=== PATIENT | male | born 1970 | race African-American/Black ===

== ENCOUNTER → 2017-02-05 | Outpatient (CLI) | payer MEDICARE, OTHER ==
[2017-02-05 09:25] LABS: ALT 34 U/L (21-72); AST 25 U/L (17-59); Alkaline Phosphatase 49 U/L (38-126); Anion Gap 9 mmol/L; Blood Urea Nitrogen 14 mg/dL (9-20); Calcium 8.9 mg/dL (8.4-10.2); Carbon Dioxide 25 mmol/L (22-30); Chloride 105 mmol/L (98-107); Creatine Kinase 337 U/L (55-170); Glucose 74 mg/dL (74-99); Non-African American GFR(MDRD) 58 (>60 ml/min/1.73 sqM); Potassium 4.9 mmol/L (3.5-5.1); Sodium 139 mmol/L (137-145); Total Bilirubin 0.5 mg/dL (0.2-1.3); Total Protein 7.4 g/dL (6.3-8.2)
== END | disposition home or self-care (01) ==
LOC: LABWHC1 08:44
PROVIDERS: ATTEND Nurse Practitioner Family
DX: N18.9 Chronic kidney disease, unspecified (principal); E55.9 Vitamin D deficiency, unspecified; R80.9 Proteinuria, unspecified
CPT/HCPCS: 36415; 80053; 82306; 82550; 82570; 84156

== ENCOUNTER 2017-02-08 14:17 | Emergency (ER) | payer MEDICARE, OTHER ==
[2017-02-08] MEDS ORDERED: ASPIRIN 81 MG CHEW PO STA (14:40)
[2017-02-08] MEDS ORDERED: NITROGLYCERIN OINT 1 INCH/GM PACKET TOPICAL STA (14:40)
--- NOTE | 2017-02-08 14:42 | ED ---
General Adult HPI - General Chief complaint: Chest Pain Stated complaint: Chest Pain Time Seen by Provider: 02/08/17 14:33 Source: patient, RN notes reviewed Mode of arrival: wheelchair Limitations: no limitations - History of Present Illness Initial comments: Patient is a pleasant 46-year-old male presenting to the emergency department complaining of chest discomfort. Onset of symptoms was prior to arrival. Patient was in the gym around 45 minutes prior to onset of symptoms. Patient was driving during onset. Patient felt sharp electrical discomfort of his chest that did radiate downwards. Patient was sweaty and nauseated and possibly slightly short of breath. Patient is symptom-free at this time. No history of similar symptoms previously. No leg pain or swelling. - Related Data Home Medications Medication Instructions Recorded Confirmed Testosterone Cypionate 200 mg IM MO 01/21/15 02/08/17 [Depo-Testosterone] Carvedilol [Coreg] 6.25 mg PO BID 02/08/17 02/08/17 Lisinopril [Zestril] 5 mg PO DAILY 02/08/17 02/08/17 Spironolactone [Aldactone] 25 mg PO DAILY 02/08/17 02/08/17 oxyCODONE-APAP 10-325MG [Percocet 1 tab PO QID PRN 02/08/17 02/08/17 10-325 mg] Allergies Allergy/AdvReac Type Severity Reaction Status Date / Time No Known Allergies Allergy Verified 02/08/17 15:17 Review of Systems ROS Statement: Those systems with pertinent positive or pertinent negative responses have been documented in the HPI. ROS Other: All systems not noted in ROS Statement are negative. Constitutional: Denies: fever Eyes: Denies: eye pain ENT: Denies: ear pain Respiratory: Denies: cough Cardiovascular: Reports: chest pain Endocrine: Denies: fatigue Gastrointestinal: Reports: nausea. Denies: abdominal pain Genitourinary: Denies: dysuria Musculoskeletal: Denies: back pain Skin: Denies: rash Neurological: Denies: weakness Past Medical History Past Medical History: Musculoskeletal Disorder, Osteoarthritis (OA), Sleep Apnea /CPAP/BIPAP Additional Past Medical History / Comment(s): possible sleep apnea-never had sleep study done History of Any Multi-Drug Resistant Organisms: None Reported Past Surgical History: Back Surgery Past Anesthesia/Blood Transfusion Reactions: No Reported Reaction Past Psychological History: Anxiety Smoking Status: Former smoker Past Alcohol Use History: None Reported Past Drug Use History: None Reported - Past Family History Father Family Medical History: Cancer Additional Family Medical History / Comment(s): lung Mother Family Medical History: Cancer Additional Family Medical History / Comment(s): colon General Exam Limitations: no limitations General appearance: alert, in no apparent distress Head exam: Present: atraumatic Eye exam: Present: normal appearance, PERRL ENT exam: Present: normal oropharynx Neck exam: Present: normal inspection Respiratory exam: Present: normal lung sounds bilaterally. Absent: chest wall tenderness Cardiovascular Exam: Present: regular rate, normal rhythm Expanded Peripheral pulses: 2+: Radial (R), Radial (L), Posterior Tibialis (R), Posterior Tibialis (L) GI/Abdominal exam: Present: soft. Absent: tenderness Extremities exam: Present: normal inspection. Absent: pedal edema, calf tenderness Neurological exam: Present: alert Psychiatric exam: Present: normal affect, normal mood Skin exam: Present: normal color Course Vital Signs 02/08/17 02/08/17 14:18 16:00 Temperature 97.1 F L Pulse Rate 114 H 85 Respiratory 18 20 Rate Blood Pressure 160/78 O2 Sat by Pulse 99 98 Oximetry EKG Findings - EKG Comments: EKG Findings:: Sinus tachycardia 110. HI 144. QRS 78. QT 314. QTC 427. Normal axis. Normal QRS. Normal ST-T. Medical Decision Making - Medical Decision Making Patient reevaluated and resting comfortably in bed. Patient remained symptom- free. Patient updated on results. Patient was advised admission. Patient does refuse admission. Patient states he was at [facility] one month ago with similar problems and everything checked out okay. Patient is advised limitations in the emergency department. Patient is made aware that heart attack has not been ruled out. Patient has also been made aware that he could be at risk for heart attack in the near future. Patient is agreeable to follow- up with his doctor and organic chemistry professor has previously seen and agreeable to call tomorrow. Patient is advised to return if any worsening symptoms and that he will need to leave AGAINST MEDICAL ADVICE if he decides to leave. - Lab Data Result diagrams: 02/08/17 14:45 02/08/17 14:45 Lab Results 02/08/17 02/08/17 02/08/17 Range/Units 14:45 14:45 14:45 WBC 5.0 (3.8-10.6) k/uL RBC 5.09 (4.30-5.90) m/uL Hgb 16.1 (13.0-17.5) gm/dL Hct 47.7 (39.0-53.0) % MCV 93.8 (80.0-100.0) fL MCH 31.7 (25.0-35.0) pg MCHC 33.8 (31.0-37.0) g/dL RDW 14.2 (11.5-15.5) % Plt Count 193 (150-450) k/uL Neutrophils % 63 % Lymphocytes % 26 % Monocytes % 7 % Eosinophils % 1 % Basophils % 0 % Neutrophils # 3.2 (1.3-7.7) k/uL Lymphocytes # 1.3 (1.0-4.8) k/uL Monocytes # 0.3 (0-1.0) k/uL Eosinophils # 0.1 (0-0.7) k/uL Basophils # 0.0 (0-0.2) k/uL PT (9.0-12.0) sec INR (<1.2) APTT (22.0-30.0) sec D-Dimer (<0.60) mg/L FEU Sodium 136 L (137-145) mmol/L Potassium 3.8 (3.5-5.1) mmol/L Chloride 98 (98-107) mmol/L Carbon Dioxide 25 (22-30) mmol/L Anion Gap 13 mmol/L BUN 22 H (9-20) mg/dL Creatinine 1.28 H (0.66-1.25) mg/dL Est GFR (MDRD) Af Amer >60 (>60 ml/min/1.73 sqM) Est GFR (MDRD) Non-Af 60 (>60 ml/min/1.73 sqM) Glucose 173 H (74-99) mg/dL Calcium 9.2 (8.4-10.2) mg/dL Magnesium 1.5 L (1.6-2.3) mg/dL Total Bilirubin 0.3 (0.2-1.3) mg/dL AST 32 (17-59) U/L ALT 31 (21-72) U/L Alkaline Phosphatase 49 (38-126) U/L Total Creatine Kinase 564 H (55-170) U/L CK-MB (CK-2) 2.1 (0.0-2.4) ng/mL CK-MB (CK-2) Rel Index 0.4 Troponin I <0.012 (0.000-0.034) ng/mL Total Protein 7.4 (6.3-8.2) g/dL Albumin 4.4 (3.5-5.0) g/dL 02/08/17 Range/Units 14:45 WBC (3.8-10.6) k/uL RBC (4.30-5.90) m/uL Hgb (13.0-17.5) gm/dL Hct (39.0-53.0) % MCV (80.0-100.0) fL MCH (25.0-35.0) pg MCHC (31.0-37.0) g/dL RDW (11.5-15.5) % Plt Count (150-450) k/uL Neutrophils % % Lymphocytes % % Monocytes % % Eosinophils % % Basophils % % Neutrophils # (1.3-7.7) k/uL Lymphocytes # (1.0-4.8) k/uL Monocytes # (0-1.0) k/uL Eosinophils # (0-0.7) k/uL Basophils # (0-0.2) k/uL PT 10.7 (9.0-12.0) sec INR 1.1 (<1.2) APTT 22.4 (22.0-30.0) sec D-Dimer <0.17 (<0.60) mg/L FEU Sodium (137-145) mmol/L Potassium (3.5-5.1) mmol/L Chloride (98-107) mmol/L Carbon Dioxide (22-30) mmol/L Anion Gap mmol/L BUN (9-20) mg/dL Creatinine (0.66-1.25) mg/dL Est GFR (MDRD) Af Amer (>60 ml/min/1.73 sqM) Est GFR (MDRD) Non-Af (>60 ml/min/1.73 sqM) Glucose (74-99) mg/dL Calcium (8.4-10.2) mg/dL Magnesium (1.6-2.3) mg/dL Total Bilirubin (0.2-1.3) mg/dL AST (17-59) U/L ALT (21-72) U/L Alkaline Phosphatase (38-126) U/L Total Creatine Kinase (55-170) U/L CK-MB (CK-2) (0.0-2.4) ng/mL CK-MB (CK-2) Rel Index Troponin I (0.000-0.034) ng/mL Total Protein (6.3-8.2) g/dL Albumin (3.5-5.0) g/dL - Radiology Data Radiology results: image reviewed (Chest x-ray shows no acute process.) Disposition Clinical Impression: Chest pain Disposition: Left Against Medical Advice Instructions: Chest Pain (ED) Additional Instructions: Please follow-up with your primary care physician and organic chemistry professor tomorrow. Return for chest pain, difficulty breathing, weakness, worsening symptoms or other concerns. You are leaving AGAINST MEDICAL ADVICE. Aspirin daily until follow-up and advised otherwise. Please have primary care physician reevaluate kidney test and magnesium level in the future. Please decrease the amount of protein and your high-protein diet as this could be related to kidney problems. Referrals: Olga Taylor MD [Primary Care Provider] - 1-2 days Time of Disposition: 16:47
[2017-02-08 14:59] LABS: Basophils % (A) 0 %; CH 32.8; CHCM 35.1; Eosinophils # (A) 0.1 k/uL (0-0.7); Eosinophils % (A) 1 %; HCT 47.7 % (39.0-53.0); HDW 2.46; HGB 16.1 gm/dL (13.0-17.5); Luc % (Auto) 2; Lymphocytes # (A) 1.3 k/uL (1.0-4.8); Lymphocytes % (A) 26 %; MCH 31.7 pg (25.0-35.0); MCHC 33.8 g/dL (31.0-37.0); MCV 93.8 fL (80.0-100.0); Mean Platelet Volume 6.9; Monocytes # (A) 0.3 k/uL (0-1.0); Monocytes % (A) 7 %; Neutrophils # (A) 3.2 k/uL (1.3-7.7); Neutrophils % (A) 63 %; RBC 5.09 m/uL (4.30-5.90); RDW 14.2 % (11.5-15.5); WBC (Perox) 5.12
--- NOTE | 2017-02-08 15:09 | XR ---
EXAMINATION TYPE: XR chest 2V DATE OF EXAM: 02/08/2017 COMPARISON: 12/10/2014 HISTORY: Chest pain and tightness TECHNIQUE: Frontal and lateral views of the chest are obtained. FINDINGS: There is no focal air space opacity, pleural effusion, or pneumothorax seen. The cardiac silhouette size is within normal limits. The osseous structures are intact. IMPRESSION: No acute cardiopulmonary process.
[2017-02-08 15:14] LABS: ALT 31 U/L (21-72); AST 32 U/L (17-59); Alkaline Phosphatase 49 U/L (38-126); Anion Gap 13 mmol/L; Blood Urea Nitrogen 22 mg/dL (9-20); Calcium 9.2 mg/dL (8.4-10.2); Carbon Dioxide 25 mmol/L (22-30); Chloride 98 mmol/L (98-107); Glucose 173 mg/dL (74-99); Magnesium 1.5 mg/dL (1.6-2.3); Non-African American GFR(MDRD) 60 (>60 ml/min/1.73 sqM); Potassium 3.8 mmol/L (3.5-5.1); Sodium 136 mmol/L (137-145); Total Bilirubin 0.3 mg/dL (0.2-1.3); Total Protein 7.4 g/dL (6.3-8.2)
[2017-02-08 15:15] LABS: INR 1.1 (<1.2); Partial Thromboplastin Time 22.4 sec (22.0-30.0); Prothrombin Time 10.7 sec (9.0-12.0)
[2017-02-08 15:22] LABS: Creatine Kinase 564 U/L (55-170)
[2017-02-08 15:34] LABS: Creatine Kinase MB 2.1 ng/mL (0.0-2.4); Troponin I <0.012 ng/mL (0.000-0.034)
[2017-02-08 16:07] VITALS: RESP 20
[2017-02-08] MEDS ORDERED: MAGNESIUM OXIDE 400 MG TAB PO STA (16:12)
[2017-02-08 16:45] VITALS: BP 135/68; PULSE 89; TEMP 98.1
== END 2017-02-08 16:50 | disposition left against medical advice (07) ==
LOC: EC 14:17
DX: R07.89 Other chest pain (principal); R11.0 Nausea; Z87.891 Personal history of nicotine dependence; Z79.02 Long term (current) use of antithrombotics/antiplatelets; Z79.899 Other long term (current) drug therapy
CPT/HCPCS: 36415; 71020; 80053; 82550; 82553; 83735; 84484; 85025; 85379; 85610; 85730; 93005; 99285

== ENCOUNTER 2017-02-08 18:57 | Observation (INO) | payer MEDICARE, OTHER ==
[2017-02-08] MEDS ORDERED: NITROGLYCERIN OINT 1 INCH/GM PACKET TOPICAL STA (19:19)
--- NOTE | 2017-02-08 19:25 | ED ---
Chest Pain HPI - General Chief Complaint: Chest Pain Stated Complaint: chest pain Time Seen by Provider: 02/08/17 19:03 Source: patient Mode of arrival: wheelchair Limitations: no limitations - History of Present Illness Initial Comments: This is a 46-year-old male with a history of hypertension and chronic back pain who presents here department for the second time today for chest pain. He describes it as an aching sensation in his left anterior chest. It is not made worse with breathing or movement. Nothing seems to make it better area however he did get nitro earlier that seemed to improve his symptoms. He went home from the hospital earlier and had more chest pain, some shortness of breath, lightheadedness, and nausea. He was concerned so he returned. It appears that he was recommended to be admitted however left AGAINST MEDICAL ADVICE. He did have a stress test approximately one year ago and states that he was told that he had a weak heart. He was started on blood pressure and diuretics at that time. He denies any lower [place] swelling. Blood work was reviewed from earlier and he had negative troponin and a negative d-dimer. Chest x-ray was normal. - Related Data Home Medications Medication Instructions Recorded Confirmed Testosterone Cypionate 200 mg IM MO 01/21/15 02/08/17 [Depo-Testosterone] Carvedilol [Coreg] 6.25 mg PO BID 02/08/17 02/08/17 Lisinopril [Zestril] 5 mg PO DAILY 02/08/17 02/08/17 Spironolactone [Aldactone] 25 mg PO DAILY 02/08/17 02/08/17 oxyCODONE-APAP 10-325MG [Percocet 1 tab PO QID PRN 02/08/17 02/08/17 10-325 mg] Allergies Allergy/AdvReac Type Severity Reaction Status Date / Time No Known Allergies Allergy Verified 02/08/17 19:02 Review of Systems ROS Statement: Those systems with pertinent positive or pertinent negative responses have been documented in the HPI. ROS Other: All systems not noted in ROS Statement are negative. EKG Findings - EKG Comments: EKG Findings:: EKG showing normal sinus rhythm with a rate of 90. No abnormal ST segment changes. There is a T-wave inversion in lead 3. QTC is 393. Other intervals are normal. No ectopy. Past Medical History Past Medical History: Musculoskeletal Disorder, Osteoarthritis (OA), Sleep Apnea /CPAP/BIPAP Additional Past Medical History / Comment(s): possible sleep apnea-never had sleep study done History of Any Multi-Drug Resistant Organisms: None Reported Past Surgical History: Back Surgery Past Anesthesia/Blood Transfusion Reactions: No Reported Reaction Past Psychological History: Anxiety Smoking Status: Former smoker Past Alcohol Use History: None Reported Past Drug Use History: None Reported - Past Family History Father Family Medical History: Cancer Additional Family Medical History / Comment(s): lung Mother Family Medical History: Cancer Additional Family Medical History / Comment(s): colon General Exam - General Exam Comments Initial Comments: Constitutional: [Awake alert] [Appears comfortable] Head: [Normocephalic atraumatic] Eyes: [no conjunctival injection] [No scleral icterus] [EOMI] Neck: [No JVD] [Supple] Heart: [Regular rate rhythm] [normal S1-S2] [no murmurs], chest pain nonreproducible Lungs: [Clear to auscultation bilaterally] [No wheezing] [No rales] Abdomen: [Soft] [nondistended] [nontender] Extremities: [Non edematous] [DP pulses intact] [Radial pulses intact] Neuro: [A&Ox3] [No focal neurologic deficits] Psych: [Appropriate mood and affect] Limitations: no limitations Course Vital Signs 02/08/17 02/08/17 19:00 19:31 Temperature 97.5 F L Pulse Rate 87 Pulse Rate [ 80 Right Radial] Respiratory 16 Rate Blood Pressure 143/65 O2 Sat by Pulse 95 Oximetry Chest Pain MDM - MDM This is a 46-year-old male who presents emergency department for chest pain that was recurrent today. EKG was unremarkable for an acute STEMI. Repeat troponins were drawn. Patient was given Nitropaste and started on heparin. I spoke with Dr. Garcia who accepts the admission and would like cardiology to see him. Patient was updated and agrees with this plan. All questions were answered. Disposition Clinical Impression: Unstable angina Disposition: ADMITTED IP TO THIS HOSP Condition: Stable
[2017-02-08] MEDS ORDERED: NITROGLYCERIN SL TABS 0.4 MG TAB SUBLINGUAL PRN (19:32)
[2017-02-08] MEDS ORDERED: HEPARIN SODIUM,PORCINE 5,000 UNIT/ML 1 ML VIAL IV ONE (19:32)
[2017-02-08] MEDS ORDERED: HEPARIN SODIUM,PORCINE 5,000 UNIT/ML 1 ML VIAL IV PRN (19:37)
[2017-02-08] MEDS ORDERED: HEPARIN SODIUM,PORCINE/D5W PMX 25,000 UNIT in DEXTROSE/WATER 1 500ML.BAG IV SCH (19:45)
[2017-02-08 20:03] LABS: Creatine Kinase 573 U/L (55-170)
[2017-02-08 20:16] LABS: Creatine Kinase MB 1.7 ng/mL (0.0-2.4); Troponin I <0.012 ng/mL (0.000-0.034)
[2017-02-08] MEDS: oxyCODONE-APAP 10-325MG 1 EACH TAB PO PRN (21:05)
[2017-02-09 02:48] LABS: Creatine Kinase 521 U/L (55-170)
[2017-02-09 03:01] LABS: Creatine Kinase MB 1.6 ng/mL (0.0-2.4); Troponin I <0.012 ng/mL (0.000-0.034)
[2017-02-09] MEDS: oxyCODONE-APAP 10-325MG 1 EACH TAB PO PRN (07:02)
[2017-02-09] MEDS ORDERED: SPIRONOLACTONE 25 MG TAB PO SCH (09:00)
[2017-02-09] MEDS ORDERED: LISINOPRIL 5 MG TAB PO SCH (09:00)
[2017-02-09] MEDS ORDERED: ASPIRIN 325 MG TAB PO SCH (09:00)
[2017-02-09] MEDS ORDERED: CARVEDILOL 6.25 MG TAB PO SCH (09:15)
[2017-02-09 09:16] LABS: Cholesterol 190 mg/dL (<200); HDL Cholesterol 36 mg/dL (40-60)
[2017-02-09] MEDS ORDERED: ATORVASTATIN 10 MG TAB PO SCH (10:00)
--- NOTE | 2017-02-09 10:00 | P.CRDCN ---
History of Present Illness Consult date: 02/09/17 Consult reason: chest pain History of present illness: This is a 46-year-old -[place] male. He presented to the emergency department with complaints of chest pain. He states he was driving his car and he felt what he describes as a electrical jolt to the left chest wall. He states he became short of breath, nauseous, diaphoretic and dizzy. He felt as though he was going to pass out and got extremely weak throughout his entire body. He states he was right near the hospital when this occurred so he came straight to the ED. This episode persisted for approximately 10 minutes and went away on its own. He has a history of nonischemic cardiomyopathy and hypertension. He follows with Dr. Orozco as an outpatient. He recently had a stress echo and an echocardiogram in August 2015. Stress echo was normal; echocardiogram revealed an ejection fraction of 45%, mild MR and mild TR. His EKG reveals a normal sinus mechanism. Chest x-ray is negative for an acute pulmonary process. Troponins are negative 3, d-dimer is negative, BNP was less than 11, mag 1.5 and creatinine is 1.28. His medications include Zestril 5 mg, Coreg 6.25 mg, Aldactone 25 mg, testosterone 200 mg weekly. Upon examination he is seen resting comfortably in bed in no acute distress. He denies chest pain, shortness of breath, nausea, dizziness or palpitations. Cardiac tracings overnight revealed normal sinus mechanism with no arrhythmia. Review of Systems REVIEW OF SYSTEMS: Patient denies any chest discomfort. No shortness of breath. No diaphoresis. He denies headache, dizziness, blurred vision, double vision. No dyspnea on exertion. Patient denies any stomach discomfort. No nausea, vomiting. No hematochezia. No hematemesis. Denies any black stools or blood in his stools. No syncope. No palpitations. No cough. No recent fever or chills. Denies dysuria or hematuria. No muscle weakness or numbness. Past Medical History Past Medical History: Hypertension, Osteoarthritis (OA), Sleep Apnea/CPAP/BIPAP Additional Past Medical History / Comment(s): possible sleep apnea-never had sleep study done. Low testosterone. History of Any Multi-Drug Resistant Organisms: None Reported Past Surgical History: Back Surgery Additional Past Surgical History / Comment(s): back surgeries x2 Past Anesthesia/Blood Transfusion Reactions: No Reported Reaction Smoking Status: Former smoker - Past Family History Father Family Medical History: Cancer Additional Family Medical History / Comment(s): lung Mother Family Medical History: Cancer Additional Family Medical History / Comment(s): colon Medications and Allergies Home Medications Medication Instructions Recorded Confirmed Type Testosterone Cypionate 200 mg IM MO 01/21/15 02/08/17 History [Depo-Testosterone] Carvedilol [Coreg] 6.25 mg PO BID 02/08/17 02/08/17 History Lisinopril [Zestril] 5 mg PO DAILY 02/08/17 02/08/17 History Spironolactone [Aldactone] 25 mg PO DAILY 02/08/17 02/08/17 History oxyCODONE-APAP 10-325MG [Percocet 1 tab PO QID PRN 02/08/17 02/08/17 History 10-325 mg] Allergies Allergy/AdvReac Type Severity Reaction Status Date / Time No Known Allergies Allergy Verified 02/08/17 20:38 Physical Exam Vitals: Vital Signs Temp Pulse Pulse Resp BP BP Pulse Ox 02/09/17 04:00 98.3 F 80 16 107/60 97 02/09/17 03:43 16 02/08/17 23:19 16 02/08/17 23:18 98.8 F 71 16 91/44 95 02/08/17 20:50 18 02/08/17 20:23 98.5 F 86 18 132/57 93 L 02/08/17 19:55 98.0 F 90 18 135/58 95 02/08/17 19:31 80 02/08/17 19:00 97.5 F L 87 16 143/65 95 Intake and Output 02/08/17 02/09/17 02/09/17 22:59 06:59 14:59 Intake Total 705.790 Balance 705.790 Intake: IV 360 0.9@20 180 Heparin Sodium,Porcine/ 180 D5w Pmx 25,000 unit In Dextrose/Water 1 500ml. bag @ 9.7 UNITS/KG/HR 20. 06 mls/hr IV .Q24H [facility] Rx #:[id number] Intake, IV Titration 145.790 Amount Heparin Sodium,Porcine/ 145.790 D5w Pmx 25,000 unit In Dextrose/Water 1 500ml. bag @ 9.7 UNITS/KG/HR 20. 06 mls/hr IV .Q24H [facility] Rx #:[id number] Oral 200 Other: Voiding Method Toilet Toilet # Voids 2 Weight 104.2 kg GENERAL: This is a 46-year-old male in no apparent distress at the time of my examination. HEENT: Head is atraumatic, normocephalic. Pupils are equal, round. Sclerae anicteric. Conjunctivae are clear. Mucous membranes of the mouth are moist. Neck is supple. There is no jugular venous distention. No carotid bruit is heard. LUNGS: Clear to auscultation and precussion. No chest wall tenderness is noted on palpation or with deep breathing. HEART: Regular rate and rhythm without murmurs, rubs or gallops. S1 and S2 heard. ABDOMEN: Soft, nontender. Bowel sounds are heard. No organomegaly noted. EXTREMITIES: 2+ peripheral pulses with no evidence of peripheral edema and no calf tenderness noted]. NEUROLOGIC: Patient is awake, alert and oriented x3. Results Cardiac Enzymes 02/08/17 02/09/17 Range/Units 19:29 02:03 CK-MB (CK-2) 1.7 1.6 (0.0-2.4) ng/mL Troponin I <0.012 <0.012 (0.000-0.034) ng/mL Coagulation 02/09/17 Range/Units 02:03 APTT 41.1 H (22.0-30.0) sec Current Medications Generic Name Dose Route Start Last Admin Trade Name Freq PRN Reason Stop Dose Admin Aspirin 325 mg 02/09/17 09:00 Aspirin PO DAILY [facility] Heparin Sodium (Porcine) 0 unit 02/08/17 19:37 02/09/17 02:56 Heparin IV 4,000 unit PER PROTOCOL PRN Administration PER PROTOCOL Protocol Heparin Sodium/Dextrose 25,000 500 mls @ 20.06 mls/hr 02/08/17 19:45 02:57 unit/ IV Solution IV 12.7 units/kg/hr .Q24H [facility] 26.26 mls/hr Protocol Titration 9.7 UNITS/KG/HR Lisinopril 5 mg 02/09/17 09:00 Zestril PO DAILY [facility] Nitroglycerin 0.4 mg 02/08/17 19:32 Nitrostat SUBLINGUAL Q5M PRN Chest Pain Oxycodone/Acetaminophen 1 each 02/08/17 19:34 02/09/17 07:02 Percocet 10-325 PO 1 each QID PRN Administration Moderate Pain Spironolactone 25 mg 02/09/17 09:00 Aldactone PO DAILY [facility] Intake and Output 02/08/17 02/09/17 02/09/17 22:59 06:59 14:59 Intake Total 705.790 Balance 705.790 Intake: IV 360 0.9@20 180 Heparin Sodium,Porcine/ 180 D5w Pmx 25,000 unit In Dextrose/Water 1 500ml. bag @ 9.7 UNITS/KG/HR 20. 06 mls/hr IV .Q24H [facility] Rx #:[id number] Intake, IV Titration 145.790 Amount Heparin Sodium,Porcine/ 145.790 D5w Pmx 25,000 unit In Dextrose/Water 1 500ml. bag @ 9.7 UNITS/KG/HR 20. 06 mls/hr IV .Q24H [facility] Rx #:[id number] Oral 200 Other: Voiding Method Toilet Toilet # Voids 2 Weight 104.2 kg - EKG Interpretation EKG: sinus rhythm, normal QRS, normal ST/T, no acute changes Assessment and Plan Plan: ASSESSMENT 1. Atypical chest pain. 2. History of nonischemic cardiomyopathy 3. Essential hypertension 4. Hyperlipidemia PLAN 1. We will perform an echocardiogram. Patient is appropriate for discharge home with Holter monitor for 24 hours. He can follow-up in the office with Dr. JOSE A Rodriguez on Wednesday for review of Holter monitor and an outpatient stress echo. He was counseled on avoiding alcohol due to his cardiomyopathy. Patient verbalized understanding and questions were answered appropriately. He can resume all his current medications as ordered and we will add Liptor 10 mg PO daily.
[2017-02-09 12:07] VITALS: BP 141/87; PULSE 76; RESP 15; TEMP 98.2
--- NOTE | 2017-02-09 14:48 | P.HPIM ---
History of Present Illness Patient is a pleasant 46-year-old gentleman came into the hospital with complaints of chest pain while driving lasted for about 15 minutes, nonradiating on the left side of the chest associated diaphoresis, lightheadedness, nausea. Patient's chest pain is nonpleuritic in nature, not associated with food pressure-like sensation moderate in severity. Resolved with sublingual light and visiting. Patient did not have any significant EKG changes or troponin elevation. Patient had a recent stress test about a year ago. Cardiology valid the patient really recommending outpatient stress test. Patient had a nonischemic and a myopathy with recent ejection fraction being 45% . 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 Patient is chest pain-free at this time patient wanted to be discharged and patient is cleared for discharge from cardiology perspective echocardiogram is being obtained results of which are pending. Review of Systems REVIEW OF SYSTEMS: CONSTITUTIONAL: No fever, no malaise, no fatigue. HEENT: No recent visual problems or hearing problems. Denied any sore throat. CARDIOVASCULAR: No orthopnea, PND, no palpitations, no syncope. PULMONARY: No shortness of breath, no cough, no hemoptysis. GASTROINTESTINAL: No diarrhea, no nausea, no vomiting, no abdominal pain. Normoactive bowel sounds. NEUROLOGICAL: No headaches, no weakness, no numbness. HEMATOLOGICAL: Denies any bleeding or petechiae. GENITOURINARY: Denies any burning micturition, frequency, or urgency. MUSCULOSKELETAL/RHEUMATOLOGICAL: Denies any joint pain, swelling, or any muscle pain. ENDOCRINE: Denies any polyuria or polydipsia. The rest of the 14-point review of systems is negative. Past Medical History Past Medical History: Hypertension, Osteoarthritis (OA), Sleep Apnea/CPAP/BIPAP Additional Past Medical History / Comment(s): possible sleep apnea-never had sleep study done. Low testosterone. History of Any Multi-Drug Resistant Organisms: None Reported Past Surgical History: Back Surgery Additional Past Surgical History / Comment(s): back surgeries x2 Past Anesthesia/Blood Transfusion Reactions: No Reported Reaction Smoking Status: Former smoker - Past Family History Father Family Medical History: Cancer Additional Family Medical History / Comment(s): lung Mother Family Medical History: Cancer Additional Family Medical History / Comment(s): colon Medications and Allergies Home Medications Medication Instructions Recorded Confirmed Type Testosterone Cypionate 200 mg IM MO 01/21/15 02/08/17 History [Depo-Testosterone] Carvedilol [Coreg] 6.25 mg PO BID 02/08/17 02/08/17 History Lisinopril [Zestril] 5 mg PO DAILY 02/08/17 02/08/17 History Spironolactone [Aldactone] 25 mg PO DAILY 02/08/17 02/08/17 History oxyCODONE-APAP 10-325MG [Percocet 1 tab PO QID PRN 02/08/17 02/08/17 History 10-325 mg] Allergies Allergy/AdvReac Type Severity Reaction Status Date / Time No Known Allergies Allergy Verified 02/08/17 20:38 Physical Exam Vitals: Vital Signs Temp Pulse Pulse Pulse Resp BP BP 02/09/17 12:00 98.2 F 76 15 141/87 02/09/17 08:00 98.4 F 77 14 137/57 02/09/17 04:00 98.3 F 80 16 107/60 02/09/17 03:43 16 02/08/17 23:19 16 02/08/17 23:18 98.8 F 71 16 91/44 02/08/17 20:50 18 02/08/17 20:23 98.5 F 86 18 132/57 02/08/17 19:55 98.0 F 90 18 135/58 02/08/17 19:31 80 02/08/17 19:00 97.5 F L 87 16 143/65 Pulse Ox 02/09/17 12:00 96 02/09/17 08:00 97 02/09/17 04:00 97 02/09/17 03:43 02/08/17 23:19 02/08/17 23:18 95 02/08/17 20:50 02/08/17 20:23 93 L 02/08/17 19:55 95 02/08/17 19:31 02/08/17 19:00 95 Intake and Output 02/08/17 02/09/17 02/09/17 22:59 06:59 14:59 Intake Total 705.790 240 Balance 705.790 240 Intake: IV 360 0.9@20 180 Heparin Sodium,Porcine/ 180 D5w Pmx 25,000 unit In Dextrose/Water 1 500ml. bag @ 9.7 UNITS/KG/HR 20. 06 mls/hr IV .Q24H NOEMÍ Rx #:[id number] Intake, IV Titration 145.790 Amount Heparin Sodium,Porcine/ 145.790 D5w Pmx 25,000 unit In Dextrose/Water 1 500ml. bag @ 9.7 UNITS/KG/HR 20. 06 mls/hr IV .Q24H NOEMÍ Rx #:[id number] Oral 200 240 Other: Voiding Method Toilet Toilet Toilet # Voids 2 1 Weight 104.2 kg PHYSICAL EXAMINATION: GENERAL: The patient is alert and oriented x3, not in any acute distress. Well developed, well nourished. HEENT: Pupils are round and equally reacting to light. EOMI. No scleral icterus. No conjunctival pallor. Normocephalic, atraumatic. No pharyngeal erythema. No thyromegaly. CARDIOVASCULAR: S1 and S2 present. No murmurs, rubs, or gallops. PULMONARY: Chest is clear to auscultation, no wheezing or crackles. ABDOMEN: Soft, nontender, nondistended, normoactive bowel sounds. No palpable organomegaly. MUSCULOSKELETAL: No joint swelling or deformity. EXTREMITIES: No cyanosis, clubbing, or pedal edema. NEUROLOGICAL: Gross neurological examination did not reveal any focal deficits. SKIN: No rashes. Results Labs: Abnormal Lab Results - Last 24 Hours (Table) 02/08/17 02/08/17 02/09/17 Range/Units 19:18 19:29 02:03 APTT (22.0-30.0) sec Total Creatine Kinase 573 H 521 H (55-170) U/L LDL Cholesterol, Calc 129 H (0-99) mg/dL HDL Cholesterol 36 L (40-60) mg/dL 02/09/17 Range/Units 02:03 APTT 41.1 H (22.0-30.0) sec Total Creatine Kinase (55-170) U/L LDL Cholesterol, Calc (0-99) mg/dL HDL Cholesterol (40-60) mg/dL Thrombosis Risk Factor Assmnt - Choose All That Apply Any of the Below Risk Factors Present?: Yes Each Factor Represents 1 point: Age 41-60 years, Obesity (BMI >25) Other Risk Factors: No Other congenital or acquired thrombophilia - If yes, enter type in comment: No Thrombosis Risk Factor Assessment Total Risk Factor Score: 2 Thrombosis Risk Factor Assessment Level: Low Risk Assessment and Plan Plan: 1 chest pain: Rule out acute coronary syndromes and unstable angina patient was evaluated by cardiology and patient will get outpatient stress test on Wednesday. #2 nonischemic cardia myopathy: Patient is not in CHF exacerbation continue his home medications patient is being discharged on Holter monitor today. #3 hypertension #4 sleep apnea and uses CPAP machine at home. #5 osteoarthritis. For above-mentioned chronic medical problems patient will continue his home medications and patient is being discharged in stable medical condition to home.
--- NOTE | 2017-02-09 14:49 | P.DS ---
Providers Date of admission: 02/08/17 19:32 Attending physician: Tunde Garcia MD Consults: 02/08/17 19:32 Consult Physician Urgent Consulting Provider: Kiki Rodriguez Consult Reason/Comments: Chest Pain Do you want consulting provider notified?: Yes, Notify in am Primary care physician: [facility] Course: Please refer to HPI Patient Condition at Discharge: Stable Plan - Discharge Summary New Discharge Prescriptions: New Atorvastatin [Lipitor] 10 mg PO DAILY #30 tab No Action Testosterone Cypionate [Depo-Testosterone] 200 mg IM MO Spironolactone [Aldactone] 25 mg PO DAILY oxyCODONE-APAP 10-325MG [Percocet 10-325 mg] 1 tab PO QID PRN PRN Reason: Pain Carvedilol [Coreg] 6.25 mg PO BID Lisinopril [Zestril] 5 mg PO DAILY Discharge Medication List Testosterone Cypionate [Depo-Testosterone] 200 mg IM MO 01/21/15 [History] Carvedilol [Coreg] 6.25 mg PO BID 02/08/17 [History] Lisinopril [Zestril] 5 mg PO DAILY 02/08/17 [History] Spironolactone [Aldactone] 25 mg PO DAILY 02/08/17 [History] oxyCODONE-APAP 10-325MG [Percocet 10-325 mg] 1 tab PO QID PRN 02/08/17 [History] Atorvastatin [Lipitor] 10 mg PO DAILY #30 tab 02/09/17 [Rx] Follow up Appointment(s)/Referral(s): Kiki Rodriguez MD [STAFF PHYSICIAN] - 02/12/17 1:00 pm (Follow up with Dr. Rodriguez for outpatient stress test. ) Patient Instructions/Handouts: Chest Pain (GEN) Activity/Diet/Wound Care/Special Instructions: 1) Return Holter Monitor on Wednesday (February 10) to [facility]. Follow up on Wednesday with Dr. Rodriguez at [facility]. 2) Prescription for Lipitor at your pharmacy. Start dose tomorrow at bedtime. Discharge Disposition: HOME SELF-CARE
--- NOTE | 2017-02-11 11:44 | HM ---
24 HOUR DCG No diary was provided with this Holter recording. Predominant rhythm is sinus with a heart rate ranging from 52 to 118 beats per minute with an average heart rate of 81 beats per minute. Rare isolated PAC's and PVC's were noted. There was no significant tachy or bradyarrhythmias. There was some sinus arrhythmia noted. FINAL IMPRESSION: Unremarkable 24 hour DCG with predominant sinus rhythm. No diary was provided and no significant tachy or bradyarrhythmias were noted. MTDD
== END 2017-02-09 14:03 | disposition home or self-care (01) ==
LOC: EC 18:57 → 3OBS 19:32
PROVIDERS: ADMIT Internal Medicine; ATTEND Internal Medicine
DX: R07.89 Other chest pain (principal); I42.9 Cardiomyopathy, unspecified; I11.0 Hypertensive heart disease with heart failure; I50.9 Heart failure, unspecified; E78.5 Hyperlipidemia, unspecified; M54.9 Dorsalgia, unspecified; G89.29 Other chronic pain; R61 Generalized hyperhidrosis; R42 Dizziness and giddiness; R11.0 Nausea; F41.9 Anxiety disorder, unspecified; M19.90 Unspecified osteoarthritis, unspecified site; G47.30 Sleep apnea, unspecified; Z99.89 Dependence on other enabling machines and devices; Z87.891 Personal history of nicotine dependence; Z79.899 Other long term (current) drug therapy
CPT/HCPCS: 96376 ×3; 93005 ×2; 96365; 96366 ×2; 99285; 36415; 93225; 93226; 85379; 83880; 80061; 80053; 82550 ×2; 82553 ×2; 83735; 84484 ×2; 85025; 85610; 85730 ×2; 71020; G0378 ×2; J1644 ×3

== ENCOUNTER → 2017-07-09 | Outpatient (CLI) | payer MEDICARE, OTHER | END | disposition home or self-care (01) | LOC: RADMRIMAIN 17:55 | PROVIDERS: ATTEND Internal Medicine | DX: R10.9 Unspecified abdominal pain (principal) | CPT/HCPCS: 82565 ==

== ENCOUNTER 2017-11-02 16:19 | Emergency (ER) | payer MEDICARE, OTHER ==
--- NOTE | 2017-11-02 17:13 | XR ---
EXAMINATION TYPE: XR chest 2V DATE OF EXAM: 11/02/2017 CLINICAL HISTORY: Pain TECHNIQUE: Frontal and lateral views of the chest are obtained. COMPARISON: February 08, 2017 FINDINGS: There is no focal air space opacity, pleural effusion, or pneumothorax seen. The cardiac silhouette size is within normal limits. The osseous structures are intact. IMPRESSION: No acute cardiopulmonary process.
[2017-11-02] MEDS ORDERED: IBUPROFEN 600 MG TAB PO STA (17:45)
[2017-11-02] MEDS ORDERED: ACETAMINOPHEN TAB 500 MG TAB PO STA (17:45)
--- NOTE | 2017-11-02 17:45 | ED ---
General Adult HPI - General Chief complaint: Upper Respiratory Infection Stated complaint: cough/congestion in chest Time Seen by Provider: 11/02/17 17:38 Source: patient, RN notes reviewed Mode of arrival: ambulatory Limitations: no limitations - History of Present Illness Initial comments: Patient 47-year-old male presented to the emergency room today with a chief complaint of cough, congestion, body aches, and chills over the last week. Patient states is not having, Motrin/Tylenol today. Patient does admit that he was worried about a pneumonia. Patient admits to cough no sputum production. Patient denies any other complaints or symptoms. Patient denies any recent shortness of breath, chest pain, back pain, abdominal pain, nausea or vomiting, numbness or tingling, dysuria or hematuria, constipation or diarrhea, headaches or visual changes, or any other complaints. - Related Data Home Medications Medication Instructions Recorded Confirmed Testosterone Cypionate 200 mg IM MO 01/21/15 02/08/17 [Depo-Testosterone] Carvedilol [Coreg] 6.25 mg PO BID 02/08/17 02/08/17 Lisinopril [Zestril] 5 mg PO DAILY 02/08/17 02/08/17 Spironolactone [Aldactone] 25 mg PO DAILY 02/08/17 02/08/17 oxyCODONE-APAP 10-325MG [Percocet 1 tab PO QID PRN 02/08/17 02/08/17 10-325 mg] Previous Rx's Medication Instructions Recorded Atorvastatin [Lipitor] 10 mg PO DAILY #30 tab 02/09/17 Ibuprofen [Motrin] 600 mg PO Q6HR PRN #30 day 11/02/17 Allergies Allergy/AdvReac Type Severity Reaction Status Date / Time No Known Allergies Allergy Verified 02/08/17 20:38 Review of Systems ROS Statement: Those systems with pertinent positive or pertinent negative responses have been documented in the HPI. ROS Other: All systems not noted in ROS Statement are negative. Past Medical History Past Medical History: Hypertension, Osteoarthritis (OA), Sleep Apnea/CPAP/BIPAP Additional Past Medical History / Comment(s): possible sleep apnea-never had sleep study done. Low testosterone. History of Any Multi-Drug Resistant Organisms: None Reported Past Surgical History: Back Surgery Additional Past Surgical History / Comment(s): back surgeries x2 Past Anesthesia/Blood Transfusion Reactions: No Reported Reaction Past Psychological History: Anxiety Smoking Status: Former smoker Past Alcohol Use History: None Reported Past Drug Use History: None Reported - Past Family History Father Family Medical History: Cancer Additional Family Medical History / Comment(s): lung Mother Family Medical History: Cancer Additional Family Medical History / Comment(s): colon General Exam - General Exam Comments Initial Comments: General: The patient is awake and alert, in no distress, and does not appear acutely ill. Eye: Pupils are equal, round and reactive to light, extra-ocular movements are intact. No nystagmus. There is normal conjunctiva bilaterally. No signs of icterus. Ears, nose, mouth and throat: There are moist mucous membranes and no oral lesions. Neck: The neck is supple, there is no tenderness or JVD. Cardiovascular: There is a regular rate and rhythm. No murmur, rub or gallop is appreciated. Respiratory: Lungs are clear to auscultation, respirations are non-labored, breath sounds are equal. No wheezes, stridor, rales, or rhonchi. Gastrointestinal: Soft, non-distended, non-tender abdomen without masses or organomegaly noted. There is no rebound or guarding present. No CVA tenderness. Musculoskeletal: Normal ROM, no tenderness. Strength 5/5. Sensation intact. Pulses equal bilaterally 2+. Neurological: A&O x 3. CN II-XII intact, There are no obvious motor or sensory deficits. Coordination appears grossly intact. Speech is normal. Skin: Skin is warm and dry and no rashes or lesions are noted. Psychiatric: Cooperative, appropriate mood & affect, normal judgment. Limitations: no limitations Course Vital Signs 11/02/17 16:49 Temperature 99 F Pulse Rate 101 H Respiratory 18 Rate Blood Pressure 153/74 O2 Sat by Pulse 96 Oximetry Medical Decision Making - Medical Decision Making Patient is a positive for influenza B. Chest x-ray negative for any pneumonia. Patient is been sick for the past week. Outside treatment for temporal. Patient was continued Tylenol/Motrin for symptoms. Advised following up with the family doctor over the next 2-5 days if symptoms are not improving or return to emergency room for any other concerns. - Lab Data Lab Results 11/02/17 Range/Units 16:56 Influenza Type A RNA Not Detected (Not Detectd) Influenza Type B (PCR) Detected H (Not Detectd) Disposition Clinical Impression: Influenza B Disposition: HOME SELF-CARE Condition: Good Instructions: Influenza (ED) Additional Instructions: Please use medication as discussed. Please follow-up with family doctor in the next 2-5 days of symptoms have not improved. Please return to emergency room if the symptoms increase or worsen or for any other concerns. Prescriptions: Ibuprofen [Motrin] 600 mg PO Q6HR PRN #30 day PRN Reason: Pain Is patient prescribed a controlled substance at d/c from ED?: No Referrals: Olga Taylor MD [Primary Care Provider] - 1-2 days Time of Disposition: 17:45
[2017-11-02 18:48] VITALS: BP 149/64; PULSE 18; RESP 64; TEMP 99.2
== END 2017-11-02 18:46 | disposition home or self-care (01) ==
LOC: EC 16:19
DX: J10.1 Influenza due to other identified influenza virus with other respiratory manifestations (principal); I10 Essential (primary) hypertension; Z87.891 Personal history of nicotine dependence; Z79.52 Long term (current) use of systemic steroids; Z79.899 Other long term (current) drug therapy
CPT/HCPCS: 71046; 87502; 99283

== ENCOUNTER 2017-11-07 01:18 | Emergency (ER) | payer MEDICARE, OTHER ==
[2017-11-07] MEDS ORDERED: SODIUM CHLORIDE 0.9% 1,000 ML IV STA (02:05)
[2017-11-07] MEDS ORDERED: SODIUM CHLORIDE 0.9% 500 ML IV STA (02:05)
[2017-11-07 02:25] LABS: Basophils % (A) 0 %; Eosinophils # (A) 0.1 k/uL (0-0.7); Eosinophils % (A) 1 %; HGB 15.5 gm/dL (13.0-17.5); Lymphocytes # (A) 1.4 k/uL (1.0-4.8); Lymphocytes % (A) 36 %; MCH 30.9 pg (25.0-35.0); MCHC 33.6 g/dL (31.0-37.0); Mean Platelet Volume 6.6; Monocytes # (A) 0.4 k/uL (0-1.0); Monocytes % (A) 10 %; Neutrophils % (A) 50 %; Platelet Count 196 k/uL (150-450); RDW 12.8 % (11.5-15.5); WBC 3.9 k/uL (3.8-10.6)
[2017-11-07 02:35] LABS: Albumin 3.8 g/dL (3.5-5.0); Calcium 8.9 mg/dL (8.4-10.2); Potassium 4.3 mmol/L (3.5-5.1); Total Bilirubin 0.3 mg/dL (0.2-1.3); Total Protein 6.8 g/dL (6.3-8.2)
--- NOTE | 2017-11-07 02:36 | XR ---
EXAM: XR Chest, 2 Views CLINICAL HISTORY: ITS.REASON XR Reason: Dizziness; Influenza TECHNIQUE: Frontal and lateral views of the chest. COMPARISON: 11/02/17 FINDINGS: Lungs: Unremarkable. No consolidation. Pleural space: Unremarkable. No pneumothorax. Heart: Unremarkable. No cardiomegaly. Mediastinum: Unremarkable. Bones/joints: Unremarkable. IMPRESSION: Normal chest x-rays.
[2017-11-07 02:51] VITALS: RESP 16
--- NOTE | 2017-11-07 03:01 | ED ---
Dizziness HPI - General Chief Complaint: Dizziness Stated Complaint: Dizziness Time Seen by Provider: 11/07/17 01:47 Source: patient Mode of arrival: wheelchair Limitations: physical limitation - History of Present Illness Initial Comments: 47-year-old male patient recently diagnosed with influenza B presents the emergency department today for complaints of dizziness. Patient states that he laid down in bed tonight and had onset of dizziness. States it felt like the room was spinning. Patient states that symptoms have lessened somewhat since arriving here. Patient states that he has been sick with upper respiratory type symptoms including cough, nasal congestion, ear fullness, and sore throat. Patient denies any current headache, weakness, chest pain, shortness of breath , abdominal pain, nausea, or vomiting. Patient denies any recent rash, diarrhea , constipation, back pain, numbness, tingling, hematuria, dysuria, urinary urgency, urinary frequency, visual changes, or any other complaints. - Related Data Home Medications Medication Instructions Recorded Confirmed Testosterone Cypionate 200 mg IM MO 01/21/15 02/08/17 [Depo-Testosterone] Carvedilol [Coreg] 6.25 mg PO BID 02/08/17 02/08/17 Lisinopril [Zestril] 5 mg PO DAILY 02/08/17 02/08/17 Spironolactone [Aldactone] 25 mg PO DAILY 02/08/17 02/08/17 oxyCODONE-APAP 10-325MG [Percocet 1 tab PO QID PRN 02/08/17 02/08/17 10-325 mg] Previous Rx's Medication Instructions Recorded Atorvastatin [Lipitor] 10 mg PO DAILY #30 tab 02/09/17 Ibuprofen [Motrin] 600 mg PO Q6HR PRN #30 day 11/02/17 Allergies Allergy/AdvReac Type Severity Reaction Status Date / Time No Known Allergies Allergy Verified 11/07/17 01:38 Review of Systems ROS Statement: Those systems with pertinent positive or pertinent negative responses have been documented in the HPI. ROS Other: All systems not noted in ROS Statement are negative. Past Medical History Past Medical History: Hypertension, Osteoarthritis (OA), Sleep Apnea/CPAP/BIPAP Additional Past Medical History / Comment(s): possible sleep apnea-never had sleep study done. Low testosterone., History of Any Multi-Drug Resistant Organisms: None Reported Past Surgical History: Back Surgery Additional Past Surgical History / Comment(s): back surgeries x2, Past Anesthesia/Blood Transfusion Reactions: No Reported Reaction Past Psychological History: Anxiety Smoking Status: Former smoker Past Alcohol Use History: None Reported Past Drug Use History: None Reported - Past Family History Father Family Medical History: Cancer Additional Family Medical History / Comment(s): lung Mother Family Medical History: Cancer Additional Family Medical History / Comment(s): colon General Exam Limitations: physical limitation General appearance: alert, in no apparent distress, other (This is a well- developed, well-nourished adult male patient in no acute distress. Vital signs upon presentation are 98.1F, pulse 79, respirations 18, blood pressure 155/71, pulse ox 98% on room air.) Eye exam: Present: normal appearance, PERRL, EOMI. Absent: scleral icterus, conjunctival injection, periorbital swelling ENT exam: Present: normal exam, normal oropharynx, mucous membranes moist Respiratory exam: Present: normal lung sounds bilaterally. Absent: respiratory distress, wheezes, rales, rhonchi, stridor Cardiovascular Exam: Present: regular rate, normal rhythm, normal heart sounds. Absent: systolic murmur, diastolic murmur, rubs, gallop, clicks GI/Abdominal exam: Present: soft, normal bowel sounds. Absent: distended, tenderness, guarding, rebound, rigid Neurological exam: Present: alert, oriented X3, CN II-XII intact, other ( Strength in all 4 extremities 5/5.) Psychiatric exam: Present: normal affect, normal mood Skin exam: Present: warm, dry, intact, normal color. Absent: rash Course Vital Signs 11/07/17 11/07/17 11/07/17 01:36 01:44 02:50 Temperature 98.1 F 97.8 F 97.8 F Pulse Rate 79 83 75 Respiratory 18 14 16 Rate Blood Pressure 155/71 130/90 140/65 O2 Sat by Pulse 98 97 97 Oximetry 11/07/17 03:36 Temperature 97.7 F Pulse Rate 83 Respiratory 16 Rate Blood Pressure 137/77 O2 Sat by Pulse 98 Oximetry EKG Findings - EKG Comments: EKG Findings:: EKG obtained at 0152 shows normal sinus rhythm with a ventricular rate of 77, ND interval 120, QR mosque 76, QT 350, QTC 396. No evidence of ST elevation or depression. Medical Decision Making - Medical Decision Making 47-year-old male patient presented to the emergency department today for evaluation of dizziness. Patient was recently diagnosed with influenza. He has been complaining of nasal congestion and ear fullness. Physical examination is unremarkable. Patient is neurologically intact. Chest x-ray shows no acute cardiopulmonary process. Labs are unremarkable. I did discuss middle ear as a cause for his dizziness. Patient is feeling somewhat improved after receiving IV fluids here in the department. Return parameters discussed in detail. He is instructed to follow-up his primary care physician for recheck in 1-2 days. He is instructed to return here immediately for any new, worsening, or concerning symptoms. He verbalizes understanding and agrees with this plan. - Lab Data Result diagrams: 11/07/17 02:00 11/07/17 02:00 Lab Results 11/07/17 11/07/17 Range/Units 02:00 02:00 WBC 3.9 (3.8-10.6) k/uL RBC 5.00 (4.30-5.90) m/uL Hgb 15.5 (13.0-17.5) gm/dL Hct 46.0 (39.0-53.0) % MCV 92.0 (80.0-100.0) fL MCH 30.9 (25.0-35.0) pg MCHC 33.6 (31.0-37.0) g/dL RDW 12.8 (11.5-15.5) % Plt Count 196 (150-450) k/uL Neutrophils % 50 % Lymphocytes % 36 % Monocytes % 10 % Eosinophils % 1 % Basophils % 0 % Neutrophils # 2.0 (1.3-7.7) k/uL Lymphocytes # 1.4 (1.0-4.8) k/uL Monocytes # 0.4 (0-1.0) k/uL Eosinophils # 0.1 (0-0.7) k/uL Basophils # 0.0 (0-0.2) k/uL Sodium 138 (137-145) mmol/L Potassium 4.3 (3.5-5.1) mmol/L Chloride 102 (98-107) mmol/L Carbon Dioxide 24 (22-30) mmol/L Anion Gap 12 mmol/L BUN 18 (9-20) mg/dL Creatinine 1.20 (0.66-1.25) mg/dL Est GFR (CKD-EPI)AfAm 82 (>60 ml/min/1.73 sqM) Est GFR (CKD-EPI)NonAf 71 (>60 ml/min/1.73 sqM) Glucose 103 H (74-99) mg/dL Calcium 8.9 (8.4-10.2) mg/dL Total Bilirubin 0.3 (0.2-1.3) mg/dL AST 29 (17-59) U/L ALT 20 L (21-72) U/L Alkaline Phosphatase 48 (38-126) U/L Total Protein 6.8 (6.3-8.2) g/dL Albumin 3.8 (3.5-5.0) g/dL - Radiology Data Radiology results: report reviewed, image reviewed Two-view x-ray of the chest shows the lungs are unremarkable with no consolidation. Pleural spaces unremarkable. No pneumothorax. Heart is unremarkable no cardiomegaly. Mediastinum is unremarkable. Bones and joints are unremarkable. Impression by Dr. Calixto shows normal chest x-rays. Disposition Clinical Impression: Dizziness Disposition: HOME SELF-CARE Condition: Good Instructions: Dizziness (ED) Additional Instructions: Increase fluids. Take nasal decongestants such as Sudafed. Follow-up with your primary care physician for recheck in 1-2 days. Return here immediately for any new, worsening, or concerning symptoms. Is patient prescribed a controlled substance at d/c from ED?: No Referrals: Olga Taylor MD [Primary Care Provider] - 1-2 days Time of Disposition: 03:01
[2017-11-07 03:38] VITALS: BP 137/77; PULSE 83; TEMP 97.7
== END 2017-11-07 03:43 | disposition home or self-care (01) ==
LOC: EC 01:18
DX: R42 Dizziness and giddiness (principal); R05 Cough; R09.81 Nasal congestion; I10 Essential (primary) hypertension; G47.30 Sleep apnea, unspecified; Z99.89 Dependence on other enabling machines and devices; Z87.891 Personal history of nicotine dependence; Z79.899 Other long term (current) drug therapy
CPT/HCPCS: 36415; 71046; 80053; 85025; 93005; 96360; 99284

== ENCOUNTER 2017-12-04 14:36 | Emergency (ER) | payer MEDICARE, OTHER ==
--- NOTE | 2017-12-04 15:02 | ED ---
General Adult HPI - General Chief complaint: Abdominal Pain Stated complaint: abd pain Time Seen by Provider: 12/04/17 14:47 Source: patient, RN notes reviewed, old records reviewed Mode of arrival: ambulatory Limitations: no limitations - History of Present Illness Initial comments: Chief complaint and history of present illness a 47-year-old male here with a complaint of on again off again pain for 1 month mainly to the left flank going around to the left lower quadrant. Patient reports today he was hot and sweaty with it mild nausea but no vomiting. No change in appetite bowel habits or urination. Denies any blood in the urine or dark urine. He does report that in the past after having had x-rays at another hospital he was told he might have small kidney stones. - Related Data Home Medications Medication Instructions Recorded Confirmed Testosterone Cypionate 200 mg IM MO 01/21/15 02/08/17 [Depo-Testosterone] Carvedilol [Coreg] 6.25 mg PO BID 02/08/17 02/08/17 Lisinopril [Zestril] 5 mg PO DAILY 02/08/17 02/08/17 Spironolactone [Aldactone] 25 mg PO DAILY 02/08/17 02/08/17 oxyCODONE-APAP 10-325MG [Percocet 1 tab PO QID PRN 02/08/17 02/08/17 10-325 mg] Previous Rx's Medication Instructions Recorded Atorvastatin [Lipitor] 10 mg PO DAILY #30 tab 02/09/17 Ibuprofen [Motrin] 600 mg PO Q6HR PRN #30 day 11/02/17 Ondansetron Odt [Zofran Odt] 4 mg PO Q8HR PRN #10 tab 12/04/17 Allergies Allergy/AdvReac Type Severity Reaction Status Date / Time No Known Allergies Allergy Verified 12/04/17 14:41 Review of Systems ROS Statement: Those systems with pertinent positive or pertinent negative responses have been documented in the HPI. Review of systems. No headache or visual acuity changes no neck pain no chest pain or shortness of breath pain to the abdomen is noted above in the chief complaint. No back pain at this time. No neuro deficits. All systems are reviewed. Past medical problems significant for hypertension for which she takes medications. Osteoarthritis sleep apnea on CPAP. Patient's had 2 back surgeries. Family history mother had colon cancer. He reports less than a colonoscopy was 5 years ago. He was again advised to continue with his doctor to get necessary colonoscopies he agrees to do so. Patient denies ALLERGIES. Denies smoking denies drinking. The patient's retired denies injuring himself lifting. ROS Other: All systems not noted in ROS Statement are negative. Past Medical History Past Medical History: Hypertension, Osteoarthritis (OA), Sleep Apnea/CPAP/BIPAP Additional Past Medical History / Comment(s): possible sleep apnea-never had sleep study done. Low testosterone., History of Any Multi-Drug Resistant Organisms: None Reported Past Surgical History: Back Surgery Additional Past Surgical History / Comment(s): back surgeries x2, Past Anesthesia/Blood Transfusion Reactions: No Reported Reaction Past Psychological History: Anxiety Smoking Status: Former smoker Past Alcohol Use History: None Reported Past Drug Use History: None Reported - Past Family History Father Family Medical History: Cancer Additional Family Medical History / Comment(s): lung Mother Family Medical History: Cancer Additional Family Medical History / Comment(s): colon General Exam - General Exam Comments Initial Comments: General: The patient is awake and alert, in no distress, and does not appear acutely ill. Mild left lower quadrant discomfort. Earlier was more intense and he felt sweaty and mildly nauseated this time. This since passed. His vital signs this time show temperature 98.5 pulse 81 respiratory rate 16 pulse ox 97% room air blood pressure 132/79 Eye: Pupils are equal, round and reactive to light, extra-ocular movements are intact ; there is normal conjunctiva bilaterally. No signs of icterus. Ears, nose, mouth and throat: There are moist mucous membranes and no oral lesions. Neck: The neck is supple, there is no tenderness, no anterior cervical lymphadenopathy. Cardiovascular: There is a regular rate and rhythm. No murmur, rub or gallop is appreciated. Respiratory: Lungs are clear to auscultation, respirations are non-labored, breath sounds are equal. No wheezes, stridor, rales, or rhonchi. Gastrointestinal: Mild tenderness to deep palpation to the left lower quadrant. No pain with the patient doing half lisinopril. Negative coronary its sign. The patient's bowel habits been normal, normal bowel sounds. No masses palpable. Back: No CVA tenderness. Musculoskeletal: Normal ROM, no tenderness, There is no pedal edema. There is no calf tenderness or swelling. Sensation intact. Pulses equal bilaterally 2+. Neurological: No neuro deficits Skin: No rashes Psychiatric: Cooperative, has history of anxiety no complaints this time. Limitations: no limitations Course Vital Signs 12/04/17 12/04/17 12/04/17 14:39 16:30 17:44 Temperature 98.5 F Pulse Rate 81 72 84 Respiratory 16 16 16 Rate Blood Pressure 132/79 139/59 142/72 O2 Sat by Pulse 97 97 99 Oximetry Medical Decision Making - Medical Decision Making Medical decision making; this is a 47-year-old male here for complaint of left flank pain left lower quadrant discomfort. Mild sweats when he has the bad pain. X-ray of the abdomen was done reviewed radiologist his full report was reviewed as final impression is overall nonobstructive bowel gas pattern. As read by Dr. Love. The patient's labs show white count of 4.6 hemoglobin 16 hematocrit of 47 with a potassium 4.9, BUN 23 creatinine 1.3 to GFR 74. The patient does have a history of chronic renal insufficiency. Urine is clean no signs of infection or blood. The patient's pain is been on again off again for a prolonged. At times she will have a CAT scan without IV contrast this time. CT of the abdomen was done without oral contrast. Report was reviewed. Pertinent to note kidneys no evidence for renal mass, no nephrolithiasis. No hydronephrosis. Bowel the appendix has a normal appearance. No evidence of bowel obstruction. No inflammatory process. Aorta atheromatous changes seen no evidence for aneurysm. The liver and gallbladder; gallbladder is unremarkable. No space-occupying hepatic lesion. Spleen; no evidence of splenomegaly. No intrasplenic lesions seen. As read by Dr. Dr. Love. On reexamination patient continues to have left lower quadrant discomfort mild rebound or referred pain mild guarding. The patient will have a CT with IV and oral contrast. CT of the abdomen with IV and oral contrast was done and reviewed radiologist. Full report was reviewed and no significant abnormalities appreciated. Final impression acute process. As read by Dr. Master King. I discussed with the patient the findings of the labs and CAT scan. At this time the patient will be advised to follow-up with his family physician. No apparent pathology appreciated. Patient will be given Zofran to be taken for nausea. Told to increase his fluid intake for the next several days and follow- up with family physician otherwise return emergency room as needed. And was again suggested the patient follow-up with physician in order to have a colonoscopy which she states he needs and follow-up because of his mother having had colon cancer in the past. - Lab Data Result diagrams: 12/04/17 15:07 12/04/17 15:07 Lab Results 12/04/17 12/04/17 12/04/17 Range/Units 15:04 15:07 15:07 WBC 4.6 (3.8-10.6) k/uL RBC 5.10 (4.30-5.90) m/uL Hgb 16.0 (13.0-17.5) gm/dL Hct 47.6 (39.0-53.0) % MCV 93.3 (80.0-100.0) fL MCH 31.4 (25.0-35.0) pg MCHC 33.6 (31.0-37.0) g/dL RDW 13.2 (11.5-15.5) % Plt Count 181 (150-450) k/uL Neutrophils % 59 % Lymphocytes % 26 % Monocytes % 10 % Eosinophils % 2 % Basophils % 0 % Neutrophils # 2.7 (1.3-7.7) k/uL Lymphocytes # 1.2 (1.0-4.8) k/uL Monocytes # 0.5 (0-1.0) k/uL Eosinophils # 0.1 (0-0.7) k/uL Basophils # 0.0 (0-0.2) k/uL Sodium 139 (137-145) mmol/L Potassium 4.9 (3.5-5.1) mmol/L Chloride 100 (98-107) mmol/L Carbon Dioxide 24 (22-30) mmol/L Anion Gap 15 mmol/L BUN 23 H (9-20) mg/dL Creatinine 1.30 H (0.66-1.25) mg/dL Est GFR (CKD-EPI)AfAm 74 (>60 ml/min/1.73 sqM) Est GFR (CKD-EPI)NonAf 64 (>60 ml/min/1.73 sqM) Glucose 135 H (74-99) mg/dL Plasma Lactic Acid Pritesh (0.7-2.0) mmol/L Calcium 9.1 (8.4-10.2) mg/dL Total Bilirubin 0.5 (0.2-1.3) mg/dL AST 31 (17-59) U/L ALT 28 (21-72) U/L Alkaline Phosphatase 39 (38-126) U/L Total Protein 7.2 (6.3-8.2) g/dL Albumin 4.2 (3.5-5.0) g/dL Amylase 83 (30-110) U/L Lipase 197 (23-300) U/L Urine Color Yellow Urine Appearance Clear (Clear) Urine pH 5.5 (5.0-8.0) Ur Specific [place] 1.017 (1.001-1.035) Urine Protein Negative (Negative) Urine Glucose (UA) Negative (Negative) Urine Ketones Trace H (Negative) Urine Blood Negative (Negative) Urine Nitrite Negative (Negative) Urine Bilirubin Negative (Negative) Urine Urobilinogen <2.0 (<2.0) mg/dL Ur Leukocyte Esterase Negative (Negative) 12/04/17 Range/Units 15:07 WBC (3.8-10.6) k/uL RBC (4.30-5.90) m/uL Hgb (13.0-17.5) gm/dL Hct (39.0-53.0) % MCV (80.0-100.0) fL MCH (25.0-35.0) pg MCHC (31.0-37.0) g/dL RDW (11.5-15.5) % Plt Count (150-450) k/uL Neutrophils % % Lymphocytes % % Monocytes % % Eosinophils % % Basophils % % Neutrophils # (1.3-7.7) k/uL Lymphocytes # (1.0-4.8) k/uL Monocytes # (0-1.0) k/uL Eosinophils # (0-0.7) k/uL Basophils # (0-0.2) k/uL Sodium (137-145) mmol/L Potassium (3.5-5.1) mmol/L Chloride (98-107) mmol/L Carbon Dioxide (22-30) mmol/L Anion Gap mmol/L BUN (9-20) mg/dL Creatinine (0.66-1.25) mg/dL Est GFR (CKD-EPI)AfAm (>60 ml/min/1.73 sqM) Est GFR (CKD-EPI)NonAf (>60 ml/min/1.73 sqM) Glucose (74-99) mg/dL Plasma Lactic Acid Pritesh 1.2 (0.7-2.0) mmol/L Calcium (8.4-10.2) mg/dL Total Bilirubin (0.2-1.3) mg/dL AST (17-59) U/L ALT (21-72) U/L Alkaline Phosphatase (38-126) U/L Total Protein (6.3-8.2) g/dL Albumin (3.5-5.0) g/dL Amylase (30-110) U/L Lipase (23-300) U/L Urine Color Urine Appearance (Clear) Urine pH (5.0-8.0) Ur Specific [place] (1.001-1.035) Urine Protein (Negative) Urine Glucose (UA) (Negative) Urine Ketones (Negative) Urine Blood (Negative) Urine Nitrite (Negative) Urine Bilirubin (Negative) Urine Urobilinogen (<2.0) mg/dL Ur Leukocyte Esterase (Negative) Disposition Clinical Impression: Abdominal pain in male Disposition: HOME SELF-CARE Instructions: Abdominal Pain (ED) Additional Instructions: Increase fluid intake. Use Zofran for nausea. Tylenol for discomfort or ibuprofen as needed but limit both. Follow-up with family physician for further evaluation as needed including colonoscopy. Prescriptions: Ondansetron Odt [Zofran Odt] 4 mg PO Q8HR PRN #10 tab PRN Reason: Nausea vomiting Is patient prescribed a controlled substance at d/c from ED?: No Referrals: Olga Taylor MD [Primary Care Provider] - 1-2 days Time of Disposition: 19:41
[2017-12-04 15:10] LABS: Appearance,Urine Clear (Clear); Bilirubin,Urine Negative (Negative); Blood,Urine Negative (Negative); Color,Urine Yellow; Glucose,Urine (UA) Negative (Negative); Ketones,Urine Trace (Negative); Leukocyte Esterase,Urine Negative (Negative); Nitrite,Urine Negative (Negative); PH, Urine 5.5 (5.0-8.0); Protein,Urine Negative (Negative); Specific Gravity,Urine 1.017 (1.001-1.035); Urobilinogen,Urine <2.0 mg/dL (<2.0)
[2017-12-04 15:18] LABS: Basophils % (A) 0 %; Eosinophils # (A) 0.1 k/uL (0-0.7); Eosinophils % (A) 2 %; HCT 47.6 % (39.0-53.0); Lymphocytes # (A) 1.2 k/uL (1.0-4.8); Lymphocytes % (A) 26 %; MCH 31.4 pg (25.0-35.0); MCHC 33.6 g/dL (31.0-37.0); MCV 93.3 fL (80.0-100.0); Mean Platelet Volume 6.4; Monocytes # (A) 0.5 k/uL (0-1.0); Monocytes % (A) 10 %; Neutrophils # (A) 2.7 k/uL (1.3-7.7); Neutrophils % (A) 59 %; Platelet Count 181 k/uL (150-450); RDW 13.2 % (11.5-15.5); WBC 4.6 k/uL (3.8-10.6)
--- NOTE | 2017-12-04 15:27 | XR ---
EXAMINATION TYPE: XR KUB DATE OF EXAM: 12/04/2017 COMPARISON: NONE HISTORY: Pain TECHNIQUE: Single supine KUB image of the abdomen is obtained FINDINGS: Small bowel demonstrates no evidence for dilatation or air fluid levels. Gas and fecal material is seen in non-distended colon. No convincing evidence for pneumoperitoneum. No unusual calcifications. The lung bases are clear. The osseous structures are intact. IMPRESSION: 1. Overall nonobstructive bowel gas pattern.
[2017-12-04 15:28] LABS: Albumin 4.2 g/dL (3.5-5.0); Calcium 9.1 mg/dL (8.4-10.2); Potassium 4.9 mmol/L (3.5-5.1); Total Bilirubin 0.5 mg/dL (0.2-1.3); Total Protein 7.2 g/dL (6.3-8.2)
--- NOTE | 2017-12-04 16:19 | CT ---
EXAMINATION TYPE: CT abdomen pelvis wo con DATE OF EXAM: 12/04/2017 COMPARISON: NONE HISTORY: Patient complains of LLQ pain, nausea, and dizziness. CT DLP: 520.7 mGycm Examination of the solid and hollow viscera is limited given the lack of contrast. FINDINGS: LUNG BASES: No evidence for nodule. No evidence for infiltrate. LIVER/GB: The gallbladder is unremarkable. No space-occupying hepatic lesion. PANCREAS: No pancreatic mass identified. No inflammatory process seen. SPLEEN: No evidence for splenomegaly. No intrasplenic lesions seen. ADRENALS: No adrenal nodules identified. No evidence for thickening. KIDNEYS: No evidence for renal mass. No nephrolithiasis. No hydronephrosis. BOWEL: Appendix has a normal appearance. No evidence of bowel obstruction. No inflammatory process. Lymph nodes: No evidence for adenopathy greater than 1 cm. Abdominal aorta: Atheromatous changes seen. No evidence for aneurysm. Genital organs: No significant abnormality. Other: Postoperative changes lumbar spine. IMPRESSION: NO ACUTE INTRA-ABDOMINAL OR INTRAPELVIC PROCESS SEEN.
[2017-12-04] MEDS ORDERED: IOPAMIDOL-300 CONTRAST 30 ML VIAL (ORAL USE) PO PRN (16:45)
--- NOTE | 2017-12-04 19:29 | CT ---
EXAMINATION TYPE: CT abdomen pelvis w con DATE OF EXAM: 12/04/2017 COMPARISON: Same day CT, without contrast, 4:05 PM. HISTORY: LLQ abd pain, nausea and dizziness. CT DLP: 999.2 mGycm. Automated exposure control for dose reduction was used. TECHNIQUE: Helical acquisition of images was performed from the lung bases through the pelvis. CONTRAST: Performed with Oral Contrast and with IV Contrast, patient injected with 100ml mL of Isovue M300. FINDINGS: LUNG BASES: No significant abnormality is appreciated. LIVER/GB: No significant abnormality is appreciated. PANCREAS: No significant abnormality is seen. SPLEEN: No significant abnormality is seen. ADRENALS: No significant abnormality is seen. KIDNEYS: No significant abnormality is seen. PERITONEAL CAVITY: No free air is visualized. ABDOMINAL ADENOPATHY: None visualized REPRODUCTIVE ORGANS: No significant abnormality is seen URINARY BLADDER: No significant abnormality is seen. PELVIC ADENOPATHY: None visualized. OSSEOUS STRUCTURES: No significant abnormality is seen. BOWEL: No significant abnormality is seen. VASCULATURE: Unremarkable. IMPRESSION: NO ACUTE PROCESS.
[2017-12-04 19:57] VITALS: BP 135/61; PULSE 79; RESP 15; TEMP 97.9
== END 2017-12-04 19:56 | disposition home or self-care (01) ==
LOC: EC 14:36
DX: R10.32 Left lower quadrant pain (principal); R11.0 Nausea; I10 Essential (primary) hypertension; G47.30 Sleep apnea, unspecified; Z99.89 Dependence on other enabling machines and devices; Z87.891 Personal history of nicotine dependence; Z79.890 Hormone replacement therapy; Z79.02 Long term (current) use of antithrombotics/antiplatelets; Z79.899 Other long term (current) drug therapy
CPT/HCPCS: 36415; 80053; 82150; 83605; 83690; 85025; 81003; 87086; 74018; 74176; 74177; 99285; Q9967

== ENCOUNTER → 2017-12-22 | Outpatient (CLI) | payer MEDICARE ==
[2017-12-22 18:00] LABS: Albumin 4.1 g/dL (3.5-5.0); Calcium 9.1 mg/dL (8.4-10.2); Magnesium 1.6 mg/dL (1.6-2.3); Phosphorus 3.5 mg/dL (2.5-4.5); Potassium 4.3 mmol/L (3.5-5.1); Total Bilirubin 0.2 mg/dL (0.2-1.3); Total Protein 6.9 g/dL (6.3-8.2); Uric Acid 7.4 mg/dL (3.5-8.5)
[2017-12-22 18:01] LABS: Basophils % (A) 0 %; Eosinophils # (A) 0.1 k/uL (0-0.7); Eosinophils % (A) 2 %; HGB 15.9 gm/dL (13.0-17.5); Lymphocytes # (A) 1.5 k/uL (1.0-4.8); Lymphocytes % (A) 30 %; MCH 31.9 pg (25.0-35.0); MCHC 34.6 g/dL (31.0-37.0); MCV 92.3 fL (80.0-100.0); Mean Platelet Volume 6.5; Monocytes # (A) 0.4 k/uL (0-1.0); Monocytes % (A) 8 %; Neutrophils # (A) 2.9 k/uL (1.3-7.7); Neutrophils % (A) 58 %; Platelet Count 167 k/uL (150-450); RBC 4.99 m/uL (4.30-5.90); RDW 13.1 % (11.5-15.5); WBC 5.1 k/uL (3.8-10.6)
[2017-12-23 00:59] LABS: Iron Saturation 19.24 (15.00-50.00)
[2017-12-23 01:07] LABS: Vitamin D 25 Hydroxy 15.6 ng/mL (30.0-100.0)
[2017-12-23 01:12] LABS: Parathyroid Hormone Intact 28.8 pg/mL (14.0-72.0)
== END | disposition home or self-care (01) ==
LOC: LABWHC1 17:26
PROVIDERS: ATTEND Internal Medicine
DX: N18.2 Chronic kidney disease, stage 2 (mild) (principal)
CPT/HCPCS: 36415; 80053; 82306; 82728; 83540; 83550; 83735; 83970; 84100; 84550; 85025

== ENCOUNTER 2017-12-29 11:06 | Day surgery (SDC) | payer MEDICARE, OTHER ==
[2017-12-24 09:01] VITALS: BMI 33.4
[2017-12-29] MEDS ORDERED: LACTATED RINGERS 1,000 ML IV SCH (11:29)
--- NOTE | 2017-12-29 11:45 | P.GSHP ---
History of Present Illness H&P Date: 12/29/17 Chief Complaint: Screening colonoscopy 's is a 47-year-old male referred from Dr. Sanchez. Patient has had complaints of change in bowel habits GERD constipation. He presents today for screening colonoscopy. Past Medical History Past Medical History: Hypertension, Osteoarthritis (OA), Sleep Apnea/CPAP/BIPAP Additional Past Medical History / Comment(s): hx ulcer, constipation, chornic back pain History of Any Multi-Drug Resistant Organisms: None Reported Past Surgical History: Back Surgery Additional Past Surgical History / Comment(s): spinal fusion, laminectomy Past Anesthesia/Blood Transfusion Reactions: No Reported Reaction Smoking Status: Former smoker - Past Family History Father Family Medical History: Cancer Additional Family Medical History / Comment(s): lung Mother Family Medical History: Cancer Additional Family Medical History / Comment(s): colon Medications and Allergies Home Medications Medication Instructions Recorded Confirmed Type Testosterone Cypionate 200 mg IM MO 01/21/15 12/29/17 History [Depo-Testosterone] Carvedilol [Coreg] 6.25 mg PO BID 02/08/17 12/29/17 History Lisinopril [Zestril] 5 mg PO DAILY 02/08/17 12/29/17 History Spironolactone [Aldactone] 25 mg PO DAILY 02/08/17 12/29/17 History oxyCODONE-APAP 10-325MG [Percocet 1 tab PO QID PRN 02/08/17 12/29/17 History 10-325 mg] Atorvastatin [Lipitor] 10 mg PO DAILY #30 tab 02/09/17 12/29/17 Rx Allergies Allergy/AdvReac Type Severity Reaction Status Date / Time No Known Allergies Allergy Verified 12/29/17 11:30 Surgical - Exam - General well developed, no distress - Eyes PERRL - ENT normal pinna - Neck no masses - Respiratory normal expansion - Cardiovascular Rhythm: regular - Abdomen Abdomen: soft, non tender Assessment and Plan Assessment: We'll perform screening colonoscopy.
[2017-12-29] MEDS ORDERED: PROPOFOL 10 MG/ML 20 ML VIAL IV ONE (11:47)
[2017-12-29 11:49] VITALS: TEMP 97.1
--- NOTE | 2017-12-29 12:06 | P.OP ---
Date of Procedure: 12/29/17 Preoperative Diagnosis: Screening colonoscopy Family history: Cancer Postoperative Diagnosis: Normal colon Procedure(s) Performed: Colonoscopy Anesthesia: MAC Surgeon: Helio Hurst Pathology: none sent Condition: stable Disposition: PACU Description of Procedure: PROCEDURE: The patient was placed on the endoscopy table in the lateral position. Digital rectal examination was performed which revealed no abnormalities. The prostate was symmetrical without nodules. Flexible colonoscope was then placed in the patient's anus and passed throughout the entire colon. The ileocecal valve was visualized. The cecum, ascending, transverse, descending and sigmoid colon were normal. The rectum was normal as well. There were no masses, polyps or diverticula noted in the entire colon. SUMMARY OF FINDINGS: Normal colonoscopy.
[2017-12-29 12:16] VITALS: RESP 18
[2017-12-29 12:41] VITALS: BP 136/75; PULSE 85
== END 2017-12-29 13:04 | disposition home or self-care (01) ==
LOC: ORWHC2ENDO 11:06
PROVIDERS: ATTEND Surgery
DX: K59.00 Constipation, unspecified (principal); K21.9 Gastro-esophageal reflux disease without esophagitis; Z87.11 Personal history of peptic ulcer disease; Z80.0 Family history of malignant neoplasm of digestive organs; I10 Essential (primary) hypertension; M19.90 Unspecified osteoarthritis, unspecified site; G47.30 Sleep apnea, unspecified; Z99.89 Dependence on other enabling machines and devices; Z79.899 Other long term (current) drug therapy; Z87.891 Personal history of nicotine dependence
CPT/HCPCS: 45378; J2704

== ENCOUNTER → 2018-03-25 | Outpatient (CLI) | payer MEDICARE ==
[2018-03-25 10:57] LABS: T4, Free (Free Thyroxine) 0.94 ng/dL (0.78-2.19)
== END | disposition home or self-care (01) ==
LOC: LABWHC1 09:57
PROVIDERS: ATTEND Internal Medicine Interventional Cardiology
DX: E05.90 Thyrotoxicosis, unspecified without thyrotoxic crisis or storm (principal)
CPT/HCPCS: 36415; 84439; 84443

== ENCOUNTER 2018-05-18 16:24 | Inpatient (IN) | payer MEDICARE ==
[2018-05-18] MEDS ORDERED: NITROGLYCERIN SL TABS 0.4 MG TAB SUBLINGUAL STA ×3 (16:36)
[2018-05-18] MEDS ORDERED: ASPIRIN 81 MG PO STA (16:36)
--- NOTE | 2018-05-18 16:38 | ED ---
General Adult HPI - General Chief complaint: Chest Pain Stated complaint: Chest pain, SOB Time Seen by Provider: 05/18/18 16:32 Source: patient, RN notes reviewed Mode of arrival: wheelchair Limitations: no limitations - History of Present Illness Initial comments: Patient is a pleasant 47-year-old male presenting to the emergency Department with chest discomfort. Symptoms have been occurring over the past few days. Discomfort does worsen with exertion. Discomfort is left chest. There is associated dyspnea. Patient has been fatigued. Patient has been sweaty. No nausea. No history of similar symptoms previously. No leg pain or leg swelling. Discomfort is currently rated 7/10. No radiation. - Related Data Home Medications Medication Instructions Recorded Confirmed Carvedilol [Coreg] 12.5 mg PO BID 02/08/17 05/18/18 Lisinopril [Zestril] 5 mg PO DAILY@1600 02/08/17 05/18/18 Spironolactone [Aldactone] 25 mg PO DAILY 02/08/17 05/18/18 oxyCODONE-APAP 10-325MG [Percocet 1 tab PO QID PRN 02/08/17 05/18/18 10-325 mg] Amoxicillin 1,000 mg PO Q12H 05/18/18 05/18/18 Atorvastatin [Lipitor] 10 mg PO HS 05/18/18 05/18/18 Citalopram Hydrobromide [CeleXA] 20 mg PO HS 05/18/18 05/18/18 Gabapentin 300 - 600 mg PO DAILY PRN 05/18/18 05/18/18 Allergies Allergy/AdvReac Type Severity Reaction Status Date / Time No Known Allergies Allergy Verified 05/18/18 17:49 Review of Systems ROS Statement: Those systems with pertinent positive or pertinent negative responses have been documented in the HPI. ROS Other: All systems not noted in ROS Statement are negative. Constitutional: Denies: fever Eyes: Denies: eye pain ENT: Denies: ear pain Respiratory: Reports: dyspnea. Denies: cough Cardiovascular: Reports: chest pain, palpitations Endocrine: Reports: fatigue Gastrointestinal: Denies: nausea Genitourinary: Denies: dysuria Musculoskeletal: Denies: back pain Skin: Denies: rash Neurological: Denies: weakness Past Medical History Past Medical History: Hypertension Additional Past Medical History / Comment(s): possible sleep apnea-Low testosterone., History of Any Multi-Drug Resistant Organisms: None Reported Past Surgical History: Back Surgery Additional Past Surgical History / Comment(s): back surgeries x2, Past Anesthesia/Blood Transfusion Reactions: No Reported Reaction Past Psychological History: Anxiety Smoking Status: Former smoker Past Alcohol Use History: None Reported Past Drug Use History: None Reported - Past Family History Father Family Medical History: Cancer Additional Family Medical History / Comment(s): lung Mother Family Medical History: Cancer Additional Family Medical History / Comment(s): colon General Exam Limitations: no limitations General appearance: alert, in no apparent distress Head exam: Present: atraumatic Eye exam: Present: normal appearance, PERRL ENT exam: Present: normal oropharynx Neck exam: Present: normal inspection Respiratory exam: Present: normal lung sounds bilaterally. Absent: chest wall tenderness Cardiovascular Exam: Present: regular rate, normal rhythm Expanded Peripheral pulses: 2+: Radial (R), Radial (L), Posterior Tibialis (R), Posterior Tibialis (L) GI/Abdominal exam: Present: soft. Absent: tenderness Extremities exam: Present: normal inspection. Absent: pedal edema, calf tenderness Neurological exam: Present: alert Psychiatric exam: Present: normal affect, normal mood Skin exam: Present: normal color. Absent: rash Course Vital Signs 05/18/18 05/18/18 05/18/18 16:26 17:00 17:12 Temperature 98.4 F Pulse Rate 91 90 Respiratory 18 18 Rate Blood Pressure 147/87 99/66 106/54 O2 Sat by Pulse 98 95 Oximetry EKG Findings - EKG Comments: EKG Findings:: Normal sinus rhythm 94. MA 112. QRS 84. QT 3:30. QTC 412. Left axis. Normal QRS. No acute ST change. Medical Decision Making - Medical Decision Making Patient reevaluated and resting comfortably in bed. Patient does admit to taking Viagra earlier today. Patient is advised to avoid all nitroglycerin medication. Patient is made aware of morning regarding this. Patient is updated on results and plan. Case was discussed in detail practitioner Mehran, who will admit for Dr. Colon covering for Dr. Taylor. - Lab Data Result diagrams: 05/18/18 16:40 05/18/18 16:40 Lab Results 05/18/18 05/18/18 05/18/18 Range/Units 16:40 16:40 16:40 WBC 5.3 (3.8-10.6) k/uL RBC 5.61 (4.30-5.90) m/uL Hgb 18.0 H (13.0-17.5) gm/dL Hct 52.3 (39.0-53.0) % MCV 93.3 (80.0-100.0) fL MCH 32.1 (25.0-35.0) pg MCHC 34.4 (31.0-37.0) g/dL RDW 12.9 (11.5-15.5) % Plt Count 175 (150-450) k/uL Neutrophils % 56 % Lymphocytes % 29 % Monocytes % 10 % Eosinophils % 2 % Basophils % 0 % Neutrophils # 2.9 (1.3-7.7) k/uL Lymphocytes # 1.5 (1.0-4.8) k/uL Monocytes # 0.5 (0-1.0) k/uL Eosinophils # 0.1 (0-0.7) k/uL Basophils # 0.0 (0-0.2) k/uL PT (9.0-12.0) sec INR (<1.2) APTT (22.0-30.0) sec D-Dimer (<0.60) mg/L FEU Sodium 135 L (137-145) mmol/L Potassium 4.5 (3.5-5.1) mmol/L Chloride 102 (98-107) mmol/L Carbon Dioxide 24 (22-30) mmol/L Anion Gap 9 mmol/L BUN 26 H (9-20) mg/dL Creatinine 1.41 H (0.66-1.25) mg/dL Est GFR (CKD-EPI)AfAm 67 (>60 ml/min/1.73 sqM) Est GFR (CKD-EPI)NonAf 58 (>60 ml/min/1.73 sqM) Glucose 107 H (74-99) mg/dL Calcium 9.9 (8.4-10.2) mg/dL Magnesium 1.8 (1.6-2.3) mg/dL Total Bilirubin 0.6 (0.2-1.3) mg/dL AST 27 (17-59) U/L ALT 33 (21-72) U/L Alkaline Phosphatase 48 (38-126) U/L Total Creatine Kinase 229 H (55-170) U/L CK-MB (CK-2) 1.0 (0.0-2.4) ng/mL CK-MB (CK-2) Rel Index 0.4 Troponin I <0.012 (0.000-0.034) ng/mL NT-Pro-B Natriuret Pep pg/mL Total Protein 8.1 (6.3-8.2) g/dL Albumin 4.6 (3.5-5.0) g/dL 05/18/18 05/18/18 Range/Units 16:40 16:40 WBC (3.8-10.6) k/uL RBC (4.30-5.90) m/uL Hgb (13.0-17.5) gm/dL Hct (39.0-53.0) % MCV (80.0-100.0) fL MCH (25.0-35.0) pg MCHC (31.0-37.0) g/dL RDW (11.5-15.5) % Plt Count (150-450) k/uL Neutrophils % % Lymphocytes % % Monocytes % % Eosinophils % % Basophils % % Neutrophils # (1.3-7.7) k/uL Lymphocytes # (1.0-4.8) k/uL Monocytes # (0-1.0) k/uL Eosinophils # (0-0.7) k/uL Basophils # (0-0.2) k/uL PT 10.4 (9.0-12.0) sec INR 1.1 (<1.2) APTT 22.7 (22.0-30.0) sec D-Dimer 0.27 (<0.60) mg/L FEU Sodium (137-145) mmol/L Potassium (3.5-5.1) mmol/L Chloride (98-107) mmol/L Carbon Dioxide (22-30) mmol/L Anion Gap mmol/L BUN (9-20) mg/dL Creatinine (0.66-1.25) mg/dL Est GFR (CKD-EPI)AfAm (>60 ml/min/1.73 sqM) Est GFR (CKD-EPI)NonAf (>60 ml/min/1.73 sqM) Glucose (74-99) mg/dL Calcium (8.4-10.2) mg/dL Magnesium (1.6-2.3) mg/dL Total Bilirubin (0.2-1.3) mg/dL AST (17-59) U/L ALT (21-72) U/L Alkaline Phosphatase (38-126) U/L Total Creatine Kinase (55-170) U/L CK-MB (CK-2) (0.0-2.4) ng/mL CK-MB (CK-2) Rel Index Troponin I (0.000-0.034) ng/mL NT-Pro-B Natriuret Pep 18 pg/mL Total Protein (6.3-8.2) g/dL Albumin (3.5-5.0) g/dL - Radiology Data Radiology results: image reviewed (Chest x-ray shows no acute process) Disposition Clinical Impression: Chest pain Disposition: ADMITTED IP TO THIS HOSP Is patient prescribed a controlled substance at d/c from ED?: No Referrals: Olga Taylor MD [Primary Care Provider] - 1-2 days Decision Time: 18:20
[2018-05-18 17:06] LABS: Basophils % (A) 0 %; Eosinophils # (A) 0.1 k/uL (0-0.7); Eosinophils % (A) 2 %; HCT 52.3 % (39.0-53.0); Lymphocytes # (A) 1.5 k/uL (1.0-4.8); Lymphocytes % (A) 29 %; MCH 32.1 pg (25.0-35.0); MCHC 34.4 g/dL (31.0-37.0); MCV 93.3 fL (80.0-100.0); Mean Platelet Volume 6.2; Monocytes # (A) 0.5 k/uL (0-1.0); Monocytes % (A) 10 %; Neutrophils # (A) 2.9 k/uL (1.3-7.7); Neutrophils % (A) 56 %; Platelet Count 175 k/uL (150-450); RBC 5.61 m/uL (4.30-5.90); RDW 12.9 % (11.5-15.5); WBC 5.3 k/uL (3.8-10.6)
[2018-05-18] MEDS ORDERED: SODIUM CHLORIDE 0.9% 500 ML 500 ML IV ONE (17:11)
[2018-05-18 17:20] LABS: D-Dimer 0.27 mg/L FEU (<0.60); INR 1.1 (<1.2)
[2018-05-18 17:21] LABS: Partial Thromboplastin Time 22.7 sec (22.0-30.0); Prothrombin Time 10.4 sec (9.0-12.0)
[2018-05-18 17:24] LABS: Creatine Kinase 229 U/L (55-170)
[2018-05-18 17:25] LABS: Albumin 4.6 g/dL (3.5-5.0); Calcium 9.9 mg/dL (8.4-10.2); Magnesium 1.8 mg/dL (1.6-2.3); Potassium 4.5 mmol/L (3.5-5.1); Total Bilirubin 0.6 mg/dL (0.2-1.3); Total Protein 8.1 g/dL (6.3-8.2)
[2018-05-18 17:36] LABS: Troponin I <0.012 ng/mL (0.000-0.034)
--- NOTE | 2018-05-18 17:46 | XR ---
EXAMINATION TYPE: XR chest 2V DATE OF EXAM: 05/18/2018 COMPARISON: 11/07/2017 HISTORY: Chest pain TECHNIQUE: Frontal and lateral views of the chest are obtained. FINDINGS: There is no heart failure nor confluent pneumonic infiltrate. Costophrenic angles are jairo r. There are chest leads. Bony thorax is intact. IMPRESSION: No cardiopulmonary disease. No change.
[2018-05-18] MEDS ORDERED: GABAPENTIN 300 MG CAP PO PRN (21:50)
[2018-05-18] MEDS ORDERED: AMOXICILLIN 500 MG CAP PO SCH ×2 (22:00→22:03)
[2018-05-18] MEDS ORDERED: ONDANSETRON 4 MG/2 ML VIAL IVP PRN (22:00)
[2018-05-18] MEDS ORDERED: ATORVASTATIN 10 MG TAB PO SCH (22:00)
[2018-05-18] MEDS: CITALOPRAM HYDROBROMIDE 20 MG TAB PO SCH (22:07)
[2018-05-18] MEDS: CARVEDILOL 12.5 MG TAB PO SCH (22:08)
[2018-05-18] MEDS: MORPHINE SULFATE 2 MG/ML SYRINGE IVP PRN (22:08)
[2018-05-18] MEDS: AMOXICILLIN 500 MG CAP PO SCH (22:19)
[2018-05-18 23:47] LABS: Creatine Kinase 206 U/L (55-170)
[2018-05-19] LABS: Creatine Kinase MB 0.7 ng/mL (0.0-2.4); Troponin I <0.012 ng/mL (0.000-0.034)
[2018-05-19] MEDS: MORPHINE SULFATE 2 MG/ML SYRINGE IVP PRN (06:06)
[2018-05-19 06:43] LABS: Cholesterol 160 mg/dL (<200); HDL Cholesterol 35 mg/dL (40-60); LDL Cholesterol,Calculated 110 mg/dL (0-99); Triglycerides 74 mg/dL (<150)
[2018-05-19 06:46] LABS: Creatine Kinase 171 U/L (55-170)
[2018-05-19 06:59] LABS: Creatine Kinase MB 0.7 ng/mL (0.0-2.4); Troponin I <0.012 ng/mL (0.000-0.034)
[2018-05-19] MEDS ORDERED: ASPIRIN 325 MG TAB PO SCH (09:00)
[2018-05-19] MEDS ORDERED: SPIRONOLACTONE 25 MG TAB PO SCH (09:00)
[2018-05-19] MEDS ORDERED: ALPRAZolam 0.25 MG TAB PO PRN (09:56)
[2018-05-19] MEDS ORDERED: ASPIRIN 325 MG TAB PO STA (09:56)
[2018-05-19] MEDS ORDERED: SODIUM CHLORIDE 0.9% 1,000 ML in EMPTY BAG 1 BAG IV ONE (09:56)
[2018-05-19] MEDS ORDERED: ALPRAZolam 0.5 MG TAB PO PRN (09:56)
[2018-05-19] MEDS ORDERED: NITROGLYCERIN SL TABS 0.4 MG TAB SUBLINGUAL PRN ×2 (09:56→13:03)
[2018-05-19] MEDS ORDERED: ATORVASTATIN 80 MG TAB PO STA (10:00)
[2018-05-19] MEDS: CARVEDILOL 12.5 MG TAB PO SCH (10:12)
[2018-05-19] MEDS: AMOXICILLIN 500 MG CAP PO SCH ×2 (10:12→20:15)
--- NOTE | 2018-05-19 10:22 | P.CRDCN ---
History of Present Illness History of present illness: This is a pleasant 47-year-old male past medical history significant for hypertension, dyslipidemia, non-ischemic dilated cardiomyopathy , chronic kidney disease, former nicotine dependence and history of drug/ alcohol abuse. He follows in the office with Dr. Rodriguez. We have been asked to see him in consultation for chest pain. He states for the last 3 days he has been experiencing a heavy pressure sensation in the left precordial region. The heaviness happens whenever he gets up and walks around or exerts himself. Each time he gets his symptoms of heaviness it feels like his heart is racing and beating hard in his chest. He also feels short of breath, increasingly fatigued and mildly diaphoretic at times. He states he has had the symptoms while here in the hospital walking to the bathroom. Telemetry tracings have been unremarkable. EKG reveals sinus mechanism with no acute ST or T-wave abnormalities. Chest xray negative for an acute cardiopulmonary process. Laboratory data reviewed, WBC 5.3, hemoglobin 18, platelets 175, d-dimer 0.27, sodium 135, potassium 4.5, creatinine 1.41, GFR 67, magnesium 1.8, cardiac enzymes negative 3, LDL 110, HDL 35. Current cardiac medications include atorvastatin 10 mg daily, carvedilol 12.5 mg twice a day, lisinopril 5 mg daily and Aldactone 25 mg daily. Most recent echocardiogram in the office 04/2018 EF 45% with mild MR. At the time of my exam: CONSTITUTIONAL: Denies fever. Denies chills. EYES: Denies blurred vision. Denies vision changes. Denies eye pain. EARS, NOSE, MOUTH & THROAT: Denies headache. Denies sore throat. Denies ear pain. CARDIOVASCULAR: Denies chest pain. Denies shortness of breath. Denies orthopnea. Denies PND. Denies palpitations. RESPIRATORY: Denies cough. GASTROINTESTINAL: Denies abdominal pain. Denies diarrhea. Denies constipation. Denies nausea. Denies vomiting. MUSCULOSKELETAL: Denies myalgias. INTEGUMENTARY: Denies pruitis. Denies rash. NEUROLOGIC: Denies numbness. Denies tingling. Denies weakness. PSYCHIATRIC: Denies anxiety. Denies depression. ENDOCRINE: Denies fatigue. Denies weight change. Denies polydipsia. Denies polyurina. GENITOURINARY: Denies burning, hematuria or urgency with micturation. HEMATOLOGIC: Denies history of anemia. Denies bleeding. Blood pressure 126/71 heart rate 72 afebrile maintaining oxygen saturation on nasal cannula GENERAL: This is a 47-year-old male in no apparent distress at the time of my examination. HEENT: Head is atraumatic, normocephalic. Pupils are equal, round. Sclerae anicteric. Conjunctivae are clear. Mucous membranes of the mouth are moist. Neck is supple. There is no jugular venous distention. No carotid bruit is heard. LUNGS: Clear to auscultation no wheezes, rales or rhonchi. No chest wall tenderness is noted on palpation or with deep breathing. HEART: Regular rate and rhythm without murmurs, rubs or gallops. S1 and S2 heard. ABDOMEN: Soft, nontender. Bowel sounds are heard. No organomegaly noted. EXTREMITIES: No evidence of peripheral edema and no calf tenderness noted. VASCULAR: Radial and dorsalis pedis pulses palpated, no evidence of clubbing. NEUROLOGIC: Patient is awake, alert and oriented x3. ASSESSMENT Unstable angina Chronic kidney disease, GFR 67 Hypertension Dyslipidemia Dilated cardiomyopathy, non-ischemic. Last EF 45% 04/2018 in the office with calcified aortic valve and myxomatous mitral valve. Former nicotine dependence History of drug and alcohol use. PLAN We recommend proceeding with cardiac catheterization to further assess the coronary arteries for obstructive disease. I have discussed the risks, benefits and alternative therapies for the above-mentioned procedure and for both sedation/analgesia as well as necessary blood product administration, if indicated, as they pertain to this patient. The patient has indicated understanding and acceptance of the risks and procedures discussed. Questions have been answered appropriately and he is agreeable to move forward with above stated procedure. This has been discussed with his primary filtration supervisor Dr. Rodriguez and he will be studied today. Hold lisinopril and aldactone for elevated creatinine. Further recommendations to follow based on clinical course. Thank you kindly for this consultation. Nurse Practitioner note has been reviewed, I agree with a documented findings and plan of care. Patient was seen and examined. Past Medical History Past Medical History: Chest Pain / Angina, Hyperlipidemia, Hypertension, Osteoarthritis (OA) Additional Past Medical History / Comment(s): 05-18-18 pt wants flu vaccine while here. pmh:possible sleep apnea but never had study-Low testosterone., History of Any Multi-Drug Resistant Organisms: None Reported Past Surgical History: Back Surgery Additional Past Surgical History / Comment(s): back surgeries x2, Past Anesthesia/Blood Transfusion Reactions: No Reported Reaction Smoking Status: Former smoker - Past Family History Father Family Medical History: Cancer Additional Family Medical History / Comment(s): lung Mother Family Medical History: Cancer Additional Family Medical History / Comment(s): colon Medications and Allergies Home Medications Medication Instructions Recorded Confirmed Type Carvedilol [Coreg] 12.5 mg PO BID 02/08/17 05/18/18 History Lisinopril [Zestril] 5 mg PO DAILY@1600 02/08/17 05/18/18 History Spironolactone [Aldactone] 25 mg PO DAILY 02/08/17 05/18/18 History oxyCODONE-APAP 10-325MG [Percocet 1 tab PO QID PRN 02/08/17 05/18/18 History 10-325 mg] Amoxicillin 1,000 mg PO Q12H 05/18/18 05/18/18 History Atorvastatin [Lipitor] 10 mg PO HS 05/18/18 05/18/18 History Citalopram Hydrobromide [CeleXA] 20 mg PO HS 05/18/18 05/18/18 History Gabapentin 600 mg PO DAILY PRN 05/18/18 05/18/18 History Allergies Allergy/AdvReac Type Severity Reaction Status Date / Time No Known Allergies Allergy Verified 05/18/18 21:02 Physical Exam Vitals: Vital Signs Temp Pulse Pulse Resp BP BP Pulse Ox 05/19/18 04:00 98.3 F 70 18 129/61 99 05/19/18 00:00 98.5 F 88 18 149/62 96 05/18/18 20:10 98.5 F 76 18 138/80 98 05/18/18 20:00 18 05/18/18 19:00 71 16 117/74 05/18/18 18:00 71 16 125/73 98 05/18/18 17:12 90 18 106/54 95 05/18/18 17:00 105 H 13 123/76 95 05/18/18 16:43 97 05/18/18 16:26 98.4 F 91 18 147/87 98 Intake and Output 05/18/18 05/19/18 05/19/18 22:59 06:59 14:59 Other: # Voids 1 Weight 102.1 kg Results 05/18/18 16:40 05/18/18 16:40 Cardiac Enzymes 05/18/18 05/18/18 05/18/18 Range/Units 16:40 16:40 22:46 AST 27 (17-59) U/L CK-MB (CK-2) 1.0 0.7 (0.0-2.4) ng/mL Troponin I <0.012 <0.012 (0.000-0.034) ng/mL 05/19/18 Range/Units 05:18 AST (17-59) U/L CK-MB (CK-2) 0.7 (0.0-2.4) ng/mL Troponin I <0.012 (0.000-0.034) ng/mL Coagulation 05/18/18 Range/Units 16:40 PT 10.4 (9.0-12.0) sec APTT 22.7 (22.0-30.0) sec Lipids 05/19/18 Range/Units 05:18 Triglycerides 74 (<150) mg/dL Cholesterol 160 (<200) mg/dL HDL Cholesterol 35 L (40-60) mg/dL CBC 05/18/18 Range/Units 16:40 WBC 5.3 (3.8-10.6) k/uL RBC 5.61 (4.30-5.90) m/uL Hgb 18.0 H (13.0-17.5) gm/dL Hct 52.3 (39.0-53.0) % Plt Count 175 (150-450) k/uL Comprehensive Metabolic Panel 05/18/18 Range/Units 16:40 Sodium 135 L (137-145) mmol/L Potassium 4.5 (3.5-5.1) mmol/L Chloride 102 (98-107) mmol/L Carbon Dioxide 24 (22-30) mmol/L BUN 26 H (9-20) mg/dL Creatinine 1.41 H (0.66-1.25) mg/dL Glucose 107 H (74-99) mg/dL Calcium 9.9 (8.4-10.2) mg/dL AST 27 (17-59) U/L ALT 33 (21-72) U/L Alkaline Phosphatase 48 (38-126) U/L Total Protein 8.1 (6.3-8.2) g/dL Albumin 4.6 (3.5-5.0) g/dL Current Medications Generic Name Dose Route Start Last Admin Trade Name Freq PRN Reason Stop Dose Admin Amoxicillin 1,000 mg 05/18/18 22:30 05/18/18 22:19 Amoxicillin PO 05/23/18 23:59 1,000 mg Q12HR NOEMÍ Administration Aspirin 325 mg 05/19/18 09:00 Aspirin PO DAILY NOEMÍ Atorvastatin Calcium 10 mg 05/18/18 22:00 05/18/18 22:08 Lipitor PO 10 mg HS NOEMÍ Administration Carvedilol 12.5 mg 05/18/18 22:00 05/18/18 22:08 Coreg PO 12.5 mg BID-W/MEALS NOEMÍ Administration Citalopram Hydrobromide 20 mg 05/18/18 22:00 05/18/18 22:07 Celexa PO 20 mg HS NOEMÍ Administration Gabapentin 600 mg 05/18/18 21:50 Neurontin PO DAILY PRN Pain Lisinopril 5 mg 05/19/18 16:00 Zestril PO DAILY@1600 [facility] Morphine Sulfate 2 mg 05/18/18 21:59 05/19/18 06:06 Morphine Sulfate (Inj) IVP 2 mg Q4HR PRN Administration Moderate Pain Ondansetron HCl 4 mg 05/18/18 22:00 Zofran IVP Q6HR PRN Nausea And Vomiting Oxycodone/Acetaminophen 1 each 05/18/18 21:50 Percocet 10-325 PO QID PRN Moderate Pain Sodium Chloride 10 ml 05/18/18 21:00 05/18/18 22:08 Saline Flush IV 10 ml BID [facility] Administration Spironolactone 25 mg 05/19/18 09:00 Aldactone PO DAILY NOEMÍ Intake and Output 05/18/18 05/19/18 05/19/18 22:59 06:59 14:59 Other: # Voids 1 Weight 102.1 kg 05/18/18 16:40 05/18/18 16:40
[2018-05-19] MEDS ORDERED: VERAPAMIL 2.5 MG/ML 2 ML AMP ONE (10:43)
[2018-05-19] MEDS ORDERED: LIDOCAINE 1% INJ 10MG/ML (20 ML MDV) ONE (10:43)
[2018-05-19] MEDS ORDERED: MIDAZOLAM 2 MG/2 ML VIAL ONE (10:43)
[2018-05-19] MEDS ORDERED: HEPARIN SODIUM 1,000 UN/ML (10ML VL) ONE (10:45)
[2018-05-19] MEDS ORDERED: IV FLUID CONTINUATION 1,000 ML IV ONE (11:08)
[2018-05-19] MEDS ORDERED: MIDAZOLAM 2 MG/2 ML VIAL IV ONE (11:29)
[2018-05-19] MEDS ORDERED: LIDOCAINE 1% (PF) 10MG/ML VIAL SQ ONE ×2 (11:30→11:32)
[2018-05-19] MEDS ORDERED: fentaNYL (PF) 50 MCG/ML 2 ML AMP ONE (11:32)
[2018-05-19] MEDS: VERAPAMIL SYRINGE (5 MG/10 ML) INTRAARTER ONE ×2 (11:34→12:38)
[2018-05-19] MEDS ORDERED: fentaNYL (PF) 50 MCG/ML 2 ML AMP IV ONE (11:35)
[2018-05-19] MEDS ORDERED: NITROGLYCERIN 1000MCG/10ML SYRINGE INTRACORON ONE ×2 (11:45→12:18)
[2018-05-19] MEDS ORDERED: IOPAMIDOL-370 100ML BTL INJ ONE ×3 (11:55→12:56)
[2018-05-19] MEDS ORDERED: BIVALIRUDIN BOLUS 250 MG/50 ML IV ONE (11:58)
[2018-05-19] MEDS ORDERED: BIVALIRUDIN 250 MG in SODIUM CHLORIDE 0.9% 50 ML IV ONE (12:00)
[2018-05-19] MEDS: NITROGLYCERIN 1000MCG/10ML SYRINGE INTRACORON ONE ×2 (12:20→12:48)
[2018-05-19] MEDS ORDERED: CLOPIDOGREL 75 MG TAB ONE (12:47)
[2018-05-19] MEDS ORDERED: CLOPIDOGREL 75 MG TAB PO ONE (12:55)
[2018-05-19] MEDS ORDERED: MAG HYDROX/AL HYDROX/SIMETH 30 ML CUP PO PRN (13:03)
[2018-05-19] MEDS ORDERED: ZOLPIDEM 5 MG TAB PO PRN (13:03)
[2018-05-19] MEDS ORDERED: ATROPINE SULFATE 0.1 MG/ML 10ML SYRINGE IV PRN (13:03)
[2018-05-19] MEDS ORDERED: RX INFO: IV CONTRAST WAS GIVEN 1 EACH MISC MISCELLANE PRN (13:03)
[2018-05-19] MEDS ORDERED: HYDROcodone/APAP 10-325MG 1 EACH TAB ONE (13:17)
[2018-05-19] MEDS ORDERED: LISINOPRIL 5 MG TAB PO SCH ×2 (16:00→21:00)
[2018-05-19] MEDS: oxyCODONE-APAP 10-325MG 1 EACH TAB PO PRN ×2 (17:47→23:42)
[2018-05-19] MEDS: CARVEDILOL 6.25 MG TAB PO SCH (17:47)
[2018-05-19] MEDS: SODIUM CHLORIDE 0.9% 1,000 ML IV SCH (17:52)
[2018-05-19] MEDS: CITALOPRAM HYDROBROMIDE 20 MG TAB PO SCH (20:15)
[2018-05-19 20:55] LABS: Hemoglobin A1C 5.7 % (4.0-6.0)
--- NOTE | 2018-05-19 23:17 | P.HPIM ---
History of Present Illness H&P Date: 05/19/18 Chief Complaint: Chest pain Patient is a 47-year-old male with a known history of hypertension, hyperlipidemia and osteoarthritis came to ER with complaints of shortness of breath, exertional for the past 1 week. Patient also was having chest pain which is radiating to the left arm he associated with nausea and sweating. Chest pain is on and off. Patient was also having heaviness in the chest when he walks which has been present for last few months. Patient was also having shortness of breath and fatigue. Denied any cough or sputum production. No nausea vomiting or abdominal pain. No diarrhea or dysuria. No recent illnesses. Patient does have a history of nonischemic dilated cardiomyopathy. Patient follows with cardiology as an outpatient. EKG reveals sinus mechanism with no acute ST or T-wave abnormalities. Chest xray negative for an acute cardiopulmonary process. D-dimer not elevated. Troponin 3 negative. LDL 110, HDL 35. Current cardiac medications include atorvastatin 10 mg daily, carvedilol 12.5 mg twice a day, lisinopril 5 mg daily and Aldactone 25 mg daily. Most recent echocardiogram in the office 04/2018 EF 45% with mild MR. Review of Systems Constitutional: Patient denies any fever or chills . No generalized weakness or weight loss. Abdomen: Patient denied nausea vomiting and diarrhea and abdominal pain. Cardiovascular: Patient does have chest pain and exertional short of breath. No leg swelling. No palpitations.. Respiratory: patient denied any cough is from production. No shortness of breath Neurologic: Patient denied any numbness or tingling headache. Musculoskeletal: Patient denies any complaints of joint swelling or deformity. Skin: Negative Psychiatric: Negative Endocrine: No heat or cold intolerance. No recent weight gain. Genitourinary: No dysuria or hematuria. All other 14 point ROS negative except the above Past Medical History Past Medical History: Chest Pain / Angina, Hyperlipidemia, Hypertension, Osteoarthritis (OA) Additional Past Medical History / Comment(s): 05-18-18 pt wants flu vaccine while here. pmh:possible sleep apnea but never had study-Low testosterone., History of Any Multi-Drug Resistant Organisms: None Reported Past Surgical History: Back Surgery Additional Past Surgical History / Comment(s): back surgeries x2, Past Anesthesia/Blood Transfusion Reactions: No Reported Reaction Smoking Status: Former smoker - Past Family History Father Family Medical History: Cancer Additional Family Medical History / Comment(s): lung Mother Family Medical History: Cancer Additional Family Medical History / Comment(s): colon Medications and Allergies Home Medications Medication Instructions Recorded Confirmed Type Carvedilol [Coreg] 12.5 mg PO BID 02/08/17 05/18/18 History Lisinopril [Zestril] 5 mg PO DAILY@1600 02/08/17 05/18/18 History Spironolactone [Aldactone] 25 mg PO DAILY 02/08/17 05/18/18 History oxyCODONE-APAP 10-325MG [Percocet 1 tab PO QID PRN 02/08/17 05/18/18 History 10-325 mg] Amoxicillin 1,000 mg PO Q12H 05/18/18 05/18/18 History Atorvastatin [Lipitor] 10 mg PO HS 05/18/18 05/18/18 History Citalopram Hydrobromide [CeleXA] 20 mg PO HS 05/18/18 05/18/18 History Gabapentin 600 mg PO DAILY PRN 05/18/18 05/18/18 History Allergies Allergy/AdvReac Type Severity Reaction Status Date / Time No Known Allergies Allergy Verified 05/18/18 21:02 Physical Exam Vitals: Vital Signs Temp Pulse Pulse Resp BP BP Pulse Ox 05/19/18 09:58 98.2 F 72 18 126/71 05/19/18 07:45 98.2 F 72 18 126/71 98 05/19/18 04:00 98.3 F 70 18 129/61 99 05/19/18 00:00 98.5 F 88 18 149/62 96 05/18/18 20:10 98.5 F 76 18 138/80 98 05/18/18 20:00 18 05/18/18 19:00 71 16 117/74 05/18/18 18:00 71 16 125/73 98 05/18/18 17:12 90 18 106/54 95 05/18/18 17:00 105 H 13 123/76 95 05/18/18 16:43 97 05/18/18 16:26 98.4 F 91 18 147/87 98 Intake and Output 05/18/18 05/19/18 05/19/18 22:59 06:59 14:59 Intake Total 0 Balance 0 Intake: IV 0 Other: # Voids 1 Weight 102.1 kg PHYSICAL EXAMINATION: Patient is lying in the bed comfortably, no acute distress, awake alert and oriented.. HEENT: Normocephalic. Neck is supple. Pupils reactive. Nostrils clear. Oral cavity is moist. Ears reveal no drainage. Neck reveals no JVD, carotid bruits, or thyromegaly. CHEST EXAMINATION: Trachea is central. Symmetrical expansion. Lung acosta clear to auscultation and percussion. CARDIAC: Normal S1, S2 with no gallops. No murmurs ABDOMEN: Soft. Bowel sounds normal. No organomegaly. No abdominal bruits. Extremities: reveal no edema. No clubbing or cyanosis Neurologically awake, alert, oriented x3 with well-coordinated movements. No focal deficits noted Skin: No rash or skin lesions. Psychiatric: Coperative. Nonsuicidal Musculoskeletal: No joint swelling or deformity. Normal range of motion. Results CBC & Chem 7: 05/18/18 16:40 05/18/18 16:40 Labs: Abnormal Lab Results - Last 24 Hours (Table) 05/18/18 05/18/18 05/18/18 Range/Units 16:40 16:40 16:40 Hgb 18.0 H (13.0-17.5) gm/dL Sodium 135 L (137-145) mmol/L BUN 26 H (9-20) mg/dL Creatinine 1.41 H (0.66-1.25) mg/dL Glucose 107 H (74-99) mg/dL Total Creatine Kinase 229 H (55-170) U/L LDL Cholesterol, Calc (0-99) mg/dL HDL Cholesterol (40-60) mg/dL 05/18/18 05/19/18 05/19/18 Range/Units 22:46 05:18 05:18 Hgb (13.0-17.5) gm/dL Sodium (137-145) mmol/L BUN (9-20) mg/dL Creatinine (0.66-1.25) mg/dL Glucose (74-99) mg/dL Total Creatine Kinase 206 H 171 H (55-170) U/L LDL Cholesterol, Calc 110 H (0-99) mg/dL HDL Cholesterol 35 L (40-60) mg/dL Thrombosis Risk Factor Assmnt - DVT/VTE Prophylaxis DVT/VTE Prophylaxis: Pharmacologic Prophylaxis ordered - Choose All That Apply Each Factor Represents 1 point: Age 41-60 years Thrombosis Risk Factor Assessment Total Risk Factor Score: 1 Thrombosis Risk Factor Assessment Level: Low Risk Assessment and Plan Assessment: Unstable angina. Status post cardiac catheterization and stent placement. Acute on Chronic kidney disease stage II Hypertension Dyslipidemia Dilated cardiomyopathy, non-ischemic. Last EF 45% 04/2018 in the office with calcified aortic valve and myxomatous mitral valve. Former nicotine dependence History of drug and alcohol use. PLAN Patient will be continued on aspirin, statins and Coreg. Hold lisinopril and aldactone for elevated creatinine. Patient was started on Plavix. Continue with telemetry monitoring. Cardiology is on board. Continue to follow closely. Currently patient says that his chest discomfort did improve. Follow-up renal function. Time with Patient: Greater than 30
[2018-05-19] MEDS: HEPARIN SODIUM,PORCINE 5,000 UNIT/ML 1 ML VIAL SQ SCH (23:41)
[2018-05-20] MEDS: SODIUM CHLORIDE 0.9% 1,000 ML IV SCH (02:13)
[2018-05-20] MEDS: CARVEDILOL 6.25 MG TAB PO SCH (06:21)
[2018-05-20] MEDS: oxyCODONE-APAP 10-325MG 1 EACH TAB PO PRN ×2 (06:21→11:32)
[2018-05-20 07:18] LABS: Basophils % (A) 0 %; Eosinophils # (A) 0.1 k/uL (0-0.7); Eosinophils % (A) 2 %; HCT 44.5 % (39.0-53.0); HGB 15.3 gm/dL (13.0-17.5); Lymphocytes % (A) 28 %; MCH 32.7 pg (25.0-35.0); MCHC 34.3 g/dL (31.0-37.0); MCV 95.3 fL (80.0-100.0); Mean Platelet Volume 6.4; Monocytes # (A) 0.4 k/uL (0-1.0); Monocytes % (A) 11 %; Neutrophils # (A) 2.1 k/uL (1.3-7.7); Neutrophils % (A) 56 %; Platelet Count 135 k/uL (150-450); RBC 4.67 m/uL (4.30-5.90); RDW 13.1 % (11.5-15.5); WBC 3.8 k/uL (3.8-10.6)
[2018-05-20 07:35] LABS: Calcium 8.2 mg/dL (8.4-10.2); Potassium 4.8 mmol/L (3.5-5.1)
[2018-05-20] MEDS ORDERED: CLOPIDOGREL 75 MG TAB PO SCH (09:00)
[2018-05-20] MEDS ORDERED: ASPIRIN 81 MG PO SCH (09:00)
[2018-05-20] MEDS ORDERED: SPIRONOLACTONE 25 MG TAB PO SCH (09:00)
[2018-05-20] MEDS: HEPARIN SODIUM,PORCINE 5,000 UNIT/ML 1 ML VIAL SQ SCH (09:27)
[2018-05-20 09:40] VITALS: BP 110/60; PULSE 74; RESP 16; TEMP 97
--- NOTE | 2018-05-20 10:01 | CC ---
CARDIAC CATHETERIZATION REPORT DATE OF SERVICE: 05/19/2018. PROCEDURE: 1. Left heart catheterization and coronary angiography. 2. Fractional flow reserve assessment of mid LAD lesion. 3. PTCA and stenting of mid LAD with a drug-eluting stent. PERFORMED BY: Dr. Brianna Rodriguez. Moderate conscious sedation time was 90 minutes. Patient was administered Versed and fentanyl and his oxygen saturation, hemodynamics and EKG were monitored closely. CLINICAL INFORMATION: Mr. Mansoor Reynoso is a gentleman with a history of probable nonischemic cardiomyopathy and ejection fraction in the range of 45% or so. He had atypical chest pain and also hyperlipidemia. He was on lisinopril, carvedilol, Lipitor, and Aldactone. During his last office visit, I had advised elective cardiac catheterization but he came into the hospital with episode of chest pain suggestive of angina with a negative enzymes. He was advised coronary angiography after evaluation by Dr. Cassidy. Risks, benefits, options and rationale were explained to the patient and his friend. PROCEDURE NOTE: Under local anesthesia and strict aseptic precautions, a 6-Liberian introducer was placed in the right radial artery. Using a JR4 and JL 3.5 catheter, I performed coronary angiography. I used the same right Digna catheter to check LV pressures but did not perform LV gram. Subsequently, I noted that there was a significant/moderate lesion in the mid LAD at the junction of middle and distal one-third and I advised FFR/IFR. If this was significant, he was advised to have a PCI of LAD. FFR/PCI DETAILS: I tried different guide catheters, but eventually with a XB LAD 3.5, I was able to cannulate the left coronary artery. Using a [place] wire after adequate calibration, the wire was kept distal to the lesion. IFR assessment suggested that this was less than 0.76. I therefore proceeded with PCI. I took the wire out and the guide catheter came out and it was difficult to get back the guide in place. After multiple attempts, I settled for a 3.5 left Ikari catheter. With this, I cannulated a left coronary artery. A run-through wire was used to cross the lesion. Without predilatation, a 2.5 caliber 12 mm stent was initially tried but it was thought to be too long, so I took the stent out and eventually a 2.5 caliber 8 mm Xience stent was deployed at 12 atmospheres. Patient did not have any significant EKG changes or chest pain. Angiographically excellent result was achieved. Patient received Angiomax bolus and infusion and also he received 600 mg of Plavix. The sheath was taken out and TR band applied as per protocol and he was sent to the room in stable condition. The results and details were discussed with the patient and his fiance. CARDIAC CATHETERIZATION FINDINGS: The left ventricular end-diastolic pressure was about 10 mmHg without any gradient across the aortic valve. CORONARY ANGIOGRAPHY FINDINGS: RIGHT CORONARY ARTERY: Technically a very large dominant vessel, gives off a high acute marginal branch proximally. The RCA is tortuous, distally bifurcates into PDA and PLV, has minor irregularities, no significant disease and is a very dominant vessel. LEFT MAIN CORONARY ARTERY: A long patent disease-free vessel that bifurcates into LAD and circumflex. LAD is a good caliber and good distribution vessel that runs along the anterior wall, gives off several septal and diagonal branches and at the junction of the middle and distal one-third, there is eccentric 60% lesion best seen in AP and YAN cranial projection. The LAD curves over the apex to supply the inferoapical portion of left ventricle. This is a large distribution LAD with a substantial amount of myocardium beyond the lesion. LEFT POSTERIOR CIRCUMFLEX CORONARY ARTERY: Technically, a nondominant good caliber, good distribution vessel that gives off an obtuse marginal branch and then runs distally and bifurcates into two branches that supply a fair amount of myocardium. No significant disease in the good caliber and good distribution circumflex system. IMPRESSION: This patient has a right dominant system. No significant disease in the dominant RCA or circumflex. LAD had a 60% to 70% lesion in the junction of middle and distal one- third, and he was advised FFR and PCI. IFR was less than 0.76 and PCI of LAD was performed with a drug-eluting stent with excellent angiographic result. MMODL / IJN: [id number] /
[2018-05-20 11:18] VITALS: BMI 32.8
[2018-05-20] MEDS: AMOXICILLIN 500 MG CAP PO SCH (11:32)
--- NOTE | 2018-05-20 12:07 | P.PN ---
Subjective Progress Note Date: 05/20/18 This is a pleasant 47-year-old male past medical history significant for hypertension, dyslipidemia, non-ischemic dilated cardiomyopathy , chronic kidney disease, former nicotine dependence and history of drug/ alcohol abuse. He follows in the office with Dr. Rodriguez. He presented to the hospital with symptoms of chest discomfort, was taken to the cardiac catheterization lab where he underwent angioplasty and stenting of the LAD. Patient was seen and examined this morning, some mild discomfort in the chest earlier, pain-free at the time of my examination. EKG showed normal sinus rhythm with no changes from post-PCI. Laboratory data was reviewed, white blood cell count 3.8, hemoglobin 15.3, platelet count 135. Sodium 138, potassium 4.8, BUN 18, creatinine 1.2. Blood pressure 110/60 with a heart rate in the 70s, 97% on room air. Objective - Vital Signs Vital signs: Vital Signs Temp 97.0 F L 05/20/18 08:00 Pulse 74 05/20/18 08:00 Resp 16 05/20/18 08:00 BP 110/60 05/20/18 08:00 Pulse Ox 97 05/20/18 09:09 Intake & Output 05/19/18 05/20/18 05/20/18 18:59 06:59 18:59 Intake Total 440.8 222 Balance 440.8 222 Weight 100.8 kg 100.8 kg Intake: IV 240.8 Oral 200 222 Other: Voiding Method Toilet - Exam PHYSICAL EXAMINATION: GENERAL: 47-year-old -[place] gentleman in no acute distress at the time of my examination HEENT: Head is atraumatic, normocephalic. Pupils equal, round. Sclera anicteric. Conjunctiva are clear. Mucous membranes of the mouth are moist. Neck is supple. There is no elevated jugular venous pressure.No carotid bruit is heard. HEART EXAMINATION: Heart S1, S2 normal. No murmur or gallop heard. CHEST EXAMINATION: Lungs are clear to auscultation and precussion. No chest wall tenderness is noted on palpation or with deep breathing. ABDOMEN: Soft, nontender. Bowel sounds are heard. No organomegaly noted. EXTREMITIES: 2+ peripheral pulses with no evidence of peripheral edema and no calf tenderness noted. Right radial site clean and dry, good distal pulse. NEUROLOGIC patient is awake, alert and oriented X3. . - Labs CBC & Chem 7: 05/20/18 05:45 05/20/18 05:45 Labs: Abnormal Lab Results - Last 24 Hours (Table) 05/20/18 05/20/18 Range/Units 05:45 05:45 Plt Count 135 L (150-450) k/uL Creatinine 1.29 H (0.66-1.25) mg/dL Calcium 8.2 L (8.4-10.2) mg/dL Assessment and Plan Plan: Assessment and plan #1 Unstable angina status post stenting of the LAD #2 Chronic kidney disease #3 Hypertension #4 Dyslipidemia #5 Dilated cardiomyopathy, non-ischemic. Last EF 45% 04/2018 in the office with calcified aortic valve and myxomatous mitral valve. #6 Former nicotine dependence #7 History of drug and alcohol use. Plan From cardiology's perspective, patient may be able to be discharged home today. We'll make him a follow-up appointment in the office with Dr. Rodriguez post discharge. DNP note has been reviewed, I agree with a documented findings and plan of care. Patient was seen and examined.
[2018-05-20] MEDS ORDERED: ATORVASTATIN 80 MG TAB PO SCH (21:00)
--- NOTE | 2018-05-21 01:33 | P.DS ---
Providers Date of admission: 05/19/18 16:18 Expected date of discharge: 05/20/18 Attending physician: José Miguel Colon Consults: 05/18/18 18:21 Consult Physician Urgent Consulting Provider: Melida Loera Consult Reason/Comments: cp Do you want consulting provider notified?: Yes 05/19/18 13:03 Consult Physician Routine Consulting Provider: [facility] Consult Reason/Comments: Post Interventional patient Do you want consulting provider notified?: Already Contacted Primary care physician: Claudia Espinoza Hospital Course: Discharge diagnosis Unstable angina. Status post cardiac catheterization and stent placement to mid LAD. Acute on Chronic kidney disease stage II Hypertension Dyslipidemia Dilated cardiomyopathy, non-ischemic. Last EF 45% 04/2018 in the office with calcified aortic valve and myxomatous mitral valve. Former nicotine dependence History of drug and alcohol use. Hospital course Patient is a 47-year-old male with a known history of hypertension, hyperlipidemia and osteoarthritis came to ER with complaints of shortness of breath, exertional for the past 1 week. Patient also was having chest pain which is radiating to the left arm he associated with nausea and sweating. Chest pain is on and off. Patient was also having heaviness in the chest when he walks which has been present for last few months. Patient was also having shortness of breath and fatigue. Denied any cough or sputum production. No nausea vomiting or abdominal pain. No diarrhea or dysuria. No recent illnesses. Patient does have a history of nonischemic dilated cardiomyopathy. Patient follows with cardiology as an outpatient. EKG reveals sinus mechanism with no acute ST or T-wave abnormalities. Chest xray negative for an acute cardiopulmonary process. D-dimer not elevated. Troponin 3 negative. LDL 110, HDL 35. Current cardiac medications include atorvastatin 10 mg daily, carvedilol 12.5 mg twice a day, lisinopril 5 mg daily and Aldactone 25 mg daily. Most recent echocardiogram in the office 04/2018 EF 45% with mild MR. 05/20/2018 Patient is status post cardiac catheterization and stenting of LAD. Currently patient denied any complains of chest pain or shortness of breath. No nausea vomiting or abdominal pain. No other acute overnight issues. Patient is being discharged home today. PLAN Patient will be continued on aspirin, statins and Coreg. Hold lisinopril and aldactone for elevated creatinine. Started back up on discharge. Patient was started on Plavix. Continued with telemetry monitoring. Currently patient says that his chest discomfort did improve. Follow-up renal function did improve. Discharge physical examination was done and vitals reviewed. Vital Signs - 24 hr 05/20/18 05/20/18 05/20/18 03:53 06:23 08:00 Temperature 98.7 F 97.0 F L Pulse Rate [ 81 79 74 Pulse Oximetery ] Respiratory 16 18 16 Rate Blood Pressure 135/85 140/88 110/60 [Left Arm] O2 Sat by Pulse 95 96 97 Oximetry 05/20/18 09:09 Temperature Pulse Rate [ Pulse Oximetery ] Respiratory Rate Blood Pressure [Left Arm] O2 Sat by Pulse 97 Oximetry Patient Condition at Discharge: Stable Plan - Discharge Summary Discharge Rx Participant: Yes New Discharge Prescriptions: New Aspirin 81 mg PO DAILY #30 chew Atorvastatin [Lipitor] 80 mg PO HS #30 tab Clopidogrel [Plavix] 75 mg PO DAILY #30 tab Nitroglycerin Sl Tabs [Nitrostat] 0.4 mg SUBLINGUAL Q5M PRN #25 tab PRN Reason: Chest Pain Continue Spironolactone [Aldactone] 25 mg PO DAILY oxyCODONE-APAP 10-325MG [Percocet 10-325 mg] 1 tab PO QID PRN PRN Reason: Pain Carvedilol [Coreg] 12.5 mg PO BID Lisinopril [Zestril] 5 mg PO DAILY@1600 Amoxicillin 1,000 mg PO Q12H Citalopram Hydrobromide [CeleXA] 20 mg PO HS Gabapentin 600 mg PO DAILY PRN PRN Reason: Pain Discontinued Atorvastatin [Lipitor] 10 mg PO HS Discharge Medication List Carvedilol [Coreg] 12.5 mg PO BID 02/08/17 [History] Lisinopril [Zestril] 5 mg PO DAILY@1600 02/08/17 [History] Spironolactone [Aldactone] 25 mg PO DAILY 02/08/17 [History] oxyCODONE-APAP 10-325MG [Percocet 10-325 mg] 1 tab PO QID PRN 02/08/17 [History] Amoxicillin 1,000 mg PO Q12H 05/18/18 [History] Citalopram Hydrobromide [CeleXA] 20 mg PO HS 05/18/18 [History] Gabapentin 600 mg PO DAILY PRN 05/18/18 [History] Aspirin 81 mg PO DAILY #30 chew 05/20/18 [Rx] Atorvastatin [Lipitor] 80 mg PO HS #30 tab 05/20/18 [Rx] Clopidogrel [Plavix] 75 mg PO DAILY #30 tab 05/20/18 [Rx] Nitroglycerin Sl Tabs [Nitrostat] 0.4 mg SUBLINGUAL Q5M PRN #25 tab 05/20/18 [Rx ] Follow up Appointment(s)/Referral(s): Kiki Rodriguez MD [STAFF PHYSICIAN] - 05/24/18 10:45 am Olga Taylor MD [Primary Care Provider] - 05/25/18 9:40 am Patient Instructions/Handouts: Heart Healthy Diet (DC), After Radial Heart Catheterization (GEN) Discharge Disposition: HOME SELF-CARE
== END 2018-05-20 12:40 | disposition home or self-care (01) | DRG 247 ==
LOC: EC 16:24 → 1SOBS 18:22 → 3SCARD 05-19 14:11 → OBSVTOIN 05-19 16:18
PROVIDERS: ADMIT Hospitalist; ATTEND Hospitalist
PROC: 4A033BC Measurement of Arterial Pressure, Coronary, Percutaneous Approach (ICD-10-PCS; 2018-05-19)
PROC: 027034Z Dilation of Coronary Artery, One Artery with Drug-eluting Intraluminal Device, Percutaneous Approach (ICD-10-PCS; principal; 2018-05-19 10:51)
PROC: 4A023N7 Measurement of Cardiac Sampling and Pressure, Left Heart, Percutaneous Approach (ICD-10-PCS; 2018-05-19 10:51)
PROC: B2111ZZ Fluoroscopy of Multiple Coronary Arteries using Low Osmolar Contrast (ICD-10-PCS; 2018-05-19 10:51)
DX: I25.110 Atherosclerotic heart disease of native coronary artery with unstable angina pectoris (principal); N17.9 Acute kidney failure, unspecified; I42.0 Dilated cardiomyopathy; I08.0 Rheumatic disorders of both mitral and aortic valves; I12.9 Hypertensive chronic kidney disease with stage 1 through stage 4 chronic kidney disease, or unspecified chronic kidney disease; N18.2 Chronic kidney disease, stage 2 (mild); E78.5 Hyperlipidemia, unspecified; F41.9 Anxiety disorder, unspecified; M19.90 Unspecified osteoarthritis, unspecified site; F10.11 Alcohol abuse, in remission; F19.11 Other psychoactive substance abuse, in remission; Z79.899 Other long term (current) drug therapy; Z87.891 Personal history of nicotine dependence; Z80.1 Family history of malignant neoplasm of trachea, bronchus and lung; Z80.0 Family history of malignant neoplasm of digestive organs
CPT/HCPCS: 36415; 71046; 80048; 80053; 80061; 82550; 82553; 83036; 83735; 83880; 84484; 85025; 85379; 85610; 85730; 93005; 93458; 93571; 94760; 96360; 96361; 99285; C1874

== ENCOUNTER 2018-06-12 12:46 | Observation (INO) | payer MEDICARE, OTHER ==
[2018-06-12] MEDS ORDERED: ASPIRIN 81 MG PO STA (13:02)
[2018-06-12] MEDS ORDERED: NITROGLYCERIN SL TABS 0.4 MG TAB SUBLINGUAL STA ×3 (13:02)
--- NOTE | 2018-06-12 13:13 | ED ---
General Adult HPI - General Chief complaint: Chest Pain Stated complaint: Chest pain/sob Time Seen by Provider: 06/12/18 12:51 Source: patient, RN notes reviewed, old records reviewed Mode of arrival: ambulatory Limitations: no limitations - History of Present Illness Initial comments: Patient is a pleasant 48-year-old male presenting to the emergency Department with complaints of chest discomfort. Symptoms have been intermittent over the past week. Discomfort is somewhat worse and currently rated 8/10. There is some radiation towards left arm. There is some difficulty taking a deep breath. Patient has had some mild nausea. No diaphoresis. Patient did have similar symptoms and had stent placement done less than 1 month ago. Patient states his symptoms are certainly do worsen he was thinking about taking a nitroglycerin. Discomfort feels like tightness - Related Data Home Medications Medication Instructions Recorded Confirmed Carvedilol [Coreg] 12.5 mg PO BID 02/08/17 05/18/18 Lisinopril [Zestril] 5 mg PO DAILY@1600 02/08/17 05/18/18 Spironolactone [Aldactone] 25 mg PO DAILY 02/08/17 05/18/18 oxyCODONE-APAP 10-325MG [Percocet 1 tab PO QID PRN 02/08/17 05/18/18 10-325 mg] Amoxicillin 1,000 mg PO Q12H 05/18/18 05/18/18 Citalopram Hydrobromide [CeleXA] 20 mg PO HS 05/18/18 05/18/18 Gabapentin 600 mg PO DAILY PRN 05/18/18 05/18/18 Previous Rx's Medication Instructions Recorded Aspirin 81 mg PO DAILY #30 chew 05/20/18 Atorvastatin [Lipitor] 80 mg PO HS #30 tab 05/20/18 Clopidogrel [Plavix] 75 mg PO DAILY #30 tab 05/20/18 Nitroglycerin Sl Tabs [Nitrostat] 0.4 mg SUBLINGUAL Q5M PRN #25 tab 05/20/18 Allergies Allergy/AdvReac Type Severity Reaction Status Date / Time No Known Allergies Allergy Verified 06/12/18 12:50 Review of Systems ROS Statement: Those systems with pertinent positive or pertinent negative responses have been documented in the HPI. ROS Other: All systems not noted in ROS Statement are negative. Constitutional: Denies: fever Eyes: Denies: eye pain ENT: Denies: ear pain Respiratory: Reports: dyspnea. Denies: cough Cardiovascular: Reports: chest pain. Denies: palpitations Endocrine: Denies: fatigue Gastrointestinal: Denies: abdominal pain Genitourinary: Denies: dysuria Musculoskeletal: Denies: back pain Skin: Denies: rash Neurological: Denies: weakness Past Medical History Past Medical History: Chest Pain / Angina, Hyperlipidemia, Hypertension, Osteoarthritis (OA) Additional Past Medical History / Comment(s): 05-18-18 pt wants flu vaccine while here. pmh:possible sleep apnea but never had study-Low testosterone., History of Any Multi-Drug Resistant Organisms: None Reported Past Surgical History: Back Surgery Additional Past Surgical History / Comment(s): back surgeries x2, Past Anesthesia/Blood Transfusion Reactions: No Reported Reaction Past Psychological History: Anxiety Smoking Status: Former smoker Past Alcohol Use History: None Reported Past Drug Use History: None Reported - Past Family History Father Family Medical History: Cancer Additional Family Medical History / Comment(s): lung Mother Family Medical History: Cancer Additional Family Medical History / Comment(s): colon General Exam Limitations: no limitations General appearance: alert, in no apparent distress Head exam: Present: atraumatic Eye exam: Present: normal appearance, PERRL ENT exam: Present: normal oropharynx Neck exam: Present: normal inspection Respiratory exam: Present: normal lung sounds bilaterally. Absent: chest wall tenderness Cardiovascular Exam: Present: regular rate, normal rhythm Expanded Peripheral pulses: 2+: Radial (R), Radial (L), Posterior Tibialis (R), Posterior Tibialis (L) GI/Abdominal exam: Present: soft. Absent: tenderness Extremities exam: Present: normal inspection. Absent: pedal edema, calf tenderness Neurological exam: Present: alert Psychiatric exam: Present: normal affect, normal mood Skin exam: Present: normal color Course Vital Signs 06/12/18 06/12/18 06/12/18 12:48 12:59 13:00 Temperature 98.3 F Pulse Rate 79 75 Respiratory 20 21 21 Rate Blood Pressure 128/59 O2 Sat by Pulse 98 Oximetry 06/12/18 06/12/18 06/12/18 13:05 13:10 13:15 Temperature Pulse Rate 75 76 70 Respiratory 13 12 23 Rate Blood Pressure 106/64 106/64 O2 Sat by Pulse 96 94 L 97 Oximetry 06/12/18 06/12/18 06/12/18 13:20 13:25 13:28 Temperature Pulse Rate 75 75 Respiratory 17 16 19 Rate Blood Pressure 106/64 116/76 O2 Sat by Pulse 97 97 Oximetry 06/12/18 13:34 Temperature Pulse Rate 83 Respiratory 18 Rate Blood Pressure 112/60 O2 Sat by Pulse Oximetry EKG Findings - EKG Comments: EKG Findings:: Normal sinus rhythm 77. ID 116. QRS 82. QT 370. QTc 418. Normal axis. Normal QRS. No acute ST change. Medical Decision Making - Medical Decision Making Patient reevaluated and resting comfortably in bed. No improvement with nitroglycerin. Patient has had improvement with morphine. Patient updated on results and plan. Case was discussed in detail with Dr. hall, covering for Dr. paez, who will admit. - Lab Data Result diagrams: 06/12/18 13:05 06/12/18 13:05 Lab Results 06/12/18 06/12/18 06/12/18 Range/Units 13:05 13:05 13:05 WBC 3.3 L (3.8-10.6) k/uL RBC 4.87 (4.30-5.90) m/uL Hgb 15.3 (13.0-17.5) gm/dL Hct 44.9 (39.0-53.0) % MCV 92.2 (80.0-100.0) fL MCH 31.5 (25.0-35.0) pg MCHC 34.2 (31.0-37.0) g/dL RDW 12.5 (11.5-15.5) % Plt Count 124 L (150-450) k/uL Neutrophils % 59 % Lymphocytes % 26 % Monocytes % 8 % Eosinophils % 2 % Basophils % 0 % Neutrophils # 2.0 (1.3-7.7) k/uL Lymphocytes # 0.9 L (1.0-4.8) k/uL Monocytes # 0.3 (0-1.0) k/uL Eosinophils # 0.1 (0-0.7) k/uL Basophils # 0.0 (0-0.2) k/uL PT (9.0-12.0) sec INR (<1.2) APTT (22.0-30.0) sec D-Dimer (<0.60) mg/L FEU Sodium 140 (137-145) mmol/L Potassium 4.7 (3.5-5.1) mmol/L Chloride 104 (98-107) mmol/L Carbon Dioxide 25 (22-30) mmol/L Anion Gap 11 mmol/L BUN 27 H (9-20) mg/dL Creatinine 1.14 (0.66-1.25) mg/dL Est GFR (CKD-EPI)AfAm 87 (>60 ml/min/1.73 sqM) Est GFR (CKD-EPI)NonAf 75 (>60 ml/min/1.73 sqM) Glucose 154 H (74-99) mg/dL Calcium 9.2 (8.4-10.2) mg/dL Magnesium 1.7 (1.6-2.3) mg/dL Total Bilirubin 0.4 (0.2-1.3) mg/dL AST 39 (17-59) U/L ALT 48 (21-72) U/L Alkaline Phosphatase 52 (38-126) U/L Total Creatine Kinase 217 H (55-170) U/L CK-MB (CK-2) 0.5 (0.0-2.4) ng/mL CK-MB (CK-2) Rel Index 0.2 Troponin I <0.012 (0.000-0.034) ng/mL Total Protein 7.4 (6.3-8.2) g/dL Albumin 4.1 (3.5-5.0) g/dL 06/12/18 Range/Units 13:05 WBC (3.8-10.6) k/uL RBC (4.30-5.90) m/uL Hgb (13.0-17.5) gm/dL Hct (39.0-53.0) % MCV (80.0-100.0) fL MCH (25.0-35.0) pg MCHC (31.0-37.0) g/dL RDW (11.5-15.5) % Plt Count (150-450) k/uL Neutrophils % % Lymphocytes % % Monocytes % % Eosinophils % % Basophils % % Neutrophils # (1.3-7.7) k/uL Lymphocytes # (1.0-4.8) k/uL Monocytes # (0-1.0) k/uL Eosinophils # (0-0.7) k/uL Basophils # (0-0.2) k/uL PT 9.9 (9.0-12.0) sec INR 0.9 (<1.2) APTT 23.5 (22.0-30.0) sec D-Dimer 0.34 (<0.60) mg/L FEU Sodium (137-145) mmol/L Potassium (3.5-5.1) mmol/L Chloride (98-107) mmol/L Carbon Dioxide (22-30) mmol/L Anion Gap mmol/L BUN (9-20) mg/dL Creatinine (0.66-1.25) mg/dL Est GFR (CKD-EPI)AfAm (>60 ml/min/1.73 sqM) Est GFR (CKD-EPI)NonAf (>60 ml/min/1.73 sqM) Glucose (74-99) mg/dL Calcium (8.4-10.2) mg/dL Magnesium (1.6-2.3) mg/dL Total Bilirubin (0.2-1.3) mg/dL AST (17-59) U/L ALT (21-72) U/L Alkaline Phosphatase (38-126) U/L Total Creatine Kinase (55-170) U/L CK-MB (CK-2) (0.0-2.4) ng/mL CK-MB (CK-2) Rel Index Troponin I (0.000-0.034) ng/mL Total Protein (6.3-8.2) g/dL Albumin (3.5-5.0) g/dL - Radiology Data Interpreted by me: Chest x-ray shows no acute process Disposition Clinical Impression: Chest pain Disposition: ADMITTED IP TO THIS HOSP Is patient prescribed a controlled substance at d/c from ED?: No Referrals: Olga Paez MD [Primary Care Provider] - 1-2 days Decision Time: 14:27
[2018-06-12 13:20] LABS: Basophils % (A) 0 %; Eosinophils # (A) 0.1 k/uL (0-0.7); Eosinophils % (A) 2 %; HCT 44.9 % (39.0-53.0); HGB 15.3 gm/dL (13.0-17.5); Lymphocytes # (A) 0.9 k/uL (1.0-4.8); Lymphocytes % (A) 26 %; MCH 31.5 pg (25.0-35.0); MCHC 34.2 g/dL (31.0-37.0); MCV 92.2 fL (80.0-100.0); Monocytes # (A) 0.3 k/uL (0-1.0); Monocytes % (A) 8 %; Neutrophils % (A) 59 %; Platelet Count 124 k/uL (150-450); RBC 4.87 m/uL (4.30-5.90); RDW 12.5 % (11.5-15.5); WBC 3.3 k/uL (3.8-10.6)
[2018-06-12 13:31] LABS: Albumin 4.1 g/dL (3.5-5.0); Calcium 9.2 mg/dL (8.4-10.2); Potassium 4.7 mmol/L (3.5-5.1); Total Bilirubin 0.4 mg/dL (0.2-1.3); Total Protein 7.4 g/dL (6.3-8.2)
[2018-06-12 13:33] LABS: D-Dimer 0.34 mg/L FEU (<0.60); INR 0.9 (<1.2); Partial Thromboplastin Time 23.5 sec (22.0-30.0); Prothrombin Time 9.9 sec (9.0-12.0)
[2018-06-12 13:35] LABS: Creatine Kinase 217 U/L (55-170)
[2018-06-12] MEDS ORDERED: MORPHINE SULFATE 4 MG/ML SYRINGE IVP STA (13:42)
[2018-06-12 13:47] LABS: Magnesium 1.7 mg/dL (1.6-2.3)
[2018-06-12 13:48] LABS: Creatine Kinase MB 0.5 ng/mL (0.0-2.4); Troponin I <0.012 ng/mL (0.000-0.034)
--- NOTE | 2018-06-12 14:09 | XR ---
EXAMINATION TYPE: XR chest 2V DATE OF EXAM: 06/12/2018 COMPARISON: 05/18/2018 HISTORY: Short of breath and chest pain TECHNIQUE: Frontal and lateral views of the chest are obtained. FINDINGS: Heart and mediastinum are normal. Lungs are clear. Diaphragm is normal. Bony thorax appear s normal. There are chest leads. IMPRESSION: Normal chest
[2018-06-12] MEDS ORDERED: NITROGLYCERIN SL TABS 0.4 MG TAB SUBLINGUAL PRN (14:27)
[2018-06-12] MEDS ORDERED: GABAPENTIN 300 MG CAP PO PRN (17:19)
[2018-06-12] MEDS: CARVEDILOL 12.5 MG TAB PO SCH (17:45)
[2018-06-12] MEDS: oxyCODONE-APAP 10-325MG 1 EACH TAB PO PRN (17:45)
--- NOTE | 2018-06-12 17:54 | P.HPIM ---
History of Present Illness H&P Date: 06/12/18 Chief Complaint: chest pain Mr. Steele is a 48-year-old male with a past medical history of coronary artery disease status post stenting done 1 month back by JOSE A Rodriguez, hypertension , hyperlipidemia and osteoarthritis coming into the hospital with a chief complaint of left-sided chest pain. Patient states that he has heaviness in the left side of the chest with the pain radiating to the left arm associated with some difficulty in breathing. Patient states that he has been dealing with this for the past 1 week and this morning he felt dizzy and nauseous and so came into the ED for further evaluation. Patient had cardiac catheterization done and stenting of LAD on 05/20/2018. Patient denies having any cough. No fever chills or rigors. He denies having any abdominal pain nausea vomiting or diarrhea. No dysuria or hematuria. Patient does not have a history of smoking.He has a history of back surgery done in the past. In the ER - Patient had EKG showing sinus rhythm with no acute ST or T-wave abnormalities. Troponins have been negative 1. He is admitted for further evaluation. Review of Systems REVIEW OF SYSTEMS: PSYCH: No history of anxiety or depression NEURO:No c/o weakness of the extremties, No facial droop, No speech abnormalities. VASCULAR: no edema HEMATOLOGIC: No history of easy bleeding and bruising . No recent infections . RESPIRATORY: No cough, No SOB, No chest discomfort. IMMUNE: No infections INTEGUMENT: no rashes OPHTHALMOLOGIC: No blurry vision and no eye discharge : No dysuria or hematuria CARDIAC: As per HPI MUSCULOSKELETAL : No Aches or pains in the joints or muscles. GI: No abdominal pain, Nausea or vomiting. No constipation or diarrhea. All 13 review of systems are done and negative except for the ones mentioned above. Past Medical History Past Medical History: Chest Pain / Angina, Hyperlipidemia, Hypertension, Osteoarthritis (OA) Additional Past Medical History / Comment(s): 05-18-18 pt wants flu vaccine while here. pmh:possible sleep apnea but never had study-Low testosterone., History of Any Multi-Drug Resistant Organisms: None Reported Past Surgical History: Back Surgery, Heart Catheterization With Stent Additional Past Surgical History / Comment(s): back surgeries x2, Past Anesthesia/Blood Transfusion Reactions: No Reported Reaction Date of Last Stent Placement:: 05/19/18 Past Psychological History: Anxiety Additional Psychological History / Comment(s): clausterphobia. lives alone in apt,drives, no past back ground, not currently working Smoking Status: Former smoker Past Alcohol Use History: None Reported Additional Past Alcohol Use History / Comment(s): started smoking 1981,quit smoking 2015 , 1 PPD, no current alcohol use. Past Drug Use History: None Reported Additional Drug Use History / Comment(s): quit 2004 - Past Family History Father Family Medical History: Cancer Additional Family Medical History / Comment(s): lung Mother Family Medical History: Cancer Additional Family Medical History / Comment(s): colon Medications and Allergies Home Medications Medication Instructions Recorded Confirmed Type Carvedilol [Coreg] 12.5 mg PO BID 02/08/17 06/12/18 History Lisinopril [Zestril] 5 mg PO DAILY@1600 02/08/17 06/12/18 History Spironolactone [Aldactone] 25 mg PO DAILY 02/08/17 06/12/18 History oxyCODONE-APAP 10-325MG [Percocet 1 tab PO QID PRN 02/08/17 06/12/18 History 10-325 mg] Citalopram Hydrobromide [CeleXA] 20 mg PO HS 05/18/18 06/12/18 History Gabapentin 600 mg PO DAILY PRN 05/18/18 06/12/18 History Aspirin 81 mg PO DAILY #30 chew 05/20/18 06/12/18 Rx Atorvastatin [Lipitor] 80 mg PO HS #30 tab 05/20/18 06/12/18 Rx Clopidogrel [Plavix] 75 mg PO DAILY #30 tab 05/20/18 06/12/18 Rx Multivitamins, Thera [Multivitamin 1 tab PO DAILY 06/12/18 06/12/18 History (formulary)] Allergies Allergy/AdvReac Type Severity Reaction Status Date / Time No Known Allergies Allergy Verified 06/12/18 14:21 Physical Exam Vitals: Vital Signs Temp Pulse Pulse Resp BP BP Pulse Ox 06/12/18 15:23 98 06/12/18 14:52 98.3 F 61 18 116/68 97 06/12/18 14:47 98.3 F 83 18 103/59 97 06/12/18 13:34 83 18 112/60 06/12/18 13:28 19 06/12/18 13:25 75 16 116/76 97 06/12/18 13:20 75 17 106/64 97 06/12/18 13:15 70 23 106/64 97 06/12/18 13:10 76 12 106/64 94 L 06/12/18 13:05 75 13 96 06/12/18 13:00 75 21 06/12/18 12:59 21 06/12/18 12:48 98.3 F 79 20 128/59 98 Intake and Output 06/12/18 06/12/18 06/12/18 06:59 14:59 22:59 Other: Voiding Method Toilet Weight 98.1 kg GEN. APPEARANCE: alert, in no apparent distress HEAD EXAM: atraumatic, normocephalic, normal inspection EYE EXAM: No pallor. No icterus ENT EXAM: normal exam, mucous membranes moist NECK EXAM: No JVD. No thyromegaly. No lymphadenopathy. RESPIRATORY EXAM: Bilateral breath sounds are positive. No wheeze or crackles. CARDIOVASCULAR EXAM: S1 and S2 heard. Exertional sounds. GI/ABDOMINAL EXAM: Abdomen is soft nontender. Bowel sounds positive. No guarding or rigidity. EXTREMITIES EXAM: No peripheral edema NEUROLOGICAL EXAM: alert, oriented X3, no focal neurological deficits PSYCHIATRIC EXAM: normal affect, normal mood SKIN EXAM: warm, dry, intact, normal color. Absent: rash Results CBC & Chem 7: 06/12/18 13:05 06/12/18 13:05 Labs: Abnormal Lab Results - Last 24 Hours (Table) 06/12/18 06/12/18 06/12/18 Range/Units 13:05 13:05 13:05 WBC 3.3 L (3.8-10.6) k/uL Plt Count 124 L (150-450) k/uL Lymphocytes # 0.9 L (1.0-4.8) k/uL BUN 27 H (9-20) mg/dL Glucose 154 H (74-99) mg/dL Total Creatine Kinase 217 H (55-170) U/L Thrombosis Risk Factor Assmnt - Choose All That Apply Any of the Below Risk Factors Present?: No Other congenital or acquired thrombophilia - If yes, enter type in comment: No Assessment and Plan Assessment: ASSESSMENT Chest pain - unstable angina Recent history of NSTEMI with stenting of LAD Dilated cardiomyopathy, nonischemic ejection fraction of 45% with calcified aortic valve and myxomatous mitral valve Former nicotine dependence Dyslipidemia Essential hypertension CK D stage II History of alcohol dependence Plan: Patient is admitted for unstable angina. Patient's chest pain has resolved with the Nitropatch. As the patient had recent stent of LAD and continues to have the chest pain, he has been admitted for observation. We'll check serial troponins and EKG. Cardiology has been consulted. Patient will be kept nothing by mouth tonight, in case cardiology decides to take him for tomorrow morning. Resume his home medications. Further determinations to follow depending on the progress of the patient.
[2018-06-12] MEDS: NITROGLYCERIN OINT 1 INCH/GM PACKET TOPICAL SCH (19:28)
[2018-06-12 20:29] LABS: Creatine Kinase 185 U/L (55-170)
[2018-06-12 20:42] LABS: Creatine Kinase MB 0.5 ng/mL (0.0-2.4); Troponin I <0.012 ng/mL (0.000-0.034)
[2018-06-12] MEDS ORDERED: HYDROmorphone 1 MG/ML 1 ML SYRINGE IM STA (20:47)
[2018-06-12] MEDS ORDERED: HYDROmorphone 1 MG/ML 1 ML SYRINGE IVP STA (20:59)
[2018-06-12] MEDS ORDERED: CITALOPRAM HYDROBROMIDE 20 MG TAB PO SCH (21:00)
[2018-06-13] MEDS: NITROGLYCERIN OINT 1 INCH/GM PACKET TOPICAL SCH ×3 (00:07→12:01)
[2018-06-13 01:10] LABS: Creatine Kinase 175 U/L (55-170)
[2018-06-13 01:11] LABS: Cholesterol 132 mg/dL (<200); HDL Cholesterol 35 mg/dL (40-60); LDL Cholesterol,Calculated 78 mg/dL (0-99); Triglycerides 97 mg/dL (<150)
[2018-06-13 01:23] LABS: Creatine Kinase MB 0.4 ng/mL (0.0-2.4); Troponin I <0.012 ng/mL (0.000-0.034)
[2018-06-13] MEDS: oxyCODONE-APAP 10-325MG 1 EACH TAB PO PRN ×2 (05:14→11:52)
[2018-06-13 07:20] VITALS: RESP 18
[2018-06-13] MEDS ORDERED: ALPRAZolam 0.25 MG TAB PO PRN (07:47)
[2018-06-13] MEDS ORDERED: ASPIRIN 325 MG TAB PO STA (07:47)
[2018-06-13] MEDS ORDERED: ATORVASTATIN 80 MG TAB PO STA (07:47)
[2018-06-13] MEDS ORDERED: ALPRAZolam 0.5 MG TAB PO PRN (07:47)
[2018-06-13] MEDS ORDERED: NITROGLYCERIN SL TABS 0.4 MG TAB SUBLINGUAL PRN (07:47)
[2018-06-13] MEDS ORDERED: SODIUM CHLORIDE 0.9% 1,000 ML in EMPTY BAG 1 BAG IV ONE (07:47)
[2018-06-13] MEDS: CARVEDILOL 12.5 MG TAB PO SCH (08:13)
[2018-06-13] MEDS ORDERED: SPIRONOLACTONE 25 MG TAB PO SCH (09:00)
[2018-06-13] MEDS ORDERED: CLOPIDOGREL 75 MG TAB PO SCH (09:00)
[2018-06-13] MEDS ORDERED: ASPIRIN 325 MG TAB PO SCH (09:00)
[2018-06-13] MEDS ORDERED: IV FLUID CONTINUATION 1,000 ML IV ONE (09:20)
[2018-06-13] MEDS ORDERED: LIDOCAINE 1% INJ 10MG/ML (20 ML MDV) SQ ONE (09:38)
[2018-06-13] MEDS ORDERED: MIDAZOLAM 2 MG/2 ML VIAL IV ONE (09:43)
[2018-06-13] MEDS: VERAPAMIL SYRINGE (5 MG/10 ML) INTRAARTER ONE ×2 (09:51→10:12)
[2018-06-13] MEDS ORDERED: HEPARIN SODIUM 1,000 UN/ML (10ML VL) IV ONE (09:52)
[2018-06-13] MEDS ORDERED: IOPAMIDOL-370 100ML BTL INJ ONE (10:09)
[2018-06-13] MEDS ORDERED: SODIUM CHLORIDE 0.9% 1,000 ML IV SCH (10:30)
--- NOTE | 2018-06-13 10:30 | CONS ---
CONSULTATION Mr. Reynoso is a 48-year-old male who presented with symptoms of chest discomfort. He has a known history of coronary artery disease and has been followed by Dr. Brianna Rodriguez on a regular basis. He presented with symptoms of progressive dyspnea and chest discomfort when he was on the treadmill. He has underwent cardiac catheterization by Dr. Brianna Rodriguez on May 20 that revealed a borderline significant lesion in the LAD and subsequently underwent a FFR of that vessel that revealed a hemodynamically significant disease and underwent stenting of that vessel. According to him, he has been having discomfort on and off, at times exertional in pattern associated with dyspnea on exertion. Yesterday, he had nausea and vomiting with it. He denies any peripheral edema. No palpitation or syncope. He denies any PND orthopnea nor peripheral edema. His coronary risk factors are remarkable for prior history of smoking which he stopped 2 years ago. He has a prior history of cardiomyopathy. He has history of hypertension and hyperlipidemia. MEDICATION: Include aspirin 81 mg daily, Plavix 75 mg daily, Lipitor 80 mg daily Coreg 12-1/2 mg twice a day, Celexa 20 mg daily, gabapentin, lisinopril 5 mg daily, spironolactone 25 mg daily. REVIEW OF SYSTEMS: RESPIRATORY SYSTEM: He had dyspnea on exertion. No recent wheezing or cough. GI system no recent GI bleed. No peptic ulcer disease. system: No dysuria or hematuria. Nervous system: No stroke or seizure. PHYSICAL EXAMINATION: A 48-year-old male, alert, oriented, in no apparent distress. Blood pressure 116/70 with a heart rate in the 60s. HEAD: Normocephalic. Eyes sclerae anicteric. Neck good carotid upstroke. No bruit. No jugular venous distention. LUNGS: Clear to auscultation. Heart: Regular rate and rhythm, S1, S2. No S3. No S4. No rub or gallop. ABDOMEN: Soft, nontender. Positive bowel sounds. No megaly. EXTREMITIES: No edema. Intact distal pulses. LAB DATA: Lab data revealed a BUN and creatinine of 27, 1.14. Troponin less than 0.012, cholesterol 132, LDL of 78. Hemoglobin of 15.3. EKG revealed a sinus mechanism, early transition, otherwise no acute changes. Chest x-ray shows no acute infiltrate. IMPRESSION: 1. Symptoms of chest discomfort in a patient with known history of coronary artery disease. Doubt a stent thrombosis, etiology unclear. 2. History of cardiomyopathy. 3. History of hypertension. 4. Hyperlipidemia. 5. Remote history of smoking. Stopped two years ago. RECOMMENDATION: At this time, I will continue present therapy. I will discuss with case with Dr. Brianna Rodriguez and probably the patient may benefit from repeat cardiac catheterization to assess his status and guide his treatment. The rationale behind that were discussed with the patient who is in full understanding and agreement. Thank you for this consult. We will follow with you. [email or web address] / IJN: [id number] /
--- NOTE | 2018-06-13 11:21 | CC ---
CARDIAC CATHETERIZATION REPORT DATE OF SERVICE: 06/13/2018 PROCEDURE: Left heart catheterization and coronary angiography. PERFORMED BY: Dr. Tanna Rodriguez. Moderate conscious sedation time was 27 minutes. Patient was administered Versed and oxygen saturation. His monitor and EKG were monitored closely. CLINICAL INFORMATION: Mr. Mansoor Reynoso is a 48-year-old gentleman who underwent stenting of a mid/distal LAD performed by me on May 19, 2018. Since then, he has done well, but presented to the hospital with symptoms suggestive of angina with a negative troponin and negative EKG. Given the fact he had recent intervention of the LAD, he was advised coronary angiography after evaluation by Dr. Lagunas. He had a moderate lesion at the junction of the mid and distal LAD and it was positive by FFR and therefore he went on to have the stenting. The risks, benefits, options and rationale were explained to the patient. He understood all details and wished to proceed. PROCEDURE NOTE: Under local anesthesia and strict aseptic precautions, a 6-[place]izen [place] introducer was placed in the right radial artery. Initially, I tried a JL3.5, but I had difficulty cannulating the left coronary artery, which was somewhat of a superior location. With the Ultimate 1 catheter, I performed selective coronary angiography of the left coronary and a JR4 catheter for the right coronary artery. The same right catheter was used to check LV pressure but LV gram was not performed. The sheath was taken out and TR band applied as per protocol with saturation in the fingers of the right hand being more than 90%. He was sent to the room in stable condition and results were discussed with the patient. He was reassured that he does not have any significant disease at the previous stented LAD was widely patent. There was no family members available. CARDIAC CATHETERIZATION FINDINGS: The left end-diastolic pressure was 8 mmHg. There was no gradient across the aortic valve. CORONARY ANGIOGRAPHY FINDINGS: The right coronary artery, technically a dominant vessel without significant disease. It gives off a very high conus branch that runs in the LAD distribution actually and the RCA is free of significant disease. Distally bifurcates into PDA and PLV. There is no significant disease in the right coronary artery. LEFT MAIN CORONARY ARTERY: Short patent disease-free vessel that bifurcates into LAD and circumflex. LEFT ANTERIOR DESCENDING CORONARY ARTERY: Good caliber vessel extends along the anterior wall. There is no significant disease involving the LAD. The site of previous stenting, the vessel is widely patent with remarkably good flow. The entire LAD has minor irregularities no significant disease in the stent and the stented segment is patent. LEFT POSTERIOR CIRCUMFLEX CORONARY ARTERY: Technically a nondominant vessel gives off a high first obtuse marginal and then gives off a second obtuse marginal that is large and distally runs in the AV groove after post lateral branch. All the branches of circumflex are free of significant disease. LEFT VENTRICULOGRAM: This was not performed. FINAL IMPRESSION: This patient has normal filling pressures. His LAD that was stented on May 19 is widely patent. He has a dominant RCA and circumflex are free of significant disease. LV gram was not performed. RECOMMENDATION: Findings were discussed with the patient. We will continue medical therapy including dual antiplatelet therapy. There was no other family members available. Patient will be discharged later on today and I will see him in the office on June 17, 2018. MMODL / IJN: [id number] /
[2018-06-13] MEDS ORDERED: MULTIVITAMINS, THERA 1 EACH TAB PO SCH (12:00)
--- NOTE | 2018-06-13 12:43 | P.DS ---
Providers Date of admission: 06/12/18 14:27 Expected date of discharge: 06/13/18 Attending physician: Maria Del Carmen Womack Consults: 06/12/18 14:27 Consult Physician Urgent Consulting Provider: Sylvain Laugnas Consult Reason/Comments: cp Do you want consulting provider notified?: Yes Primary care physician: Claudia Cisse [facility] Course: Mr. Steele is a 48-year-old male with a past medical history of coronary artery disease status post stenting done 1 month back by JOSE A Rodriguez, hypertension , hyperlipidemia and osteoarthritis coming into the hospital with a chief complaint of left-sided chest pain. Patient states that he has heaviness in the left side of the chest with the pain radiating to the left arm associated with some difficulty in breathing. Patient states that he has been dealing with this for the past 1 week and this morning he felt dizzy and nauseous and so came into the ED for further evaluation. Patient had cardiac catheterization done and stenting of LAD on 05/20/2018. Patient denies having any cough. No fever chills or rigors. He denies having any abdominal pain nausea vomiting or diarrhea. No dysuria or hematuria. Patient does not have a history of smoking.He has a history of back surgery done in the past. In the ER - Patient had EKG showing sinus rhythm with no acute ST or T-wave abnormalities. Troponins have been negative 1. He was admitted for further evaluation. Cardiology has been consulted and the patient had a cath done on 06/13/[address] JOSE A Rodriguez - the report which says normal filling pressures. LAD that was stented on May 19 is widely patent. He has prominent RCA and circumflex which are free of significant disease. So eventually he was cleared by cardiology to be discharged home. Patient is seen this morning post In his room. Patient denies having any chest pain. The site of cath - his right upper extremity-showing no evidence of any active bleeding. Patient still complains of mild shortness of breath and is concerned about it. Patient is a former smoker and quit couple of years back. He is advised to follow-up with his PCP to get outpatient pulmonary function tests done. DISCHARGE DIAGNOSIS Chest pain - noncardiac in origin Recent history of NSTEMI with stenting of LAD Dilated cardiomyopathy, nonischemic ejection fraction of 45% with calcified aortic valve and myxomatous mitral valve Former nicotine dependence Dyslipidemia Essential hypertension CK D stage II History of alcohol dependence Plan: Patient is advised to follow-up with PCP to get PFTs done as outpatient. Also advised weight loss. Educated him about the compliance with his medications. Patient is being discharged home in a stable condition. Patient Condition at Discharge: Fair Plan - Discharge Summary Discharge Rx Participant: No New Discharge Prescriptions: No Action Spironolactone [Aldactone] 25 mg PO DAILY oxyCODONE-APAP 10-325MG [Percocet 10-325 mg] 1 tab PO QID PRN PRN Reason: Pain Carvedilol [Coreg] 12.5 mg PO BID Lisinopril [Zestril] 5 mg PO DAILY@1600 Citalopram Hydrobromide [CeleXA] 20 mg PO HS Gabapentin 600 mg PO DAILY PRN PRN Reason: Pain Aspirin 81 mg PO DAILY #30 chew Atorvastatin [Lipitor] 80 mg PO HS #30 tab Clopidogrel [Plavix] 75 mg PO DAILY #30 tab Multivitamins, Thera [Multivitamin (formulary)] 1 tab PO DAILY Discharge Medication List Carvedilol [Coreg] 12.5 mg PO BID 02/08/17 [History] Lisinopril [Zestril] 5 mg PO DAILY@1600 02/08/17 [History] Spironolactone [Aldactone] 25 mg PO DAILY 02/08/17 [History] oxyCODONE-APAP 10-325MG [Percocet 10-325 mg] 1 tab PO QID PRN 02/08/17 [History] Citalopram Hydrobromide [CeleXA] 20 mg PO HS 05/18/18 [History] Gabapentin 600 mg PO DAILY PRN 05/18/18 [History] Aspirin 81 mg PO DAILY #30 chew 05/20/18 [Rx] Atorvastatin [Lipitor] 80 mg PO HS #30 tab 05/20/18 [Rx] Clopidogrel [Plavix] 75 mg PO DAILY #30 tab 05/20/18 [Rx] Multivitamins, Thera [Multivitamin (formulary)] 1 tab PO DAILY 06/12/18 [History ] Follow up Appointment(s)/Referral(s): Kiki Rodriguez MD [STAFF PHYSICIAN] - 06/17/18 4:45 pm () Olga Taylor MD [Primary Care Provider] - 1-2 days
[2018-06-13 15:26] VITALS: BP 124/64; PULSE 73; TEMP 98
[2018-06-13] MEDS ORDERED: LISINOPRIL 5 MG TAB PO SCH (16:00)
[2018-06-14] MEDS ORDERED: ASPIRIN 325 MG TAB PO SCH (09:00)
== END 2018-06-13 16:10 | disposition home or self-care (01) ==
LOC: EC 12:46 → 1SOBS 14:27
PROVIDERS: ADMIT Internal Medicine; ATTEND Internal Medicine
DX: R07.89 Other chest pain (principal); I13.10 Hypertensive heart and chronic kidney disease without heart failure, with stage 1 through stage 4 chronic kidney disease, or unspecified chronic kidney disease; I43 Cardiomyopathy in diseases classified elsewhere; N18.2 Chronic kidney disease, stage 2 (mild); I25.10 Atherosclerotic heart disease of native coronary artery without angina pectoris; I35.8 Other nonrheumatic aortic valve disorders; I34.8 Other nonrheumatic mitral valve disorders; E78.5 Hyperlipidemia, unspecified; M19.90 Unspecified osteoarthritis, unspecified site; R11.2 Nausea with vomiting, unspecified; F41.9 Anxiety disorder, unspecified; F40.240 Claustrophobia; F10.21 Alcohol dependence, in remission; Z79.82 Long term (current) use of aspirin; Z79.02 Long term (current) use of antithrombotics/antiplatelets; Z79.899 Other long term (current) drug therapy; Z87.891 Personal history of nicotine dependence; Z95.5 Presence of coronary angioplasty implant and graft; Z80.1 Family history of malignant neoplasm of trachea, bronchus and lung; Z80.0 Family history of malignant neoplasm of digestive organs
CPT/HCPCS: 99152; 99153; 96375; 96374; 99285; 36415; 93005; 93458; 85379; 80061; 80053; 82550 ×2; 82553 ×2; 83735; 84484 ×2; 85025; 85610; 85730; 71046; G0378 ×2; C1769 ×2; C1894 ×2; J2250; J2270; J2001; J1644; J1170; Q9967

== ENCOUNTER 2018-06-22 17:33 | Emergency (ER) | payer MEDICARE, OTHER ==
[2018-06-22 17:38] VITALS: RESP 16; TEMP 98.3
[2018-06-22] MEDS ORDERED: ASPIRIN 81 MG PO STA (18:18)
[2018-06-22] MEDS ORDERED: NITROGLYCERIN OINT 1 INCH/GM PACKET TOPICAL STA (18:18)
--- NOTE | 2018-06-22 18:23 | ED ---
General Adult HPI - General Chief complaint: Chest Pain Stated complaint: palpitations Time Seen by Provider: 06/22/18 17:35 Source: patient, RN notes reviewed Mode of arrival: wheelchair Limitations: no limitations - History of Present Illness Initial comments: This is a 48-year-old male who presents emergency department with past medical history significant for cardiac stent about a month and a half ago. Patient states he also has high blood pressure high cholesterol. Patient states today he was at home and he had sudden onset of chest pain on the left side of his chest it lasted for about 15 seconds in happened to other medications. Patient states he denies any radiation of the pain. Patient states he was very short of breath but it was occurring. Patient states currently chest pain-free. Patient denies any nausea vomiting. Patient denies any abdominal pain. Patient denies headache patient denies numbness weakness. Patient denies lightheadedness dizziness or near syncopal episode. Patient denies any recent fever chills or cough. Patient states this pain does feel different than the pain he had when he had his cardiac stent placed. - Related Data Home Medications Medication Instructions Recorded Confirmed Multivitamins, Thera [Multivitamin 1 tab PO DAILY 06/12/18 06/22/18 (formulary)] Carvedilol [Coreg] 12.5 mg PO BID 06/22/18 06/22/18 Nitroglycerin Sl Tabs [Nitrostat] 0.4 mg SUBLINGUAL Q5M PRN 06/22/18 06/22/18 Testosterone Cypionate 200 mg IM Q14D 06/22/18 06/22/18 [Depo-Testosterone] Previous Rx's Medication Instructions Recorded Aspirin 81 mg PO DAILY #30 chew 05/20/18 Atorvastatin [Lipitor] 80 mg PO HS #30 tab 05/20/18 Clopidogrel [Plavix] 75 mg PO DAILY #30 tab 05/20/18 Allergies Allergy/AdvReac Type Severity Reaction Status Date / Time No Known Allergies Allergy Verified 06/22/18 18:27 Review of Systems ROS Statement: Those systems with pertinent positive or pertinent negative responses have been documented in the HPI. ROS Other: All systems not noted in ROS Statement are negative. Past Medical History Past Medical History: Chest Pain / Angina, Hyperlipidemia, Hypertension, Osteoarthritis (OA) Additional Past Medical History / Comment(s): 05-18-18 pt wants flu vaccine while here. pmh:possible sleep apnea but never had study-Low testosterone., History of Any Multi-Drug Resistant Organisms: None Reported Past Surgical History: Back Surgery, Heart Catheterization With Stent Additional Past Surgical History / Comment(s): back surgeries x2, Past Anesthesia/Blood Transfusion Reactions: No Reported Reaction Date of Last Stent Placement:: 05/19/18 Past Psychological History: Anxiety Smoking Status: Former smoker Past Alcohol Use History: None Reported Past Drug Use History: None Reported - Past Family History Father Family Medical History: Cancer Additional Family Medical History / Comment(s): lung Mother Family Medical History: Cancer Additional Family Medical History / Comment(s): colon General Exam - General Exam Comments Initial Comments: GENERAL: Patient is well-developed and well-nourished. Patient is nontoxic and well- hydrated and is in no acute distress. ENT: Neck is soft and supple. No significant lymphadenopathy is noted. Oropharynx is clear. Moist mucous membranes. Neck has full range of motion without eliciting any pain. EYES: The sclera were anicteric and conjunctiva were pink and moist. Extraocular movements were intact and pupils were equal round and reactive to light. Eyelids were unremarkable. PULMONARY: Unlabored respirations. Good breath sounds bilaterally. No audible rales rhonchi or wheezing was noted. CARDIOVASCULAR: There is a regular rate and rhythm without any murmurs gallops or rubs. ABDOMEN: Soft and nontender with normal bowel sounds. No palpable organomegaly was noted. There is no palpable pulsatile mass. SKIN: Skin is clear with no lesions or rashes and otherwise unremarkable. NEUROLOGIC: Patient is alert and oriented x3. Cranial nerves II through XII are grossly intact. Motor and sensory are also intact. Normal speech, volume and content. Symmetrical smile. MUSCULOSKELETAL: Normal extremities with adequate strength and full range of motion. No lower extremity swelling or edema. No calf tenderness. LYMPHATICS: No significant lymphadenopathy is noted PSYCHIATRIC: Normal psychiatric evaluation. Limitations: no limitations Course Vital Signs 06/22/18 06/22/18 17:35 18:36 Temperature 98.3 F Pulse Rate 75 86 Respiratory 16 16 Rate Blood Pressure 134/80 119/77 O2 Sat by Pulse 98 99 Oximetry Medical Decision Making - Medical Decision Making EKG shows normal sinus rhythm at 74 bpm OK interval 118 QRS is 90 QT interval 380 QTC is 421. Patient's EKG shows no ST segment elevation or depression or T wave abnormalities are noted. Patient's chest x-ray shows no acute abnormality. I will begin to reevaluate the patient she was feeling better and had no symptoms while he was in the emergency department. I recommended that he stay because of his recent past history of a stent the fact that he was having chest pain shortness of breath and he had risk factors of hypertension high cholesterol. I told him the danger going home was possible heart attack and were significant morbidity he decided he wanted to go home and follow-up with his own doctor. - Lab Data Result diagrams: 06/22/18 18:27 06/22/18 18:27 Lab Results 06/22/18 06/22/18 06/22/18 Range/Units 18: 18: 18:27 WBC 3.8 (3.8-10.6) k/uL RBC 4.66 (4.30-5.90) m/uL Hgb 14.7 (13.0-17.5) gm/dL Hct 42.8 (39.0-53.0) % MCV 91.8 (80.0-100.0) fL MCH 31.4 (25.0-35.0) pg MCHC 34.3 (31.0-37.0) g/dL RDW 12.5 (11.5-15.5) % Plt Count 141 L (150-450) k/uL Neutrophils % 43 % Lymphocytes % 43 % Monocytes % 9 % Eosinophils % 2 % Basophils % 0 % Neutrophils # 1.6 (1.3-7.7) k/uL Lymphocytes # 1.6 (1.0-4.8) k/uL Monocytes # 0.3 (0-1.0) k/uL Eosinophils # 0.1 (0-0.7) k/uL Basophils # 0.0 (0-0.2) k/uL PT (9.0-12.0) sec INR (<1.2) APTT (22.0-30.0) sec Sodium 139 (137-145) mmol/L Potassium 4.3 (3.5-5.1) mmol/L Chloride 105 (98-107) mmol/L Carbon Dioxide 23 (22-30) mmol/L Anion Gap 11 mmol/L BUN 29 H (9-20) mg/dL Creatinine 1.18 (0.66-1.25) mg/dL Est GFR (CKD-EPI)AfAm 83 (>60 ml/min/1.73 sqM) Est GFR (CKD-EPI)NonAf 72 (>60 ml/min/1.73 sqM) Glucose 111 H (74-99) mg/dL Calcium 9.2 (8.4-10.2) mg/dL Magnesium 1.8 (1.6-2.3) mg/dL Total Bilirubin 0.5 (0.2-1.3) mg/dL AST 31 (17-59) U/L ALT 44 (21-72) U/L Alkaline Phosphatase 56 (38-126) U/L Total Creatine Kinase 195 H (55-170) U/L CK-MB (CK-2) 0.6 (0.0-2.4) ng/mL CK-MB (CK-2) Rel Index 0.3 Troponin I <0.012 (0.000-0.034) ng/mL Total Protein 7.6 (6.3-8.2) g/dL Albumin 4.2 (3.5-5.0) g/dL 06/22/18 Range/Units 18:27 WBC (3.8-10.6) k/uL RBC (4.30-5.90) m/uL Hgb (13.0-17.5) gm/dL Hct (39.0-53.0) % MCV (80.0-100.0) fL MCH (25.0-35.0) pg MCHC (31.0-37.0) g/dL RDW (11.5-15.5) % Plt Count (150-450) k/uL Neutrophils % % Lymphocytes % % Monocytes % % Eosinophils % % Basophils % % Neutrophils # (1.3-7.7) k/uL Lymphocytes # (1.0-4.8) k/uL Monocytes # (0-1.0) k/uL Eosinophils # (0-0.7) k/uL Basophils # (0-0.2) k/uL PT 9.8 (9.0-12.0) sec INR 0.9 (<1.2) APTT 24.3 (22.0-30.0) sec Sodium (137-145) mmol/L Potassium (3.5-5.1) mmol/L Chloride (98-107) mmol/L Carbon Dioxide (22-30) mmol/L Anion Gap mmol/L BUN (9-20) mg/dL Creatinine (0.66-1.25) mg/dL Est GFR (CKD-EPI)AfAm (>60 ml/min/1.73 sqM) Est GFR (CKD-EPI)NonAf (>60 ml/min/1.73 sqM) Glucose (74-99) mg/dL Calcium (8.4-10.2) mg/dL Magnesium (1.6-2.3) mg/dL Total Bilirubin (0.2-1.3) mg/dL AST (17-59) U/L ALT (21-72) U/L Alkaline Phosphatase (38-126) U/L Total Creatine Kinase (55-170) U/L CK-MB (CK-2) (0.0-2.4) ng/mL CK-MB (CK-2) Rel Index Troponin I (0.000-0.034) ng/mL Total Protein (6.3-8.2) g/dL Albumin (3.5-5.0) g/dL Disposition Clinical Impression: Unstable angina Disposition: Left Against Medical Advice Referrals: Olga Taylor MD [Primary Care Provider] - 1-2 days Time of Disposition: 20:15
[2018-06-22 18:36] VITALS: BP 119/77; PULSE 86
[2018-06-22 18:39] LABS: Basophils % (A) 0 %; Eosinophils # (A) 0.1 k/uL (0-0.7); Eosinophils % (A) 2 %; HCT 42.8 % (39.0-53.0); HGB 14.7 gm/dL (13.0-17.5); Lymphocytes # (A) 1.6 k/uL (1.0-4.8); Lymphocytes % (A) 43 %; MCH 31.4 pg (25.0-35.0); MCHC 34.3 g/dL (31.0-37.0); MCV 91.8 fL (80.0-100.0); Mean Platelet Volume 6.3; Monocytes # (A) 0.3 k/uL (0-1.0); Monocytes % (A) 9 %; Neutrophils # (A) 1.6 k/uL (1.3-7.7); Neutrophils % (A) 43 %; Platelet Count 141 k/uL (150-450); RBC 4.66 m/uL (4.30-5.90); RDW 12.5 % (11.5-15.5); WBC 3.8 k/uL (3.8-10.6)
--- NOTE | 2018-06-22 18:46 | XR ---
EXAMINATION TYPE: XR chest 2V DATE OF EXAM: 06/22/2018 COMPARISON: 06/12/2018 HISTORY: Chest pain TECHNIQUE: Frontal and lateral views of the chest are obtained. FINDINGS: Heart and mediastinum are normal. Lungs are clear. Diaphragm is normal. There are chest le ads. Bony thorax is intact. IMPRESSION: Normal chest. No change.
[2018-06-22 18:48] LABS: INR 0.9 (<1.2); Partial Thromboplastin Time 24.3 sec (22.0-30.0); Prothrombin Time 9.8 sec (9.0-12.0)
[2018-06-22 18:51] LABS: Albumin 4.2 g/dL (3.5-5.0); Calcium 9.2 mg/dL (8.4-10.2); Magnesium 1.8 mg/dL (1.6-2.3); Potassium 4.3 mmol/L (3.5-5.1); Total Bilirubin 0.5 mg/dL (0.2-1.3); Total Protein 7.6 g/dL (6.3-8.2)
[2018-06-22 18:52] LABS: Creatine Kinase 195 U/L (55-170)
[2018-06-22 19:04] LABS: Creatine Kinase MB 0.6 ng/mL (0.0-2.4); Troponin I <0.012 ng/mL (0.000-0.034)
== END 2018-06-22 20:18 | disposition left against medical advice (07) ==
LOC: EC 17:33
DX: I20.0 Unstable angina (principal); I10 Essential (primary) hypertension; Z87.891 Personal history of nicotine dependence; Z79.899 Other long term (current) drug therapy; Z95.5 Presence of coronary angioplasty implant and graft
CPT/HCPCS: 36415; 71046; 80053; 82550; 82553; 83735; 84484; 85025; 85610; 85730; 93005; 99285

== ENCOUNTER 2018-06-23 04:10 | Emergency (ER) | payer MEDICARE, OTHER ==
[2018-06-23] MEDS ORDERED: NITROGLYCERIN OINT 1 INCH/GM PACKET TOPICAL STA (04:26)
[2018-06-23] MEDS ORDERED: SODIUM CHLORIDE 0.9% 1,000 ML IV STA (04:26)
--- NOTE | 2018-06-23 04:31 | ED ---
Chest Pain HPI - General Chief Complaint: Chest Pain Stated Complaint: chest pain Time Seen by Provider: 06/23/18 04:26 Source: patient Mode of arrival: ambulatory Limitations: no limitations - History of Present Illness Initial Comments: Mansoor is a 48-year-old -[place] male with a past medical history of coronary artery disease status post stenting left month. Patient was seen and evaluated in our emergency department yesterday evening for chest pain however chose to leave AGAINST MEDICAL ADVICE rather than being admitted to the hospital. Patient reports that when he arrived in the emergency department earlier he was having left-sided chest pain, his chest pain resolved with Nitropaste was placed on his chest. When he was chest pain-free he chose to leave the ER. Patient reports he remained comfortable for some time went home and fell asleep however he woke from sleep with aching chest pain which prompted him to come back to the ER for reevaluation. Pain is not associated with any palpitations, shortness of breath or lightheadedness. 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 - Related Data Home Medications Medication Instructions Recorded Confirmed Multivitamins, Thera [Multivitamin 1 tab PO DAILY 06/12/18 06/23/18 (formulary)] Carvedilol [Coreg] 12.5 mg PO BID 06/22/18 06/23/18 Nitroglycerin Sl Tabs [Nitrostat] 0.4 mg SUBLINGUAL Q5M PRN 06/22/18 06/23/18 Testosterone Cypionate 200 mg IM Q14D 06/22/18 06/23/18 [Depo-Testosterone] Previous Rx's Medication Instructions Recorded Aspirin 81 mg PO DAILY #30 chew 05/20/18 Atorvastatin [Lipitor] 80 mg PO HS #30 tab 05/20/18 Clopidogrel [Plavix] 75 mg PO DAILY #30 tab 05/20/18 Allergies Allergy/AdvReac Type Severity Reaction Status Date / Time No Known Allergies Allergy Verified 06/22/18 18:27 Review of Systems ROS Statement: Those systems with pertinent positive or pertinent negative responses have been documented in the HPI. ROS Other: All systems not noted in ROS Statement are negative. EKG Findings - EKG Comments: EKG Findings:: EKG obtained at 4:22 AM, rate 74, rhythm is sinus, there is normal axis, normal intervals, IA 118, QRS 82, QTc is 423, there is no acute ST elevations or depressions there is no evidence of acute ischemia or infarction. Past Medical History Past Medical History: Chest Pain / Angina, Hyperlipidemia, Hypertension, Osteoarthritis (OA) Additional Past Medical History / Comment(s): 05-18-18 pt wants flu vaccine while here. pmh:possible sleep apnea but never had study-Low testosterone., History of Any Multi-Drug Resistant Organisms: None Reported Past Surgical History: Back Surgery, Heart Catheterization With Stent Additional Past Surgical History / Comment(s): back surgeries x2, Past Anesthesia/Blood Transfusion Reactions: No Reported Reaction Date of Last Stent Placement:: 05/19/18 Past Psychological History: Anxiety Smoking Status: Former smoker Past Alcohol Use History: None Reported Past Drug Use History: None Reported - Past Family History Father Family Medical History: Cancer Additional Family Medical History / Comment(s): lung Mother Family Medical History: Cancer Additional Family Medical History / Comment(s): colon General Exam - General Exam Comments Initial Comments: Physical Exam GENERAL: Patient is well-developed and well-nourished. Patient is nontoxic and well- hydrated and is in no distress. HENT: Normocephalic, Atraumatic. EYES: PERRL, EOMI PULMONARY: Unlabored respirations. No audible rales rhonchi or wheezing was noted. CARDIOVASCULAR: There is a regular rate and rhythm without any murmurs gallops or rubs. ABDOMEN: Soft and nontender with normal bowel sounds. SKIN: Skin is clear with no lesions or rashes and otherwise unremarkable. : Deferred NEUROLOGIC: Patient is alert and oriented x3. Moving all extremities spontaneously MUSCULOSKELETAL: Normal extremities with adequate strength and full range of motion. No lower extremity swelling or edema. No calf tenderness. PSYCHIATRIC: Normal psychiatric evaluation. Limitations: no limitations Limitations: no limitations Course Vital Signs 06/23/18 04:11 Temperature 98.1 F Pulse Rate 72 Respiratory 18 Rate Blood Pressure 121/77 O2 Sat by Pulse 99 Oximetry Chest Pain MDM - MDM Is a high risk cardiac patient given his recent stenting presenting to the ER with recurrent chest pain, chest pain began yesterday, resolved with nitro however the patient left AMA at that time. Patient returns again with recurrent chest pain. Repeat cardiac workup was ordered including chest x-ray and EKG EKG is nonischemic Initial troponin negative At this time I will plan to admit the patient for further cardiology evaluation Disposition Clinical Impression: Chest pain Disposition: ADMITTED IP TO THIS HOSP Referrals: Olga Taylor MD [Primary Care Provider] - 1-2 days
[2018-06-23 05:07] LABS: Basophils % (A) 0 %; Eosinophils # (A) 0.1 k/uL (0-0.7); Eosinophils % (A) 2 %; HCT 42.1 % (39.0-53.0); HGB 14.4 gm/dL (13.0-17.5); Lymphocytes # (A) 1.4 k/uL (1.0-4.8); Lymphocytes % (A) 39 %; MCH 31.2 pg (25.0-35.0); MCHC 34.1 g/dL (31.0-37.0); MCV 91.6 fL (80.0-100.0); Mean Platelet Volume 6.5; Monocytes # (A) 0.3 k/uL (0-1.0); Monocytes % (A) 10 %; Neutrophils # (A) 1.6 k/uL (1.3-7.7); Neutrophils % (A) 46 %; Platelet Count 126 k/uL (150-450); RDW 12.4 % (11.5-15.5); WBC 3.5 k/uL (3.8-10.6)
[2018-06-23 05:20] LABS: Prothrombin Time 10.7 sec (9.0-12.0)
[2018-06-23 05:21] LABS: Calcium 9.1 mg/dL (8.4-10.2); Magnesium 1.8 mg/dL (1.6-2.3); Potassium 4.2 mmol/L (3.5-5.1); Total Bilirubin 0.6 mg/dL (0.2-1.3); Total Protein 7.3 g/dL (6.3-8.2)
--- NOTE | 2018-06-23 05:25 | XR ---
EXAM: XR Chest, 2 Views CLINICAL HISTORY: ITS.REASON XR Reason: Chest Pain TECHNIQUE: Frontal and lateral views of the chest. COMPARISON: Chest radiograph on 06/22/2018 FINDINGS: Hardware: None. Lungs/pleura: Normal. No focal consolidation. No pleural effusion or pneumothorax. Heart/mediastinum: Normal. No cardiomegaly. Soft tissues: Unremarkable. Bones: No acute fracture. Upper abdomen: Normal. IMPRESSION: No acute disease identified.
[2018-06-23 05:32] LABS: Creatine Kinase 169 U/L (55-170)
[2018-06-23 05:45] LABS: Creatine Kinase MB 0.6 ng/mL (0.0-2.4); Troponin I <0.012 ng/mL (0.000-0.034)
[2018-06-23] MEDS ORDERED: MORPHINE SULFATE 4 MG/ML SYRINGE IV PRN (06:06)
[2018-06-23] MEDS ORDERED: CLOPIDOGREL 75 MG TAB PO SCH (09:00)
[2018-06-23 10:03] VITALS: BP 134/68; PULSE 97; RESP 16; TEMP 97.8
[2018-06-23] MEDS ORDERED: NITROGLYCERIN OINT 1 INCH/GM PACKET TOPICAL SCH (12:00)
[2018-06-24] MEDS ORDERED: ASPIRIN 325 MG TAB PO SCH (09:00)
== END 2018-06-23 10:01 | disposition other institution (70) ==
LOC: EC 04:10 → UNDOADMOB 06:06 → 1SOBS 06:06 → EC 10:01
DX: I25.119 Atherosclerotic heart disease of native coronary artery with unspecified angina pectoris (principal); I10 Essential (primary) hypertension; Z87.891 Personal history of nicotine dependence; Z79.899 Other long term (current) drug therapy; Z95.5 Presence of coronary angioplasty implant and graft
CPT/HCPCS: 36415; 93005; 83880; 80053; 82550; 82553; 83735; 84484; 85025; 85610; 85730; 71046; 99285; 96374; 96361 ×5; J2270

== ENCOUNTER → 2018-12-27 | Outpatient (CLI) | payer MEDICARE ==
[2018-12-27 16:51] LABS: LDL Cholesterol,Calculated 74.6 mg/dL (0.0-131.0); VLDL Calculation 13.4 mg/dL (5.00-40.00)
[2018-12-27 16:59] LABS: T4, Free (Free Thyroxine) 1.1 ng/dL (0.80-1.80)
[2018-12-27 17:51] LABS: Hemoglobin A1C 5.5 % (4.0-6.0)
== END | disposition home or self-care (01) ==
LOC: LABWHC1 08:36
PROVIDERS: ATTEND Psychiatry & Neurology Psychiatry
DX: Z51.81 Encounter for therapeutic drug level monitoring (principal); Z79.899 Other long term (current) drug therapy
CPT/HCPCS: 36415; 80061; 82947; 83036; 84439; 84443

== ENCOUNTER 2019-02-23 16:48 | Observation (INO) | payer MEDICARE, OTHER ==
--- NOTE | 2019-02-23 17:10 | ED ---
Chest Pain HPI - General Chief Complaint: Chest Pain Stated Complaint: Chest Pain Time Seen by Provider: 02/23/19 16:56 Source: patient Mode of arrival: ambulatory Limitations: no limitations - History of Present Illness Initial Comments: The patient is a 48-year-old male with past medical history of coronary artery disease with stent placement in May who presents emergency department with complaint of chest pain over the past week. He describes it as a left substernal chest pain with radiation into his left arm. States it is present when exertion and he also reports associated shortness of breath and diaphoresis. Denies any weakness, numbness or tingling in his upper extremity. No ripping or tearing sensation to his back. He has not taken any medications for his symptoms. Pain is not reproducible. Denies a history of DVTs or PEs. No lower extremity swelling. Denies any unilateral calf pain or swelling. No recent travel or prolonged immobility. Does admit that the symptoms feel similar when he had his last stent placed. Reports that he does follow with Dr. Loera in office. He denies any abdominal pain, nausea or vomiting. No changes or bladder habits. Denies cough, fevers or chills. There are no alleviating, precipitating or modifying factors - Related Data Home Medications Medication Instructions Recorded Confirmed Carvedilol [Coreg] 12.5 mg PO BID 06/22/18 02/23/19 Testosterone Cypionate 200 mg IM Q14D 06/22/18 02/23/19 [Depo-Testosterone] ARIPiprazole IM SYRINGE [Abilify 400 mg IM Q28D 02/23/19 02/23/19 Maintena Syringe] Citalopram Hydrobromide [CeleXA] 20 mg PO DAILY 02/23/19 02/23/19 Lisinopril [Zestril] 10 mg PO DAILY 02/23/19 02/23/19 Rosuvastatin [Crestor] 20 mg PO DAILY 02/23/19 02/23/19 Spironolactone 25 mg PO DAILY 02/23/19 02/23/19 oxyCODONE HCL/ACETAMINOPHEN 1 tab PO QID PRN 02/23/19 02/23/19 [Percocet 10-325 mg] Previous Rx's Medication Instructions Recorded Aspirin 81 mg PO DAILY #30 chew 05/20/18 Clopidogrel [Plavix] 75 mg PO DAILY #30 tab 05/20/18 Allergies Allergy/AdvReac Type Severity Reaction Status Date / Time No Known Allergies Allergy Verified 02/23/19 17:37 Review of Systems ROS Statement: Those systems with pertinent positive or pertinent negative responses have been documented in the HPI. ROS Other: All systems not noted in ROS Statement are negative. EKG Findings - EKG Comments: EKG Findings:: EKG demonstrates a sinus rhythm with premature supraventricular complexes. Rate of 92. MN interval 114. QRS 80. QTC 425. There are no acute ST segment elevations or depressions concerning for ischemic changes Past Medical History Past Medical History: Chest Pain / Angina, Hyperlipidemia, Hypertension, Osteoarthritis (OA) Additional Past Medical History / Comment(s): 05-18-18 pt wants flu vaccine while here. pmh:possible sleep apnea but never had study-Low testosterone., History of Any Multi-Drug Resistant Organisms: None Reported Past Surgical History: Back Surgery, Heart Catheterization With Stent Additional Past Surgical History / Comment(s): back surgeries x2, Past Anesthesia/Blood Transfusion Reactions: No Reported Reaction Date of Last Stent Placement:: 05/19/18 Past Psychological History: Anxiety Smoking Status: Former smoker Past Alcohol Use History: None Reported Past Drug Use History: None Reported - Past Family History Father Family Medical History: Cancer Additional Family Medical History / Comment(s): lung Mother Family Medical History: Cancer Additional Family Medical History / Comment(s): colon General Exam Limitations: no limitations General appearance: alert, in no apparent distress Head exam: Present: atraumatic, normocephalic, normal inspection Eye exam: Present: normal appearance, PERRL, EOMI. Absent: scleral icterus, conjunctival injection, periorbital swelling ENT exam: Present: normal exam, mucous membranes moist Neck exam: Present: normal inspection. Absent: tenderness, meningismus, lymphadenopathy Respiratory exam: Present: normal lung sounds bilaterally. Absent: respiratory distress, wheezes, rales, rhonchi, stridor Cardiovascular Exam: Present: regular rate, normal rhythm, normal heart sounds, other (symmetric upper and extremity pulses). Absent: systolic murmur, diastolic murmur, rubs, gallop, clicks GI/Abdominal exam: Present: soft, normal bowel sounds. Absent: distended, tenderness, guarding, rebound, rigid Extremities exam: Present: normal inspection, full ROM, normal capillary refill. Absent: tenderness, pedal edema, joint swelling, calf tenderness Back exam: Present: normal inspection Neurological exam: Present: alert, oriented X3, CN II-XII intact Psychiatric exam: Present: normal affect, normal mood Skin exam: Present: warm, dry, intact, normal color. Absent: rash Course Vital Signs 02/23/19 02/23/19 02/23/19 16:50 18:38 19:29 Temperature 98.3 F 98.5 F Pulse Rate 79 77 76 Respiratory 18 18 18 Rate Blood Pressure 126/71 116/63 73/57 O2 Sat by Pulse 99 98 98 Oximetry 02/23/19 02/23/19 19:39 20:00 Temperature Pulse Rate 70 Respiratory 18 Rate Blood Pressure 114/53 104/61 O2 Sat by Pulse Oximetry Chest Pain MDM - Core Measures AMI Core Measures Followed: Yes - Differential Diagnosis AMI, ACS, Pneumonia, Pleurisy-Other - MDM Upon arrival the patient is placed into room 6. He is hooked up to continuous pulse ox and cardiac monitoring. A 12-lead EKG is performed which demonstrates normal sinus rhythm with sinus arrhythmia. No acute ST segment elevations or depressions concerning for ischemic changes. Peripheral IV was established. The patient was given 324 mg of chewable aspirin and Nitropaste was applied to the chest. Laboratory studies were conducted as well as a chest x-ray. Upon return the results are discussed with the patient. I did recommend hospitalization and continue to trend the patient's troponins. He will remain on telemetry monitoring. The patient did agree to this. I called and discussed the case with Dr. brown who did accept admission of the patient. Bridging orders were placed. Upon reevaluation the patient has had improvement in his chest pain with the nitro administration. He is transported to the floor in stable condition Disposition Clinical Impression: Chest pain Disposition: ADMITTED IP TO THIS [facility] Condition: Stable Is patient prescribed a controlled substance at d/c from ED?: No Decision to Admit Reason: Admit from [facility] Decision Date: 02/23/19 Decision Time: 19:12
[2019-02-23] MEDS ORDERED: NITROGLYCERIN OINT 1 INCH/GM PACKET TOPICAL STA (17:23)
[2019-02-23] MEDS ORDERED: ASPIRIN 81 MG PO STA (17:23)
[2019-02-23 17:34] LABS: Basophils % (A) 0 %; Eosinophils # (A) 0.1 k/uL (0-0.7); Eosinophils % (A) 2 %; HCT 44.8 % (39.0-53.0); HGB 14.8 gm/dL (13.0-17.5); Lymphocytes # (A) 1.7 k/uL (1.0-4.8); Lymphocytes % (A) 38 %; MCH 31.2 pg (25.0-35.0); MCV 94.7 fL (80.0-100.0); Mean Platelet Volume 6.4; Monocytes # (A) 0.4 k/uL (0-1.0); Monocytes % (A) 10 %; Neutrophils # (A) 2.1 k/uL (1.3-7.7); Neutrophils % (A) 47 %; Platelet Count 116 k/uL (150-450); RBC 4.73 m/uL (4.30-5.90); RDW 12.4 % (11.5-15.5); WBC 4.5 k/uL (3.8-10.6)
[2019-02-23 17:42] LABS: Albumin 4.4 g/dL (3.5-5.0); Calcium 9.2 mg/dL (8.4-10.2); Magnesium 1.8 mg/dL (1.6-2.3); Total Bilirubin 0.3 mg/dL (0.2-1.3); Total Protein 7.6 g/dL (6.3-8.2)
[2019-02-23 17:43] LABS: INR 0.9 (<1.2); Partial Thromboplastin Time 23.2 sec (22.0-30.0)
--- NOTE | 2019-02-23 18:18 | XR ---
EXAMINATION TYPE: XR chest 2V DATE OF EXAM: 02/23/2019 COMPARISON: 06/23/2018 HISTORY: 2 views TECHNIQUE: Frontal and lateral views of the chest are obtained. FINDINGS: Heart and mediastinum are normal. Lungs are clear. Diaphragm is normal. Bony thorax is nor mal. There are chest leads. IMPRESSION: Normal chest. No change.
[2019-02-23] MEDS ORDERED: MAGNESIUM SULFATE-D5W PMX 1 GM in DEXTROSE/WATER 1 100ML.BAG IVPB ONE (18:44)
[2019-02-23] MEDS ORDERED: NALOXONE 0.4 MG/ML 1 ML VIAL IV PRN (19:12)
[2019-02-23 21:27] VITALS: BMI 33.4
[2019-02-23] MEDS: CARVEDILOL 12.5 MG TAB PO SCH (21:27)
[2019-02-23] MEDS: oxyCODONE-APAP 10-325MG 1 EACH TAB PO PRN (21:33)
[2019-02-23] MEDS ORDERED: SODIUM CHLORIDE 0.9% 1,000 ML IV SCH (23:45)
[2019-02-23] MEDS ORDERED: ALPRAZolam 0.25 MG TAB PO PRN (23:53)
[2019-02-23] MEDS ORDERED: HYDROmorphone 0.5 MG/0.5 ML SYRINGE IVP PRN (23:53)
[2019-02-23] MEDS ORDERED: TEMAZEPAM 15 MG CAP PO PRN (23:53)
[2019-02-24 03:59] LABS: Appearance,Urine Clear (Clear); Bilirubin,Urine Negative (Negative); Blood,Urine Negative (Negative); Color,Urine Yellow; Glucose,Urine (UA) Negative (Negative); Ketones,Urine Trace (Negative); Leukocyte Esterase,Urine Negative (Negative); Nitrite,Urine Negative (Negative); PH, Urine 5.5 (5.0-8.0); Protein,Urine Negative (Negative); Specific Gravity,Urine 1.022 (1.001-1.035); Urobilinogen,Urine <2.0 mg/dL (<2.0)
[2019-02-24 04:10] LABS: Amphetamine Screen,Urine Not Detected (NotDetected); Barbiturate Screen,Urine Not Detected (NotDetected); Benzodiazepines Screen,Urine Not Detected (NotDetected); Cocaine Screen,Urine Not Detected (NotDetected); Methadone Screen, Urine Not Detected (NotDetected); Opiate Screen,Urine Not Detected (NotDetected); Oxycodone Screen, Urine Detected (NotDetected); Phencyclidine Screen,Urine Not Detected (NotDetected); Tricyclic Antidepressant,Urine Not Detected (NotDetected); Urn Cannabinoid Scrn Not Detected (NotDetected)
[2019-02-24 06:04] LABS: Basophils % (A) 1 %; Calcium 8.7 mg/dL (8.4-10.2); Eosinophils # (A) 0.1 k/uL (0-0.7); Eosinophils % (A) 2 %; HCT 42.4 % (39.0-53.0); HGB 14.3 gm/dL (13.0-17.5); Lymphocytes # (A) 1.2 k/uL (1.0-4.8); Lymphocytes % (A) 34 %; MCH 31.8 pg (25.0-35.0); MCHC 33.7 g/dL (31.0-37.0); MCV 94.6 fL (80.0-100.0); Mean Platelet Volume 6.7; Monocytes # (A) 0.5 k/uL (0-1.0); Monocytes % (A) 13 %; Neutrophils # (A) 1.7 k/uL (1.3-7.7); Neutrophils % (A) 46 %; Platelet Count 123 k/uL (150-450); Potassium 4.6 mmol/L (3.5-5.1); RBC 4.49 m/uL (4.30-5.90); RDW 13.6 % (11.5-15.5); WBC 3.7 k/uL (3.8-10.6)
[2019-02-24] MEDS: oxyCODONE-APAP 10-325MG 1 EACH TAB PO PRN (06:46)
[2019-02-24] MEDS ORDERED: PANTOPRAZOLE 40 MG TABLET PO SCH (07:30)
--- NOTE | 2019-02-24 07:36 | HP ---
HISTORY AND PHYSICAL DATE OF SERVICE: 02/23/2019 CHIEF COMPLAINT: Chest pain. HISTORY OF PRESENT ILLNESS: This 48-year-old gentleman with a past medical history of multiple medical problems including hypertension, hyperlipidemia, history of myocardial infarction, history of CAD stent being followed by Dr. Taylor in the outpatient setting, was complaining of severe chest pain which is felt in the anterior part of the chest radiating to the left arm and left shoulder. The patient apparently had some PVCs in the ER and the patient was given magnesium and the patient is admitted for further evaluation and treatment. There is no history of any fever, rigors. There is no history of headache, loss of consciousness, or seizures. No history of shortness of breath, nausea, vomiting, palpitation at this time. There is no history of fever, rigors or chills. PAST MEDICAL HISTORY: History of CAD, stent, history of hypertension, hyperlipidemia, myocardial infarction, history of DJD, history of anxiety, depression. MEDICATIONS: Medications are home medications are: 1. Testosterone 200 mg IM q.14 days. 2. Crestor 20 mg p.o. daily. 3. Percocet 10 mg q.i.d. p.r.n. 4. Aldactone 25 mg p.o. daily. 5. Plavix 75 mg p.o. daily. 6. Celexa 20 mg p.o. daily. 7. Zestril 10 mg p.o. daily. 8. Coreg 12.5 mg p.o. b.i.d. 9. Aspirin 81 mg p.o. daily. 10.Abilify 400 mg q.28 days. ALLERGIES: Allergies are none. FAMILY HISTORY: History of lung cancer in the family. SOCIAL HISTORY: Previous history of smoking. No history of current smoking or alcohol intake. REVIEW OF SYSTEMS: ENT: No diminished hearing or diminished vision. CARDIOVASCULAR SYSTEM: As mentioned earlier. RESPIRATORY SYSTEM: No cough or hemoptysis. GI: No nausea. : No dysuria. NERVOUS SYSTEM: No numbness or weakness. ALLERGY/IMMUNOLOGY: No asthma or hayfever. MUSCULOSKELETAL: As mentioned earlier. HEMATOLOGY/ONCOLOGY: No history of anemia. ENDOCRINE: No history of diabetes or hypothyroidism. CONSTITUTIONAL: As mentioned earlier. DERMATOLOGY: Negative. RHEUMATOLOGY: Negative. PSYCHIATRY: As mentioned earlier. PHYSICAL EXAMINATION: The patient is alert and oriented x3. Pulse is 63, blood pressure 95/47, respiration 18, temperature 97.4, pulse ox 95% on room air. HEENT: Conjunctivae normal. Oral mucosa moist. NECK is no jugular venous distention. No carotid bruit. No lymph node enlargement. CARDIOVASCULAR: S1, S2 muffled. RESPIRATORY: Breath sounds diminished at the bases. No rhonchi, no crackles. ABDOMEN: Soft, nontender. No mass palpable. LEGS: No edema, no swelling. NERVOUS SYSTEM: Higher function as mentioned earlier. Moves all 4 limbs. No focal motor or sensory deficits. LYMPHATICS: No lymphadenopathy of the neck, axillae or groin. SKIN: No ulcer, rash or bleeding. JOINTS: No active deforming arthropathy. LABS: WBC 4.5, hemoglobin 14.8, platelets are 116. Creatinine is 1.33. ASSESSMENT: 1. Chest pain, possible unstable angina. 2. Increased creatinine with possibly chronic kidney disease stage 3. 3. Thrombocytopenia of undetermined etiology. 4. Hypertension. 5. Hyperlipidemia. 6. Myocardial infarction. 7. History of degenerative joint disease. 8. History of coronary artery disease, stent. 9. History of sleep apnea. 10.History of back surgery. 11.History of anxiety, depression, and claustrophobia. 12.Remote history of nicotine dependence. 13.Obesity with body mass of 33.5. RECOMMENDATIONS AND DISCUSSION: This 48-year-old gentleman who presented with multiple medical issues, at this time I recommend to continue current medications, continue symptomatic treatment. Otherwise, at this time I recommend continue with unstable angina protocol, IV fluids and repeat labs in the morning. Cardiology consultation. Possible stress test. Symptomatic treatment. Prognosis guarded because of multiple complex medical issues. Further recommendations to follow. A copy of dictation forwarded to Dr. Taylor who is the primary physician. MMODL / IJN: [id number] /
[2019-02-24 08:11] VITALS: PULSE 62; RESP 16; TEMP 98.2
[2019-02-24] MEDS: CARVEDILOL 12.5 MG TAB PO SCH (08:47)
[2019-02-24] MEDS ORDERED: LISINOPRIL 10 MG TAB PO SCH (09:00)
[2019-02-24] MEDS ORDERED: ATORVASTATIN 40 MG TAB PO SCH (09:00)
[2019-02-24] MEDS ORDERED: CLOPIDOGREL 75 MG TAB PO SCH (09:00)
[2019-02-24] MEDS ORDERED: ASPIRIN 81 MG PO SCH (09:00)
[2019-02-24] MEDS ORDERED: CITALOPRAM HYDROBROMIDE 20 MG TAB PO SCH (09:00)
[2019-02-24] MEDS ORDERED: SPIRONOLACTONE 25 MG TAB PO SCH (09:00)
--- NOTE | 2019-02-24 11:02 | P.CRDCN ---
History of Present Illness History of present illness: This is a pleasant 48-year-old male past medical history significant for coronary artery disease s/p stent placement to the LAD, hypertension, dyslipidemia, chronic systolic heart failure, history of alcohol and tobacco use. He follows in the office with Dr. Loera. We have asked him in consultation secondary to chest discomfort. He complains of intermittent chest pain for 2 days with radiation down the left arm. This occurred mostly at rest with no specific aggravating or alleviating factors and was associated with feeling light headed with positions changes, mild shortness of breath and palpitations. He is seen and examined sitting up in bed in no acute distress. He has had no chest pain, dizziness or palpitations since admission. EKG reveals sinus mechanism with PVC's noted. No acute ST or T-wave abnormalities. Chest xray is negative for an acute cardiopulmonary process. Laboratory data reviewed, WBC 3.7, hgb 14.3, plt 123, sodium 136, potassium 4.6, creatinine 1.32 with a GFR 73, magnesium 1.8, cardiac enzymes negative 3. Current cardiac medications include aspirin 81 mg daily, carvedilol 12.5 mg twice a day, lisinopril 10 mg daily, Plavix 75 mg daily, Aldactone 25 mg daily and rosuvastatin 20 mg daily. Most recent echocardiogram reveals impaired LV systolic function with ejection fraction 45%. Most recent stresses performed in the office October 2018 reveals a primarily fixed defect with no evidence of reversibility. At the time of my exam: CONSTITUTIONAL: Denies fever. Denies chills. EYES: Denies blurred vision. Denies vision changes. Denies eye pain. EARS, NOSE, MOUTH & THROAT: Denies headache. Denies sore throat. Denies ear pain. CARDIOVASCULAR: Denies chest pain. Denies shortness of breath. Denies orthopnea. Denies PND. Denies palpitations. RESPIRATORY: Denies cough. GASTROINTESTINAL: Denies abdominal pain. Denies diarrhea. Denies constipation. Denies nausea. Denies vomiting. MUSCULOSKELETAL: Denies myalgias. INTEGUMENTARY: Denies pruitis. Denies rash. NEUROLOGIC: Denies numbness. Denies tingling. Denies weakness. PSYCHIATRIC: Denies anxiety. Denies depression. ENDOCRINE: Denies fatigue. Denies weight change. Denies polydipsia. Denies polyurina. GENITOURINARY: Denies burning, hematuria or urgency with micturation. HEMATOLOGIC: Denies history of anemia. Denies bleeding. Blood pressure 99/62 heart rate 62 afebrile maintaining oxygen saturation on room air GENERAL: This is a 48-year-old male in no apparent distress at the time of my examination. HEENT: Head is atraumatic, normocephalic. Pupils are equal, round. Sclerae anicteric. Conjunctivae are clear. Mucous membranes of the mouth are moist. Neck is supple. There is no jugular venous distention. No carotid bruit is heard. LUNGS: Clear to auscultation no wheezes, rales or rhonchi. No chest wall tenderness is noted on palpation or with deep breathing. HEART: Regular rate and rhythm without murmurs, rubs or gallops. S1 and S2 heard. ABDOMEN: Soft, nontender. Bowel sounds are heard. No organomegaly noted. EXTREMITIES: No evidence of peripheral edema and no calf tenderness noted. VASCULAR: Radial and dorsalis pedis pulses palpated, no evidence of clubbing. NEUROLOGIC: Patient is awake, alert and oriented x3. ASSESSMENT Chest pain, atypical. An acute coronary event has been ruled out. Recent stress Dizziness, episode of hypotension noted last evening. Thrombocytopenia Hypertension Dyslipidemia Chronic systolic heart failure, EF Chronic kidney disease PLAN An acute coronary event has been ruled out. Recent stress test in the office is normal. Decrease lisinopril to 5 mg daily and aldactone to 12.5 mg daily. Check for orthostatic changes. Repeat echocardiogram to assess cardiac structure and function. Follow up in the office with Dr. Loera, if he continues to have chest discomfort he make require repeat cardiac catheterization. Thank you kindly for this consultation. Nurse Practitioner note has been reviewed, I agree with a documented findings and plan of care. Patient was seen and examined. Past Medical History Past Medical History: Chest Pain / Angina, Hyperlipidemia, Hypertension, Osteoarthritis (OA) Additional Past Medical History / Comment(s): 05-18- pt wants flu vaccine while here. pmh:possible sleep apnea but never had study-Low testosterone., Last Myocardial Infarction Date:: 2017 History of Any Multi-Drug Resistant Organisms: None Reported Past Surgical History: Back Surgery, Heart Catheterization With Stent Additional Past Surgical History / Comment(s): back surgeries x2, Past Anesthesia/Blood Transfusion Reactions: No Reported Reaction Date of Last Stent Placement:: 05/19/18 Past Psychological History: Anxiety Smoking Status: Former smoker Past Alcohol Use History: None Reported Past Drug Use History: None Reported - Past Family History Father Family Medical History: Cancer Additional Family Medical History / Comment(s): lung Mother Family Medical History: Cancer Additional Family Medical History / Comment(s): colon Medications and Allergies Home Medications Medication Instructions Recorded Confirmed Type Aspirin 81 mg PO DAILY #30 chew 05/20/18 02/23/19 Rx Clopidogrel [Plavix] 75 mg PO DAILY #30 tab 05/20/18 02/23/19 Rx Carvedilol [Coreg] 12.5 mg PO BID 06/22/18 02/23/19 History Testosterone Cypionate 200 mg IM Q14D 06/22/18 02/23/19 History [Depo-Testosterone] ARIPiprazole IM SYRINGE [Abilify 400 mg IM Q28D 02/23/19 02/23/19 History Maintena Syringe] Citalopram Hydrobromide [CeleXA] 20 mg PO DAILY 02/23/19 02/23/19 History Lisinopril [Zestril] 10 mg PO DAILY 02/23/19 02/23/19 History Rosuvastatin [Crestor] 20 mg PO DAILY 02/23/19 02/23/19 History Spironolactone 25 mg PO DAILY 02/23/19 02/23/19 History oxyCODONE HCL/ACETAMINOPHEN 1 tab PO QID PRN 02/23/19 02/23/19 History [Percocet 10-325 mg] Allergies Allergy/AdvReac Type Severity Reaction Status Date / Time No Known Allergies Allergy Verified 02/23/19 17:37 Physical Exam Vitals: Vital Signs Temp Pulse Pulse Resp BP BP BP 02/24/19 04:00 98.1 F 60 18 110/66 02/24/19 00:00 98.2 F 55 L 18 86/47 02/23/19 21:26 97.4 F L 63 18 95/47 02/23/19 20:00 70 18 104/61 02/23/19 19:39 114/53 02/23/19 19:29 98.5 F 76 18 73/57 02/23/19 18:38 77 18 116/63 02/23/19 16:50 98.3 F 79 18 126/71 Pulse Ox 02/24/19 04:00 96 02/24/19 00:00 96 02/23/19 21:26 95 02/23/19 20:00 02/23/19 19:39 02/23/19 19:29 98 02/23/19 18:38 98 02/23/19 16:50 99 Intake and Output 02/23/19 02/24/19 02/24/19 22:59 06:59 14:59 Output Total 300 Balance -300 Output: Urine 300 Other: Voiding Method Toilet Weight 99.79 kg Results 02/24/19 05:40 02/24/19 05:40 Cardiac Enzymes 02/23/19 02/23/19 02/23/19 Range/Units 17:10 17:10 22:45 AST 28 (17-59) U/L Troponin I <0.012 <0.012 (0.000-0.034) ng/mL 02/24/19 Range/Units 05:40 AST (17-59) U/L Troponin I <0.012 (0.000-0.034) ng/mL Coagulation 02/23/19 Range/Units 17:10 PT 10.0 (9.0-12.0) sec APTT 23.2 (22.0-30.0) sec CBC 02/23/19 02/24/19 Range/Units 17:10 05:40 WBC 4.5 3.7 L (3.8-10.6) k/uL RBC 4.73 4.49 (4.30-5.90) m/uL Hgb 14.8 14.3 (13.0-17.5) gm/dL Hct 44.8 42.4 (39.0-53.0) % Plt Count 116 L 123 L (150-450) k/uL Comprehensive Metabolic Panel 02/23/19 02/24/19 Range/Units 17:10 05:40 Sodium 137 136 L (137-145) mmol/L Potassium 4.0 4.6 (3.5-5.1) mmol/L Chloride 100 102 (98-107) mmol/L Carbon Dioxide 26 28 (22-30) mmol/L BUN 23 H 25 H (9-20) mg/dL Creatinine 1.33 H 1.32 H (0.66-1.25) mg/dL Glucose 120 H 92 (74-99) mg/dL Calcium 9.2 8.7 (8.4-10.2) mg/dL AST 28 (17-59) U/L ALT 26 (21-72) U/L Alkaline Phosphatase 66 (38-126) U/L Total Protein 7.6 (6.3-8.2) g/dL Albumin 4.4 (3.5-5.0) g/dL Current Medications Generic Name Dose Route Start Last Admin Trade Name Freq PRN Reason Stop Dose Admin Alprazolam 0.25 mg 02/23/19 23:53 Xanax PO TID PRN Anxiety Aspirin 81 mg 02/24/19 09:00 Aspirin PO DAILY [facility] Atorvastatin Calcium 40 mg 02/24/19 09:00 Lipitor PO DAILY [facility] Carvedilol 12.5 mg 02/23/19 21:00 02/23/19 21:27 Coreg PO Not Given AC-BID [facility] Citalopram Hydrobromide 20 mg 02/24/19 09:00 Celexa PO DAILY [facility] Clopidogrel Bisulfate 75 mg 02/24/19 09:00 Plavix PO DAILY [facility] Hydromorphone HCl 0.5 mg 02/23/19 23:53 Dilaudid IVP Q6HR PRN Severe Pain Sodium Chloride 1,000 mls @ 75 mls/hr 02/23/19 23:45 02/24/19 06:47 Saline 0.9% IV 75 mls/hr .[id number] NOEMÍ Administration Lisinopril 10 mg 02/24/19 09:00 Zestril PO DAILY [facility] Naloxone HCl 0.2 mg 02/23/19 19:12 Narcan IV Q2M PRN Opioid Reversal Oxycodone/Acetaminophen 1 each 02/23/19 19:19 02/24/19 06:46 Percocet 10-325 PO 1 each QID PRN Administration Pain Pantoprazole Sodium 40 mg 02/24/19 07:30 Protonix PO AC-BRKFST [facility] Spironolactone 25 mg 02/24/19 09:00 Aldactone PO DAILY [facility] Temazepam 15 mg 02/23/19 23:53 Restoril PO HS PRN Insomnia Intake and Output 02/23/19 02/24/19 02/24/19 22:59 06:59 14:59 Output Total 300 Balance -300 Output: Urine 300 Other: Voiding Method Toilet Weight 99.79 kg 02/24/19 05:40 02/24/19 05:40
--- NOTE | 2019-02-24 12:00 | ECHOF ---
Referral Reason: MEASUREMENTS -------- HEIGHT: 172.7 cm WEIGHT: 99.8 kg BP: 110/66 RVIDd: 2.4 cm (< 3.3) IVSd: 1.0 cm (0.6 - 1.1) LVIDd: 4.8 cm (3.9 - 5.3) LVPWd: 1.2 cm (0.6 - 1.1) IVSs: 1.2 cm LVIDs: 3.5 cm LVPWs: 1.3 cm LA Diam: 3.4 cm (2.7 - 3.8) LAESV Index (A-L): 18.27 ml/m Ao Diam: 3.1 cm (2.0 - 3.7) AV Cusp: 2.0 cm (1.5 - 2.6) LA Diam: 3.7 cm (2.7 - 3.8) MV EXCURSION: 19.783 mm (> 18.000) MV EF SLOPE: 99 mm/s (70 - 150) EPSS: 1.0 cm MV E Donis: 0.81 m/s MV DecT: 191 ms MV A Donis: 0.78 m/s MV E/A Ratio: 1.04 RAP: 5.00 mmHg RVSP: 26.31 mmHg FINDINGS -------- Sinus rhythm. This was a technically good study. LV size, wall thickness and systolic function are normal, with an EF greater than 55%. The left ivet tricular size is normal. The right ventricle is normal in size. The left atrial size is normal. Normal LA size by volume 22+/-6 ml/m2. The right atrial size is normal. The aortic valve is trileaflet, and appears structurally normal. No aortic stenosis or regurgitation. Mild mitral regurgitation is present. Mild tricuspid regurgitation present. There is no evidence of pulmonary hypertension. The right v entricular systolic pressure, as measured by Doppler, is 26.31mmHg. There is no pulmonic regurgitation present. The aortic root size is normal. There is no pericardial effusion. CONCLUSIONS -------- 1. Sinus rhythm. 2. This was a technically good study. 3. LV size, wall thickness and systolic function are normal, with an EF greater than 55%. 4. The left ventricular size is normal. 5. The right ventricle is normal in size. 6. The left atrial size is normal. 7. Normal LA size by volume 22+/-6 ml/m2. 8. The right atrial size is normal. 9. The aortic valve is trileaflet, and appears structurally normal. No aortic stenosis or regurgitati on. 10. Mild mitral regurgitation is present. 11. Mild tricuspid regurgitation present. 12. There is no evidence of pulmonary hypertension. 13. The right ventricular systolic pressure, as measured by Doppler, is 26.31mmHg. 14. There is no pulmonic regurgitation present. 15. The aortic root size is normal. 16. There is no pericardial effusion. DIRECTOR OF PEDIATRIC REHABILITATION: Mirella Haney RDCS
[2019-02-24 12:17] VITALS: BP 119/75
--- NOTE | 2019-02-24 22:06 | DS ---
DISCHARGE SUMMARY DATE OF SERVICE: 02/24/2019. FINAL DIAGNOSES: 1. Chest pain, possibly unstable angina. Myocardial infarction ruled out. 2. Increased creatinine with possible chronic kidney disease, stage III. 3. Thrombocytopenia of undetermined etiology. 4. Hypertension. 5. Hyperlipidemia. 6. History of myocardial infarction. 7. History of degenerative joint disease. 8. History of coronary artery disease and stent. 9. Obstructive sleep apnea. 10.History of back surgery. 11.History of anxiety, depression, claustrophobia. 12.Remote history of nicotine dependence. 13.Obesity with body mass index of 33.5. DISCHARGE DISPOSITION: The patient will be discharged in stable condition with guarded prognosis. Cardiology cleared the patient for discharge. HISTORY OF PRESENT ILLNESS: This 48-year-old gentleman with a past medical history of multiple medical problems was admitted with chest pain. Myocardial infarction was ruled out. Cardiology saw the patient. A 2D echo was done by Cardiology. Two-D echo showed ejection fraction about 55% and Cardiology recommended outpatient followup. On exam, vitals are stable. CARDIOVASCULAR SYSTEM: S1, S2 muffled. ABDOMEN: Soft. NERVOUS SYSTEM: No focal deficit. DISCHARGE ADVICE AND MEDICATIONS: 1. Diet is cardiac. 2. Activity limited until followup. 3. Follow up with Dr. Taylor in 2-3 days. 4. Follow up with Dr. Fany Loera as recommended. 5. Abilify 400 mg IM q.28 days. 6. Celexa 20 mg p.o. daily. 7. Coreg 12.5 mg p.o. b.i.d. 8. Crestor 20 mg p.o. daily. 9. Depo-Testosterone 200 mg IM q.14 days. 10.Percocet 10 mg q.i.d. p.r.n. 11.Aldactone 25 mg p.o. daily. 12.Zestril 10 mg p.o. daily. 13.Aspirin 81 mg p.o. daily. 14.Plavix 75 mg p.o. daily. Once again, the patient will be discharged in a stable condition with a guarded prognosis. MMODL / IJN: [id number] /
[2019-02-25] MEDS ORDERED: SPIRONOLACTONE 25 MG TAB PO SCH (09:00)
[2019-02-25] MEDS ORDERED: LISINOPRIL 5 MG TAB PO SCH (09:00)
== END 2019-02-24 12:20 | disposition home or self-care (01) ==
LOC: EC 16:48 → 1SOBS 19:20
PROVIDERS: ADMIT Internal Medicine; ATTEND Internal Medicine
DX: R07.89 Other chest pain (principal); E66.9 Obesity, unspecified; Z68.33 Body mass index [BMI] 33.0-33.9, adult; N18.9 Chronic kidney disease, unspecified; I49.3 Ventricular premature depolarization; E78.5 Hyperlipidemia, unspecified; I50.22 Chronic systolic (congestive) heart failure; I13.0 Hypertensive heart and chronic kidney disease with heart failure and stage 1 through stage 4 chronic kidney disease, or unspecified chronic kidney disease; F32.9 Major depressive disorder, single episode, unspecified; F41.9 Anxiety disorder, unspecified; G47.33 Obstructive sleep apnea (adult) (pediatric); I25.10 Atherosclerotic heart disease of native coronary artery without angina pectoris; I25.2 Old myocardial infarction; Z95.5 Presence of coronary angioplasty implant and graft; D69.6 Thrombocytopenia, unspecified; F40.240 Claustrophobia; Z98.890 Other specified postprocedural states; Z79.02 Long term (current) use of antithrombotics/antiplatelets; Z79.82 Long term (current) use of aspirin; Z79.899 Other long term (current) drug therapy; Z87.891 Personal history of nicotine dependence
CPT/HCPCS: 96365; 99285; 36415; 93005; 93306; 85379; 80053; 80048; 83735; 84484 ×2; 85025 ×2; 85610; 85730; 81003; 80306; 71046; G0378 ×2; J3475

== ENCOUNTER 2019-08-14 17:05 | Inpatient (IN) | payer MEDICARE, MEDICAID ==
[2019-08-14 17:13] VITALS: RESP 18
--- NOTE | 2019-08-14 18:27 | ED ---
Psych HPI - General Chief Complaint: Psychiatric Symptoms Stated Complaint: patient feels suicidal Time Seen by Provider: 08/14/19 17:31 Source: patient, RN notes reviewed, old records reviewed Mode of arrival: ambulatory - History of Present Illness MD Complaint: suicidal ideation, feels depressed -: days(s) Associated Psychiatric Symptoms: depression, suicidal ideation Quality: constant Improves With: none Worsens With: none Context: not taking psychiatric medications Associated Symptoms: denies other symptoms Treatments Prior to Arrival: placed on mental health hold If Self Harm: admits thoughts of self harm - Related Data Home Medications Medication Instructions Recorded Confirmed Carvedilol [Coreg] 12.5 mg PO BID 06/22/18 08/14/19 Testosterone Cypionate 200 mg IM Q14D 06/22/18 08/14/19 [Depo-Testosterone] Lisinopril [Zestril] 10 mg PO DAILY 02/23/19 08/14/19 Rosuvastatin [Crestor] 20 mg PO DAILY@1200 02/23/19 08/14/19 Spironolactone 25 mg PO DAILY 02/23/19 08/14/19 oxyCODONE HCL/ACETAMINOPHEN 1 tab PO QID PRN 02/23/19 08/14/19 [Percocet 10-325 mg] Previous Rx's Medication Instructions Recorded Aspirin 81 mg PO DAILY #30 chew 05/20/18 Clopidogrel [Plavix] 75 mg PO DAILY #30 tab 05/20/18 Allergies Allergy/AdvReac Type Severity Reaction Status Date / Time No Known Allergies Allergy Verified 08/14/19 23:10 Review of Systems ROS Statement: Those systems with pertinent positive or pertinent negative responses have been documented in the HPI. ROS Other: All systems not noted in ROS Statement are negative. Past Medical History Past Medical History: Chest Pain / Angina, Hyperlipidemia, Hypertension, Osteoarthritis (OA) Additional Past Medical History / Comment(s): 05-18-18 pt wants flu vaccine while here. pmh:possible sleep apnea but never had study-Low testosterone., Last Myocardial Infarction Date:: 2017 History of Any Multi-Drug Resistant Organisms: None Reported Past Surgical History: Back Surgery, Heart Catheterization With Stent Additional Past Surgical History / Comment(s): back surgeries x2, Past Anesthesia/Blood Transfusion Reactions: No Reported Reaction Date of Last Stent Placement:: 05/19/18 Past Psychological History: Anxiety, Bipolar Smoking Status: Former smoker Past Alcohol Use History: Occasional Past Drug Use History: Methamphetamine - Past Family History Father Family Medical History: Cancer Additional Family Medical History / Comment(s): lung Mother Family Medical History: Cancer Additional Family Medical History / Comment(s): colon General Exam Limitations: no limitations General appearance: alert, in no apparent distress Head exam: Present: atraumatic, normocephalic, normal inspection Eye exam: Present: normal appearance, PERRL, EOMI. Absent: scleral icterus, conjunctival injection, periorbital swelling ENT exam: Present: normal exam, mucous membranes moist Neck exam: Present: normal inspection. Absent: tenderness, meningismus, lymphadenopathy Respiratory exam: Present: normal lung sounds bilaterally. Absent: respiratory distress, wheezes, rales, rhonchi, stridor Cardiovascular Exam: Present: regular rate, normal rhythm, normal heart sounds. Absent: systolic murmur, diastolic murmur, rubs, gallop, clicks GI/Abdominal exam: Present: soft, normal bowel sounds. Absent: distended, tend erness, guarding, rebound, rigid Extremities exam: Present: normal inspection, full ROM, normal capillary refill. Absent: tenderness, pedal edema, joint swelling, calf tenderness Back exam: Present: normal inspection Neurological exam: Present: alert, oriented X3, CN II-XII intact Psychiatric exam: Present: normal affect, normal mood Skin exam: Present: warm, dry, intact, normal color. Absent: rash Course Vital Signs 08/14/19 17:10 Temperature 98.5 F Pulse Rate 109 H Respiratory 18 Rate Blood Pressure 136/79 O2 Sat by Pulse 98 Oximetry Medical Decision Making - Medical Decision Making 49 male to be admitted for psychiatric evaluation and treatment - Lab Data Lab Results 08/14/19 Range/Units 19:10 Urine Opiates Screen Not Detected (NotDetected) Ur Oxycodone Screen Detected H (NotDetected) Urine Methadone Screen Not Detected (NotDetected) Ur Propoxyphene Screen Not Detected (NotDetected) Ur Barbiturates Screen Not Detected (NotDetected) U Tricyclic Antidepress Not Detected (NotDetected) Ur Phencyclidine Scrn Not Detected (NotDetected) Ur Amphetamines Screen Detected H (NotDetected) U Methamphetamines Scrn Detected H (NotDetected) U Benzodiazepines Scrn Not Detected (NotDetected) Urine Cocaine Screen Detected H (NotDetected) U Marijuana (THC) Screen Not Detected (NotDetected) Disposition Clinical Impression: Acute anxiety, Depression, Suicidal ideation Disposition: TRANSFER TO PSYCH HOSP/UNIT Condition: Fair Is patient prescribed a controlled substance at d/c from ED?: No
[2019-08-14 19:31] LABS: Amphetamine Screen,Urine Detected (NotDetected); Barbiturate Screen,Urine Not Detected (NotDetected); Benzodiazepines Screen,Urine Not Detected (NotDetected); Cocaine Screen,Urine Detected (NotDetected); Methadone Screen, Urine Not Detected (NotDetected); Opiate Screen,Urine Not Detected (NotDetected); Oxycodone Screen, Urine Detected (NotDetected); Phencyclidine Screen,Urine Not Detected (NotDetected); Tricyclic Antidepressant,Urine Not Detected (NotDetected); Urn Cannabinoid Scrn Not Detected (NotDetected)
[2019-08-14 21:13] VITALS: PULSE 84; TEMP 98
[2019-08-14] MEDS ORDERED: MAGNESIUM HYDROXIDE 2,400 MG/10 ML CUP PO PRN (21:49)
[2019-08-14] MEDS ORDERED: ZIPRASIDONE 20 MG VIAL IM PRN (21:49)
[2019-08-14] MEDS ORDERED: MAG HYDROX/AL HYDROX/SIMETH 30 ML CUP PO PRN (21:49)
[2019-08-14] MEDS ORDERED: LORazepam 1 MG TAB PO PRN (21:49)
[2019-08-14] MEDS ORDERED: ACETAMINOPHEN TAB 325 MG TAB PO PRN (21:49)
[2019-08-14] MEDS ORDERED: HYDROcodone/APAP 5-325MG 1 EACH TAB PO PRN (21:50)
[2019-08-14] MEDS ORDERED: LORazepam 2 MG/ML INJ IM PRN (21:51)
[2019-08-14] MEDS ORDERED: CARVEDILOL 12.5 MG TAB PO SCH (22:00)
[2019-08-14] MEDS: NITROGLYCERIN SL TABS 0.4 MG TAB SUBLINGUAL PRN ×2 (22:09→22:16)
[2019-08-14 22:41] VITALS: BP 131/61
[2019-08-15] MEDS ORDERED: LISINOPRIL 10 MG TAB PO SCH (09:00)
[2019-08-15] MEDS ORDERED: CLOPIDOGREL 75 MG TAB PO SCH (09:00)
[2019-08-15] MEDS ORDERED: SPIRONOLACTONE 25 MG TAB PO SCH (09:00)
[2019-08-15] MEDS ORDERED: ASPIRIN 81 MG PO SCH (09:00)
[2019-08-15] MEDS ORDERED: ATORVASTATIN 40 MG TAB PO SCH (12:00)
== END 2019-08-14 22:24 | disposition short-term general hospital (02) | DRG 885 ==
LOC: EC 17:05 → 3MHU 20:52
PROVIDERS: ADMIT Psychiatry & Neurology Psychiatry; ATTEND Psychiatry & Neurology Psychiatry
DX: F31.9 Bipolar disorder, unspecified (principal); R45.851 Suicidal ideations; F41.9 Anxiety disorder, unspecified; E78.5 Hyperlipidemia, unspecified; I10 Essential (primary) hypertension; M19.90 Unspecified osteoarthritis, unspecified site; I25.2 Old myocardial infarction; Z79.02 Long term (current) use of antithrombotics/antiplatelets; Z79.82 Long term (current) use of aspirin; Z79.890 Hormone replacement therapy; Z79.899 Other long term (current) drug therapy; Z87.891 Personal history of nicotine dependence; Z95.5 Presence of coronary angioplasty implant and graft; Z98.890 Other specified postprocedural states; Z80.1 Family history of malignant neoplasm of trachea, bronchus and lung; Z80.0 Family history of malignant neoplasm of digestive organs
CPT/HCPCS: 80306; 82075; 84484; 93005; 99285

== ENCOUNTER 2019-08-14 22:20 | Observation (INO) | payer MEDICARE, OTHER ==
[2019-08-15] MEDS ORDERED: TESTOSTERONE CYPIONATE 200 MG/ML 1ML VIAL IM SCH ×2 (00:45→00:48)
[2019-08-15 01:06] LABS: Basophils # (A) 0.1 k/uL (0-0.2); Basophils % (A) 2 %; Eosinophils # (A) 0.1 k/uL (0-0.7); Eosinophils % (A) 1 %; HCT 43.9 % (39.0-53.0); HGB 14.1 gm/dL (13.0-17.5); Lymphocytes # (A) 1.1 k/uL (1.0-4.8); Lymphocytes % (A) 20 %; MCH 30.9 pg (25.0-35.0); MCHC 32.1 g/dL (31.0-37.0); MCV 96.3 fL (80.0-100.0); Mean Platelet Volume 6.7; Monocytes # (A) 0.6 k/uL (0-1.0); Monocytes % (A) 12 %; Neutrophils # (A) 3.1 k/uL (1.3-7.7); Neutrophils % (A) 60 %; Platelet Count 167 k/uL (150-450); RBC 4.56 m/uL (4.30-5.90); RDW 13.5 % (11.5-15.5); WBC 5.1 k/uL (3.8-10.6)
[2019-08-15 01:15] LABS: Calcium 8.9 mg/dL (8.4-10.2); Potassium 4.3 mmol/L (3.5-5.1)
[2019-08-15] MEDS: oxyCODONE-APAP 10-325MG 1 EACH TAB PO PRN ×3 (04:06→16:16)
[2019-08-15 04:39] LABS: Basophils # (A) 0.1 k/uL (0-0.2); Basophils % (A) 2 %; Eosinophils % (A) 1 %; HCT 43.4 % (39.0-53.0); HGB 14.1 gm/dL (13.0-17.5); Lymphocytes # (A) 1.2 k/uL (1.0-4.8); Lymphocytes % (A) 24 %; MCH 31.2 pg (25.0-35.0); MCHC 32.5 g/dL (31.0-37.0); Mean Platelet Volume 6.9; Monocytes # (A) 0.7 k/uL (0-1.0); Monocytes % (A) 14 %; Neutrophils # (A) 2.7 k/uL (1.3-7.7); Neutrophils % (A) 55 %; Platelet Count 161 k/uL (150-450); RBC 4.52 m/uL (4.30-5.90); RDW 13.4 % (11.5-15.5); WBC 4.9 k/uL (3.8-10.6)
[2019-08-15 04:47] LABS: Calcium 8.9 mg/dL (8.4-10.2); Potassium 4.5 mmol/L (3.5-5.1)
[2019-08-15] MEDS: CARVEDILOL 12.5 MG TAB PO SCH ×2 (05:43→17:27)
[2019-08-15] MEDS: HYDROmorphone 0.5 MG/0.5 ML SYRINGE IVP PRN ×3 (05:47→17:36)
[2019-08-15] MEDS: ATORVASTATIN 40 MG TAB PO SCH (07:59)
[2019-08-15] MEDS: CLOPIDOGREL 75 MG TAB PO SCH (07:59)
[2019-08-15] MEDS: LISINOPRIL 10 MG TAB PO SCH (07:59)
[2019-08-15] MEDS: SPIRONOLACTONE 25 MG TAB PO SCH (07:59)
[2019-08-15] MEDS: ASPIRIN 81 MG PO SCH (07:59)
--- NOTE | 2019-08-15 08:26 | P.CRDCN ---
History of Present Illness Consult date: 08/15/19 Requesting physician: José Miguel Colon Consult reason: chest pain Chief complaint: Chest pain History of present illness: This is a 49-year-old -[place] gentleman with past medical history sign ificant for coronary artery disease and prior LAD stenting, hypertension, hyperlipidemia, chronic systolic congestive heart failure, history of alcohol and tobacco use. He follows with Dr. cesilia poon in the office. Patient was initially admitted to the hospital with depression, he was going to be admitted to the mental health unit, developed midsternal chest pressure and heaviness which radiated across his chest and into both of his arms, then was transferred to the cardiac unit for further evaluation and treatment. Patient's most recent cardiac catheterization was performed in June 2018, his LAD which was stented on May 19 of that same month was widely patent, his dominant RCA and circumflex were free of any significant disease. He had an echocardiogram with Doppler study performed in February 2019 which revealed a normal left ventricular systolic function. Blood pressure 128/58 with a heart rate in the 80s, temperature 97.5. White blood cell count 4.9, hemoglobin 14.1, platelet count 161. Sodium 134, potassium 4.5, BUN 28, creatinine 1.3. Troponin 0.014, 0.012. Drug screen positive for oxycodone amphetamines methamphetamines and cocaine. At the time of my examination this morning, patient is currently chest pain-free. His EKG shows a normal sinus rhythm with no acute changes. Past Medical History Past Medical History: Chest Pain / Angina, Hyperlipidemia, Hypertension, Osteoarthritis (OA) Additional Past Medical History / Comment(s): 05-18-18 pt wants flu vaccine while here. pmh:possible sleep apnea but never had study-Low testosterone., Last Myocardial Infarction Date:: 2017 History of Any Multi-Drug Resistant Organisms: None Reported Past Surgical History: Back Surgery, Heart Catheterization With Stent Additional Past Surgical History / Comment(s): back surgeries x2, Past Anesthesia/Blood Transfusion Reactions: No Reported Reaction Date of Last Stent Placement:: 05/19/18 Past Psychological History: Anxiety, Bipolar Additional Psychological History / Comment(s): clausterphobia. lives alone in apt,drives, no past back ground, not currently working Smoking Status: Former smoker Past Alcohol Use History: Occasional Additional Past Alcohol Use History / Comment(s): started smoking 1981,quit sm oking 2016 , 1 PPD, no current alcohol use. Past Drug Use History: Methamphetamine Additional Drug Use History / Comment(s): quit 2004 - Past Family History Father Family Medical History: Cancer Additional Family Medical History / Comment(s): lung Mother Family Medical History: Cancer Additional Family Medical History / Comment(s): colon Medications and Allergies Home Medications Medication Instructions Recorded Confirmed Type Aspirin 81 mg PO DAILY #30 chew 05/20/18 08/14/19 Rx Clopidogrel [Plavix] 75 mg PO DAILY #30 tab 05/20/18 08/14/19 Rx Carvedilol [Coreg] 12.5 mg PO BID 06/22/18 08/14/19 History Testosterone Cypionate 200 mg IM Q14D 06/22/18 08/14/19 History [Depo-Testosterone] Lisinopril [Zestril] 10 mg PO DAILY 02/23/19 08/14/19 History Rosuvastatin [Crestor] 20 mg PO DAILY@1200 02/23/19 08/14/19 History Spironolactone 25 mg PO DAILY 02/23/19 08/14/19 History oxyCODONE HCL/ACETAMINOPHEN 1 tab PO QID PRN 02/23/19 08/14/19 History [Percocet 10-325 mg] Allergies Allergy/AdvReac Type Severity Reaction Status Date / Time No Known Allergies Allergy Verified 08/14/19 23:10 Physical Exam Vitals: Vital Signs Temp Pulse Resp BP Pulse Ox 08/15/19 07:53 97.5 F L 87 18 128/58 96 08/15/19 04:00 84 18 126/75 98 08/14/19 22:31 98.6 F 72 18 130/62 98 Intake and Output 08/14/19 08/15/19 08/15/19 22:59 06:59 14:59 Intake Total 0 Balance 0 Intake: Oral 0 Other: # Voids 1 Weight 100 kg 108 kg PHYSICAL EXAMINATION: GENERAL: 49-year-old -[place] gentleman in no acute distress at the time of my examination HEENT: Head is atraumatic, normocephalic. Pupils equal, round. Sclera anicteric. Conjunctiva are clear. Mucous membranes of the mouth are moist. Neck is supple. There is no elevated jugular venous pressure. No carotid brui t is heard. HEART EXAMINATION: Heart S1, S2 normal. No murmur or gallop heard. CHEST EXAMINATION: Lungs are clear to auscultation and precussion. No chest wall tenderness is noted on palpation or with deep breathing. ABDOMEN: Soft, nontender. Bowel sounds are heard. No organomegaly noted. EXTREMITIES: 2+ peripheral pulses with no evidence of peripheral edema and no calf tenderness noted. NEUROLOGIC patient is awake, alert and oriented X3. . Results 08/15/19 04:15 08/15/19 04:15 Cardiac Enzymes 08/15/19 Range/Units 04:15 Troponin I <0.012 (0.000-0.034) ng/mL CBC 08/15/19 08/15/19 Range/Units 00:56 04:15 WBC 5.1 4.9 (3.8-10.6) k/uL RBC 4.56 4.52 (4.30-5.90) m/uL Hgb 14.1 14.1 (13.0-17.5) gm/dL Hct 43.9 43.4 (39.0-53.0) % Plt Count 167 161 (150-450) k/uL Comprehensive Metabolic Panel 08/15/19 08/15/19 Range/Units 00:56 04:15 Sodium 133 L 134 L (137-145) mmol/L Potassium 4.3 4.5 (3.5-5.1) mmol/L Chloride 99 97 L (98-107) mmol/L Carbon Dioxide 25 27 (22-30) mmol/L BUN 31 H 28 H (9-20) mg/dL Creatinine 1.37 H 1.37 H (0.66-1.25) mg/dL Glucose 99 85 (74-99) mg/dL Calcium 8.9 8.9 (8.4-10.2) mg/dL Current Medications Generic Name Dose Route Start Last Admin Trade Name Freq PRN Reason Stop Dose Admin Aspirin 81 mg 08/15/19 09:00 08/15/19 07:59 Aspirin PO 81 mg DAILY NOEMÍ Administration Atorvastatin Calcium 40 mg 08/15/19 12:00 08/15/19 07:59 Lipitor PO 40 mg DAILY@1200 NOEMÍ Administration Carvedilol 12.5 mg 08/15/19 07:30 08/15/19 05:43 Coreg PO 12.5 mg AC-BID NOEMÍ Administration Clopidogrel Bisulfate 75 mg 08/15/19 09:00 08/15/19 07:59 Plavix PO 75 mg DAILY NOEMÍ Administration Hydromorphone HCl 0.5 mg 08/15/19 00:45 08/15/19 05:47 Dilaudid IVP 0.5 mg Q4HR PRN Administration Pain Lisinopril 10 mg 08/15/19 09:00 08/15/19 07:59 Zestril PO 10 mg DAILY NOEMÍ Administration Testosterone 200 each 08/15/19 00:48 08/15/19 01:21 Cypionate 200 Mg/Ml IM Not Given 1ml Vial Q14D NOEMÍ Oxycodone/Acetaminophen 1 each 08/15/19 00:44 08/15/19 04:06 Percocet 10-325 PO 1 each QID PRN Administration Pain Spironolactone 25 mg 08/15/19 09:00 08/15/19 07:59 Aldactone PO 25 mg DAILY NOEMÍ Administration Intake and Output 08/14/19 08/15/19 08/15/19 22:59 06:59 14:59 Intake Total 0 Balance 0 Intake: Oral 0 Other: # Voids 1 Weight 100 kg 108 kg 08/15/19 04:15 08/15/19 04:15 EKG Interpretations (text) EKG shows a normal sinus rhythm with no acute changes. Assessment and Plan Plan: Assessment and plan #1 chest discomfort, troponins 0.014, 0.012. EKG shows normal sinus rhythm with no acute changes. #2 known history of coronary artery disease with prior LAD stenting in May 2018 #3 hypertension #4 hyperlipidemia #5 chronic kidney disease #6 depression #7 positive drug screen for oxycodone, amphetamines, methamphetamines, and cocaine #8 history of EtOH abuse #9 history of nicotine dependence Plan We will obtain an echocardiogram with Doppler study. Continue aspirin, Lipitor, Coreg, Plavix, lisinopril, and Aldactone. Patient will be scheduled to undergo stress testing today. Further recommendations to follow DNP note has been reviewed, I agree with a documented findings and plan of care. Patient was seen and examined.
[2019-08-15] MEDS ORDERED: DOBUTamine DRIP for NUC MED 500 MG in DEXTROSE/WATER 1 250ML.BAG IV ONE (11:00)
--- NOTE | 2019-08-15 12:05 | CONS ---
CONSULTATION PURPOSE OF CONSULTATION: Evaluate for psychiatric status. HISTORY OF PRESENTING ILLNESS: The patient is a 49-year-old male. He has a history of significant cardiac issues. He presented to the emergency room on the . The only documentation that was noted is as follows: CHIEF COMPLAINT: Psychiatric symptoms. STATED COMPLAINT: The patient feels suicidal some I: Contact not taking psychiatric medications; past drug use history meth amphetamine. The patient was initially admitted to the psychiatric unit. He was seen in consultation due to chest pain complaints. He was transferred to the medical floor and has been seen by Cardiology. When I saw the patient, he was lying in bed with covers pulled up to his shoulders. He did not give much eye contact. He answered only a few questions. He indicated that he had trouble with depression. He acknowledged that he has had ongoing use of cocaine. He says that he lives alone. He does not have any family in the area and stated that he has minimal supports of friends or others. 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 He says that he has been having long-term problems with depression. He was followed by [facility]. He has seen Stephen. He said he has not seen Dr. Mitchell in a couple months." He says he has had issues with auditory hallucinations. He did not provide details. He notes that he had been prescribed Abilify which he felt helped though he has been off the medication for a couple months. He acknowledged that he thinks he needs to be readmitted to the psychiatric unit. He was vague about whether or not he had any thoughts of self-harm at the time that I evaluated his mental state. He did not provide any other information. MENTAL STATUS: Patient sat the patient was lying in bed. He had slowed psychomotor activity. His responses were minimal for a number of questions. He sat without making any effort to answer his affect was flat. Mood depressed. He appeared significantly distressed. He indicated having auditory hallucinations. He did make an effort to answer formal cognitive questions. He seemed to be aware of his circumstances and surroundings. ASSESSMENT: This is a 49-year-old male. He is diagnosed with mood disorder and thought disorder, we do not have specific information. The will need input from [facility] to better characterize his situation. He does have apparent ongoing cocaine use disorder as well. The patient was in agreement with being readmitted to the psychiatric unit once he is stable stabilize medically. My understanding is he will be doing a stress test this afternoon and if that comes out negative, then he will be readmitted to Psychiatry. ETHAN / HAIDER: [id number] /
[2019-08-15] MEDS ORDERED: METOPROLOL TARTRATE 5 MG/5 ML VIAL IVP ONE (12:29)
[2019-08-15] MEDS ORDERED: ATROPINE SULFATE 0.1 MG/ML 10ML SYRINGE ONE (12:29)
[2019-08-15] MEDS ORDERED: LORazepam 0.5 MG TAB PO PRN (14:30)
--- NOTE | 2019-08-15 15:16 | ECHOS ---
STRESS ECHOCARDIOGRAM INDICATIONS: Chest pain. BASELINE HEART RATE: 82 BASELINE BLOOD PRESSURE: 104/39 MAXIMUM HEART RATE: 131 MAXIMUM BLOOD PRESSURE: 152/52 85% MPHR: 144 100% MPHR: 169 MAXIMUM STAGE REACHED: 4 TOTAL EXERCISE TIME: 12:55 CLINICAL INFORMATION: Baseline EKG revealed a sinus mechanism without significant ST-T changes. With dobutamine administration as per protocol and additional atropine of a total of 1 mg, the heart rate went up to 131 beats per minute. The patient is 85% is actually 144. This is therefore an inconclusive dobutamine stress test because of inadequate chronotropic response. However, no EKG changes were noted to indicate ischemia at this level and patient did not have any angina or arrhythmia. Baseline echo images revealed normal wall motion and wall thickening of all segments. At a peak heart rate of 131 beats per minute after 40 mcg/kg per minute of dobutamine and 1 mg of atropine, his maximal heart rate of 131 beats per minute. This is therefore technically inconclusive dobutamine echo but at this heart rate level. Patient had excellent contractility with good augmentation suggesting no ischemia at a heart rate of 131 beats per minute. No arrhythmia was noted. FINAL IMPRESSION: 1. by EKG criteria, this is an inconclusive dobutamine stress test because of inadequate chronotropic response. 2. Inconclusive dobutamine echo because of inadequate chronotropic response but at a heart rate of 131 beats per minute with dobutamine administration, there was no evidence to suggest any myocardial ischemia. There was excellent contractility noted. MMODL / IJN: [id number] /
[2019-08-15] MEDS: PANTOPRAZOLE 40 MG/10 ML VIAL IVP SCH (16:14)
[2019-08-15] MEDS ORDERED: PANTOPRAZOLE 40 MG/10 ML VIAL ONE (16:16)
--- NOTE | 2019-08-15 17:11 | HP ---
HISTORY AND PHYSICAL DATE OF SERVICE: 08/15/2019 CHIEF COMPLAINT: Chest pain. HISTORY OF PRESENT ILLNESS: This 49-year-old gentleman with a past medical history of multiple medical problems, including history of chest pain, CAD, stent, hypertension, hyperlipidemia, history of DJD, history of back surgery, history of anxiety, bipolar, history of claustrophobia, being followed by Dr. Taylor in the outpatient setting, presented to [facility] and subsequently was was sent to the psych floor for suicidal ideation and thought disorder. While on the psych floor the patient was complaining of chest pain which was felt in the anterior and left side of the chest which was a rather pressure type and also radiating to the medial part of the left arm. The patient was subsequently transferred to the medical floor and is being monitored closely. The patient was seen by Cardiology, who recommended a 2D echo with Doppler and to continue the rest of the medications, and a stress test tomorrow is being planned at this time. There is no history of any fever, rigor or chills. No history of headache, loss of consciousness, seizures at this time. PAST MEDICAL HISTORY: CAD, stent, hypertension, hyperlipidemia, history of DJD, anxiety, bipolar. HOME MEDICATIONS: 1. Percocet 10 mg q.i.d. p.r.n. 2. Testosterone 200 mg IM q.14 days. 3. Aldactone 25 mg p.o. daily. 4. Crestor 20 mg p.o. daily. 5. Zestril 10 mg p.o. daily. 6. Plavix 75 mg p.o. daily. 7. Coreg 12.5 mg p.o. b.i.d. 8. Aspirin 81 mg p.o. daily. ALLERGIES: NONE. FAMILY HISTORY: History of lung cancer in the family. SOCIAL HISTORY: History of alcohol, cocaine, THC, smoking. REVIEW OF SYSTEMS: ENT: No diminished hearing. No diminished vision. CARDIOVASCULAR SYSTEM: As mentioned earlier. RESPIRATORY SYSTEM: As mentioned earlier. GI: No nausea, vomiting. : No dysuria or retention. NERVOUS SYSTEM: No numbness, weakness. ALLERGY/IMMUNOLOGY: No asthma, hayfever. MUSCULOSKELETAL: As mentioned earlier. HEMATOLOGY/ONCOLOGY: No history of anemia. ENDOCRINE: No history of diabetes, hypothyroidism. CONSTITUTIONAL: As mentioned earlier. DERMATOLOGY: Negative. RHEUMATOLOGY: Negative. PSYCHIATRY: As mentioned earlier. PHYSICAL EXAMINATION: Patient alert and oriented x3. Pulse 91, blood pressure 110/52, respiration 18, temperature 98.4, pulse ox 91% on room air. HEENT: Conjunctivae normal. NECK: No jugular venous distention. CARDIOVASCULAR SYSTEM: S1, S2 muffled. RESPIRATORY SYSTEM: Breath sounds diminished at the bases. No rhonchi. No crackles. ABDOMEN: Soft, non-tender. No mass palpable. LEGS: No edema. No swelling. NERVOUS SYSTEM: Higher functions as mentioned earlier. Moves all 4 limbs. No focal motor or sensory deficit. LYMPHATICS: No lymph node palpable in neck, axillae or groin. SKIN: No ulcer, rash, bleeding. JOINTS: No active deforming arthropathy. LABS: Labs at this time show WBC 4.9, hemoglobin 14.1, sodium 134, creatinine 1.37. ASSESSMENT: 1. Chest pain, possible unstable angina. 2. History of coronary artery disease, stent. 3. Chronic kidney disease, stage III. 4. Mild hyponatremia. 5. Suicidal ideation with thought disorder. 6. History of hypertension. 7. Hyperlipidemia. 8. History of degenerative joint disease. 9. History of sleep apnea. 10.History of anxiety, bipolar, claustrophobia. 11.Remote history of nicotine dependence. 12.History of polysubstance abuse, including methamphetamine as well as cocaine. 13.Obesity with body mass index of 36.2. RECOMMENDATIONS AND DISCUSSION: In this 49-year-old gentleman who presented with multiple complex medical issues, we will monitor the patient closely, continue the current medications, continue symptomatic treatment. The patient has been transferred to a medical floor. Cardiology consultation. Otherwise, possible stress test. Repeat labs. Resume the home medications. Psychiatric evaluation. Guarded prognosis because of multiple complex medical issues. Further recommendations to follow. A copy of this dictation is being forwarded to Dr. Taylor, who is the primary physician. MMODL / IJN: [id number] /
[2019-08-16] MEDS: HYDROmorphone 0.5 MG/0.5 ML SYRINGE IVP PRN ×2 (02:20→09:52)
[2019-08-16] MEDS: oxyCODONE-APAP 10-325MG 1 EACH TAB PO PRN ×3 (03:51→15:02)
[2019-08-16 06:56] LABS: Calcium 8.5 mg/dL (8.4-10.2); Potassium 4.4 mmol/L (3.5-5.1)
[2019-08-16 07:38] LABS: HGB 14.1 gm/dL (13.0-17.5); MCH 31.6 pg (25.0-35.0); MCHC 32.7 g/dL (31.0-37.0); MCV 96.7 fL (80.0-100.0); Platelet Count 185 k/uL (150-450); RBC 4.45 m/uL (4.30-5.90); RDW 13.3 % (11.5-15.5); WBC 3.9 k/uL (3.8-10.6)
--- NOTE | 2019-08-16 07:48 | ECHOF ---
Referral Reason:chest pain MEASUREMENTS -------- HEIGHT: 172.7 cm WEIGHT: 108.0 kg BP: 128/58 RVIDd: 2.9 cm (< 3.3) IVSd: 1.3 cm (0.6 - 1.1) LVIDd: 4.4 cm (3.9 - 5.3) LVPWd: 1.3 cm (0.6 - 1.1) IVSs: 1.6 cm LVIDs: 3.0 cm LVPWs: 1.8 cm LA Diam: 3.5 cm (2.7 - 3.8) LAESV Index (A-L): 16.90 ml/m Ao Diam: 3.5 cm (2.0 - 3.7) AV Cusp: 1.8 cm (1.5 - 2.6) MV EXCURSION: 17.245 mm (> 18.000) MV EF SLOPE: 57 mm/s (70 - 150) EPSS: 1.1 cm MV E Donis: 0.74 m/s MV DecT: 241 ms MV A Donis: 0.92 m/s MV E/A Ratio: 0.81 TAPSE: 18.81 mm FINDINGS -------- Sinus rhythm. This was a technically adequate study. The left ventricular size is normal. There is mild concentric left ventricular hypertrophy. Overa ll left ventricular systolic function is normal with, an EF between 55 - 60 %. The right ventricle is normal in size. Normal LA size by volume 22+/-6 ml/m2. The right atrium is normal in size. Interatrial and interventricular septum intact. The aortic valve is trileaflet and appears structurally normal. The mitral valve leaflets are mildly thickened. Mild mitral annular calcification present. Trace tricuspid regurgitation present. There is no pulmonic regurgitation present. The aortic root size is normal. Normal inferior vena cava with normal inspiratory collapse consistent with estimated right atrial pre ssure of 5 mmHg. There is no pericardial effusion. CONCLUSIONS -------- 1. Sinus rhythm. 2. This was a technically adequate study. 3. The left ventricular size is normal. 4. There is mild concentric left ventricular hypertrophy. 5. The right ventricle is normal in size. 6. Normal LA size by volume 22+/-6 ml/m2. 7. The right atrium is normal in size. 8. Interatrial and interventricular septum intact. 9. The aortic valve is trileaflet and appears structurally normal. 10. The mitral valve leaflets are mildly thickened. 11. Mild mitral annular calcification present. 12. Trace tricuspid regurgitation present. 13. There is no pulmonic regurgitation present. 14. The aortic root size is normal. 15. Normal inferior vena cava with normal inspiratory collapse consistent with estimated right atrial pressure of 5 mmHg. 16. There is no pericardial effusion. BOX ICER: Cara Price RDCS
[2019-08-16] MEDS: PANTOPRAZOLE 40 MG/10 ML VIAL IVP SCH (08:33)
[2019-08-16] MEDS: SPIRONOLACTONE 25 MG TAB PO SCH (08:34)
[2019-08-16] MEDS: CLOPIDOGREL 75 MG TAB PO SCH (08:34)
[2019-08-16] MEDS: ASPIRIN 81 MG PO SCH (08:34)
[2019-08-16] MEDS: LISINOPRIL 10 MG TAB PO SCH (08:34)
[2019-08-16] MEDS: CARVEDILOL 12.5 MG TAB PO SCH ×2 (08:34→15:02)
[2019-08-16 09:59] VITALS: RESP 12
[2019-08-16 10:04] LABS: Lymphocytes # (M) 1.87 k/uL (1.0-4.8); Monocytes # (M) 0.59 k/uL (0-1.0); Neutrophils # (M) 1.25 k/uL (1.3-7.7); Neutrophils % (M) 32 %; Nucleated Red Blood Cells 0 /100 WBC (0-0); Total Cells Counted 100
--- NOTE | 2019-08-16 11:53 | P.PN ---
Subjective Progress Note Date: 08/16/19 This is a 49-year-old -[place] gentleman with past medical history significant for coronary artery disease and prior LAD stenting, hypertension, hyperlipidemia, chronic systolic congestive heart failure, history of alcohol and tobacco use. He follows with Dr. cesilia poon in the office. Patient was initially admitted to the hospital with depression, he was going to be admitted to the mental health unit, developed midsternal chest pressure and heaviness which radiated across his chest and into both of his arms, then was transferred to the cardiac unit for further evaluation and treatment. Patient's most recent cardiac catheterization was performed in June 2018, his LAD which was stented on May 19 of that same month was widely patent, his dominant RCA and circumflex were free of any significant disease. He had an echocardiogram with Doppler study performed in February 2019 which revealed a normal left ventricular systolic function. Blood pressure 128/58 with a heart rate in the 80s, temperature 97.5. White blood cell count 4.9, hemoglobin 14.1, platelet count 161. Sodium 134, potassium 4.5, BUN 28, creatinine 1.3. Troponin 0.014, 0.012. Drug screen positive for oxycodone amphetamines methamphetamines and cocaine. At the time of my examination this morning, patient is currently chest pain-free. His EKG shows a normal sinus rhythm with no acute changes. 08/16/2019 Patient was seen and examined this morning, underwent a cardiac echocardiogram with Doppler study yesterday which revealed normal left ventricular systolic function. A dobutamine echocardiographic study was also performed, patient reached 131 bpm, his 85% of predicted was 144, at the heart rate of 131, there is no evidence to suggest any myocardial ischemia. Objective - Vital Signs Vital signs: Vital Signs Temp 97.8 F 08/16/19 03:35 Pulse 72 08/16/19 08:00 Resp 12 08/16/19 08:00 BP 106/50 08/16/19 03:35 Pulse Ox 94 L 08/16/19 03:35 Intake & Output 08/15/19 08/16/19 08/16/19 18:59 06:59 18:59 Intake Total 610 240 720 Output Total 125 Balance 610 115 720 Weight 108 kg 101.3 kg Intake: IV 10 0.9 10 Oral 600 240 720 Output: Urine 125 - Exam PHYSICAL EXAMINATION: GENERAL: 49-year-old -[place] gentleman in no acute distress at the time of my examination HEENT: Head is atraumatic, normocephalic. Pupils equal, round. Sclera anicteric. Conjunctiva are clear. Mucous membranes of the mouth are moist. Neck is supple. There is no elevated jugular venous pressure. No carotid bruit is heard. HEART EXAMINATION: Heart S1, S2 normal. No murmur or gallop heard. CHEST EXAMINATION: Lungs are clear to auscultation and precussion. No chest wall tenderness is noted on palpation or with deep breathing. ABDOMEN: Soft, nontender. Bowel sounds are heard. No organomegaly noted. EXTREMITIES: 2+ peripheral pulses with no evidence of peripheral edema and no calf tenderness noted. NEUROLOGIC patient is awake, alert and oriented X3. - Labs CBC & Chem 7: 08/16/19 05:49 08/16/19 05:49 Labs: Abnormal Lab Results - Last 24 Hours (Table) 08/16/19 08/16/19 Range/Units 05:49 05:49 Neutrophils # (Manual) 1.25 L (1.3-7.7) k/uL Sodium 135 L (137-145) mmol/L BUN 32 H (9-20) mg/dL Creatinine 1.60 H (0.66-1.25) mg/dL Assessment and Plan Plan: Assessment and plan #1 chest discomfort, troponins 0.014, 0.012. EKG shows normal sinus rhythm with no acute changes. #2 known history of coronary artery disease with prior LAD stenting in May 2018 #3 hypertension #4 hyperlipidemia #5 chronic kidney disease #6 depression #7 positive drug screen for oxycodone, amphetamines, methamphetamines, and cocaine #8 history of EtOH abuse #9 history of nicotine dependence Plan Dobutamine echocardiographic study was negative for any reversible ischemia. From cardiology's perspective, patient may be able to be discharged home today. Follow-up appointment in the office post discharge. DNP note has been reviewed, I agree with a documented findings and plan of care. Patient was seen and examined.
[2019-08-16 13:49] VITALS: BP 114/53; PULSE 80; TEMP 98.8
[2019-08-16] MEDS: ATORVASTATIN 40 MG TAB PO SCH (15:02)
--- NOTE | 2019-08-16 23:13 | DS ---
DISCHARGE SUMMARY DATE OF SERVICE: 08/16/2019 FINAL DIAGNOSES: 1. Chest pain possibly musculoskeletal, negative stress test. 2. History of coronary artery disease/stent. 3. History of chronic kidney stage III. 4. Mild hyponatremia. 5. Suicidal ideation with thought disorder. 6. History of hypertension. 7. Hyperlipidemia. 8. History of degenerative joint disease. 9. History of sleep apnea. 10.History of anxiety, bipolar, claustrophobia. 11.Remote history of nicotine dependence. 12.History of polysubstance abuse including methamphetamine as well as cocaine. 13.Obesity with body mass index of 36.2. DISCHARGE DISPOSITION: The patient being transferred to inpatient psych floor after clearance by Cardiology. HISTORY OF PRESENT ILLNESS: This 49-year-old gentleman with a past medical history of multiple medical problems was admitted to the hospital with chest pain. Myocardial infarction ruled out. Cardiology saw the patient. His cardiac stress was negative. Patient being discharged in stable with guarded prognosis. On exam, vitals are stable. Cardiovascular system: S1, S2. Abdomen soft. Nervous system: No focal deficits. DISCHARGE ADVICE AND MEDICATIONS: 1. Diet is cardiac. 2. Activity limited until follow up. 3. Follow up with a primary physician after discharge from psych floor. DISCHARGE MEDICATIONS: 1. Coreg 12.5 mg p.o. b.i.d. 2. Crestor 20 mg p.o. daily. 3. Testosterone as before. 4. Oxycodone t.i.d. p.r.n. 5. Aldactone 25 mg p.o. daily. 6. Zestril 10 mg p.o. daily. 7. Ecotrin 81 mg p.o. daily. 8. Plavix 75 mg p.o. daily. MMBRITTANYL / IJN: [id number] /
[2019-08-17] MEDS ORDERED: PANTOPRAZOLE 40 MG TABLET PO SCH (07:30)
== END 2019-08-16 15:27 ==
LOC: INTOOBSV 22:29 → 3SCARD 22:29 → UNDODISIN 08-16 15:27
PROVIDERS: ADMIT Hospitalist; ATTEND Hospitalist
DX: R07.89 Other chest pain (principal); I25.10 Atherosclerotic heart disease of native coronary artery without angina pectoris; I13.0 Hypertensive heart and chronic kidney disease with heart failure and stage 1 through stage 4 chronic kidney disease, or unspecified chronic kidney disease; N18.3 Chronic kidney disease, stage 3 (moderate); I50.22 Chronic systolic (congestive) heart failure; Z95.5 Presence of coronary angioplasty implant and graft; Z87.891 Personal history of nicotine dependence; E78.5 Hyperlipidemia, unspecified; E87.1 Hypo-osmolality and hyponatremia; F41.9 Anxiety disorder, unspecified; F40.240 Claustrophobia; F19.10 Other psychoactive substance abuse, uncomplicated; F10.10 Alcohol abuse, uncomplicated; F31.9 Bipolar disorder, unspecified; R45.851 Suicidal ideations; E66.9 Obesity, unspecified; Z68.36 Body mass index [BMI] 36.0-36.9, adult; M19.90 Unspecified osteoarthritis, unspecified site; I25.2 Old myocardial infarction; R86.1 Abnormal level of hormones in specimens from male genital organs; Z98.1 Arthrodesis status; Z80.1 Family history of malignant neoplasm of trachea, bronchus and lung; Z80.0 Family history of malignant neoplasm of digestive organs; Z79.02 Long term (current) use of antithrombotics/antiplatelets; Z79.82 Long term (current) use of aspirin; Z79.890 Hormone replacement therapy; Z79.891 Long term (current) use of opiate analgesic; Z79.899 Other long term (current) drug therapy
CPT/HCPCS: 96376 ×2; 96374; 96375; 93005; 93306; 93351; 80048 ×2; 84484; 85025 ×2; G0378 ×2; G0379; J1250; J0461; C9113 ×2; J1170 ×2

== ENCOUNTER 2019-08-16 14:59 | Inpatient (IN) | payer MEDICARE, MEDICAID ==
[2019-08-16] MEDS ORDERED: MAGNESIUM HYDROXIDE 2,400 MG/10 ML CUP PO PRN (15:32)
[2019-08-16] MEDS ORDERED: ZIPRASIDONE 20 MG VIAL IM PRN (15:32)
[2019-08-16] MEDS ORDERED: LORazepam 1 MG TAB PO PRN (15:32)
[2019-08-16] MEDS ORDERED: ACETAMINOPHEN TAB 325 MG TAB PO PRN (15:32)
[2019-08-16] MEDS ORDERED: MAG HYDROX/AL HYDROX/SIMETH 30 ML CUP PO PRN (15:32)
[2019-08-16] MEDS: HYDROcodone/APAP 5-325MG 1 EACH TAB PO PRN (16:51)
[2019-08-16] MEDS: CARVEDILOL 12.5 MG TAB PO SCH (22:19)
[2019-08-16] MEDS: ATORVASTATIN 40 MG TAB PO SCH (22:19)
[2019-08-17] MEDS: HYDROcodone/APAP 5-325MG 1 EACH TAB PO PRN ×3 (03:26→21:10)
[2019-08-17] MEDS ORDERED: NICOTINE 14MG/24HR PATCH TRANSDERM SCH (09:00)
[2019-08-17] MEDS: ASPIRIN 81 MG PO SCH (09:51)
[2019-08-17] MEDS: SPIRONOLACTONE 25 MG TAB PO SCH (09:51)
[2019-08-17] MEDS: LISINOPRIL 10 MG TAB PO SCH (09:51)
[2019-08-17] MEDS: CLOPIDOGREL 75 MG TAB PO SCH (09:51)
[2019-08-17] MEDS: ATORVASTATIN 40 MG TAB PO SCH (09:51)
[2019-08-17] MEDS: CARVEDILOL 12.5 MG TAB PO SCH ×2 (09:51→18:13)
--- NOTE | 2019-08-17 12:40 | P.HP ---
Psychiatric H&P - . H&P Date: 08/17/19 History & Physical: Allergies Allergy/AdvReac Type Severity Reaction Status Date / Time No Known Allergies Allergy Verified 08/16/19 16:17 Vital Signs Temp 99.1 F 08/17/19 03:33 Pulse 84 08/17/19 09:50 Resp 16 08/17/19 03:33 BP 114/67 08/17/19 09:50 Pulse Ox 94 L 08/16/19 15:25 Intake & Output 08/16/19 08/17/19 08/17/19 18:59 06:59 18:59 Weight 101.3 kg 08/17/19 12:15 IDENTIFYING DATA: Patient is a 49-year-old -Citizen Of [place] male who is currently and has 4 kids and lives alone in apartment. HPI: Patient presented to the hospital on 08/14/2019 with complaints of chest pain and was admitted to the medical floors for rule out a myocardial infarction. Patient had a negative cardiac stress test and was seen by psychiatry who stated the patient was depressed and suicidal and having auditory hallucinations and needed admission to mental health unit. Patient was seen lying down on his bed today and was agreeable to speak to chief underwriter in the office. Patient states that he feels depressed and has poor energy claims that he "sleeps all day". He states that he is also been feeling suicidal and relapsed back on drugs using cocaine around $100 worth and also "tried methamphetamine the first time". He claims that his depression has been getting worse and states that he is "spiraled out of control" since being off of his Abilify maintaina which was last given to approximately 2 months ago. He states that he was feeling better and did not need to take it anymore which is why he stopped going for his appointments at [facility]. Patient claims that he has some suicidal thoughts now however no plan or intent. He states that the voices are "telling me to do dirty stuff and hurt myself". Patient denies any homicidal ideations intent or plan. At this time patient denies any visual hallucinations. Patient denies any flight of ideas racing thoughts and increased in goal directed behavior. Patient admits to using cocaine approximately $100 worth in the past few days denies any alcohol or cigarette use. Patient admits to trying methamphetamine for the first time prior to coming in the hospital. PAST PSYCHIATRIC HISTORY: Patient states that he has been diagnosed with "bipolar and schizophrenia" and has previously been on Abilify Maintenna monthly dose however has not taken in the past 2 months. Patient claims that he was following up with [facility] with Dr. Mitchell, patient claims that he is had 1 suicide attempt in the past several years ago. Patient also claims that he has been admitted to a mental health unit several years ago does not know when or where. PMH: ADD with stents, CKD III, hypertension, hyperlipidemia, degenerative joint disease, obstructive sleep apnea ALLERGIES: as per EMR CHEMICAL DEPENDENCY HISTORY: as per HPI FAMILY PSYCHIATRIC/SUBSTANCE USE HISTORY: He states that his dad suffered from some sort of mental illness. SOCIAL HISTORY: Patient was born and raised in [place] [facility] and claims that now he lives in [place]. Patient states that he finished high school and did 2 years of college and did not graduate. He states that he has 4 kids is and lives alone in apartment. He collects disability.. MENTAL STATUS EXAM: General Appearance: Patient appears to be stated age is alert, directable, and appears to be tired. Patient appears to have poor hygiene and grooming. Patient has several tattoos and is well built stature. Behavior: Patient is seated without any agitated behavior. Speech: Patient's speech is fluent and nonpressured. Soft tone. Mood/Affect: Patient reports their mood is depressed, affect is congruent and constricted. Suicidality/Homicidality: Patient denies having any homicidal ideation intent or plan. He admits to some suicidal ideations, no intent or plan. Perceptions: Patient denies any visual hallucinations he admits to auditory hallucinations. Though content/process: There is no evidence of any delusional thought content and thought process is linear and goal-directed. Memory and concentration: AOX3, grossly intact for the purposes of this session. Can spell "WORLD" backwards Judgment and insight: poor STRENGTHS/WEAKNESSES: strength is that patient is resilient. Weakness is that p atient has poor judgment and is impulsive INTELLECT: average IMPRESSIONS: Schizoaffective disorder Cocaine abuse Methamphetamine/stimulant abuse PLAN: -Patient is admitted under voluntary status to MHU for stabilization of psychiatric symptoms and safety. Patient signed adult voluntary form and medication consent and is placed in patient's chart. -Medications : Will start patient on Abilify 5 mg daily for mood stabilization/psychosis. We'll attempt to give patient Abilify Maintenna prior to discharge. Melatonin daily at bedtime for sleep. -Ativan PRN for agitation/aggression -Patient was counselled on substance abuse and desired to cut back on use. We'll speak with patient about possible rehab or other substance abuse treatment options. -Patient was informed of the risks, benefits and side effects of the medication and patient verbally consented to taking the medications. Patient signed med consent form and was placed in chart. -Internal Medicine consult to perform medical evaluation and physical. -NRT -not need this patient does not smoke. -SW on board for discharge planning. Encourage patient to participate in groups to work on coping skills. 08/17/19 12:31
[2019-08-17] MEDS: ARIPiprazole 5 MG TAB PO SCH (12:43)
--- NOTE | 2019-08-17 21:00 | CONS ---
CONSULTATION REASON FOR CONSULTATION: Advice regarding recent chest pain as well as bilateral leg pain. HISTORY OF PRESENT ILLNESS: This 49-year-old gentleman with a past medical history of multiple medical problems, including history of hypertension, hyperlipidemia, history of DJD, back surgery, CAD, stent, anxiety, bipolar, being followed by Dr. Taylor in the outpatient setting, was recently admitted to the psych floor. Because of chest pain the patient was transferred to the medical floor and a stress test was done which did not show any acute abnormality. Patient was transferred back. Currently the patient is free of chest pain, but the patient complains of bilateral leg pain. There is no history of any fever, rigor or chills. No history of headache, loss of consciousness, seizures, hematochezia, melena at this time. PAST MEDICAL HISTORY: History of hypertension, hyperlipidemia, history of DJD, history of anxiety, bipolar, claustrophobia, back surgery. HOME MEDICATIONS: 1. Tylenol 650 q.4 p.r.n. 2. [place] 5 mg t.i.d. p.r.n. 3. Maalox 30 mL q.4 p.r.n. 4. Abilify 5 mg p.o. daily. 5. Aspirin 81 mg p.o. daily. 6. Lipitor 40 mg p.o. daily. 7. Coreg 12.5 mg b.i.d. 8. Plavix. 9. Zestril. 10.Ativan. 11.Melatonin. 12.Aldactone. 13.Geodon. Doses are reviewed. PHYSICAL EXAMINATION: Patient is alert, oriented x3. The pulse is 84, blood pressure 143/62, respirations 16, temperature 99.1, pulse ox 94% on room air. HEENT: Conjunctivae normal. NECK: No jugular venous distention. CARDIOVASCULAR SYSTEM: S1, S2 muffled. RESPIRATORY SYSTEM: Breath sounds diminished at the bases. No rhonchi. No crackles. ABDOMEN: Soft, non-tender. LEGS: No edema. No swelling. NERVOUS SYSTEM: No focal deficit. LABS: Not available. ASSESSMENT: 1. Recent chest pain, possibly musculoskeletal; negative stress test. 2. Possible bilateral leg pain, possibly musculoskeletal. 3. Chronic kidney disease, stage III. 4. History of coronary artery disease, stent. 5. History of chronic kidney disease, stage III. 6. Mild hyponatremia. 7. Suicidal ideation with thought disorder. 8. History of hypertension. 9. Hyperlipidemia. 10.Degenerative joint disease. 11.History of sleep apnea. 12.History of anxiety, bipolar depression, claustrophobia. 13.Remote history of nicotine dependence. 14.History of polysubstance abuse, including methamphetamine as well as cocaine. 15.History of obesity with body mass index of 36.2. RECOMMENDATIONS AND DISCUSSION: I recommend to continue current medications, continue symptomatic treatment. Otherwise at this time I recommend continuing with the medical treatment. I would also recommend repeating the BMP. We will follow the patient. I will be happy to review any abnormality. Avoid nephrotoxic medications. Further recommendations to follow. Patient may be asked to follow with Dr. Taylor closely after discharge. ETHAN / JAYSONN: [id number] /
[2019-08-17] MEDS: MELATONIN 5 MG TABLET PO SCH (21:11)
[2019-08-18] MEDS: HYDROcodone/APAP 5-325MG 1 EACH TAB PO PRN ×2 (05:10→12:54)
--- NOTE | 2019-08-18 10:03 | P.PN ---
Progress Note - Text Progress Note Date: 08/18/19 Interval History: Patient was seen lying down in his bed this morning it was directable and agre eable to speak to public relations writer in the office this morning. Patient was more directable and agreeable today to be interviewed however appear to have less interest and a depressed affect. He states that his energy is still poor and claims that he has been taking his medications. He denies any side effects at this time from the medications and states that he is agreeable to have it increased. Patient states that he has not been going to groups however plans to go to groups today. He states that he talked to his girlfriend over the phone yesterday. Patient claims that the voices and suicidal ideations have been decreasing/improving. He states that he slept to the night with no problems and has been eating well. At this time patient denies any suicidal or homical ideations, intent or plan. Patient denies any auditory, visual hallucinations and denies any paranoia or delusions. Patient denies any side effects from the medications and has been compliant with meds. Mental Status Exam: General Appearance: Patient appears to be stated age is alert, directable, and appears to be tired. Patient appears to have mildly improving hygiene and grooming. Patient has several tattoos and is well built stature. Behavior: Patient is seated without any agitated behavior. Poor eye contact. Speech: Patient's speech is fluent and nonpressured. Mood/Affect: Patient reports their mood is depressed, mildly improving, affect is congruent and constricted. Suicidality/Homicidality: Patient denies having any homicidal ideation intent or plan. He admits to some suicidal ideations which have been improving, no intent or plan. Perceptions: Patient denies any visual hallucinations he admits to improving auditory hallucinations. Though content/process: There is no evidence of any delusional thought content and thought process is linear and goal-directed. [place]. Memory and concentration: AOX3, grossly intact for the purposes of this session. Judgment and insight: poor, improving mildly Assessment Schizoaffective disorder Cocaine abuse Methamphetamine/stimulant abuse Plan: -Patient continues to meet criteria for inpatient psychiatric admission for symptom stabilization and safety. Patient has signed adult voluntary form and medication consent and was placed in patient's chart. -Medications: Will increase Abilify to 7.5 mg daily for mood stabilization/psychosis. Patient is agreeable to take Abilify Maintenna prior to discharge. Melatonin nightly for sleep. -When necessary Ativan for agitation/aggression. -NRT -not need this patient does not smoke. -SW on board for discharge planning. Will be encouraging patient to go to rehab upon discharge. Encourage patient to participate in groups to work on coping skills.
[2019-08-18 10:08] LABS: Potassium 4.8 mmol/L (3.5-5.1)
[2019-08-18] MEDS: ASPIRIN 81 MG PO SCH (10:12)
[2019-08-18] MEDS: CARVEDILOL 12.5 MG TAB PO SCH ×2 (10:12→17:45)
[2019-08-18] MEDS: ATORVASTATIN 40 MG TAB PO SCH (10:13)
[2019-08-18] MEDS: SPIRONOLACTONE 25 MG TAB PO SCH (10:13)
[2019-08-18] MEDS: CLOPIDOGREL 75 MG TAB PO SCH (10:13)
[2019-08-18] MEDS: LISINOPRIL 10 MG TAB PO SCH (10:13)
[2019-08-18] MEDS: ARIPiprazole 5 MG TAB PO SCH (10:17)
[2019-08-18] MEDS: ARIPiprazole 5 MG TAB PO STA ×2 (10:20→10:26)
[2019-08-18] MEDS ORDERED: ARIPiprazole 5 MG TAB PO STA (10:22)
[2019-08-18] MEDS: MELATONIN 5 MG TABLET PO SCH (17:46)
[2019-08-19] MEDS: HYDROcodone/APAP 5-325MG 1 EACH TAB PO PRN ×3 (02:56→20:07)
[2019-08-19] MEDS: ASPIRIN 81 MG PO SCH (08:31)
[2019-08-19] MEDS: CARVEDILOL 12.5 MG TAB PO SCH ×2 (08:31→18:00)
[2019-08-19] MEDS: ATORVASTATIN 40 MG TAB PO SCH (08:31)
[2019-08-19] MEDS: CLOPIDOGREL 75 MG TAB PO SCH (08:32)
[2019-08-19] MEDS: LISINOPRIL 10 MG TAB PO SCH (08:32)
[2019-08-19] MEDS: SPIRONOLACTONE 25 MG TAB PO SCH (08:32)
[2019-08-19] MEDS ORDERED: ARIPiprazole 5 MG TAB PO SCH (09:00)
--- NOTE | 2019-08-19 11:07 | P.PN ---
Progress Note - Text Progress Note Date: 08/19/19 Interval History: Patient was seen wandering the hallways this morning it was directable and agr eeable to speak to rfp writer Patient was more directable and an appear to have an improving affect today. He states that his energy is improving and he claims that he is been taking his medications and finding them "helpful". He denies any side effects at this time from the medications and states that he is agreeable to have it increased and is continuing to agree to have the long- acting injection prior to discharge. Patient states that he has been going to groups. He states that he slept to the night with no problems and has been eating well. At this time patient denies any suicidal or homical ideations, intent or plan. Patient denies any auditory, visual hallucinations and denies any paranoia or delusions. Patient denies any side effects from the medications and has been compliant with meds. Mental Status Exam: General Appearance: Patient appears to be stated age is alert, directable, and appears to be more cooperative. Patient appears to have mildly improving hygiene and grooming. Patient has several tattoos and is well built stature. Behavior: Patient is seated without any agitated behavior. Improving eye contact. Speech: Patient's speech is fluent and nonpressured. Mood/Affect: Patient reports their mood is mildly improving, affect is congruent and constricted. Suicidality/Homicidality: Patient denies having any homicidal ideation intent or plan. He denies any suicidal ideations intent or plan. Perceptions: Patient denies any visual hallucinations he admits to improving auditory hallucinations. Though content/process: There is no evidence of any delusional thought content and thought process is linear and goal-directed. [place]. Memory and concentration: AOX3, grossly intact for the purposes of this session. Judgment and insight: poor, improving mildly Assessment Schizoaffective disorder Cocaine abuse Methamphetamine/stimulant abuse Plan: -Patient continues to meet criteria for inpatient psychiatric admission for symptom stabilization and safety. Patient has signed adult voluntary form and medication consent and was placed in patient's chart. -Medications: Will increase Abilify to 10 mg daily for mood stabilization/psychosis. Patient is agreeable to take Abilify Maintenna prior to discharge. Melatonin nightly for sleep. -When necessary Ativan for agitation/aggression. -NRT -not need this patient does not smoke. -SW on board for discharge planning. Will be encouraging patient to go to rehab upon discharge. Encourage patient to participate in groups to work on coping skills.
[2019-08-19] MEDS: MELATONIN 5 MG TABLET PO SCH (20:08)
[2019-08-20] MEDS: HYDROcodone/APAP 5-325MG 1 EACH TAB PO PRN ×3 (03:44→20:02)
[2019-08-20] MEDS: CARVEDILOL 12.5 MG TAB PO SCH ×2 (08:17→17:35)
[2019-08-20] MEDS: ARIPiprazole 10 MG TAB PO SCH (08:17)
[2019-08-20] MEDS: SPIRONOLACTONE 25 MG TAB PO SCH (08:17)
[2019-08-20] MEDS: CLOPIDOGREL 75 MG TAB PO SCH (08:18)
[2019-08-20] MEDS: ATORVASTATIN 40 MG TAB PO SCH (08:18)
[2019-08-20] MEDS: LISINOPRIL 10 MG TAB PO SCH (08:18)
[2019-08-20] MEDS: ASPIRIN 81 MG PO SCH (08:18)
--- NOTE | 2019-08-20 10:43 | P.PN ---
Progress Note - Text Progress Note Date: 08/20/19 Interval History: Patient was seen wandering the hallways this morning and was directable and ag reeable to speak to chief writer. Patient was more directable today. He states that his energy is improving and he claims that he is been taking his medications. He states that the medications are helping with his voices and he "almost don't hear them anymore". He denies any side effects at this time from the medications and states that he is agreeable to have the long-acting injection given tomorrow. Patient states that he has been going to groups. He states that he slept to the night with no problems and has been eating well. At this time patient denies any suicidal or homical ideations, intent or plan. Patient denies any auditory, visual hallucinations and denies any paranoia or delusions. Patient denies any side effects from the medications and has been compliant with meds. Mental Status Exam: General Appearance: Patient appears to be stated age is alert, directable, and appears to be more cooperative. Patient appears to have mildly improving hygiene and grooming. Patient has several tattoos and is well built stature. Behavior: Patient is seated without any agitated behavior. Improving eye contact. Speech: Patient's speech is fluent and nonpressured. Mood/Affect: Patient reports their mood is mildly improving, affect is congruent Suicidality/Homicidality: Patient denies having any homicidal ideation intent or plan. He denies any suicidal ideations intent or plan. Perceptions: Patient denies any visual hallucinations he admits to improving auditory hallucinations. Though content/process: There is no evidence of any delusional thought content and thought process is linear and goal-directed. [place]. Memory and concentration: AOX3, grossly intact for the purposes of this session. Judgment and insight: poor, improving mildly Assessment Schizoaffective disorder Cocaine abuse Methamphetamine/stimulant abuse Plan: -Patient continues to meet criteria for inpatient psychiatric admission for symptom stabilization and safety. Patient has signed adult voluntary form and medication consent and was placed in patient's chart. -Medications: Will continue with Abilify to 10 mg daily for mood stabilization/psychosis. Patient is agreeable to take Abilify Maintenna prior to discharge, will be given 400 mg dose tomorrow IM. -When necessary Ativan for agitation/aggression. -NRT -not need this patient does not smoke. -SW on board for discharge planning. Encourage patient to participate in groups to work on coping skills. Likely discharge Wednesday.
[2019-08-21] MEDS: HYDROcodone/APAP 5-325MG 1 EACH TAB PO PRN ×3 (04:24→20:24)
[2019-08-21] MEDS: ATORVASTATIN 40 MG TAB PO SCH (09:00)
[2019-08-21] MEDS: ASPIRIN 81 MG PO SCH (09:00)
[2019-08-21] MEDS: CARVEDILOL 12.5 MG TAB PO SCH ×2 (09:01→16:40)
[2019-08-21] MEDS: SPIRONOLACTONE 25 MG TAB PO SCH (09:01)
[2019-08-21] MEDS: LISINOPRIL 10 MG TAB PO SCH (09:01)
[2019-08-21] MEDS: CLOPIDOGREL 75 MG TAB PO SCH (09:02)
[2019-08-21] MEDS: ARIPiprazole 10 MG TAB PO SCH (09:02)
--- NOTE | 2019-08-21 12:04 | P.PN ---
Progress Note - Text Progress Note Date: 08/21/19 Interval History: Patient was seen wandering the hallways this morning and was directable and ag reeable to speak to video games storywriter in the office. Patient was more directable today and more talkative and also was appropriate during the interview. He states that his energy is improving and he claims that he is feeling calmer on the medications. He states that the medications are helping with his voices and he claims that they are not bothering him any longer and he feels less depressed. He denies any side effects at this time from the medications and states that he is agreeable to have the long-acting injection today. Patient states that he has been going to groups. He states that he slept to the night with no problems and has been eating well. Sheeter Helper spoke with patient about options for rehab or other substance abuse treatment options however patient declined at this time and states that "it was just a slip up a mock and do it again". At this time patient denies any suicidal or homical ideations, intent or plan. Patient denies any auditory, visual hallucinations and denies any paranoia or delusions. Patient denies any side effects from the medications and has been compliant with meds. Mental Status Exam: General Appearance: Patient appears to be stated age is alert, directable, and appears to be more cooperative. Patient appears to have mildly improving hygiene and grooming. Patient has several tattoos and is well built stature. Behavior: Patient is seated without any agitated behavior. Could eye contact. Speech: Patient's speech is fluent and nonpressured. Mood/Affect: Patient reports their mood is improving, affect is congruent Suicidality/Homicidality: Patient denies having any homicidal ideation intent or plan. He denies any suicidal ideations intent or plan. Perceptions: Patient denies any visual hallucinations he admits to improving auditory hallucinations. Though content/process: There is no evidence of any delusional thought content and thought process is linear and goal-directed. Memory and concentration: AOX3, grossly intact for the purposes of this session. Judgment and insight: improving mildly Assessment Schizoaffective disorder Cocaine abuse Methamphetamine/stimulant abuse Plan: -Patient continues to meet criteria for inpatient psychiatric admission for symptom stabilization and safety. Patient has signed adult voluntary form and medication consent and was placed in patient's chart. -Medications: Will continue with Abilify to 10 mg daily for mood stabilization/psychosis. Patient is agreeable to take Abilify Maintenna 400 mg dose IM today. -When necessary Ativan for agitation/aggression. -NRT -not need this patient does not smoke. -SW on board for discharge planning. Encourage patient to participate in groups to work on coping skills. Likely discharge tomorrow back home.
[2019-08-21] MEDS ORDERED: ARIPiprazole IM SYRINGE 400 MG (NO CHARGE) IM ONE (13:00)
[2019-08-21 14:11] VITALS: BMI 34.7
[2019-08-22] MEDS: HYDROcodone/APAP 5-325MG 1 EACH TAB PO PRN (04:07)
[2019-08-22 04:21] VITALS: BP 122/66; PULSE 80; RESP 14; TEMP 98.9
[2019-08-22] MEDS: ATORVASTATIN 40 MG TAB PO SCH (08:22)
[2019-08-22] MEDS: SPIRONOLACTONE 25 MG TAB PO SCH (08:22)
[2019-08-22] MEDS: ARIPiprazole 10 MG TAB PO SCH (08:22)
[2019-08-22] MEDS: LISINOPRIL 10 MG TAB PO SCH (08:22)
[2019-08-22] MEDS: CLOPIDOGREL 75 MG TAB PO SCH (08:22)
[2019-08-22] MEDS: ASPIRIN 81 MG PO SCH (08:22)
[2019-08-22] MEDS: CARVEDILOL 12.5 MG TAB PO SCH (08:23)
--- NOTE | 2019-08-22 09:39 | P.DS ---
Providers Date of admission: 08/16/19 15:22 Expected date of discharge: 08/22/19 Attending physician: Juan Pablo Redmond MD Consults: 08/16/19 15:32 Consult Physician Routine Consulting Provider: José Miguel Colon Consult Reason/Comments: H & P and medical care Do you want consulting provider notified?: Yes Primary care physician: Claudia Espinoza - Discharge Diagnosis(es) (1) Schizoaffective disorder Current Visit: Yes Status: Acute Priority: High (2) Cocaine abuse Current Visit: Yes Status: Acute Priority: Medium (3) Methamphetamine abuse Current Visit: Yes Status: Acute Priority: Medium Hospital Course: Admission HPI: Patient is a 49-year-old -[place] male who is currently and has 4 kids and lives alone in apartment. Patient presented to the hospital on 08/14/2019 with complaints of chest pain and was admitted to the medical floors for rule out a myocardial infarction. Patient had a negative cardiac stress test and was seen by psychiatry who stated the patient was depressed and suicidal and having auditory hallucinations and needed admission to mental health unit. Patient was seen lying down on his bed today and was agreeable to speak to public relations writer in the office. Patient states that he feels depressed and has poor energy claims that he "sleeps all day". He states that he is also been feeling suicidal and relapsed back on drugs using cocaine around $100 worth and also "tried methamphetamine the first time". He claims that his depression has been getting worse and states that he is "spiraled out of control" since being off of his Abilify maintaina which was last given to approximately 2 months ago. He states that he was feeling better and did not need to take it anymore which is why he stopped going for his appointments at [facility]. Patient claims that he has some suicidal thoughts now however no plan or intent. He states that the voices are "telling me to do dirty stuff and hurt myself". Patient denies any homicidal ideations intent or plan. At this time patient denies any visual hallucinations. Patient denies any flight of ideas racing thoughts and increased in goal directed behavior. Patient admits to using cocaine approximately $100 worth in the past few days denies any alcohol or cigarette use. Patient admits to trying methamphetamine for the first time prior to coming in the hospital. Hospital course: Upon admission to the unit patient was initially depressed and isolative. Patient was however directable and agreeable to commence treatment. Patient got along well with other patients on the unit and followed unit protocol. Patient was compliant with the medications and denied any side effects throughout hospital course. Patient was started on Abilify and titrated up to dose of 10 mg daily for mood stabilization/psychosis. Patient spoke of his stressors and engaged in therapy both group and individual. Patient was also seen by medical team for history and physical exam. Throughout the course of the hospitalization patient gradually improved with regards to mood, psychosis, sleep, energy and became future oriented with improved insight and judgment. On the day of discharge patient denied any suicidal or homicidal ideations intent or plan denied any auditory or visual hallucinations. Patient endorsed wanting to live for his health and his children. The patient denied any access to guns or weapons. Patient denied any paranoia and did not endorse any delusions. Patient does have a significant history of substance abuse and was counseled on abstaining from all substances including alcohol and marijuana.] Patient was offered substance abuse rehab however patient declined at this time and states that he'll wanted to cut back on his own regarding his substance use. Patient was also counseled on the medications and need for regular compliance and was encouraged to follow-up with their outpatient appointment for mental health and also for primary care. Prior to discharge a family meeting will be arranged by pediatric social worker to answer any questions and ensure safety upon discharge. Mental status exam: General Appearance: Patient appears to be stated age is well-built, alert, pleasant, and cooperative. Patient is in no acute distress and has fair hygiene and grooming Behavior: Patient is calmly seated without any agitated behavior. Speech: Patient's speech is fluent and nonpressured. Mood/Affect: Patient reports their mood is "much better", affect is congruent and euthymic. Suicidality/Homicidality: Patient denies having any suicidal or homicidal ideation intent or plan. Perceptions: Patient denies any auditory or visual hallucinations. Though content/process: There is no evidence of any delusional thought content and thought process is linear and goal-directed. Memory and concentration: AOX3, grossly intact for the purposes of this session. Can spell "WORLD" backwards correctly. Judgment and insight: fair, improved Impression: Schizoaffective disorder Cocaine abuse Methamphetamine/stimulant abuse Plan: -Continue with discharge today as patient has improved and stabilized psychiatrically and is not currently an imminent threat to himself and/or others. -Continue medications: Abilify 10 mg by mouth daily for mood stabilization/psychosis for 13 more days. Patient received Abilify Maintenna 400 mg injection on 08/21/2019 and will be due for his next dose of 400 mg on 09/18/2019 and monthly thereafter. -Patient was counseled on the need for medication compliance and appropriate follow-up at mental health and also primary care for medical issues. Patient verbalized understanding and agreed. -Social work to arrange for and conduct family meeting to ensure safety upon discharge and answer any questions/concerns. Social work also to arrange for patients follow up appointments with [facility] for psychiatric care along with follow up with primary care provider. -Patient counseled on abstaining from recreational drugs and marijuana and alcohol. Was informed/educated on the adverse effects on their physical and mental health. Patient verbally agreed and understood. Patient was offered substance abuse treatment however declined at this time. -Patient was instructed to return to the hospital or seek immediate medical care if their psychiatric or medical symptoms do worsen or reoccur. Allergies Allergy/AdvReac Type Severity Reaction Status Date / Time No Known Allergies Allergy Verified 08/16/19 16:17 Laboratory Results Sodium 136 mmol/L (137-145) L 08/18/19 09:21 Potassium 4.8 mmol/L (3.5-5.1) 08/18/19 09:21 Chloride 101 mmol/L (98-107) 08/18/19 09:21 Carbon Dioxide 26 mmol/L (22-30) 08/18/19 09:21 Anion Gap 9 mmol/L 08/18/19 09:21 BUN 17 mg/dL (9-20) 08/18/19 09:21 Creatinine 1.28 mg/dL (0.66-1.25) H 08/18/19 09:21 Est GFR (CKD-EPI)AfAm 75 (>60 ml/min/1.73 sqM) 08/18/19 09:21 Est GFR (CKD-EPI)NonAf 64 (>60 ml/min/1.73 sqM) 08/18/19 09:21 Glucose 119 mg/dL (74-99) H 08/18/19 09:21 Calcium 9.0 mg/dL (8.4-10.2) 08/18/19 09:21 Vital Signs Temp 98.9 F 08/22/19 04:20 Pulse 80 08/22/19 04:20 Resp 14 08/22/19 04:20 BP 122/66 08/22/19 04:20 Pulse Ox 98 08/22/19 04:20 Intake & Output 08/21/19 08/22/19 08/22/19 18:59 06:59 18:59 Weight 103.8 kg Patient Condition at Discharge: Stable Plan - Discharge Summary Discharge Rx Participant: No New Discharge Prescriptions: New ARIPiprazole [Abilify] 10 mg PO DAILY 13 Days tab Atorvastatin [Lipitor] 40 mg PO DAILY tab ARIPiprazole IM [Abilify Maintena] 400 mg IM ONCE #1 each Continue Aspirin 81 mg PO DAILY #30 chew Clopidogrel [Plavix] 75 mg PO DAILY #30 tab Carvedilol [Coreg] 12.5 mg PO BID oxyCODONE HCL/ACETAMINOPHEN [Percocet 10-325 mg] 1 tab PO QID PRN PRN Reason: Pain Spironolactone 25 mg PO DAILY Lisinopril [Zestril] 10 mg PO DAILY Discontinued Testosterone Cypionate [Depo-Testosterone] 200 mg IM Q14D Rosuvastatin [Crestor] 20 mg PO DAILY@1200 Discharge Medication List Aspirin 81 mg PO DAILY #30 chew 05/20/18 [Rx] Clopidogrel [Plavix] 75 mg PO DAILY #30 tab 05/20/18 [Rx] Carvedilol [Coreg] 12.5 mg PO BID 06/22/18 [History] Lisinopril [Zestril] 10 mg PO DAILY 02/23/19 [History] Spironolactone 25 mg PO DAILY 02/23/19 [History] oxyCODONE HCL/ACETAMINOPHEN [Percocet 10-325 mg] 1 tab PO QID PRN 02/23/19 [History] ARIPiprazole IM [Abilify Maintena] 400 mg IM ONCE #1 each 08/22/19 [Rx] ARIPiprazole [Abilify] 10 mg PO DAILY 13 Days tab 08/22/19 [Rx] Atorvastatin [Lipitor] 40 mg PO DAILY tab 08/22/19 [Rx] Follow up Appointment(s)/Referral(s): [facility] [Outside] - 08/28/19 9:30 am (Appointment w/ Irene) [facility] [NON-STAFF] - 1 Week Patient Instructions/Handouts: Depression (DC), Anxiety (ED) Activity/Diet/Wound Care/Special Instructions: Activity and diet as tolerated. Avoid the use of street drugs and alcohol. Take all medications as prescribed. When you are in need of refills on your medications please contact your medical provider and/or outpatient psychiatrist to have this done. Please go to scheduled outpatient appointment for aftercare treatment. If symptoms return or become worse, call the crisis line at and/or go to the nearest emergency room for evaluation. Discharge Disposition: HOME SELF-CARE
== END 2019-08-22 10:07 | disposition home or self-care (01) | DRG 885 ==
LOC: 3MHU 15:22
PROVIDERS: ADMIT Psychiatry & Neurology Psychiatry; ATTEND Psychiatry & Neurology Psychiatry
DX: F25.9 Schizoaffective disorder, unspecified (principal); E87.1 Hypo-osmolality and hyponatremia; R45.851 Suicidal ideations; N18.3 Chronic kidney disease, stage 3 (moderate); E78.5 Hyperlipidemia, unspecified; F14.10 Cocaine abuse, uncomplicated; F15.10 Other stimulant abuse, uncomplicated; F40.240 Claustrophobia; I12.9 Hypertensive chronic kidney disease with stage 1 through stage 4 chronic kidney disease, or unspecified chronic kidney disease; I25.10 Atherosclerotic heart disease of native coronary artery without angina pectoris; M19.90 Unspecified osteoarthritis, unspecified site; E66.9 Obesity, unspecified; G47.33 Obstructive sleep apnea (adult) (pediatric); M79.604 Pain in right leg; M79.605 Pain in left leg; F41.9 Anxiety disorder, unspecified; Z68.36 Body mass index [BMI] 36.0-36.9, adult; Z79.82 Long term (current) use of aspirin; Z79.899 Other long term (current) drug therapy; Z79.02 Long term (current) use of antithrombotics/antiplatelets; Z87.891 Personal history of nicotine dependence; Z95.5 Presence of coronary angioplasty implant and graft
CPT/HCPCS: 80048

== ENCOUNTER 2019-10-14 08:59 | Emergency (ER) | payer MEDICARE, OTHER ==
[2019-10-14 09:05] VITALS: RESP 18
[2019-10-14 09:36] LABS: Basophils % (A) 0 %; Eosinophils % (A) 0 %; HCT 43.1 % (39.0-53.0); HGB 14.8 gm/dL (13.0-17.5); Lymphocytes # (A) 1.3 k/uL (1.0-4.8); Lymphocytes % (A) 18 %; MCH 30.8 pg (25.0-35.0); MCHC 34.3 g/dL (31.0-37.0); Mean Platelet Volume 6.6; Monocytes # (A) 0.7 k/uL (0-1.0); Monocytes % (A) 9 %; Neutrophils % (A) 69 %; Platelet Count 142 k/uL (150-450); RBC 4.79 m/uL (4.30-5.90); RDW 12.9 % (11.5-15.5); WBC 7.2 k/uL (3.8-10.6)
--- NOTE | 2019-10-14 09:42 | XR ---
EXAMINATION TYPE: XR chest 1V portable DATE OF EXAM: 10/14/2019 HISTORY: Suspected COVID-19 pneumonia. REFERENCE: Previous study dated 02/23/2019. FINDINGS: The lungs appear clear. Pleural spaces are clear. The heart is not enlarged. IMPRESSION: NO DEFINITE ACUTE INTRATHORACIC ABNORMALITY.
[2019-10-14 09:50] LABS: ALT 48 U/L (4-49); AST 39 U/L (17-59); African American GFR (CKD) 77 (>60 ml/min/1.73 sqM); Albumin 4.9 g/dL (3.5-5.0); Alkaline Phosphatase 67 U/L (38-126); Anion Gap 11 mmol/L; Blood Urea Nitrogen 20 mg/dL (9-20); C Reactive Protein <5.0 mg/L (<10.0); Calcium 9.7 mg/dL (8.4-10.2); Carbon Dioxide 24 mmol/L (22-30); Chloride 100 mmol/L (98-107); Glucose 111 mg/dL (74-99); Magnesium 1.7 mg/dL (1.6-2.3); Non-African American GFR(CKD) 67 (>60 ml/min/1.73 sqM); Potassium 4.3 mmol/L (3.5-5.1); Sodium 135 mmol/L (137-145); Total Bilirubin 0.6 mg/dL (0.2-1.3); Total Protein 8.5 g/dL (6.3-8.2)
--- NOTE | 2019-10-14 09:50 | ED ---
General Adult HPI - General Chief complaint: Shortness of Breath Stated complaint: CHEST PAIN, SOB Time Seen by Provider: 10/14/19 09:05 Source: patient Mode of arrival: wheelchair Limitations: no limitations - History of Present Illness Initial comments: Dictation was produced using [employer] dictation software. please excuse any grammatical, word or spelling errors. This patient was cared for during a federal and state declared state of emergenc y secondary to Covid 19 Chief Complaint: 49-year-old male with past medical history of coronary artery disease presents with shortness breath and chest pain. History of Present Illness: A 49-year-old male presents with chest pain shortness of breath. Patient states that yesterday he used methamphetamine and cocaine. Since then he's been feeling short of breath. He states the shortness of breath is worse with exertion. He does have some chest pain. He states the pain as sharp and substernal worse with deep inspiration. Patient denies any history of blood clots. Denies any fever, chills or night sweats. Patient has has a history of coronary artery stent. The ROS documented in this emergency department record has been reviewed and confirmed by me. Those systems with pertinent positive or negative responses have been documented in the HPI. All other systems are other negative and/or noncontributory. PHYSICAL EXAM: General Impression: Alert and oriented x3, not in acute distress HEENT: Normocephalic atraumatic, extra-ocular movements intact, pupils equal and reactive to light bilaterally, mucous membranes moist. Cardiovascular: Heart regular rate and rhythm Chest: Able to complete full sentences, no retractions, no tachypnea Abdomen: Bowel sounds present, abdomen soft, non-tender, non-distended, no organomegaly Musculoskeletal: Pulses present and equal in all extremities, no peripheral edema Motor: no focal deficits noted Neurological: CN II-XII grossly intact, no focal motor or sensory deficits noted Skin: Intact with no visualized rashes Psych: Normal affect and mood ED course: 49-year-old male presents with chest pain shortness of breath. All signs upon arrival shows heart rate of 114, temperature 99.3 cumbersome vital signs within acceptable limits. EKG does not show any findings of STEMI or infarction Laboratory evaluation obtained. CBC, coag panel, d-dimer negative. Metabolic panel is unremarkable. Cardiac enzymes negative. Chest x-ray is nonacute. Patient clinically presentation likely secondary to recent illicit drug use. She is told to refrain from illicit drug use. This point no identification of any life-threatening illness at this time. Patient be discharged per his advice pelvis primary care physician. Return parameters discussed. EKG interpretation: Ventricular rate 115, sinus tachycardia,. Interval 122, QRS 80, QTC 41. No RI prolongation, no QTC prolongation, no ST or T-wave changes noted. EKG compared to 08/15/2019 showing no changes. Overall, this EKG is unremarkable - Related Data Home Medications Medication Instructions Recorded Confirmed Carvedilol [Coreg] 12.5 mg PO BID 06/22/18 08/16/19 Lisinopril [Zestril] 10 mg PO DAILY 02/23/19 08/16/19 Spironolactone 25 mg PO DAILY 02/23/19 08/16/19 oxyCODONE HCL/ACETAMINOPHEN 1 tab PO QID PRN 02/23/19 08/16/19 [Percocet 10-325 mg] Previous Rx's Medication Instructions Recorded Aspirin 81 mg PO DAILY #30 chew 05/20/18 Clopidogrel [Plavix] 75 mg PO DAILY #30 tab 05/20/18 ARIPiprazole IM [Abilify Maintena] 400 mg IM ONCE #1 each 08/22/19 ARIPiprazole [Abilify] 10 mg PO DAILY 13 Days tab 08/22/19 Atorvastatin [Lipitor] 40 mg PO DAILY tab 08/22/19 Allergies Allergy/AdvReac Type Severity Reaction Status Date / Time No Known Allergies Allergy Verified 10/14/19 09:04 Review of Systems ROS Statement: Those systems with pertinent positive or pertinent negative responses have been documented in the HPI. ROS Other: All systems not noted in ROS Statement are negative. Past Medical History Past Medical History: Chest Pain / Angina, Hyperlipidemia, Hypertension, Osteoarthritis (OA) Additional Past Medical History / Comment(s): 05-18-18 pt wants flu vaccine while here. pmh:possible sleep apnea but never had study-Low testosterone., Last Myocardial Infarction Date:: 2017 History of Any Multi-Drug Resistant Organisms: None Reported Past Surgical History: Back Surgery, Heart Catheterization With Stent Additional Past Surgical History / Comment(s): back surgeries x2, Past Anesthesia/Blood Transfusion Reactions: No Reported Reaction Date of Last Stent Placement:: 05/19/18 Past Psychological History: Anxiety, Bipolar Smoking Status: Former smoker Past Alcohol Use History: Occasional Past Drug Use History: Methamphetamine - Past Family History Father Family Medical History: Cancer Additional Family Medical History / Comment(s): lung Mother Family Medical History: Cancer Additional Family Medical History / Comment(s): colon General Exam Limitations: no limitations Course Vital Signs 10/14/19 10/14/19 09:01 09:22 Temperature 99.3 F Pulse Rate 113 H 114 H Respiratory 18 18 Rate Blood Pressure 136/91 O2 Sat by Pulse 98 98 Oximetry Medical Decision Making - Lab Data Result diagrams: 10/14/19 09:14 10/14/19 09:14 Lab Results 10/14/19 10/14/19 10/14/19 Range/Units 09:14 09:14 09:14 WBC 7.2 (3.8-10.6) k/uL RBC 4.79 (4.30-5.90) m/uL Hgb 14.8 (13.0-17.5) gm/dL Hct 43.1 (39.0-53.0) % MCV 90.0 D (80.0-100.0) fL MCH 30.8 (25.0-35.0) pg MCHC 34.3 (31.0-37.0) g/dL RDW 12.9 (11.5-15.5) % Plt Count 142 L (150-450) k/uL Neutrophils % 69 % Lymphocytes % 18 % Monocytes % 9 % Eosinophils % 0 % Basophils % 0 % Neutrophils # 5.0 (1.3-7.7) k/uL Lymphocytes # 1.3 (1.0-4.8) k/uL Monocytes # 0.7 (0-1.0) k/uL Eosinophils # 0.0 (0-0.7) k/uL Basophils # 0.0 (0-0.2) k/uL PT 10.3 (9.0-12.0) sec INR 1.0 (<1.2) APTT 21.8 L (22.0-30.0) sec D-Dimer 0.30 (<0.60) mg/L FEU Sodium 135 L (137-145) mmol/L Potassium 4.3 (3.5-5.1) mmol/L Chloride 100 (98-107) mmol/L Carbon Dioxide 24 (22-30) mmol/L Anion Gap 11 mmol/L BUN 20 (9-20) mg/dL Creatinine 1.25 (0.66-1.25) mg/dL Est GFR (CKD-EPI)AfAm 77 (>60 ml/min/1.73 sqM) Est GFR (CKD-EPI)NonAf 67 (>60 ml/min/1.73 sqM) Glucose 111 H (74-99) mg/dL Calcium 9.7 (8.4-10.2) mg/dL Magnesium 1.7 (1.6-2.3) mg/dL Total Bilirubin 0.6 (0.2-1.3) mg/dL AST 39 (17-59) U/L ALT 48 (4-49) U/L Alkaline Phosphatase 67 (38-126) U/L Troponin I (0.000-0.034) ng/mL C-Reactive Protein <5.0 (<10.0) mg/L NT-Pro-B Natriuret Pep pg/mL Total Protein 8.5 H (6.3-8.2) g/dL Albumin 4.9 (3.5-5.0) g/dL 10/14/19 10/14/19 Range/Units 09:14 09:14 WBC (3.8-10.6) k/uL RBC (4.30-5.90) m/uL Hgb (13.0-17.5) gm/dL Hct (39.0-53.0) % MCV (80.0-100.0) fL MCH (25.0-35.0) pg MCHC (31.0-37.0) g/dL RDW (11.5-15.5) % Plt Count (150-450) k/uL Neutrophils % % Lymphocytes % % Monocytes % % Eosinophils % % Basophils % % Neutrophils # (1.3-7.7) k/uL Lymphocytes # (1.0-4.8) k/uL Monocytes # (0-1.0) k/uL Eosinophils # (0-0.7) k/uL Basophils # (0-0.2) k/uL PT (9.0-12.0) sec INR (<1.2) APTT (22.0-30.0) sec D-Dimer (<0.60) mg/L FEU Sodium (137-145) mmol/L Potassium (3.5-5.1) mmol/L Chloride (98-107) mmol/L Carbon Dioxide (22-30) mmol/L Anion Gap mmol/L BUN (9-20) mg/dL Creatinine (0.66-1.25) mg/dL Est GFR (CKD-EPI)AfAm (>60 ml/min/1.73 sqM) Est GFR (CKD-EPI)NonAf (>60 ml/min/1.73 sqM) Glucose (74-99) mg/dL Calcium (8.4-10.2) mg/dL Magnesium (1.6-2.3) mg/dL Total Bilirubin (0.2-1.3) mg/dL AST (17-59) U/L ALT (4-49) U/L Alkaline Phosphatase (38-126) U/L Troponin I <0.012 (0.000-0.034) ng/mL C-Reactive Protein (<10.0) mg/L NT-Pro-B Natriuret Pep 101 pg/mL Total Protein (6.3-8.2) g/dL Albumin (3.5-5.0) g/dL Disposition Clinical Impression: Dyspnea Disposition: HOME SELF-CARE Condition: Good Instructions (If sedation given, give patient instructions): Dyspnea (ED) Is patient prescribed a controlled substance at d/c from ED?: No Referrals: Olga Taylor MD [Primary Care Provider] - 1-2 days Time of Disposition: 10:19
[2019-10-14 09:58] LABS: D-Dimer 0.3 mg/L FEU (<0.60); Prothrombin Time 10.3 sec (9.0-12.0)
[2019-10-14 10:14] LABS: Partial Thromboplastin Time 21.8 sec (22.0-30.0)
[2019-10-14 10:28] VITALS: BP 153/89; PULSE 109; TEMP 99.1
== END 2019-10-14 10:27 | disposition home or self-care (01) ==
LOC: EC 08:59
DX: R06.00 Dyspnea, unspecified (principal); R06.02 Shortness of breath; R07.9 Chest pain, unspecified; I10 Essential (primary) hypertension; I25.2 Old myocardial infarction; Z79.02 Long term (current) use of antithrombotics/antiplatelets; Z79.899 Other long term (current) drug therapy; Z87.891 Personal history of nicotine dependence; Z95.5 Presence of coronary angioplasty implant and graft
CPT/HCPCS: 36415; 71045; 80053; 83735; 83880; 84484; 85025; 85379; 85610; 85730; 86140; 93005; 99285

== ENCOUNTER 2019-11-13 11:43 | Emergency (ER) | payer MEDICARE ==
[2019-11-13 11:47] VITALS: TEMP 98.1
[2019-11-13] MEDS ORDERED: SODIUM CHLORIDE 0.9% 1,000 ML IV STA ×2 (11:59)
[2019-11-13] MEDS ORDERED: LORazepam 2 MG/ML INJ IV STA (12:00)
[2019-11-13 12:07] LABS: Basophils % (A) 0 %; Eosinophils # (A) 0.1 k/uL (0-0.7); Eosinophils % (A) 2 %; HCT 40.2 % (39.0-53.0); HGB 13.8 gm/dL (13.0-17.5); Lymphocytes # (A) 1.3 k/uL (1.0-4.8); Lymphocytes % (A) 33 %; MCHC 34.2 g/dL (31.0-37.0); MCV 90.6 fL (80.0-100.0); Mean Platelet Volume 7.2; Monocytes # (A) 0.4 k/uL (0-1.0); Monocytes % (A) 10 %; Neutrophils # (A) 1.9 k/uL (1.3-7.7); Neutrophils % (A) 51 %; Platelet Count 162 k/uL (150-450); RBC 4.43 m/uL (4.30-5.90); RDW 13.7 % (11.5-15.5); WBC 3.8 k/uL (3.8-10.6)
[2019-11-13 12:15] LABS: Albumin 4.5 g/dL (3.5-5.0); Calcium 9.4 mg/dL (8.4-10.2); Magnesium 1.8 mg/dL (1.6-2.3); Potassium 4.4 mmol/L (3.5-5.1); Total Bilirubin 0.7 mg/dL (0.2-1.3)
--- NOTE | 2019-11-13 12:16 | ED ---
General Adult HPI - General Chief complaint: Shortness of Breath Stated complaint: SOB Time Seen by Provider: 11/13/19 11:49 Source: patient, RN notes reviewed, old records reviewed Mode of arrival: ambulatory Limitations: no limitations - History of Present Illness Initial comments: 49-year-old male presents for his room today with shortness of breath 20 minutes prior to arrival. Patient reports that he had this occur after he did meth. Patient states that he has no acute chest pain, and denies any cough. Denies any nausea or vomiting. Patient reports that this is his second time of doing methamphetamine. - Related Data Home Medications Medication Instructions Recorded Confirmed Carvedilol [Coreg] 12.5 mg PO BID 06/22/18 11/13/19 Lisinopril [Zestril] 10 mg PO DAILY 02/23/19 11/13/19 Spironolactone 25 mg PO DAILY 02/23/19 11/13/19 oxyCODONE HCL/ACETAMINOPHEN 1 tab PO QID PRN 02/23/19 11/13/19 [Percocet 10-325 mg] Rosuvastatin Calcium 20 mg PO DAILY 11/13/19 11/13/19 Testosterone Cypionate 200 mg IM Q14D 11/13/19 11/13/19 [Depo-Testosterone] Previous Rx's Medication Instructions Recorded Aspirin 81 mg PO DAILY #30 chew 05/20/18 Clopidogrel [Plavix] 75 mg PO DAILY #30 tab 05/20/18 Allergies Allergy/AdvReac Type Severity Reaction Status Date / Time No Known Allergies Allergy Verified 11/13/19 11:47 Review of Systems ROS Statement: Those systems with pertinent positive or pertinent negative responses have been documented in the HPI. ROS Other: All systems not noted in ROS Statement are negative. Past Medical History Past Medical History: Chest Pain / Angina, Hyperlipidemia, Hypertension, Os teoarthritis (OA) Additional Past Medical History / Comment(s): 05-18-18 pt wants flu vaccine while here. pmh:possible sleep apnea but never had study-Low testosterone., Last Myocardial Infarction Date:: 2017 History of Any Multi-Drug Resistant Organisms: None Reported Past Surgical History: Back Surgery, Heart Catheterization With Stent Additional Past Surgical History / Comment(s): back surgeries x2, Past Anesthesia/Blood Transfusion Reactions: No Reported Reaction Date of Last Stent Placement:: 05/19/18 Past Psychological History: Anxiety, Bipolar Smoking Status: Current some day smoker Past Alcohol Use History: Occasional Past Drug Use History: Methamphetamine - Past Family History Father Family Medical History: Cancer Additional Family Medical History / Comment(s): lung Mother Family Medical History: Cancer Additional Family Medical History / Comment(s): colon General Exam - General Exam Comments Initial Comments: 49 year old male, no distress. Limitations: no limitations General appearance: alert, in no apparent distress Head exam: Present: atraumatic, normocephalic, normal inspection Eye exam: Present: normal appearance, PERRL, EOMI. Absent: scleral icterus, conjunctival injection, periorbital swelling ENT exam: Present: normal exam, mucous membranes moist Neck exam: Present: normal inspection. Absent: tenderness, meningismus, lymphad enopathy Respiratory exam: Present: normal lung sounds bilaterally. Absent: respiratory distress, wheezes, rales, rhonchi, stridor Cardiovascular Exam: Present: regular rate, normal rhythm, normal heart sounds. Absent: systolic murmur, diastolic murmur, rubs, gallop, clicks GI/Abdominal exam: Present: soft, normal bowel sounds. Absent: distended, tenderness, guarding, rebound, rigid Extremities exam: Present: normal inspection, full ROM, normal capillary refill. Absent: tenderness, pedal edema, joint swelling, calf tenderness Back exam: Present: normal inspection Neurological exam: Present: alert, oriented X3, CN II-XII intact Psychiatric exam: Present: normal affect, normal mood Skin exam: Present: warm, dry, intact, normal color. Absent: rash Course Vital Signs 11/13/19 11/13/19 11/13/19 11:44 12:00 12:49 Temperature 98.1 F Pulse Rate 104 H 101 H Respiratory 18 20 18 Rate Blood Pressure 125/84 110/75 O2 Sat by Pulse 100 98 Oximetry Medical Decision Making - Medical Decision Making This is a 49-year-old male presents emergency department today for evaluation with chief complaint OF shortness of breath prior to arrival. Patient did admit to using meth. The same patient's labwork was reviewed and unremarkable. Patient does feel better after receiving 1 mg of Ativan IV. He does relate that his symptoms seemed related to anxiety and induced WITH amphetamine use. Patient will be discharged with follow-up with PCP. - Lab Data Result diagrams: 11/13/19 11:50 05/11/20 11:50 Lab Results 11/13/19 11/13/19 11/13/19 Range/Units 11:50 11:50 11:50 WBC 3.8 (3.8-10.6) k/uL RBC 4.43 (4.30-5.90) m/uL Hgb 13.8 (13.0-17.5) gm/dL Hct 40.2 (39.0-53.0) % MCV 90.6 (80.0-100.0) fL MCH 31.0 (25.0-35.0) pg MCHC 34.2 (31.0-37.0) g/dL RDW 13.7 (11.5-15.5) % Plt Count 162 (150-450) k/uL Neutrophils % 51 % Lymphocytes % 33 % Monocytes % 10 % Eosinophils % 2 % Basophils % 0 % Neutrophils # 1.9 (1.3-7.7) k/uL Lymphocytes # 1.3 (1.0-4.8) k/uL Monocytes # 0.4 (0-1.0) k/uL Eosinophils # 0.1 (0-0.7) k/uL Basophils # 0.0 (0-0.2) k/uL PT 10.1 (9.0-12.0) sec INR 1.0 (<1.2) APTT 22.1 (22.0-30.0) sec Sodium 134 L (137-145) mmol/L Potassium 4.4 (3.5-5.1) mmol/L Chloride 102 (98-107) mmol/L Carbon Dioxide 21 L (22-30) mmol/L Anion Gap 11 mmol/L BUN 19 (9-20) mg/dL Creatinine 1.20 (0.66-1.25) mg/dL Est GFR (CKD-EPI)AfAm 81 (>60 ml/min/1.73 sqM) Est GFR (CKD-EPI)NonAf 70 (>60 ml/min/1.73 sqM) Glucose 122 H (74-99) mg/dL Calcium 9.4 (8.4-10.2) mg/dL Magnesium 1.8 (1.6-2.3) mg/dL Total Bilirubin 0.7 (0.2-1.3) mg/dL AST 38 (17-59) U/L ALT 35 (4-49) U/L Alkaline Phosphatase 72 (38-126) U/L Troponin I (0.000-0.034) ng/mL NT-Pro-B Natriuret Pep pg/mL Total Protein 8.0 (6.3-8.2) g/dL Albumin 4.5 (3.5-5.0) g/dL Amylase 85 (30-110) U/L Lipase 269 (23-300) U/L 11/13/19 11/13/19 Range/Units 11:50 11:50 WBC (3.8-10.6) k/uL RBC (4.30-5.90) m/uL Hgb (13.0-17.5) gm/dL Hct (39.0-53.0) % MCV (80.0-100.0) fL MCH (25.0-35.0) pg MCHC (31.0-37.0) g/dL RDW (11.5-15.5) % Plt Count (150-450) k/uL Neutrophils % % Lymphocytes % % Monocytes % % Eosinophils % % Basophils % % Neutrophils # (1.3-7.7) k/uL Lymphocytes # (1.0-4.8) k/uL Monocytes # (0-1.0) k/uL Eosinophils # (0-0.7) k/uL Basophils # (0-0.2) k/uL PT (9.0-12.0) sec INR (<1.2) APTT (22.0-30.0) sec Sodium (137-145) mmol/L Potassium (3.5-5.1) mmol/L Chloride (98-107) mmol/L Carbon Dioxide (22-30) mmol/L Anion Gap mmol/L BUN (9-20) mg/dL Creatinine (0.66-1.25) mg/dL Est GFR (CKD-EPI)AfAm (>60 ml/min/1.73 sqM) Est GFR (CKD-EPI)NonAf (>60 ml/min/1.73 sqM) Glucose (74-99) mg/dL Calcium (8.4-10.2) mg/dL Magnesium (1.6-2.3) mg/dL Total Bilirubin (0.2-1.3) mg/dL AST (17-59) U/L ALT (4-49) U/L Alkaline Phosphatase (38-126) U/L Troponin I <0.012 (0.000-0.034) ng/mL NT-Pro-B Natriuret Pep 40 pg/mL Total Protein (6.3-8.2) g/dL Albumin (3.5-5.0) g/dL Amylase (30-110) U/L Lipase (23-300) U/L 11/13/19 12:19 Sinus tachycardia otherwise normal EKG. Ventricular rate of 111 bpm. Intervals 122 ms. QRS duration is 80 ms. QT QTc is 332/451 ms. - Radiology Data Radiology results: report reviewed Normal chest x-ray. Negative for any acute process. Disposition Clinical Impression: Amphetamine abuse, Anxiety Disposition: ADMITTED IP TO THIS HOSP Condition: Stable Instructions (If sedation given, give patient instructions): Methamphetamine Abuse (ED) Additional Instructions: Stop using methamphetamine. Follow-up with primary care doctor. Is patient prescribed a controlled substance at d/c from ED?: No Referrals: Olga Taylor MD [Primary Care Provider] - 1-2 days Time of Disposition: 13:21
[2019-11-13 12:17] LABS: Partial Thromboplastin Time 22.1 sec (22.0-30.0); Prothrombin Time 10.1 sec (9.0-12.0)
--- NOTE | 2019-11-13 12:38 | XR ---
EXAMINATION TYPE: XR chest 2V DATE OF EXAM: 11/13/2019 COMPARISON: Prior chest x-ray dated 10/14/2019 HISTORY: Chest pain TECHNIQUE: Frontal and lateral views of the chest are obtained. FINDINGS: There is no focal air space opacity, pleural effusion, or pneumothorax seen. The cardiac silhouette size is within normal limits. The osseous structures are intact. There are overlying car diac leads. Lung volumes are low. IMPRESSION: No acute cardiopulmonary process.
[2019-11-13 12:50] VITALS: BP 110/75; PULSE 101; RESP 18
[2019-11-13 13:26] LABS: Cocaine Screen,Urine Detected (NotDetected); Phencyclidine Screen,Urine Not Detected (NotDetected); Urn Cannabinoid Scrn Not Detected (NotDetected)
[2019-11-13 13:27] LABS: Amphetamine Screen,Urine Detected (NotDetected); Barbiturate Screen,Urine Not Detected (NotDetected); Benzodiazepines Screen,Urine Detected (NotDetected); Methadone Screen, Urine Not Detected (NotDetected); Opiate Screen,Urine Not Detected (NotDetected); Oxycodone Screen, Urine Detected (NotDetected); Tricyclic Antidepressant,Urine Not Detected (NotDetected)
== END 2019-11-13 13:27 | disposition other institution (70) ==
LOC: EC 11:43
DX: F41.9 Anxiety disorder, unspecified (principal); F15.10 Other stimulant abuse, uncomplicated; I25.2 Old myocardial infarction; E78.5 Hyperlipidemia, unspecified; I10 Essential (primary) hypertension; F17.200 Nicotine dependence, unspecified, uncomplicated; Z79.899 Other long term (current) drug therapy; Z95.5 Presence of coronary angioplasty implant and graft
CPT/HCPCS: 36415; 93005; 83880; 80053; 82150; 83690; 83735; 84484; 85025; 85610; 85730; 80306; 71046; 96374; 96361; 99285; J2060

== ENCOUNTER 2019-11-15 14:35 | Emergency (ER) | payer MEDICARE ==
[2019-11-15] MEDS ORDERED: SODIUM CHLORIDE 0.9% 1,000 ML IV STA (15:14)
[2019-11-15] MEDS ORDERED: LORazepam 2 MG/ML INJ IM STA (15:20)
--- NOTE | 2019-11-15 15:23 | ED ---
General Adult HPI - General Chief complaint: Shortness of Breath Stated complaint: SOB Time Seen by Provider: 11/15/19 15:01 Source: patient Mode of arrival: ambulatory Limitations: no limitations - History of Present Illness Initial comments: Dictation was produced using [employer] dictation software. please excuse any grammatical, word or spelling errors. This patient was cared for during a federal and state declared state of emergency secondary to Covid 19 Chief Complaint: 49-year-old male with past medical history of illicit drug a buse and coronary artery disease presents with shortness of breath. History of Present Illness: 49-year-old male. He states that over the last 3-4 hours she has been experiencing dyspnea. Patient is known to emergency department. He is here 3 days ago. Patient states he's a regular methamphetam ine user. Patient states that he used meth recently. States that a lot of times it causes him to be short of breath. Patient states that he feels short of breath currently. This complain of some upper back pain gets worse with deep inspiration. Denies any history of blood clots. Patient does not report worsening of his dyspnea with exertion. Denies a cough. No fever, chills or night sweats. The ROS documented in this emergency department record has been reviewed and confirmed by me. Those systems with pertinent positive or negative responses have been documented in the HPI. All other systems are other negative and/or noncontributory. PHYSICAL EXAM: General Impression: Alert and oriented x3, not in acute distress HEENT: Normocephalic atraumatic, extra-ocular movements intact, pupils equal and reactive to light bilaterally, mucous membranes moist. Cardiovascular: Heart regular rate and rhythm Chest: Able to complete full sentences, no retractions, no tachypnea, lungs are clear to auscultation bilaterally, no wheezes rhonchi or rales Abdomen: abdomen soft, non-tender, non-distended, no organomegaly Musculoskeletal: Pulses present and equal in all extremities, no peripheral edema Motor: no focal deficits noted Neurological: CN II-XII grossly intact, no focal motor or sensory deficits noted Skin: Intact with no visualized rashes Psych: Normal affect and mood ED course: 49-year-old male past nuchal history of coronary artery disease presents with dyspnea. All signs upon arrival shows heart rate of 106, rest of vital signs within acceptable limits. Chart review shows that patient had cardiac catheterization 06/13/2018. At that time there was a patent stent with out any significant disease. Patient also had a stress test every 05/24/2020 showing inadequate study. Laboratory evaluation obtained. Leukopenia with level III.0. Hemoglobin 12.9. Lymphocyte of pain he of 0.9. Coag panel unremarkable. D-dimer 0.2. Metabolic panel is unremarkable. Cardiac enzymes negative. Chest x-ray shows no acute processes. Patient reevaluated at bedside after administration of anxiolytic. He states he feels well. Patient does not appear to be dyspneic at this time. Patient is agreeable for discharge. 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 Return parameters discussed. Patient discharged.patient is counseled on abstinence from methamphetamine use. EKG interpretation: Ventricular rate 98, normal sinus rhythm,. Interval 124, QRS 80, QTC 426. No MN prolongation, no QTC prolongation, no ST or T-wave changes noted. EKG compared to 11/13/2019 showing no changes. Overall, this EKG is unremarkable - Related Data Home Medications Medication Instructions Recorded Confirmed Carvedilol [Coreg] 12.5 mg PO BID 06/22/18 11/15/19 Lisinopril [Zestril] 10 mg PO DAILY@1500 02/23/19 11/15/19 Spironolactone 25 mg PO DAILY 02/23/19 11/15/19 oxyCODONE HCL/ACETAMINOPHEN 1 tab PO QID PRN 02/23/19 11/15/19 [Percocet 10-325 mg] Rosuvastatin Calcium 20 mg PO HS 11/13/19 11/15/19 Testosterone Cypionate 200 mg IM Q14D 11/13/19 11/15/19 [Depo-Testosterone] Previous Rx's Medication Instructions Recorded Aspirin 81 mg PO DAILY #30 chew 05/20/18 Clopidogrel [Plavix] 75 mg PO DAILY #30 tab 05/20/18 Allergies Allergy/AdvReac Type Severity Reaction Status Date / Time No Known Allergies Allergy Verified 11/15/19 16:19 Review of Systems ROS Statement: Those systems with pertinent positive or pertinent negative responses have been documented in the HPI. ROS Other: All systems not noted in ROS Statement are negative. Past Medical History Past Medical History: Chest Pain / Angina, Hyperlipidemia, Hypertension, Osteoarthritis (OA) Additional Past Medical History / Comment(s): Low testosterone., Last Myocardial Infarction Date:: 2017 History of Any Multi-Drug Resistant Organisms: None Reported Past Surgical History: Back Surgery, Heart Catheterization With Stent Additional Past Surgical History / Comment(s): back surgeries x2, Past Anesthesia/Blood Transfusion Reactions: No Reported Reaction Date of Last Stent Placement:: 05/19/18 Past Psychological History: Anxiety, Bipolar Smoking Status: Current every day smoker Past Alcohol Use History: Daily Past Drug Use History: Methamphetamine - Past Family History Father Family Medical History: Cancer Additional Family Medical History / Comment(s): lung Mother Family Medical History: Cancer Additional Family Medical History / Comment(s): colon General Exam Limitations: no limitations Course Vital Signs 11/15/19 11/15/19 14:41 15:45 Temperature 98.4 F Pulse Rate 106 H 92 Respiratory 18 20 Rate Blood Pressure 133/87 108/66 O2 Sat by Pulse 97 98 Oximetry Medical Decision Making - Lab Data Result diagrams: 11/15/19 15:34 11/15/19 15:34 Lab Results 11/15/19 11/15/19 11/15/19 Range/Units 15:34 15:34 15:34 WBC 3.0 L (3.8-10.6) k/uL RBC 4.18 L (4.30-5.90) m/uL Hgb 12.9 L (13.0-17.5) gm/dL Hct 38.6 L (39.0-53.0) % MCV 92.3 (80.0-100.0) fL MCH 30.8 (25.0-35.0) pg MCHC 33.3 (31.0-37.0) g/dL RDW 13.5 (11.5-15.5) % Plt Count 156 (150-450) k/uL Neutrophils % 53 % Lymphocytes % 31 % Monocytes % 9 % Eosinophils % 2 % Basophils % 0 % Neutrophils # 1.6 (1.3-7.7) k/uL Lymphocytes # 0.9 L (1.0-4.8) k/uL Monocytes # 0.3 (0-1.0) k/uL Eosinophils # 0.1 (0-0.7) k/uL Basophils # 0.0 (0-0.2) k/uL PT 10.0 (9.0-12.0) sec INR 1.0 (<1.2) APTT 22.2 (22.0-30.0) sec D-Dimer (<0.60) mg/L FEU Sodium 136 L (137-145) mmol/L Potassium 4.2 (3.5-5.1) mmol/L Chloride 101 (98-107) mmol/L Carbon Dioxide 22 (22-30) mmol/L Anion Gap 13 mmol/L BUN 15 (9-20) mg/dL Creatinine 1.12 (0.66-1.25) mg/dL Est GFR (CKD-EPI)AfAm 88 (>60 ml/min/1.73 sqM) Est GFR (CKD-EPI)NonAf 76 (>60 ml/min/1.73 sqM) Glucose 104 H (74-99) mg/dL Plasma Lactic Acid Pritesh (0.7-2.0) mmol/L Calcium 9.0 (8.4-10.2) mg/dL Total Bilirubin 0.3 (0.2-1.3) mg/dL AST 28 (17-59) U/L ALT 28 (4-49) U/L Alkaline Phosphatase 68 (38-126) U/L Troponin I (0.000-0.034) ng/mL Total Protein 7.5 (6.3-8.2) g/dL Albumin 4.4 (3.5-5.0) g/dL 11/15/19 11/15/19 11/15/19 Range/Units 15:34 15:34 15:34 WBC (3.8-10.6) k/uL RBC (4.30-5.90) m/uL Hgb (13.0-17.5) gm/dL Hct (39.0-53.0) % MCV (80.0-100.0) fL MCH (25.0-35.0) pg MCHC (31.0-37.0) g/dL RDW (11.5-15.5) % Plt Count (150-450) k/uL Neutrophils % % Lymphocytes % % Monocytes % % Eosinophils % % Basophils % % Neutrophils # (1.3-7.7) k/uL Lymphocytes # (1.0-4.8) k/uL Monocytes # (0-1.0) k/uL Eosinophils # (0-0.7) k/uL Basophils # (0-0.2) k/uL PT (9.0-12.0) sec INR (<1.2) APTT (22.0-30.0) sec D-Dimer 0.20 (<0.60) mg/L FEU Sodium (137-145) mmol/L Potassium (3.5-5.1) mmol/L Chloride (98-107) mmol/L Carbon Dioxide (22-30) mmol/L Anion Gap mmol/L BUN (9-20) mg/dL Creatinine (0.66-1.25) mg/dL Est GFR (CKD-EPI)AfAm (>60 ml/min/1.73 sqM) Est GFR (CKD-EPI)NonAf (>60 ml/min/1.73 sqM) Glucose (74-99) mg/dL Plasma Lactic Acid Pritesh 1.7 (0.7-2.0) mmol/L Calcium (8.4-10.2) mg/dL Total Bilirubin (0.2-1.3) mg/dL AST (17-59) U/L ALT (4-49) U/L Alkaline Phosphatase (38-126) U/L Troponin I <0.012 (0.000-0.034) ng/mL Total Protein (6.3-8.2) g/dL Albumin (3.5-5.0) g/dL Disposition Clinical Impression: Dyspnea, Pleurisy Disposition: HOME SELF-CARE Condition: Good Instructions (If sedation given, give patient instructions): Dyspnea (ED), Methamphetamine Abuse (ED) Is patient prescribed a controlled substance at d/c from ED?: No Referrals: Olga Taylor MD [Primary Care Provider] - 1-2 days Time of Disposition: 16:30
[2019-11-15 15:50] VITALS: RESP 20
[2019-11-15 15:50] LABS: Basophils % (A) 0 %; Eosinophils # (A) 0.1 k/uL (0-0.7); Eosinophils % (A) 2 %; HCT 38.6 % (39.0-53.0); HGB 12.9 gm/dL (13.0-17.5); Lymphocytes # (A) 0.9 k/uL (1.0-4.8); Lymphocytes % (A) 31 %; MCH 30.8 pg (25.0-35.0); MCHC 33.3 g/dL (31.0-37.0); MCV 92.3 fL (80.0-100.0); Mean Platelet Volume 6.9; Monocytes # (A) 0.3 k/uL (0-1.0); Monocytes % (A) 9 %; Neutrophils # (A) 1.6 k/uL (1.3-7.7); Neutrophils % (A) 53 %; Platelet Count 156 k/uL (150-450); RBC 4.18 m/uL (4.30-5.90); RDW 13.5 % (11.5-15.5)
[2019-11-15 16:05] LABS: Albumin 4.4 g/dL (3.5-5.0); Potassium 4.2 mmol/L (3.5-5.1); Total Bilirubin 0.3 mg/dL (0.2-1.3); Total Protein 7.5 g/dL (6.3-8.2)
[2019-11-15 16:10] LABS: Partial Thromboplastin Time 22.2 sec (22.0-30.0)
--- NOTE | 2019-11-15 16:13 | XR ---
EXAMINATION TYPE: XR chest 1V portable DATE OF EXAM: 11/15/2019 COMPARISON: Chest x-ray 2 days earlier. HISTORY: Dyspnea. TECHNIQUE: Single AP portable frontal upright view of the chest is obtained. FINDINGS: Overlying EKG leads are redemonstrated. There is no focal air space opacity, pleural effusi on, or pneumothorax seen. The cardiac silhouette size is stable and upper limits of limits. The os seous structures are intact. IMPRESSION: No acute process. No significant change from prior.
--- NOTE | 2019-11-15 16:32 | ED ---
Medical Decision Making - Lab Data Result diagrams: 11/15/19 15:34 11/15/19 15:34 Lab Results 11/15/19 11/15/19 11/15/19 Range/Units 15:34 15:34 15:34 WBC 3.0 L (3.8-10.6) k/uL RBC 4.18 L (4.30-5.90) m/uL Hgb 12.9 L (13.0-17.5) gm/dL Hct 38.6 L (39.0-53.0) % MCV 92.3 (80.0-100.0) fL MCH 30.8 (25.0-35.0) pg MCHC 33.3 (31.0-37.0) g/dL RDW 13.5 (11.5-15.5) % Plt Count 156 (150-450) k/uL Neutrophils % 53 % Lymphocytes % 31 % Monocytes % 9 % Eosinophils % 2 % Basophils % 0 % Neutrophils # 1.6 (1.3-7.7) k/uL Lymphocytes # 0.9 L (1.0-4.8) k/uL Monocytes # 0.3 (0-1.0) k/uL Eosinophils # 0.1 (0-0.7) k/uL Basophils # 0.0 (0-0.2) k/uL PT 10.0 (9.0-12.0) sec INR 1.0 (<1.2) APTT 22.2 (22.0-30.0) sec D-Dimer (<0.60) mg/L FEU Sodium 136 L (137-145) mmol/L Potassium 4.2 (3.5-5.1) mmol/L Chloride 101 (98-107) mmol/L Carbon Dioxide 22 (22-30) mmol/L Anion Gap 13 mmol/L BUN 15 (9-20) mg/dL Creatinine 1.12 (0.66-1.25) mg/dL Est GFR (CKD-EPI)AfAm 88 (>60 ml/min/1.73 sqM) Est GFR (CKD-EPI)NonAf 76 (>60 ml/min/1.73 sqM) Glucose 104 H (74-99) mg/dL Plasma Lactic Acid Pritesh (0.7-2.0) mmol/L Calcium 9.0 (8.4-10.2) mg/dL Total Bilirubin 0.3 (0.2-1.3) mg/dL AST 28 (17-59) U/L ALT 28 (4-49) U/L Alkaline Phosphatase 68 (38-126) U/L Troponin I (0.000-0.034) ng/mL Total Protein 7.5 (6.3-8.2) g/dL Albumin 4.4 (3.5-5.0) g/dL 11/15/19 11/15/19 11/15/19 Range/Units 15:34 15:34 15:34 WBC (3.8-10.6) k/uL RBC (4.30-5.90) m/uL Hgb (13.0-17.5) gm/dL Hct (39.0-53.0) % MCV (80.0-100.0) fL MCH (25.0-35.0) pg MCHC (31.0-37.0) g/dL RDW (11.5-15.5) % Plt Count (150-450) k/uL Neutrophils % % Lymphocytes % % Monocytes % % Eosinophils % % Basophils % % Neutrophils # (1.3-7.7) k/uL Lymphocytes # (1.0-4.8) k/uL Monocytes # (0-1.0) k/uL Eosinophils # (0-0.7) k/uL Basophils # (0-0.2) k/uL PT (9.0-12.0) sec INR (<1.2) APTT (22.0-30.0) sec D-Dimer 0.20 (<0.60) mg/L FEU Sodium (137-145) mmol/L Potassium (3.5-5.1) mmol/L Chloride (98-107) mmol/L Carbon Dioxide (22-30) mmol/L Anion Gap mmol/L BUN (9-20) mg/dL Creatinine (0.66-1.25) mg/dL Est GFR (CKD-EPI)AfAm (>60 ml/min/1.73 sqM) Est GFR (CKD-EPI)NonAf (>60 ml/min/1.73 sqM) Glucose (74-99) mg/dL Plasma Lactic Acid Pritesh 1.7 (0.7-2.0) mmol/L Calcium (8.4-10.2) mg/dL Total Bilirubin (0.2-1.3) mg/dL AST (17-59) U/L ALT (4-49) U/L Alkaline Phosphatase (38-126) U/L Troponin I <0.012 (0.000-0.034) ng/mL Total Protein (6.3-8.2) g/dL Albumin (3.5-5.0) g/dL Disposition Clinical Impression: Dyspnea, Pleurisy Disposition: HOME SELF-CARE Condition: Good Instructions (If sedation given, give patient instructions): Methamphetamine Abuse (ED), Dyspnea (ED) Additional Instructions: Today you are evaluated for dyspnea. There were some incidental findings that should be reviewed with her primary care physician. He had a white blood cell count that was lower than normal. He also had decrease leukocyte count. At this point is unclear what is causing these abnormalities however he should be evaluated with her primary care physician. Is patient prescribed a controlled substance at d/c from ED?: No Referrals: Olga Taylor MD [Primary Care Provider] - 1-2 days Time of Disposition: 16:32
[2019-11-15 16:57] VITALS: BP 146/72; PULSE 71; TEMP 98.3
== END 2019-11-15 16:49 | disposition home or self-care (01) ==
LOC: EC 14:35
DX: R09.1 Pleurisy (principal); I25.119 Atherosclerotic heart disease of native coronary artery with unspecified angina pectoris; D72.819 Decreased white blood cell count, unspecified; F15.90 Other stimulant use, unspecified, uncomplicated; E78.5 Hyperlipidemia, unspecified; I10 Essential (primary) hypertension; I25.2 Old myocardial infarction; M54.6 Pain in thoracic spine; F17.200 Nicotine dependence, unspecified, uncomplicated; Z79.899 Other long term (current) drug therapy; Z95.5 Presence of coronary angioplasty implant and graft
CPT/HCPCS: 99285; 96372; 96360; 36415; 93005; 85379; 80053; 83605; 84484; 85025; 85610; 85730; 71045; J2060

== ENCOUNTER → 2020-02-14 | Outpatient (CLI) | payer MEDICARE ==
--- NOTE | 2020-02-14 16:00 | US ---
EXAMINATION TYPE: US gallbladder DATE OF EXAM: 02/14/2020 COMPARISON: None CLINICAL HISTORY: 49-year-old male R10.9 Abdominal pain; Z87.19 Personal hx of ulcers. Abdominal pain . TECHNIQUE: Multiple sonographic images of the right upper quadrant are obtained. FINDINGS: STRATEGIC ACCOUNT MANAGER NOTES: Difficult and limited exam due to overlying bowel gas EXAM MEASUREMENTS: Liver Length: 14.0 cm Gallbladder Wall: 0.2 cm CBD : 5.0.6m Right Kidney: 1010.6 x 6.5 x 5.6m Pancreas: Obscured by bowel gas and could not be assessed Liver: wnwnls visualized Gallbladder: No abnormal distention, wall thickening, pericholecystic fluid, or shadowing calculi.E vidence for sonographic Rosa's sign: NoNoBD: Measures at the upper limits of normal in caliber. Ri ght Kidney: No hydronephrosis. IMPRESSION: Bile duct measures at the upper limits of normal in caliber at 5.9 mm. Correlate with alkaline phosph atase and bilirubin levels to exclude early biliary obstruction.
== END | disposition home or self-care (01) ==
LOC: RADUSWWP 14:52
PROVIDERS: ATTEND Family Medicine
DX: R10.9 Unspecified abdominal pain (principal); Z87.19 Personal history of other diseases of the digestive system
CPT/HCPCS: 76705

== ENCOUNTER → 2020-02-15 | Outpatient (CLI) | payer MEDICARE ==
--- NOTE | 2020-02-15 10:06 | FL ---
EXAMINATION TYPE: FL UGI air DATE OF EXAM: 02/15/2020 COMPARISON: NONE HISTORY: Epigastric pain TECHNIQUE: A double contrast UGI study is performed. 21images and 2.4 minutes of fluoroscopy FINDINGS: Abrasive Mixer image of the abdomen shows no gross abnormality. There are tertiary contractions of esophagus. There is a small hiatal hernia with mild gastroesophage al reflux. Mild thickening of the wall the distal esophagus be associated with esophagitis correlate clinically. Stomach is normal in size shape and position. No definite ulcer crater or filling defect. Single cont rast duodenal bulb has a normal appearance. Sweep has a normal appearance. IMPRESSION: 1. Small hiatal hernia with mild gastroesophageal reflux consider direct visualization to assess for esophagitis.
== END | disposition home or self-care (01) ==
LOC: RADUSWWP 08:50
PROVIDERS: ATTEND Family Medicine
DX: K21.9 Gastro-esophageal reflux disease without esophagitis (principal); K44.9 Diaphragmatic hernia without obstruction or gangrene; Z87.19 Personal history of other diseases of the digestive system
CPT/HCPCS: 74246

== ENCOUNTER 2020-04-03 08:40 | Day surgery (SDC) | payer MEDICARE, OTHER ==
[2020-03-29 13:50] VITALS: BMI 34.7
[~2020-04-03 08:40] MED LIST: LACTATED RINGERS 1,000 ML IV SCH; LIDOCAINE 1% (10MG/ML) FOR IV START INTRADERMA PRN
[2020-04-03 09:51] VITALS: RESP 16; TEMP 99.5
[2020-04-03] MEDS ORDERED: LIDOCAINE 1% INJ 10MG/ML (20 ML MDV) ONE (10:32)
[2020-04-03] MEDS ORDERED: GLYCOPYRROLATE 0.2 MG/ML 2 ML VIAL ONE (10:32)
[2020-04-03] MEDS ORDERED: PROPOFOL 10 MG/ML 20 ML VIAL IV ONE (10:32)
--- NOTE | 2020-04-03 10:42 | P.PCN ---
Date of Procedure: 04/03/20 Procedure(s) Performed: BRIEF HISTORY: Patient is a 49 year-old, pleasant, -[place] male scheduled for an upper endoscopy for evaluation of chronic epigastric pain of one month duration PROCEDURE PERFORMED: Esophagogastroduodenoscopy with biopsy . PREOPERATIVE DIAGNOSIS: Epigastric pain of 1 month duration IV sedation per anesthesia. PROCEDURE: After informed consent was obtained, the patient was brought into the endoscopy unit. IV sedation was administered by Anesthesia under continuous monitoring. Initially the Olympus GIF-140 video endoscope was inserted into the mouth. Esophagus intubated without any difficulty. It was gradually advanced into the stomach and duodenum and carefully examined. The bulb and the second part of the duodenum appeared normal. different done from the duodenum to rule out celiac disease. The scope at this time was withdrawn to the stomach, adequately insufflated with air, and upon careful examination, mucosa of the antrum had mild gastritis and biopsies were done from this area. The , body, cardia and the fundus appeared normal. The scope was then withdrawn into the esophagus. The GE junction was located at 39 cm from the incisors. The esophagus appeared normal. There were no erosions or ulcerations seen, biopsies were done from the esophagus and the patient tolerated the procedure well. IMPRESSION: 1. Mild antral gastritis but no evidence of peptic ulcer . 2. Normal-appearing esophagus with no evidence of esophagitis RECOMMENDATIONS: The findings of this examination were discussed with the patient as well as his family. He was advised to follow with the biopsy. He will continue with omeprazole 20 mg daily and continue to follow antireflux measures.
[2020-04-03 11:12] VITALS: BP 128/74; PULSE 74
== END 2020-04-03 11:22 | disposition home or self-care (01) ==
LOC: ORWHC2ENDO 08:40
PROVIDERS: ATTEND Internal Medicine Gastroenterology
DX: K29.50 Unspecified chronic gastritis without bleeding (principal); K20.9 Esophagitis, unspecified; I10 Essential (primary) hypertension; E78.5 Hyperlipidemia, unspecified; E66.9 Obesity, unspecified; Z79.02 Long term (current) use of antithrombotics/antiplatelets; Z79.3 Long term (current) use of hormonal contraceptives; Z79.899 Other long term (current) drug therapy; Z68.35 Body mass index [BMI] 35.0-35.9, adult
CPT/HCPCS: 88305; 43239; J2001; J2704

== ENCOUNTER 2020-05-16 07:11 | Observation (INO) | payer MEDICARE, OTHER ==
[2020-05-16] MEDS ORDERED: NITROGLYCERIN SL TABS 0.4 MG TAB SUBLINGUAL STA (07:28)
[2020-05-16] MEDS ORDERED: ASPIRIN 81 MG PO STA (07:28)
[2020-05-16] MEDS ORDERED: NITROGLYCERIN OINT 1 INCH/GM PACKET TOPICAL STA (07:29)
--- NOTE | 2020-05-16 07:36 | ED ---
SOB HPI - General Chief Complaint: Shortness of Breath Stated Complaint: DANE Time Seen by Provider: 05/16/20 07:20 Source: patient Mode of arrival: wheelchair Limitations: no limitations - History of Present Illness Initial Comments: This patient is a 49-year-old man with history of previous coronary artery disease and stent placement 2 years ago. Patient states that over the past week to perhaps 2 weeks he has been having increasing episodes of shortness of breath. He states that he has also had a little bit of substernal chest pressure. The patientstates that the shortness of breath was worse this morning when he woke up. He does note he was seen by his parts representative yesterday and they were going to arrange a stress test. He did have a stress test in August that was limited but normal. No other anginal symptoms, no diaphoresis, palpitat ions, nausea or vomiting. MD Complaint: shortness of breath, chest pain -: week(s) Severity: moderate Quality: dull Consistency: intermittent Improves With: nothing Worsens With: exertion Associated Symptoms: denies other symptoms Treatments Prior to Arrival: none - Related Data Home Oxygen Therapy: No Home Medications Medication Instructions Recorded Confirmed Carvedilol [Coreg] 12.5 mg PO BID 06/22/18 05/16/20 Lisinopril [Zestril] 10 mg PO HS 02/23/19 05/16/20 Spironolactone 25 mg PO DAILY 02/23/19 05/16/20 oxyCODONE HCL/ACETAMINOPHEN 1 tab PO QID PRN 02/23/19 05/16/20 [Percocet 10-325 mg] Rosuvastatin Calcium 20 mg PO HS 11/13/19 05/16/20 Testosterone Cypionate 300 mg IM Q28D 11/13/19 05/16/20 [Depo-Testosterone] methylPREDNISolone Dose Pack See Taper PO DAILY 05/16/20 05/16/20 [Medrol Dose Pack] Previous Rx's Medication Instructions Recorded Aspirin 81 mg PO DAILY #30 chew 05/20/18 Allergies Allergy/AdvReac Type Severity Reaction Status Date / Time No Known Allergies Allergy Verified 05/16/20 08:23 Review of Systems ROS Statement: Those systems with pertinent positive or pertinent negative responses have been documented in the HPI. ROS Other: All systems not noted in ROS Statement are negative. Constitutional: Denies: fever, chills Respiratory: Reports: as per HPI, dyspnea. Denies: cough Cardiovascular: Reports: chest pain, dyspnea on exertion. Denies: palpitations, orthopnea, edema, syncope Gastrointestinal: Denies: abdominal pain, nausea, vomiting Genitourinary: Denies: dysuria, hematuria Musculoskeletal: Denies: back pain Skin: Denies: rash Neurological: Denies: headache, weakness, numbness Past Medical History Past Medical History: Chest Pain / Angina, Hyperlipidemia, Hypertension, Osteoarthritis (OA) Additional Past Medical History / Comment(s): Low testosterone., Last Myocardial Infarction Date:: 2017 History of Any Multi-Drug Resistant Organisms: None Reported Past Surgical History: Back Surgery, Heart Catheterization With Stent Additional Past Surgical History / Comment(s): back surgeries x2, Past Anesthesia/Blood Transfusion Reactions: No Reported Reaction Date of Last Stent Placement:: 05/19/18 Past Psychological History: Anxiety, Bipolar Smoking Status: Former smoker Past Alcohol Use History: Daily Past Drug Use History: Methamphetamine - Past Family History Father Family Medical History: Cancer Additional Family Medical History / Comment(s): lung Mother Family Medical History: Cancer Additional Family Medical History / Comment(s): colon General Exam Limitations: no limitations General appearance: alert, in no apparent distress Head exam: Present: atraumatic, normocephalic Eye exam: Present: normal appearance. Absent: scleral icterus, conjunctival injection ENT exam: Present: normal oropharynx Respiratory exam: Present: normal lung sounds bilaterally. Absent: respiratory distress, wheezes, rales, rhonchi, stridor Cardiovascular Exam: Present: regular rate, normal rhythm, normal heart sounds. Absent: systolic murmur, diastolic murmur, rubs, gallop GI/Abdominal exam: Present: soft. Absent: distended, tenderness, guarding, rebound, rigid, mass Extremities exam: Present: normal inspection, normal capillary refill. Absent: pedal edema, calf tenderness Back exam: Present: normal inspection. Absent: CVA tenderness (R), CVA tenderness (L) Neurological exam: Present: alert Skin exam: Present: warm, dry, intact, normal color. Absent: rash Course Vital Signs 05/16/20 05/16/20 05/16/20 07:15 07:44 07:53 Temperature 99.0 F Pulse Rate 101 H 84 78 Respiratory 18 18 18 Rate Blood Pressure 131/79 130/78 O2 Sat by Pulse 99 96 Oximetry 05/16/20 05/16/20 05/16/20 08:00 08:01 08:30 Temperature Pulse Rate 76 78 81 Respiratory 17 18 Rate Blood Pressure 130/78 125/74 125/74 O2 Sat by Pulse 96 93 L Oximetry 05/16/20 05/16/20 05/16/20 09:00 09:30 10:00 Temperature Pulse Rate 74 78 75 Respiratory 18 16 Rate Blood Pressure 114/72 107/47 97/79 O2 Sat by Pulse 93 L 93 L 95 Oximetry 05/16/20 05/16/20 10:30 11:05 Temperature 98.4 F Pulse Rate 69 Respiratory Rate Blood Pressure 106/61 O2 Sat by Pulse 94 L Oximetry Medical Decision Making - Lab Data Result diagrams: 05/16/20 07:48 05/16/20 07:48 Lab Results 05/16/20 05/16/20 05/16/20 Range/Units 07:48 07:48 07:48 WBC 4.3 (3.8-10.6) k/uL RBC 4.97 (4.30-5.90) m/uL Hgb 15.4 (13.0-17.5) gm/dL Hct 45.4 (39.0-53.0) % MCV 91.4 (80.0-100.0) fL MCH 31.0 (25.0-35.0) pg MCHC 33.9 (31.0-37.0) g/dL RDW 13.2 (11.5-15.5) % Plt Count 142 L (150-450) k/uL MPV 6.6 Neutrophils % 76 % Lymphocytes % 17 % Monocytes % 6 % Eosinophils % 1 % Basophils % 0 % Neutrophils # 3.3 (1.3-7.7) k/uL Lymphocytes # 0.7 L (1.0-4.8) k/uL Monocytes # 0.2 (0-1.0) k/uL Eosinophils # 0.0 (0-0.7) k/uL Basophils # 0.0 (0-0.2) k/uL PT 10.6 (9.0-12.0) sec INR 1.0 (<1.2) APTT 23.0 (22.0-30.0) sec Sodium 135 L (137-145) mmol/L Potassium 4.2 (3.5-5.1) mmol/L Chloride 103 (98-107) mmol/L Carbon Dioxide 23 (22-30) mmol/L Anion Gap 9 mmol/L BUN 25 H (9-20) mg/dL Creatinine 1.26 H (0.66-1.25) mg/dL Est GFR (CKD-EPI)AfAm 76 (>60 ml/min/1.73 sqM) Est GFR (CKD-EPI)NonAf 66 (>60 ml/min/1.73 sqM) Glucose 168 H (74-99) mg/dL Plasma Lactic Acid Pritesh (0.7-2.0) mmol/L Calcium 8.9 (8.4-10.2) mg/dL Total Bilirubin 0.6 (0.2-1.3) mg/dL AST 23 (17-59) U/L ALT 19 (4-49) U/L Alkaline Phosphatase 61 (38-126) U/L Troponin I (0.000-0.034) ng/mL NT-Pro-B Natriuret Pep pg/mL Total Protein 7.6 (6.3-8.2) g/dL Albumin 4.3 (3.5-5.0) g/dL 05/16/20 05/16/20 05/16/20 Range/Units 07:48 07:48 07:48 WBC (3.8-10.6) k/uL RBC (4.30-5.90) m/uL Hgb (13.0-17.5) gm/dL Hct (39.0-53.0) % MCV (80.0-100.0) fL MCH (25.0-35.0) pg MCHC (31.0-37.0) g/dL RDW (11.5-15.5) % Plt Count (150-450) k/uL MPV Neutrophils % % Lymphocytes % % Monocytes % % Eosinophils % % Basophils % % Neutrophils # (1.3-7.7) k/uL Lymphocytes # (1.0-4.8) k/uL Monocytes # (0-1.0) k/uL Eosinophils # (0-0.7) k/uL Basophils # (0-0.2) k/uL PT (9.0-12.0) sec INR (<1.2) APTT (22.0-30.0) sec Sodium (137-145) mmol/L Potassium (3.5-5.1) mmol/L Chloride (98-107) mmol/L Carbon Dioxide (22-30) mmol/L Anion Gap mmol/L BUN (9-20) mg/dL Creatinine (0.66-1.25) mg/dL Est GFR (CKD-EPI)AfAm (>60 ml/min/1.73 sqM) Est GFR (CKD-EPI)NonAf (>60 ml/min/1.73 sqM) Glucose (74-99) mg/dL Plasma Lactic Acid Pritesh 1.7 (0.7-2.0) mmol/L Calcium (8.4-10.2) mg/dL Total Bilirubin (0.2-1.3) mg/dL AST (17-59) U/L ALT (4-49) U/L Alkaline Phosphatase (38-126) U/L Troponin I <0.012 (0.000-0.034) ng/mL NT-Pro-B Natriuret Pep 31 pg/mL Total Protein (6.3-8.2) g/dL Albumin (3.5-5.0) g/dL - EKG Data -: EKG Interpreted by Me EKG shows normal: sinus rhythm, axis (normal), intervals (normal), QRS complexes (normal) Rate: normal (ate 85 bpm) Interpretation: nonspecific ST-T wave changes Disposition Clinical Impression: Chest pain Disposition: ADMITTED IP TO THIS HOSP Condition: Fair Is patient prescribed a controlled substance at d/c from ED?: No
[2020-05-16 08:06] LABS: Basophils % (A) 0 %; Eosinophils % (A) 1 %; HCT 45.4 % (39.0-53.0); HGB 15.4 gm/dL (13.0-17.5); Lymphocytes # (A) 0.7 k/uL (1.0-4.8); Lymphocytes % (A) 17 %; MCHC 33.9 g/dL (31.0-37.0); MCV 91.4 fL (80.0-100.0); Mean Platelet Volume 6.6; Monocytes # (A) 0.2 k/uL (0-1.0); Monocytes % (A) 6 %; Neutrophils # (A) 3.3 k/uL (1.3-7.7); Neutrophils % (A) 76 %; Platelet Count 142 k/uL (150-450); RBC 4.97 m/uL (4.30-5.90); RDW 13.2 % (11.5-15.5); WBC 4.3 k/uL (3.8-10.6)
[2020-05-16] MEDS ORDERED: NITROGLYCERIN SL TABS 0.4 MG TAB SUBLINGUAL PRN (08:13)
[2020-05-16 08:14] LABS: Albumin 4.3 g/dL (3.5-5.0); Calcium 8.9 mg/dL (8.4-10.2); Potassium 4.2 mmol/L (3.5-5.1); Total Bilirubin 0.6 mg/dL (0.2-1.3); Total Protein 7.6 g/dL (6.3-8.2)
[2020-05-16 08:30] LABS: Prothrombin Time 10.6 sec (9.0-12.0)
--- NOTE | 2020-05-16 08:33 | XR ---
EXAMINATION TYPE: XR chest 2V DATE OF EXAM: 05/16/2020 COMPARISON: Chest x-ray November 15, 2019 HISTORY: Shortness of breath. TECHNIQUE: Frontal and lateral views of the chest are obtained. FINDINGS: The cardiac silhouette size is upper limits of normal. There appears to be new mild centra l vascular congestion. No pleural effusion or pneumothorax seen bilaterally. EKG leads. The osseous structures are intact. IMPRESSION New mild central vascular congestion raising concern for fluid overload state.
--- NOTE | 2020-05-16 10:02 | P.CRDCN ---
History of Present Illness History of present illness: HISTORY OF PRESENTING ILLNESS This is a pleasant 49-year-old -[place] male past medical history significant for coronary artery disease status post PCI to the LAD, hypertension, dyslipidemia, dilated cardiomyopathy, thrombocytopenia, former nicotine dependence and history of illicit drug use in the past. He follows in the office with Dr. Gr. We have been asked to see in consultation for shortness of breath. He states for the previous couple weeks he has been experiencing increasing shortness of breath. He saw Dr. Gr in the office yesterday who performed an echocardiogram and recommended an outpatient stress test. He had a dobutamine stress echocardiogram back in August of this year that was inconclusive secondary to inability to achieve target heart rate however negative at 131 beats that were achieved. The patient was seen and examined sitting up in the emergency department on the stretcher in no acute distress. He states his breathing is currently stable. His shortness of breath has been mostly with exertion, this is similar to how he felt back in 2018 when he needed his stents. He denies any associated symptoms of chest discomfort, dizziness, palpitations, nausea, vomiting or diaphoresis. He works out regularly at the gym and his shortness of breath occurs sometimes 15 minutes into his exercise and sometimes 45 minutes into his exercise. Most recent echocardiogram done 08/2019 revealed preserved LV systolic function with EF 55- 60%, mild LVH. Previous echos in the office reveal mostly impaired LV function with EF 45%. Echo was repeated yesterday in the office. DIAGNOSTICS EKG reveals sinus mechanism with nonspecific T-wave flattening in the inferior leads. Chest xray new mild central vascular congestion. Laboratory reviewed, WBC 4.3, hemoglobin 15.4, platelets 142, sodium 135, potassium 4.2, creatinine 1.26, cardiac enzymes negative 1. Current cardiac medications include aspirin 81 mg daily, lisinopril 10 mg at bedtime, carvedilol 12.5 mg twice a day, rosuvastatin 20 mg at bedtime and Aldactone 25 mg daily. Most recent cardiac catheterization performed June 2018 revealed a widely patent stent in the LAD, RCA and circumflex free of significant disease. REVIEW OF SYSTEMS At the time of my exam: CONSTITUTIONAL: Denies fever or chills. CARDIOVASCULAR: Denies chest pain, shortness of breath, orthopnea, PND or palp itations. RESPIRATORY: Denies cough. GASTROINTESTINAL: Denies abdominal pain, diarrhea, constipation, nausea or vomiting. MUSCULOSKELETAL: Denies myalgias. NEUROLOGIC: Denies numbness, tingling or weakness. ENDOCRINE: Denies fatigue, weight change, polydipsia or polyurina. GENITOURINARY: Denies burning, hematuria or urgency with micturation. HEMATOLOGIC: Denies history of anemia or bleeding. PHYSICAL EXAMINATION Blood pressure 107/47 heart rate 78 afebrile and maintaining oxygen saturation o n nasal cannula. CONSTITUTIONAL: No apparent distress. HEENT: Head is normocephalic. Pupils are equal, round. Sclerae anicteric. Mucous membranes of the mouth are moist. No JVD. No carotid bruit. CHEST EXAMINATION: Lungs are clear to auscultation. No chest wall tenderness is noted on palpation or with deep breathing. HEART EXAMINATION: Regular rate and rhythm. S1, S2 heard. No murmurs, gallops or rub. ABDOMEN: Soft, nontender. Positive bowel sounds. EXTREMITIES: 2+ peripheral pulses, no lower extremity edema and no calf tenderness. NEUROLOGIC EXAMINATION: Patient is awake, alert and oriented x3. ASSESSMENT Exertional shortness of breath Coronary artery disease s/p PCI LAD 2018 Dilated cardiomyopathy, improved Chronic systolic heart failure Hypertension Dyslipidemia Thrombocytopenia Chronic kidney disease PLAN Continue to obtain serial cardiac enzymes to rule out an acute event. Check NTproBNP Echo images from the office will be reviewed. Resume lisinopril, coreg, aldactone and aspirin as previously ordered. Further recommendations to follow. Thank you kindly for this consultation. Nurse Practitioner note has been reviewed, I agree with a documented findings and plan of care. Patient was seen and examined. Past Medical History Past Medical History: Chest Pain / Angina, Hyperlipidemia, Hypertension, Osteoarthritis (OA) Additional Past Medical History / Comment(s): Low testosterone., Last Myocardial Infarction Date:: 2017 History of Any Multi-Drug Resistant Organisms: None Reported Past Surgical History: Back Surgery, Heart Catheterization With Stent Additional Past Surgical History / Comment(s): back surgeries x2, Past Anesthesia/Blood Transfusion Reactions: No Reported Reaction Date of Last Stent Placement:: 05/19/18 Past Psychological History: Anxiety, Bipolar Smoking Status: Former smoker Past Alcohol Use History: Daily Past Drug Use History: Methamphetamine - Past Family History Father Family Medical History: Cancer Additional Family Medical History / Comment(s): lung Mother Family Medical History: Cancer Additional Family Medical History / Comment(s): colon Medications and Allergies Home Medications Medication Instructions Recorded Confirmed Type Aspirin 81 mg PO DAILY #30 chew 05/20/18 05/16/20 Rx Carvedilol [Coreg] 12.5 mg PO BID 06/22/18 05/16/20 History Lisinopril [Zestril] 10 mg PO HS 02/23/19 05/16/20 History Spironolactone 25 mg PO DAILY 02/23/19 05/16/20 History oxyCODONE HCL/ACETAMINOPHEN 1 tab PO QID PRN 02/23/19 05/16/20 History [Percocet 10-325 mg] Rosuvastatin Calcium 20 mg PO HS 11/13/19 05/16/20 History Testosterone Cypionate 300 mg IM Q28D 11/13/19 05/16/20 History [Depo-Testosterone] methylPREDNISolone Dose Pack See Taper PO DAILY 05/16/20 05/16/20 History [Medrol Dose Pack] Allergies Allergy/AdvReac Type Severity Reaction Status Date / Time No Known Allergies Allergy Verified 05/16/20 08:23 Physical Exam Vitals: Vital Signs Temp Pulse Resp BP Pulse Ox 05/16/20 09:30 78 16 107/47 93 L 05/16/20 09:00 74 18 114/72 93 L 05/16/20 08:30 81 18 125/74 93 L 05/16/20 08:01 78 125/74 05/16/20 08:00 76 17 130/78 96 05/16/20 07:53 78 18 130/78 05/16/20 07:44 84 18 96 05/16/20 07:15 99.0 F 101 H 18 131/79 99 Intake and Output 05/15/20 05/16/20 05/16/20 22:59 06:59 14:59 Other: Weight 104.326 kg Results 05/16/20 07:48 05/16/20 07:48 Cardiac Enzymes 05/16/20 05/16/20 Range/Units 07:48 07:48 AST 23 (17-59) U/L Troponin I <0.012 (0.000-0.034) ng/mL Coagulation 05/16/20 Range/Units 07:48 PT 10.6 (9.0-12.0) sec APTT 23.0 (22.0-30.0) sec CBC 05/16/20 Range/Units 07:48 WBC 4.3 (3.8-10.6) k/uL RBC 4.97 (4.30-5.90) m/uL Hgb 15.4 (13.0-17.5) gm/dL Hct 45.4 (39.0-53.0) % Plt Count 142 L (150-450) k/uL Comprehensive Metabolic Panel 05/16/20 Range/Units 07:48 Sodium 135 L (137-145) mmol/L Potassium 4.2 (3.5-5.1) mmol/L Chloride 103 (98-107) mmol/L Carbon Dioxide 23 (22-30) mmol/L BUN 25 H (9-20) mg/dL Creatinine 1.26 H (0.66-1.25) mg/dL Glucose 168 H (74-99) mg/dL Calcium 8.9 (8.4-10.2) mg/dL AST 23 (17-59) U/L ALT 19 (4-49) U/L Alkaline Phosphatase 61 (38-126) U/L Total Protein 7.6 (6.3-8.2) g/dL Albumin 4.3 (3.5-5.0) g/dL Current Medications Generic Name Dose Route Start Last Admin Trade Name Freq PRN Reason Stop Dose Admin Aspirin 325 mg 05/17/20 09:00 Aspirin 325 Mg Tab PO DAILY NOEMÍ Nitroglycerin 0.4 mg 05/16/20 08:13 Nitroglycerin Sl Tabs 0.4 Mg Tab SUBLINGUAL Q5M PRN Chest Pain Intake and Output 05/15/20 05/16/20 05/16/20 22:59 06:59 14:59 Other: Weight 104.326 kg Patient Weight 05/17/20 06:59 Weight 104.326 kg 05/16/20 07:48 05/16/20 07:48
[2020-05-16 11:42] LABS: Cholesterol 118 mg/dL (<200); HDL Cholesterol 34 mg/dL (40-60); LDL Cholesterol,Calculated 74 mg/dL (0-99); Triglycerides 52 mg/dL (<150)
[2020-05-16] MEDS: SPIRONOLACTONE 25 MG TAB PO SCH (11:47)
[2020-05-16] MEDS: ASPIRIN 81 MG PO SCH (11:47)
[2020-05-16] MEDS ORDERED: ALBUTEROL NEBULIZED 2.5 MG/3 ML INHALATION PRN (15:28)
[2020-05-16] MEDS: ALBUTEROL NEBULIZED 2.5 MG/3 ML INHALATION SCH ×2 (15:40→19:14)
[2020-05-16 15:42] LABS: Amphetamine Screen,Urine Not Detected (NotDetected); Barbiturate Screen,Urine Not Detected (NotDetected); Benzodiazepines Screen,Urine Not Detected (NotDetected); Cocaine Screen,Urine Not Detected (NotDetected); Methadone Screen, Urine Not Detected (NotDetected); Opiate Screen,Urine Not Detected (NotDetected); Oxycodone Screen, Urine Detected (NotDetected); Phencyclidine Screen,Urine Not Detected (NotDetected); Tricyclic Antidepressant,Urine Not Detected (NotDetected); Urn Cannabinoid Scrn Not Detected (NotDetected)
[2020-05-16] MEDS ORDERED: ALPRAZolam 0.5 MG TAB PO PRN (15:56)
[2020-05-16] MEDS: carvediloL 12.5 MG TAB PO SCH (15:56)
[2020-05-16] MEDS ORDERED: SODIUM CHLORIDE 0.9% 1,000 ML in EMPTY BAG 1 BAG IV ONE (15:56)
[2020-05-16] MEDS ORDERED: ALPRAZolam 0.25 MG TAB PO PRN (15:56)
--- NOTE | 2020-05-16 18:19 | HP ---
HISTORY AND PHYSICAL CHIEF COMPLAINT: Shortness of breath and chest discomfort. HISTORY OF PRESENT ILLNESS: This is another admission for this 49-year-old -[place] male who has had a prior history of coronary artery disease. He came into the emergency room with a history of shortness of breath and some mild chest discomfort. He had no fever, no chills, headache, cough, hemoptysis, orthopnea, PND, palpitations, loss of taste or smell, etc. Cardiac enzymes are normal. He was admitted for evaluation and workup. REVIEW OF SYSTEMS: He has had no neurologic problems, difficulty with vision or hearing, abdominal pain, nausea, vomiting, melena, hematochezia, jaundice, hepatitis, renal failure, hematuria frequency, urgency, incontinence, diabetes, etc. He does have borderline renal function. Past medical history, family history, and personal and social history found: ALLERGIC: Not allergic to any medication. MEDICATIONS: He is on Carafate 1 g 4 times a day, carvedilol 12.5 twice a day, testosterone injection every 3 weeks, 81 mg of aspirin, Crestor 40 once a day, spironolactone 25 mg once a day, Percocet 10/3.25 q.i.d. p.r.n. for back pain, and lisinopril 40 mg once a day. The remainder of his history is unremarkable. He used to smoke but does not any longer. He does not drink and denies use of drugs. PHYSICAL EXAMINATION: Blood pressure 137/86 with a pulse of 84, respirations of 20 and he is afebrile. In general, he appeared to be well developed, well nourished, in no acute distress. He had multiple tattoos. Head, ears, eyes, nose, mouth, and throat were normal and neck veins not distended. Thyroid not enlarged. Chest is clear. Cardiac exam is normal. Abdomen is soft, nontender. Extremities are normal. Neurologically he is intact. IMPRESSION: He is admitted to the hospital with diagnoses: 1. Shortness of breath. 2. History of coronary artery disease. 3. History of hypertension. PLAN: 1. Bed rest. 2. IV fluids. 3. Serial EKGs and enzymes. 4. D-dimer. 5. BNP. 6. Cardiology consult. MMODL / IJN: [id number] /
[2020-05-16] MEDS ORDERED: lisinopriL 10 MG TAB PO SCH (21:00)
[2020-05-16] MEDS ORDERED: ATORVASTATIN 40 MG TAB PO SCH (21:00)
[2020-05-17] MEDS: ALBUTEROL NEBULIZED 2.5 MG/3 ML INHALATION SCH ×3 (07:56→15:13)
[2020-05-17] MEDS: SPIRONOLACTONE 25 MG TAB PO SCH (08:34)
[2020-05-17] MEDS: carvediloL 12.5 MG TAB PO SCH (08:34)
[2020-05-17] MEDS: ASPIRIN 81 MG PO SCH (08:34)
--- NOTE | 2020-05-17 08:45 | P.CNPUL ---
History of Present Illness Consult date: 05/17/20 Requesting physician: Bossman Kent Reason for consult: dyspnea Chief complaint: Shortness of breath History of present illness: This is a very pleasant 49-year-old gentleman who follows with Dr. Kent as his primary care provider. He has a history of hypertension, coronary artery disease with previous stent placement to the LAD, hyperlipidemia, low testosterone, bipolar disorder. Previous smoker. Daily alcohol use. Previous history of methamphetamines. He presented here to the emergency room yesterday with complaints of 2 week history of increasing shortness of breath. He stated he had a little bit of substernal chest discomfort. He had been seen by his chief design branch and they were planning a stress test however he ended up here in the hospital. The plan is for cardiac catheterization this morning. He is seen in consultation in the observation unit. He is awake and alert in no acute distress. Currently no chest pain. His shortness breath was mainly with activity. This x-ray reveals some new mild central vascular congestion possible fluid volume overload. White count 4.3. Hemoglobin 15.4. D-dimer 0.29. Sodium 135. Potassium 4.2. Creatinine 1.6. Troponins negative 3. Drug screen positive for oxycodone. Collins virus not detected. Echocardiogram from August 2019 revealed preserved left ventricular systolic function with ejection fraction 55-60%. Review of Systems REVIEW OF SYSTEMS: CONSTITUTIONAL: Denies any recent significant weight loss or weight gain. EYES: Denies change in vision. EARS, NOSE, MOUTH, THROAT: Denies headaches, denies sore throat. CARDIOVASCULAR: Positive for mild substernal chest pain, no palpitations or syncopal episodes. RESPIRATORY: Positive for shortness of breath, no cough, congestion or hemoptysis. GASTROINTESTINAL: Denies change in appetite, denies abdominal pain GENITOURINARY: Denies hematuria, denies infections. MUSKULOSKELETAL: Denies pain, denies swelling. INTEGUMENTARY: Denies rash, denies eczema. NEUROLOGICAL: Denies recent memory loss, no recent seizure activity. PSYCHIATRIC: Denies anxiety, denies depression. HEMATOLOGIC/LYMPHATIC: Denies anemia, denies enlarged lymph nodes. Past Medical History Past Medical History: Chest Pain / Angina, Hyperlipidemia, Hypertension, Osteoarthritis (OA) Additional Past Medical History / Comment(s): Low testosterone., Last Myocardial Infarction Date:: 2017 History of Any Multi-Drug Resistant Organisms: None Reported Past Surgical History: Back Surgery, Heart Catheterization With Stent Additional Past Surgical History / Comment(s): back surgeries x2, Past Anesthesia/Blood Transfusion Reactions: No Reported Reaction Date of Last Stent Placement:: 05/19/18 Past Psychological History: Anxiety, Bipolar Smoking Status: Former smoker Past Alcohol Use History: Daily Past Drug Use History: Methamphetamine - Past Family History Father Family Medical History: Cancer Additional Family Medical History / Comment(s): lung Mother Family Medical History: Cancer Additional Family Medical History / Comment(s): colon Medications and Allergies Home Medications Medication Instructions Recorded Confirmed Type Aspirin 81 mg PO DAILY #30 chew 05/20/18 05/16/20 Rx Carvedilol [Coreg] 12.5 mg PO BID 06/22/18 05/16/20 History Lisinopril [Zestril] 10 mg PO HS 02/23/19 05/16/20 History Spironolactone 25 mg PO DAILY 02/23/19 05/16/20 History oxyCODONE HCL/ACETAMINOPHEN 1 tab PO QID PRN 02/23/19 05/16/20 History [Percocet 10-325 mg] Rosuvastatin Calcium 20 mg PO HS 11/13/19 05/16/20 History Testosterone Cypionate 300 mg IM Q28D 11/13/19 05/16/20 History [Depo-Testosterone] methylPREDNISolone Dose Pack See Taper PO DAILY 05/16/20 05/16/20 History [Medrol Dose Pack] Allergies Allergy/AdvReac Type Severity Reaction Status Date / Time No Known Allergies Allergy Verified 05/16/20 08:23 Physical Exam Vitals: Vital Signs Temp Pulse Pulse Resp BP BP BP 05/17/20 08:26 98.1 F 81 18 122/61 05/17/20 02:14 15 05/17/20 02:11 98.3 F 73 15 94/59 05/16/20 19:45 98.4 F 71 18 126/62 05/16/20 19:43 16 05/16/20 19:26 76 05/16/20 19:15 70 05/16/20 15:54 90 05/16/20 15:41 88 05/16/20 15:03 98.3 F 71 16 113/64 05/16/20 11:43 98.4 F 69 16 95/57 05/16/20 11:05 98.4 F 05/16/20 10:30 69 106/61 05/16/20 10:00 75 97/79 05/16/20 09:30 78 16 107/47 05/16/20 09:00 74 18 114/72 Pulse Ox 05/17/20 08:26 97 05/17/20 02:14 05/17/20 02:11 100 05/16/20 19:45 96 05/16/20 19:43 05/16/20 19:26 05/16/20 19:15 05/16/20 15:54 05/16/20 15:41 05/16/20 15:03 96 05/16/20 11:43 97 05/16/20 11:05 05/16/20 10:30 94 L 05/16/20 10:00 95 05/16/20 09:30 93 L 05/16/20 09:00 93 L Intake and Output 05/16/20 05/17/20 05/17/20 22:59 06:59 14:59 Other: Voiding Method Toilet Toilet # Voids 1 GENERAL EXAM: Alert, pleasant 49-year-old -[place] gentleman, on room air, comfortable in no apparent distress. HEAD: Normocephalic. EYES: Normal reaction of pupils, equal size. NOSE: Clear with pink turbinates. THROAT: No erythema or exudates. NECK: No masses, no JVD. CHEST: No chest wall deformity. LUNGS: Equal air entry with no crackles, wheeze, rhonchi or dullness. CVS: S1 and S2 normal with no audible murmur, regular rhythm. ABDOMEN: No hepatosplenomegaly, normal bowel sounds, no guarding or rigidity. SPINE: No scoliosis or deformity SKIN: No rashes CENTRAL NERVOUS SYSTEM: No focal deficits, tone is normal in all 4 extremities. EXTREMITIES: There is no peripheral edema. No clubbing, no cyanosis. Peripheral pulses are intact. Results - Laboratory Findings CBC and BMP: 05/16/20 07:48 05/16/20 07:48 PT/INR, D-dimer PT 10.6 sec (9.0-12.0) 05/16/20 07:48 INR 1.0 (<1.2) 05/16/20 07:48 D-Dimer 0.29 mg/L FEU (<0.60) 05/16/20 10:50 Abnormal lab findings: Abnormal Labs 05/16/20 05/16/20 05/16/20 07:48 07:48 10:50 Plt Count 142 L Lymphocytes # 0.7 L Sodium 135 L BUN 25 H Creatinine 1.26 H Glucose 168 H HDL Cholesterol 34 L Ur Oxycodone Screen 05/16/20 Unknown Plt Count Lymphocytes # Sodium BUN Creatinine Glucose HDL Cholesterol Ur Oxycodone Screen Detected H - Diagnostic Findings Chest x-ray: image reviewed Assessment and Plan Assessment: 1 Dyspnea secondary to mild fluid volume overload and possible diastolic congestive heart failure in a patient with a known history of preserved left ventricular systolic function 2 Coronary artery disease with previous stent placement to the LAD 3 Obesity 4 Hypertension 5 Hyperlipidemia 6 Acute on chronic renal failure, creatinine 1.26. 7 Low testosterone 8 History of bipolar disorder 9 History of methamphetamine use 10 History of chronic tobacco dependence 11 History of anxiety. Plan: The patient was seen and evaluated by Dr. Clarke Chest x-ray and labs reviewed Currently stable from the pulmonary standpoint Awaiting cardiac catheterization We will continue to follow I, the cosigning physician, performed a history & physical examination of the patient. Lungs sounds are clear. Maintaining good O2 saturations in the 90s on room air. I discussed the assessment and plan of care with my nurse practitioner, Carla Serra. I attest to the above consultation as dictated by her. Time with Patient: Greater than 30
[2020-05-17] MEDS ORDERED: ASPIRIN 325 MG TAB PO SCH (09:00)
[2020-05-17] MEDS ORDERED: ASPIRIN 81 MG PO SCH (09:00)
[2020-05-17] MEDS ORDERED: IV FLUID CONTINUATION 1,000 ML IV ONE (11:06)
[2020-05-17] MEDS ORDERED: fentaNYL (PF) 50 MCG/ML 2 ML AMP IVP ONE (11:37)
[2020-05-17] MEDS ORDERED: MIDAZOLAM 2 MG/2 ML VIAL IVP ONE (11:37)
[2020-05-17] MEDS ORDERED: LIDOCAINE 1% INJ 10MG/ML (20 ML MDV) SQ ONE (11:39)
[2020-05-17] MEDS ORDERED: VERAPAMIL SYRINGE (5 MG/10 ML) INTRAARTER ONE (11:42)
[2020-05-17] MEDS ORDERED: HEPARIN SODIUM 1,000 UN/ML (10ML VL) IVPB ONE (11:44)
[2020-05-17] MEDS ORDERED: IOPAMIDOL-370 125ML BTL INJ ONE (11:56)
--- NOTE | 2020-05-17 12:14 | P.CARDCATH ---
Date of Procedure: 05/17/20 Description of Procedure: PROCEDURES PERFORMED: Left heart catheterization, left ventriculogram, bilateral coronary angiography INDICATION: Unstable angina with dyspnea as his anginal equivalent, cardiomyopathy HISTORY: Patient is a pleasant 49-year-old male with history of coronary artery disease status post PCI to his mid LAD, hypertension, hyperlipidemia who has been having increased dyspnea on exertion over the last few weeks. He was seen in the office and had an outpatient 2-D echo performed which showed new drop in his ejection fraction to 35-40%. Unfortunately he was having continued symptoms and therefore presented to the emergency department. He denies any specific chest pain or pressure. CONSENT:I have discussed the risks, benefits and alternative therapies for the above-mentioned procedure and for both sedation/analgesia as well as necessary blood product administration, if indicated, as they pertain to this patient. The patient has indicated understanding and acceptance of the risks and procedures discussed. PROCEDURE: After the risks, benefits and alternatives of the above mentioned procedure explained in detail with the patient, informed consent was obtained. Patient was taken to the catheterization lab and prepped and draped in usual fashion. 1% lidocaine was used to anesthetize the right radial artery. A 6- Ukrainian sheath was placed in the right radial artery using modified Seldinger technique. Left coronary angiography was performed with a 5-Ukrainian JL 3.5 c atheter and right coronary angiography was performed with a 5-Ukrainian JR5 catheter in various views. A 5-Ukrainian pigtail catheter was inserted into the left ventricle and pressure measurements were obtained. Left ventriculography was performed in the YAN projection with a power injection. The right radial sheath was removed and a TR band was placed with hemostasis achieved. The patient tolerated the procedure well. Patient was transported back to the post catheterization holding area in stable condition. Conscious Sedation: Patient was monitored under the direct supervision of vision of myself for conscious sedation using 2 mg Versed and 50 mcg fentanyl for a total duration of 23 minutes HEMODYNAMICS: Ao: 115/72 LV: 110/2, LVEDP 17 SELECTIVE CORONARY ARTERIOGRAPHY: LEFT MAIN: The left main is a large caliber vessel which bifurcates into the LAD and circumflex. There is no significant stenosis. LEFT ANTERIOR DESCENDING CORONARY ARTERY: LAD is a large caliber vessel which wraps around to the apex. There are mild luminal irregularities of the mid LAD. There is a patent mid LAD stent without significant stenosis. There is mid to distal LAD bridging noted. LEFT CIRCUMFLEX CORONARY ARTERY: Left circumflex is a moderate caliber vessel without significant stenosis. RIGHT CORONARY ARTERY: The right coronary artery is a large caliber vessel which gives off a PDA and PLV branch and is the dominant vessel. There is no significant stenosis. LEFT VENTRICULOGRAPHY: Left ventricular ejection fraction is 45-50% without wall motion abnormalities. There is no significant mitral regurgitation and no significant gradient with pullback across the aortic valve. FINAL IMPRESSION: 1. Very mild luminal irregularities of the LAD and patent stent in the LAD. Otherwise normal coronary arteries as described above. 2. Mildly decreased ejection fraction 45-50% without wall motion abnormalities. 3. Mildly elevated left-sided filling pressures. PLAN: 1. Aggressive risk factor modification per most recent ACC/AHA guidelines. 2. Follow-up in the office in 1-2 weeks. 3. We will attempt a diuretic and monitor his response.
[2020-05-17] MEDS ORDERED: RX INFO: IV CONTRAST WAS GIVEN 1 EACH MISC MISCELLANE PRN (12:16)
[2020-05-17] MEDS ORDERED: SODIUM CHLORIDE 0.9% 1,000 ML IV SCH (12:30)
[2020-05-17 12:49] VITALS: RESP 16
[2020-05-17 13:15] VITALS: TEMP 98.4
[2020-05-17 14:57] VITALS: BP 127/57
[2020-05-17 15:22] VITALS: PULSE 76
--- NOTE | 2020-05-17 20:07 | DS ---
DISCHARGE SUMMARY DATE OF DISCHARGE: 05/17/2020 CHIEF COMPLAINT: Shortness of breath. HISTORY OF PRESENT ILLNESS AND PHYSICAL EXAMINATION: Details of this man's history and physical can be found in the initial workup. LABORATORY STUDIES: While he was in the hospital, he had laboratory studies, details of which can be found in the laboratory section of his chart. COURSE IN THE HOSPITAL: After admission, he was placed on bedrest, on intravenous fluids and had serial EKGs and enzymes which were normal. His BNP and D-dimer were also normal. He was seen by Cardiology and he was taken for a cardiac cath which was unremarkable. He was stable and doing well. It was felt that he could be discharged. He will go home on his usual activity and diet and regular medications along with Lasix 20 mg once a day and to be followed up in the office in several days. FINAL DIAGNOSES: 1. Shortness of breath. 2. History of coronary artery disease. 3. Low back pain. 4. Hypertension. OPERATIONS: Cardiac cath. CONSULTATION: Cardiology. He is improved. MMODL / IJN: [id number] /
[2020-05-18] MEDS ORDERED: FUROSEMIDE 20 MG TAB PO SCH (09:00)
== END 2020-05-17 16:15 | disposition home or self-care (01) ==
LOC: EC 07:11 → 1SOBS 08:14
PROVIDERS: ADMIT Family Medicine; ATTEND Family Medicine
DX: R06.02 Shortness of breath (principal); R07.89 Other chest pain; N17.9 Acute kidney failure, unspecified; I25.10 Atherosclerotic heart disease of native coronary artery without angina pectoris; E78.5 Hyperlipidemia, unspecified; M19.90 Unspecified osteoarthritis, unspecified site; I42.0 Dilated cardiomyopathy; D69.6 Thrombocytopenia, unspecified; I13.0 Hypertensive heart and chronic kidney disease with heart failure and stage 1 through stage 4 chronic kidney disease, or unspecified chronic kidney disease; N18.9 Chronic kidney disease, unspecified; I50.22 Chronic systolic (congestive) heart failure; R86.1 Abnormal level of hormones in specimens from male genital organs; F31.9 Bipolar disorder, unspecified; F41.9 Anxiety disorder, unspecified; M54.5 Low back pain; Z72.89 Other problems related to lifestyle; E66.9 Obesity, unspecified; Z68.34 Body mass index [BMI] 34.0-34.9, adult; Z79.82 Long term (current) use of aspirin; Z20.828 Contact with and (suspected) exposure to other viral communicable diseases; Z79.891 Long term (current) use of opiate analgesic; Z79.52 Long term (current) use of systemic steroids; Z79.899 Other long term (current) drug therapy; Z95.5 Presence of coronary angioplasty implant and graft; Z86.59 Personal history of other mental and behavioral disorders; I25.2 Old myocardial infarction; Z87.891 Personal history of nicotine dependence; Z87.898 Personal history of other specified conditions; Z98.890 Other specified postprocedural states; Z80.1 Family history of malignant neoplasm of trachea, bronchus and lung; Z80.0 Family history of malignant neoplasm of digestive organs
CPT/HCPCS: 99285; 36415; 94640 ×3; 93005 ×2; 93458; 85379; 83880; 80061; 80053; 83605; 84484; 85025; 85610; 85730; 80306; 87635; 71046; 99152; 99153; G0378 ×2; C1769; C1894; J2250; J2001; J3010; J1644; Q9967

== ENCOUNTER 2020-05-20 11:00 | Emergency (ER) | payer MEDICARE, OTHER ==
[2020-05-20 11:06] VITALS: TEMP 98
--- NOTE | 2020-05-20 11:33 | ED ---
General Adult HPI - General Chief complaint: Shortness of Breath Stated complaint: DANE Time Seen by Provider: 05/20/20 11:19 Source: patient, RN notes reviewed Mode of arrival: wheelchair Limitations: no limitations - History of Present Illness Initial comments: 49-year-old male with a past medical history of CAD presents to the emergency room for shortness of breath. Patient was recently admitted a few days ago for similar complaints. At that time his BNP and d-dimer were normal. He was seen by cardiology and was taken for cardiac cath which was unremarkable. His Collins virus was negative. He was discharged home with Lasix and was to follow-up in the office. Patient reports that since he was discharged these episodes have continued. States that he has been having some mild shortness of breath that comes and goes. States that "flares up" and then goes away after lasting for several minutes. Patient states it happened last night and he went to [facility] and was discharged home. It happened again today. He went and saw his doctor who r ecommended possible pulmonology follow-up. He has an appointment with his tai chi instructor in 4 days.Patient has no other complaints at this time including chest pain, abdominal pain, nausea or vomiting, headache, or visual changes. - Related Data Home Medications Medication Instructions Recorded Confirmed Carvedilol [Coreg] 12.5 mg PO BID 06/22/18 05/20/20 Lisinopril [Zestril] 10 mg PO HS 02/23/19 05/20/20 Spironolactone 25 mg PO DAILY 02/23/19 05/20/20 oxyCODONE HCL/ACETAMINOPHEN 1 tab PO QID PRN 02/23/19 05/20/20 [Percocet 10-325 mg] Rosuvastatin Calcium 20 mg PO HS 11/13/19 05/20/20 Testosterone Cypionate 300 mg IM Q28D 11/13/19 05/20/20 [Depo-Testosterone] methylPREDNISolone Dose Pack See Taper PO DAILY 05/16/20 05/20/20 [Medrol Dose Pack] Previous Rx's Medication Instructions Recorded Aspirin 81 mg PO DAILY #30 chew 05/20/18 Albuterol Nebulized [Ventolin 2.5 mg INHALATION RT-QID 30 Days 05/17/20 Nebulized] #1 inhaler Furosemide [Lasix] 20 mg PO DAILY #30 tab 05/17/20 Allergies Allergy/AdvReac Type Severity Reaction Status Date / Time No Known Allergies Allergy Verified 05/20/20 12:37 Review of Systems ROS Statement: Those systems with pertinent positive or pertinent negative responses have been documented in the HPI. ROS Other: All systems not noted in ROS Statement are negative. Past Medical History Past Medical History: Chest Pain / Angina, Hyperlipidemia, Hypertension, Osteoarthritis (OA) Additional Past Medical History / Comment(s): Low testosterone., Last Myocardial Infarction Date:: 2017 History of Any Multi-Drug Resistant Organisms: None Reported Past Surgical History: Back Surgery, Heart Catheterization With Stent Additional Past Surgical History / Comment(s): back surgeries x2, Past Anesthesia/Blood Transfusion Reactions: No Reported Reaction Date of Last Stent Placement:: 05/19/18 Past Psychological History: Anxiety, Bipolar Smoking Status: Former smoker Past Alcohol Use History: Daily Past Drug Use History: Methamphetamine - Past Family History Father Family Medical History: Cancer Additional Family Medical History / Comment(s): lung Mother Family Medical History: Cancer Additional Family Medical History / Comment(s): colon General Exam Limitations: no limitations General appearance: alert Head exam: Present: atraumatic, normocephalic, normal inspection Eye exam: Present: normal appearance, PERRL, EOMI. Absent: scleral icterus, conjunctival injection, periorbital swelling ENT exam: Present: normal exam, mucous membranes moist Neck exam: Present: normal inspection, full ROM. Absent: tenderness, meningismus, lymphadenopathy Respiratory exam: Present: normal lung sounds bilaterally. Absent: respiratory distress, wheezes, rales, rhonchi, stridor Cardiovascular Exam: Present: regular rate, normal rhythm, normal heart sounds. Absent: systolic murmur, diastolic murmur, rubs, gallop, clicks GI/Abdominal exam: Present: soft, normal bowel sounds. Absent: distended, tenderness, guarding, rebound, rigid Course Vital Signs 05/20/20 11:04 Temperature 98 F Pulse Rate 80 Respiratory 18 Rate Blood Pressure 125/83 O2 Sat by Pulse 99 Oximetry Medical Decision Making - Medical Decision Making Vitals are stable here in the emergency room. Patient does not have any respiratory distress. States his symptoms have completely resolved. CBC CMP unremarkable. Some slight dehydration, patient is orally rehydrating. Troponin is negative. D-dimer is 0.38. BNP 22. EKG shows a normal sinus rhythm, also reviewed by Dr. Bowie. Chest x-ray shows no evidence for acute pulmonary disease. At this time patient has been evaluated for this problem this week by both cardiology and pulmonology in-hospital. He is symptomatic this time. His vitals are stable. He can be discharged home to see his tai chi instructor in 4 days and follow up with pulmonology as directed by his primary care physician. He has worsening symptoms he will return to the emergency room. - Lab Data Result diagrams: 05/20/20 12:00 05/20/20 12:00 Lab Results 05/20/20 05/20/20 05/20/20 Range/Units 12:00 12:00 12:00 WBC 5.5 (3.8-10.6) k/uL RBC 5.50 (4.30-5.90) m/uL Hgb 17.0 (13.0-17.5) gm/dL Hct 50.1 (39.0-53.0) % MCV 91.2 (80.0-100.0) fL MCH 30.9 (25.0-35.0) pg MCHC 33.9 (31.0-37.0) g/dL RDW 13.4 (11.5-15.5) % Plt Count 156 (150-450) k/uL MPV 6.6 Neutrophils % 79 % Lymphocytes % 13 % Monocytes % 6 % Eosinophils % 2 % Basophils % 0 % Neutrophils # 4.3 (1.3-7.7) k/uL Lymphocytes # 0.7 L (1.0-4.8) k/uL Monocytes # 0.3 (0-1.0) k/uL Eosinophils # 0.1 (0-0.7) k/uL Basophils # 0.0 (0-0.2) k/uL PT 10.5 (9.0-12.0) sec INR 1.0 (<1.2) APTT 21.7 L (22.0-30.0) sec D-Dimer 0.38 (<0.60) mg/L FEU Sodium 135 L (137-145) mmol/L Potassium 5.0 (3.5-5.1) mmol/L Chloride 104 (98-107) mmol/L Carbon Dioxide 24 (22-30) mmol/L Anion Gap 7 mmol/L BUN 25 H (9-20) mg/dL Creatinine 1.23 (0.66-1.25) mg/dL Est GFR (CKD-EPI)AfAm 79 (>60 ml/min/1.73 sqM) Est GFR (CKD-EPI)NonAf 68 (>60 ml/min/1.73 sqM) Glucose 119 H (74-99) mg/dL Calcium 9.7 (8.4-10.2) mg/dL Total Bilirubin 0.7 (0.2-1.3) mg/dL AST 27 (17-59) U/L ALT 19 (4-49) U/L Alkaline Phosphatase 63 (38-126) U/L Troponin I (0.000-0.034) ng/mL NT-Pro-B Natriuret Pep pg/mL Total Protein 8.7 H (6.3-8.2) g/dL Albumin 4.8 (3.5-5.0) g/dL 05/20/20 05/20/20 Range/Units 12:00 12:00 WBC (3.8-10.6) k/uL RBC (4.30-5.90) m/uL Hgb (13.0-17.5) gm/dL Hct (39.0-53.0) % MCV (80.0-100.0) fL MCH (25.0-35.0) pg MCHC (31.0-37.0) g/dL RDW (11.5-15.5) % Plt Count (150-450) k/uL MPV Neutrophils % % Lymphocytes % % Monocytes % % Eosinophils % % Basophils % % Neutrophils # (1.3-7.7) k/uL Lymphocytes # (1.0-4.8) k/uL Monocytes # (0-1.0) k/uL Eosinophils # (0-0.7) k/uL Basophils # (0-0.2) k/uL PT (9.0-12.0) sec INR (<1.2) APTT (22.0-30.0) sec D-Dimer (<0.60) mg/L FEU Sodium (137-145) mmol/L Potassium (3.5-5.1) mmol/L Chloride (98-107) mmol/L Carbon Dioxide (22-30) mmol/L Anion Gap mmol/L BUN (9-20) mg/dL Creatinine (0.66-1.25) mg/dL Est GFR (CKD-EPI)AfAm (>60 ml/min/1.73 sqM) Est GFR (CKD-EPI)NonAf (>60 ml/min/1.73 sqM) Glucose (74-99) mg/dL Calcium (8.4-10.2) mg/dL Total Bilirubin (0.2-1.3) mg/dL AST (17-59) U/L ALT (4-49) U/L Alkaline Phosphatase (38-126) U/L Troponin I <0.012 (0.000-0.034) ng/mL NT-Pro-B Natriuret Pep 22 pg/mL Total Protein (6.3-8.2) g/dL Albumin (3.5-5.0) g/dL Disposition Clinical Impression: Shortness of breath Disposition: HOME SELF-CARE Condition: Good Instructions (If sedation given, give patient instructions): Angelica arvizu (ED) Additional Instructions: Please follow-up with your doctor in one to 2 days. If you're having worsening symptoms return to the emergency room. Is patient prescribed a controlled substance at d/c from ED?: No Referrals: Bossman Kent MD [Primary Care Provider] - 1-2 days Time of Disposition: 13:22
[2020-05-20 12:22] LABS: Basophils % (A) 0 %; Eosinophils # (A) 0.1 k/uL (0-0.7); Eosinophils % (A) 2 %; HCT 50.1 % (39.0-53.0); Lymphocytes # (A) 0.7 k/uL (1.0-4.8); Lymphocytes % (A) 13 %; MCH 30.9 pg (25.0-35.0); MCHC 33.9 g/dL (31.0-37.0); MCV 91.2 fL (80.0-100.0); Mean Platelet Volume 6.6; Monocytes # (A) 0.3 k/uL (0-1.0); Monocytes % (A) 6 %; Neutrophils # (A) 4.3 k/uL (1.3-7.7); Neutrophils % (A) 79 %; Platelet Count 156 k/uL (150-450); RDW 13.4 % (11.5-15.5); WBC 5.5 k/uL (3.8-10.6)
[2020-05-20 12:34] LABS: Albumin 4.8 g/dL (3.5-5.0); Calcium 9.7 mg/dL (8.4-10.2); Total Bilirubin 0.7 mg/dL (0.2-1.3); Total Protein 8.7 g/dL (6.3-8.2)
--- NOTE | 2020-05-20 12:51 | XR ---
EXAMINATION TYPE: XR chest 2V DATE OF EXAM: 05/20/2020 COMPARISON: 05/16/2020 HISTORY: Shortness of breath TECHNIQUE: Frontal and lateral views of the chest are obtained. FINDINGS: Scattered senescent parenchymal changes noted. Hyperinflation compatible with COPD. No evidence for infiltrate. No evidence for atelectasis. Heart size is stable. Mediastinal structures are stable and grossly unremarkable. No evidence for hilar prominence. Degenerative changes dorsal spine. IMPRESSION: 1. No evidence for acute pulmonary disease.
[2020-05-20 12:54] LABS: D-Dimer 0.38 mg/L FEU (<0.60); Prothrombin Time 10.5 sec (9.0-12.0)
[2020-05-20 12:56] LABS: Partial Thromboplastin Time 21.7 sec (22.0-30.0)
[2020-05-20 13:52] VITALS: BP 133/87; PULSE 71; RESP 20
== END 2020-05-20 13:52 | disposition home or self-care (01) ==
LOC: EC 11:00
DX: R06.02 Shortness of breath (principal); E86.0 Dehydration; I10 Essential (primary) hypertension; I25.10 Atherosclerotic heart disease of native coronary artery without angina pectoris; E78.5 Hyperlipidemia, unspecified; M19.90 Unspecified osteoarthritis, unspecified site; I25.2 Old myocardial infarction; Z79.52 Long term (current) use of systemic steroids; Z79.51 Long term (current) use of inhaled steroids; Z79.899 Other long term (current) drug therapy; Z87.891 Personal history of nicotine dependence
CPT/HCPCS: 36415; 71046; 80053; 83880; 84484; 85025; 85379; 85610; 85730; 93005; 99285

== ENCOUNTER 2020-06-05 10:16 | Day surgery (SDC) | payer MEDICARE, OTHER ==
[2020-05-31 11:48] VITALS: BMI 34.0
[~2020-06-05 10:16] MED LIST changes: -LIDOCAINE 1% (10MG/ML) FOR IV START INTRADERMA PRN
[2020-06-05] MEDS ORDERED: LACTATED RINGERS 1,000 ML IV ONE (10:56)
[2020-06-05] MEDS ORDERED: LIDOCAINE 1% (10MG/ML) FOR IV START INTRADERMA ONE (10:56)
[2020-06-05 11:07] VITALS: RESP 18; TEMP 98.1
[2020-06-05] MEDS ORDERED: PROPOFOL 10 MG/ML 20 ML VIAL IV ONE (11:54)
--- NOTE | 2020-06-05 12:09 | P.PCN ---
Date of Procedure: 06/05/20 Procedure(s) Performed: BRIEF HISTORY: Patient is a 51 year-old pleasant -[place] male evaluation of abnormal CAT scan showing thickening colon. He is also complaining of diffuse lower abdominal pain and PROCEDURE PERFORMED: Colonoscopy with biopsy. PREOPERATIVE DIAGNOSIS: Abnormal CAT scan of abdomen. IV sedation per Anesthesia. PROCEDURE: After informed consent was obtained, the patient, was brought into the endoscopy unit. IV sedation was administered by Anesthesia under continuous monitoring. Digital rectal examination was normal. Initially the Olympus CF-160 flexible video colonoscope was then inserted in the rectum, gradually advanced into the cecum without any difficulty. Careful examination was performed as the scope was gradually being withdrawn. Ileocecal valve and the appendiceal orifice were visualized and appeared normal. Prep was excellent. In the base of the cecum there was a 2-3 mm polyp that was removed by cold biopsy. Mucosa of the cecum, ascending colon, transverse colon, descending colon, sigmoid colon, and rectum appeared normal. Retroflexion was performed in the rectum and grade 2 internal hemorrhoids were seen. The patient tolerated the procedure well. IMPRESSION: 3 mm cecal polyp status post removal by cold biopsy small internal hemorrhoids RECOMMENDATIONS: Findings of this examination were discussed with the patientas well as his family. He was advised to follow with the biopsy results. If the biopsy shows an adenoma he can have a repeat colonoscopy in 5 years
[2020-06-05 12:30] VITALS: BP 118/73; PULSE 69
== END 2020-06-05 12:47 | disposition home or self-care (01) ==
LOC: ORWHC2ENDO 10:16
PROVIDERS: ATTEND Internal Medicine Gastroenterology
DX: D12.0 Benign neoplasm of cecum (principal); K64.1 Second degree hemorrhoids; I25.10 Atherosclerotic heart disease of native coronary artery without angina pectoris; J45.909 Unspecified asthma, uncomplicated; M19.90 Unspecified osteoarthritis, unspecified site; Z79.51 Long term (current) use of inhaled steroids; Z79.82 Long term (current) use of aspirin; Z79.891 Long term (current) use of opiate analgesic; Z79.899 Other long term (current) drug therapy
CPT/HCPCS: 88305; 45380; J2704

== ENCOUNTER 2020-08-06 23:01 | Emergency (ER) | payer MEDICARE, OTHER ==
[2020-08-06 23:09] VITALS: PULSE 79
--- NOTE | 2020-08-07 00:01 | ED ---
General Adult HPI - General Chief complaint: Upper Respiratory Infection Stated complaint: DANE Time Seen by Provider: 08/06/20 23:15 Source: patient Mode of arrival: wheelchair Limitations: no limitations - History of Present Illness Initial comments: 50-year-old male with a past medical history of CAD, hyperlipidemia, hypertension, methamphetamine and alcohol abuse presents to the emergency room for a chief shortness of breath. Patient states that he was admitted to the hospital about 3 months ago and was found to have fluid on his lungs. Patient states ever since that time he has continued to have shortness of breath on and off. Thoracic comes and goes every for 5 days. Patient states it started again tonight. Patient reports that since she has been in the emergency room it is completely resolved. He denies chest pain. Denies diaphoresis. Denies nausea vomiting. Patient states his throat felt swollen but now feels better as well. He denies fevers or cough. Patient has no other complaints at this time including chest pain, abdominal pain, nausea or vomiting, headache, or visual changes. - Related Data Home Medications Medication Instructions Recorded Confirmed Carvedilol [Coreg] 12.5 mg PO BID 06/22/18 05/31/20 Lisinopril [Zestril] 10 mg PO HS 02/23/19 05/31/20 Spironolactone 25 mg PO DAILY 02/23/19 05/31/20 oxyCODONE HCL/ACETAMINOPHEN 1 tab PO QID PRN 02/23/19 05/31/20 [Percocet 10-325 mg] Rosuvastatin Calcium 20 mg PO HS 11/13/19 05/31/20 Testosterone Cypionate 300 mg IM Q28D 11/13/19 05/31/20 [Depo-Testosterone] methylPREDNISolone Dose Pack See Taper PO DAILY 05/16/20 05/31/20 [Medrol Dose Pack] Budesonide-Formot 160-4.5 Mcg 2 puff INHALATION BID 05/31/20 05/31/20 [Symbicort 160-4.5 Mcg Inhaler] Previous Rx's Medication Instructions Recorded Aspirin 81 mg PO DAILY #30 chew 05/20/18 Albuterol Nebulized [Ventolin 2.5 mg INHALATION RT-QID 30 Days 05/17/20 Nebulized] #1 inhaler Furosemide [Lasix] 20 mg PO DAILY #30 tab 05/17/20 Allergies Allergy/AdvReac Type Severity Reaction Status Date / Time No Known Allergies Allergy Verified 08/06/20 23:09 Review of Systems ROS Statement: Those systems with pertinent positive or pertinent negative responses have been documented in the HPI. ROS Other: All systems not noted in ROS Statement are negative. Past Medical History Past Medical History: Coronary Artery Disease (CAD), Chest Pain / Angina, Hyperlipidemia, Hypertension, Osteoarthritis (OA) Additional Past Medical History / Comment(s): Low testosterone. c/o shortness of breath, improving. Last Myocardial Infarction Date:: 2017 History of Any Multi-Drug Resistant Organisms: None Reported Past Surgical History: Back Surgery, Heart Catheterization, Heart Catheterization With Stent Additional Past Surgical History / Comment(s): back surgeries x2, Colonoscopy. EGD 03/2020. Heart cath 05/17/20 Past Anesthesia/Blood Transfusion Reactions: No Reported Reaction Date of Last Stent Placement:: 05/19/18 Past Psychological History: Anxiety, Bipolar Smoking Status: Former smoker Past Alcohol Use History: None Reported Past Drug Use History: None Reported - Past Family History Father Family Medical History: Cancer Additional Family Medical History / Comment(s): lung Mother Family Medical History: Cancer Additional Family Medical History / Comment(s): colon General Exam Limitations: no limitations General appearance: alert, in no apparent distress Head exam: Present: atraumatic Eye exam: Present: normal appearance, PERRL, EOMI. Absent: scleral icterus, conjunctival injection ENT exam: Present: normal exam, normal oropharynx (Uvula midline, nonerythematous, no edema of the lips tongue or throat), mucous membranes moist Neck exam: Present: normal inspection, full ROM. Absent: tenderness Respiratory exam: Present: normal lung sounds bilaterally. Absent: respiratory distress, wheezes, rales, rhonchi, stridor Cardiovascular Exam: Present: regular rate, normal rhythm, normal heart sounds GI/Abdominal exam: Present: soft, normal bowel sounds. Absent: distended, tenderness, guarding, rebound, rigid Extremities exam: Absent: pedal edema Neurological exam: Present: alert Course Vital Signs 08/06/20 08/06/20 23:07 23:54 Temperature 99 F Pulse Rate 79 Respiratory 18 16 Rate Blood Pressure 131/82 O2 Sat by Pulse 98 Oximetry EKG Findings - EKG Comments: EKG Findings:: Sinus rhythm with short MI, ventricular rate 71, MI interval 110, QTc 356 Medical Decision Making - Medical Decision Making Vitals are stable. Patient is 98% on room air. Patient symptoms have resolved upon arrival to the emergency room. Physical exam is unremarkable. No res piratory distress. EKG was obtained, nonischemic. CBC CMP unremarkable. Coronary is not detected. Chest x-ray shows no acute cardiopulmonary process. BNP is 42. Cardiac catheterization was reviewed from 3 months ago that showed very mild luminal irregularities of LAD otherwise normal. Patient reevaluated continues to be asymptomatic. At this time patient be discharged home to follow up with primary care. Will return for any worsening symptoms. I discussed this case with attending Dr. Vences who agrees with this assessment and treatment plan. - Lab Data Result diagrams: 08/06/20 23:52 08/06/20 23:52 Lab Results 08/06/20 08/06/20 08/06/20 Range/Units 23:52 23:52 23:52 WBC 3.9 (3.8-10.6) k/uL RBC 4.60 (4.30-5.90) m/uL Hgb 15.0 (13.0-17.5) gm/dL Hct 43.6 (39.0-53.0) % MCV 94.8 (80.0-100.0) fL MCH 32.5 (25.0-35.0) pg MCHC 34.3 (31.0-37.0) g/dL RDW 15.3 (11.5-15.5) % Plt Count 133 L (150-450) k/uL MPV 6.7 Neutrophils % 50 % Lymphocytes % 31 % Monocytes % 14 % Eosinophils % 2 % Basophils % 1 % Neutrophils # 1.9 (1.3-7.7) k/uL Lymphocytes # 1.2 (1.0-4.8) k/uL Monocytes # 0.5 (0-1.0) k/uL Eosinophils # 0.1 (0-0.7) k/uL Basophils # 0.0 (0-0.2) k/uL Hypochromasia Slight Poikilocytosis Slight PT 10.2 (9.0-12.0) sec INR 0.9 (<1.2) APTT 22.9 (22.0-30.0) sec Sodium 136 L (137-145) mmol/L Potassium 4.2 (3.5-5.1) mmol/L Chloride 102 (98-107) mmol/L Carbon Dioxide 27 (22-30) mmol/L Anion Gap 7 mmol/L BUN 19 (9-20) mg/dL Creatinine 1.22 (0.66-1.25) mg/dL Est GFR (CKD-EPI)AfAm 79 (>60 ml/min/1.73 sqM) Est GFR (CKD-EPI)NonAf 68 (>60 ml/min/1.73 sqM) Glucose 109 H (74-99) mg/dL Calcium 8.8 (8.4-10.2) mg/dL Total Bilirubin 0.6 (0.2-1.3) mg/dL AST 48 (17-59) U/L ALT 45 (4-49) U/L Alkaline Phosphatase 53 (38-126) U/L Troponin I (0.000-0.034) ng/mL NT-Pro-B Natriuret Pep pg/mL Total Protein 7.2 (6.3-8.2) g/dL Albumin 4.0 (3.5-5.0) g/dL Coronavirus (PCR) (Not Detectd) 08/06/20 08/06/20 08/06/20 Range/Units 23:52 23:52 23:52 WBC (3.8-10.6) k/uL RBC (4.30-5.90) m/uL Hgb (13.0-17.5) gm/dL Hct (39.0-53.0) % MCV (80.0-100.0) fL MCH (25.0-35.0) pg MCHC (31.0-37.0) g/dL RDW (11.5-15.5) % Plt Count (150-450) k/uL MPV Neutrophils % % Lymphocytes % % Monocytes % % Eosinophils % % Basophils % % Neutrophils # (1.3-7.7) k/uL Lymphocytes # (1.0-4.8) k/uL Monocytes # (0-1.0) k/uL Eosinophils # (0-0.7) k/uL Basophils # (0-0.2) k/uL Hypochromasia Poikilocytosis PT (9.0-12.0) sec INR (<1.2) APTT (22.0-30.0) sec Sodium (137-145) mmol/L Potassium (3.5-5.1) mmol/L Chloride (98-107) mmol/L Carbon Dioxide (22-30) mmol/L Anion Gap mmol/L BUN (9-20) mg/dL Creatinine (0.66-1.25) mg/dL Est GFR (CKD-EPI)AfAm (>60 ml/min/1.73 sqM) Est GFR (CKD-EPI)NonAf (>60 ml/min/1.73 sqM) Glucose (74-99) mg/dL Calcium (8.4-10.2) mg/dL Total Bilirubin (0.2-1.3) mg/dL AST (17-59) U/L ALT (4-49) U/L Alkaline Phosphatase (38-126) U/L Troponin I <0.012 (0.000-0.034) ng/mL NT-Pro-B Natriuret Pep 42 pg/mL Total Protein (6.3-8.2) g/dL Albumin (3.5-5.0) g/dL Coronavirus (PCR) Not Detected (Not Detectd) Disposition Clinical Impression: H/O shortness of breath Disposition: HOME SELF-CARE Condition: Good Instructions (If sedation given, give patient instructions): Mica rosa (ED) Additional Instructions: Please follow-up with your doctor in one to 2 days. Return to the emergency room for any worsening symptoms. Is patient prescribed a controlled substance at d/c from ED?: No Referrals: Bossman Kent MD [Primary Care Provider] - 1-2 days Time of Disposition: 01:13
[2020-08-07 00:12] LABS: Calcium 8.8 mg/dL (8.4-10.2); Potassium 4.2 mmol/L (3.5-5.1); Total Bilirubin 0.6 mg/dL (0.2-1.3); Total Protein 7.2 g/dL (6.3-8.2)
[2020-08-07 00:21] LABS: INR 0.9 (<1.2); Prothrombin Time 10.2 sec (9.0-12.0)
[2020-08-07 00:22] LABS: Partial Thromboplastin Time 22.9 sec (22.0-30.0)
--- NOTE | 2020-08-07 00:23 | XR ---
EXAM: XR Chest, 2 Views CLINICAL HISTORY: ITS.REASON XR Reason: difficulty breathing TECHNIQUE: Frontal and lateral views of the chest. COMPARISON: May 20, 2020 FINDINGS: Lungs: Unremarkable. No consolidation. Pleural space: Unremarkable. No pneumothorax. Heart: Unremarkable. No cardiomegaly. Mediastinum: Unremarkable. Bones/joints: Unremarkable. IMPRESSION: No acute cardiopulmonary process is identified.
[2020-08-07 00:27] LABS: Basophils % (A) 1 %; Eosinophils # (A) 0.1 k/uL (0-0.7); Eosinophils % (A) 2 %; HCT 43.6 % (39.0-53.0); Hypochromasia Slight; Lymphocytes # (A) 1.2 k/uL (1.0-4.8); Lymphocytes % (A) 31 %; MCH 32.5 pg (25.0-35.0); MCHC 34.3 g/dL (31.0-37.0); MCV 94.8 fL (80.0-100.0); Mean Platelet Volume 6.7; Monocytes # (A) 0.5 k/uL (0-1.0); Monocytes % (A) 14 %; Neutrophils # (A) 1.9 k/uL (1.3-7.7); Neutrophils % (A) 50 %; Platelet Count 133 k/uL (150-450); Poikilocytosis Slight; RDW 15.3 % (11.5-15.5); WBC 3.9 k/uL (3.8-10.6)
[2020-08-07 01:46] VITALS: BP 139/96; RESP 18; TEMP 98
== END 2020-08-07 01:55 | disposition home or self-care (01) ==
LOC: EC 23:01
DX: R06.02 Shortness of breath (principal); I25.119 Atherosclerotic heart disease of native coronary artery with unspecified angina pectoris; I10 Essential (primary) hypertension; E78.5 Hyperlipidemia, unspecified; I25.2 Old myocardial infarction; Z79.51 Long term (current) use of inhaled steroids; Z79.899 Other long term (current) drug therapy; Z87.891 Personal history of nicotine dependence; Z95.5 Presence of coronary angioplasty implant and graft
CPT/HCPCS: 36415; 71046; 80053; 83880; 84484; 85025; 85610; 85730; 87635; 93005; 99285

== ENCOUNTER 2020-10-25 14:19 | Observation (INO) | payer MEDICARE, OTHER ==
[2020-10-25] MEDS ORDERED: ASPIRIN 81 MG PO STA (14:32)
[2020-10-25] MEDS ORDERED: MORPHINE SULFATE 4 MG/ML SYRINGE IV STA (14:32)
[2020-10-25] MEDS ORDERED: ONDANSETRON 4 MG/2 ML VIAL IVP STA (14:32)
--- NOTE | 2020-10-25 14:42 | ED ---
General Adult HPI - General Chief complaint: Chest Pain Stated complaint: CHEST PAIN Time Seen by Provider: 10/25/20 14:26 Source: patient Mode of arrival: ambulatory Limitations: no limitations - History of Present Illness Initial comments: 50 year-old male patient presents to the emergency department for evaluation of left sided chest pain. States he was walking to his car when he felt a hard thump over his heart. States it happened a few times then he developed pain in the chest and some "numbness" down the left arm. States he does feel slightly s hort of breath. Denies any dizziness or weakness. Denies any nausea or vomiting. He does have history of CAD, had a stent placed three years ago. Patient denies any recent rash, fever, chills, cough, abdominal pain, diarrhea, constipation, back pain, hematuria, dysuria, urinary urgency, urinary frequency, headache, visual changes, or any other complaints. - Related Data Home Medications Medication Instructions Recorded Confirmed Carvedilol [Coreg] 12.5 mg PO BID 06/22/18 10/25/20 Spironolactone 25 mg PO DAILY 02/23/19 10/25/20 oxyCODONE HCL/ACETAMINOPHEN 1 tab PO QID 02/23/19 10/25/20 [Percocet 10-325 mg] Rosuvastatin Calcium 20 mg PO HS 11/13/19 10/25/20 Testosterone Cypionate 300 mg IM Q21D 11/13/19 10/25/20 [Depo-Testosterone] Budesonide-Formot 160-4.5 Mcg 2 puff INHALATION RT-BID 05/31/20 10/25/20 [Symbicort 160-4.5 Mcg Inhaler] ARIPiprazole [Abilify] 15 mg PO DAILY 10/25/20 10/25/20 Albuterol Inhaler [Ventolin Hfa 1 - 2 puff INHALATION RT-QID PRN 10/25/20 10/25/20 Inhaler] Losartan [Cozaar] 25 mg PO DAILY 10/25/20 10/25/20 Previous Rx's Medication Instructions Recorded Furosemide [Lasix] 20 mg PO DAILY #30 tab 05/17/20 Allergies Allergy/AdvReac Type Severity Reaction Status Date / Time No Known Allergies Allergy Verified 10/25/20 15:12 Review of Systems ROS Statement: Those systems with pertinent positive or pertinent negative responses have been documented in the HPI. ROS Other: All systems not noted in ROS Statement are negative. Past Medical History Past Medical History: Coronary Artery Disease (CAD), Chest Pain / Angina, Hyperlipidemia, Hypertension, Osteoarthritis (OA) Additional Past Medical History / Comment(s): Low testosterone. c/o shortness of breath, improving. Last Myocardial Infarction Date:: 2017 History of Any Multi-Drug Resistant Organisms: None Reported Past Surgical History: Back Surgery, Heart Catheterization, Heart Catheterization With Stent Additional Past Surgical History / Comment(s): back surgeries x2, Colonoscopy. EGD 03/2020. Heart cath 05/17/20 Past Anesthesia/Blood Transfusion Reactions: No Reported Reaction Date of Last Stent Placement:: 05/19/18 Past Psychological History: Anxiety, Bipolar, Depression Smoking Status: Former smoker Past Alcohol Use History: None Reported Past Drug Use History: None Reported - Past Family History Father Family Medical History: Cancer Additional Family Medical History / Comment(s): lung Mother Family Medical History: Cancer Additional Family Medical History / Comment(s): colon General Exam Limitations: no limitations General appearance: alert, in no apparent distress, other (This is a well developed, well nourished adult male patient in no acute distress. V/S obtained upon arrival showed temperature 98.3F, pulse 81, respirations 22, blood pressure 160/81, pulse ox 99% on room air.) Eye exam: Present: normal appearance, PERRL, EOMI. Absent: scleral icterus, conjunctival injection, periorbital swelling ENT exam: Present: normal exam, normal oropharynx, mucous membranes moist Respiratory exam: Present: normal lung sounds bilaterally. Absent: respiratory distress, wheezes, rales, rhonchi, stridor Cardiovascular Exam: Present: regular rate, normal rhythm, normal heart sounds. Absent: systolic murmur, diastolic murmur, rubs, gallop, clicks GI/Abdominal exam: Present: soft, normal bowel sounds. Absent: distended, tenderness, guarding, rebound, rigid Neurological exam: Present: alert, oriented X3, CN II-XII intact Psychiatric exam: Present: normal affect, normal mood Skin exam: Present: warm, dry, intact, normal color. Absent: rash Course Vital Signs 10/25/20 10/25/20 10/25/20 14:20 15:51 16:00 Temperature 98.3 F Pulse Rate 81 71 70 Respiratory 22 17 17 Rate Blood Pressure 160/81 130/88 101/60 O2 Sat by Pulse 99 99 100 Oximetry EKG Findings - EKG Comments: EKG Findings:: EKG obtained at 1430 shows normal sinus rhythm with a ventricular rate of 78, TN interval 118, QRS duration 80, QT 340, QTC 387. No evidence of ST elevation or depression. Medical Decision Making - Medical Decision Making 50-year-old male patient presents to the emergency department today for evaluation of left-sided chest pain with some mild shortness of breath. Physic al examination is unremarkable. Labs reviewed and did reveal elevated BUN and creatinine which is chronic for patient. Glucose 146, troponin is negative. EKG showed sinus rhythm with no ischemic changes. Patient did have persistent pain with improvement after nitroglycerin administration. Does have a history of CAD with stent. Patient will be admitted to the hospital for serial troponins and further evaluation by cardiology. He is agreeable this plan. My attending is Dr. Bowie. - Lab Data Result diagrams: 10/25/20 14:45 10/25/20 14:45 Lab Results 10/25/20 10/25/20 10/25/20 Range/Units 14:45 14:45 14:45 WBC 4.4 (3.8-10.6) k/uL RBC 5.26 (4.30-5.90) m/uL Hgb 16.1 (13.0-17.5) gm/dL Hct 49.4 (39.0-53.0) % MCV 93.9 (80.0-100.0) fL MCH 30.6 (25.0-35.0) pg MCHC 32.6 (31.0-37.0) g/dL RDW 13.9 (11.5-15.5) % Plt Count 138 L (150-450) k/uL MPV 7.0 Neutrophils % 41 % Lymphocytes % 36 % Monocytes % 16 % Eosinophils % 2 % Basophils % 0 % Neutrophils # 1.8 (1.3-7.7) k/uL Lymphocytes # 1.6 (1.0-4.8) k/uL Monocytes # 0.7 (0-1.0) k/uL Eosinophils # 0.1 (0-0.7) k/uL Basophils # 0.0 (0-0.2) k/uL PT 10.4 (9.0-12.0) sec INR 1.0 (<1.2) APTT 22.1 (22.0-30.0) sec Sodium 135 L (137-145) mmol/L Potassium 4.2 (3.5-5.1) mmol/L Chloride 100 (98-107) mmol/L Carbon Dioxide 26 (22-30) mmol/L Anion Gap 9 mmol/L BUN 21 H (9-20) mg/dL Creatinine 1.47 H (0.66-1.25) mg/dL Est GFR (CKD-EPI)AfAm 63 (>60 ml/min/1.73 sqM) Est GFR (CKD-EPI)NonAf 54 (>60 ml/min/1.73 sqM) Glucose 146 H (74-99) mg/dL Calcium 9.3 (8.4-10.2) mg/dL Magnesium 1.7 (1.6-2.3) mg/dL Total Bilirubin 0.4 (0.2-1.3) mg/dL AST 31 (17-59) U/L ALT 23 (4-49) U/L Alkaline Phosphatase 58 (38-126) U/L Troponin I (0.000-0.034) ng/mL Total Protein 7.7 (6.3-8.2) g/dL Albumin 4.3 (3.5-5.0) g/dL TSH 1.540 (0.465-4.680) mIU/L 10/25/20 Range/Units 14:45 WBC (3.8-10.6) k/uL RBC (4.30-5.90) m/uL Hgb (13.0-17.5) gm/dL Hct (39.0-53.0) % MCV (80.0-100.0) fL MCH (25.0-35.0) pg MCHC (31.0-37.0) g/dL RDW (11.5-15.5) % Plt Count (150-450) k/uL MPV Neutrophils % % Lymphocytes % % Monocytes % % Eosinophils % % Basophils % % Neutrophils # (1.3-7.7) k/uL Lymphocytes # (1.0-4.8) k/uL Monocytes # (0-1.0) k/uL Eosinophils # (0-0.7) k/uL Basophils # (0-0.2) k/uL PT (9.0-12.0) sec INR (<1.2) APTT (22.0-30.0) sec Sodium (137-145) mmol/L Potassium (3.5-5.1) mmol/L Chloride (98-107) mmol/L Carbon Dioxide (22-30) mmol/L Anion Gap mmol/L BUN (9-20) mg/dL Creatinine (0.66-1.25) mg/dL Est GFR (CKD-EPI)AfAm (>60 ml/min/1.73 sqM) Est GFR (CKD-EPI)NonAf (>60 ml/min/1.73 sqM) Glucose (74-99) mg/dL Calcium (8.4-10.2) mg/dL Magnesium (1.6-2.3) mg/dL Total Bilirubin (0.2-1.3) mg/dL AST (17-59) U/L ALT (4-49) U/L Alkaline Phosphatase (38-126) U/L Troponin I <0.012 (0.000-0.034) ng/mL Total Protein (6.3-8.2) g/dL Albumin (3.5-5.0) g/dL TSH (0.465-4.680) mIU/L - Radiology Data Radiology results: report reviewed, image reviewed Two-view x-ray of the chest was obtained. Report reviewed in its entirety. Impression by Dr. Love shows no evidence for acute pulmonary disease per Disposition Clinical Impression: Chest pain Disposition: ADMITTED IP TO THIS [facility] Condition: Serious Referrals: Bossman Kent MD [Primary Care Provider] - 1-2 days Decision to Admit Reason: Admit from EC Decision Date: 10/25/20 Decision Time: 16:21
--- NOTE | 2020-10-25 15:03 | XR ---
EXAMINATION TYPE: XR chest 2V DATE OF EXAM: 10/25/2020 COMPARISON: 08/07/2020 HISTORY: Shortness of breath TECHNIQUE: Frontal and lateral views of the chest are obtained. FINDINGS: Scattered senescent parenchymal changes noted. Hyperinflation compatible with COPD. No evidence for infiltrate. No evidence for atelectasis. Heart size is stable. Mediastinal structures are stable and grossly unremarkable. No evidence for hilar prominence. Degenerative changes dorsal spine. IMPRESSION: 1. No evidence for acute pulmonary disease.
[2020-10-25 15:17] LABS: Partial Thromboplastin Time 22.1 sec (22.0-30.0); Prothrombin Time 10.4 sec (9.0-12.0)
[2020-10-25 15:19] LABS: Albumin 4.3 g/dL (3.5-5.0); Calcium 9.3 mg/dL (8.4-10.2); Magnesium 1.7 mg/dL (1.6-2.3); Potassium 4.2 mmol/L (3.5-5.1); Total Bilirubin 0.4 mg/dL (0.2-1.3); Total Protein 7.7 g/dL (6.3-8.2)
[2020-10-25 15:30] LABS: Basophils % (A) 0 %; Eosinophils # (A) 0.1 k/uL (0-0.7); Eosinophils % (A) 2 %; HCT 49.4 % (39.0-53.0); HGB 16.1 gm/dL (13.0-17.5); Lymphocytes # (A) 1.6 k/uL (1.0-4.8); Lymphocytes % (A) 36 %; MCH 30.6 pg (25.0-35.0); MCHC 32.6 g/dL (31.0-37.0); MCV 93.9 fL (80.0-100.0); Monocytes # (A) 0.7 k/uL (0-1.0); Monocytes % (A) 16 %; Neutrophils # (A) 1.8 k/uL (1.3-7.7); Neutrophils % (A) 41 %; Platelet Count 138 k/uL (150-450); RBC 5.26 m/uL (4.30-5.90); RDW 13.9 % (11.5-15.5); WBC 4.4 k/uL (3.8-10.6)
[2020-10-25] MEDS ORDERED: NITROGLYCERIN SL TABS 0.4 MG TAB SUBLINGUAL STA (15:44)
[2020-10-25] MEDS ORDERED: NITROGLYCERIN SL TABS 0.4 MG TAB SUBLINGUAL PRN (16:21)
[2020-10-25] MEDS ORDERED: MORPHINE SULFATE 4 MG/ML SYRINGE IV PRN (16:21)
[2020-10-25 17:42] VITALS: RESP 18
[2020-10-25] MEDS ORDERED: ALBUTEROL HFA INHALER INHALATION PRN (18:48)
[2020-10-25] MEDS ORDERED: oxyCODONE-APAP 5-325MG 1 EACH TAB PO PRN (18:51)
[2020-10-25] MEDS: SYMBICORT 160-4.5 MCG INHALER INHALATION SCH (19:05)
[2020-10-25] MEDS: carvediloL 12.5 MG TAB PO SCH (20:43)
[2020-10-25] MEDS ORDERED: ATORVASTATIN 40 MG TAB PO SCH (21:00)
[2020-10-26 04:45] LABS: Cholesterol 122 mg/dL (<200); HDL Cholesterol 33 mg/dL (40-60); LDL Cholesterol,Calculated 62 mg/dL (0-99); Triglycerides 137 mg/dL (<150)
[2020-10-26] MEDS: SYMBICORT 160-4.5 MCG INHALER INHALATION SCH (07:54)
[2020-10-26 08:16] VITALS: BP 125/64; PULSE 78; TEMP 98
[2020-10-26] MEDS ORDERED: ARIPiprazole 15 MG TAB PO SCH (09:00)
[2020-10-26] MEDS ORDERED: ASPIRIN 325 MG TAB PO SCH (09:00)
[2020-10-26] MEDS ORDERED: LOSARTAN 25 MG TAB PO SCH (09:00)
[2020-10-26] MEDS ORDERED: SPIRONOLACTONE 25 MG TAB PO SCH (09:00)
[2020-10-26] MEDS ORDERED: FUROSEMIDE 20 MG TAB PO SCH (09:00)
[2020-10-26] MEDS: carvediloL 12.5 MG TAB PO SCH (12:41)
--- NOTE | 2020-10-26 12:45 | P.CRDCN ---
History of Present Illness History of present illness: HISTORY OF PRESENTING ILLNESS Patient is a pleasant 50-year-old male with history of coronary artery disease status post PCI of his mid LAD, hypertension, hyperlipidemia and during echo was with mild decrease in ejection fractions in the past. He is well-known to myself and follows with me in the office. He did have concern of mild decrease in ejection fraction back in May and heart catheterization was performed at that time which showed essentially normal coronary arteries except for patent mid LAD stent. It appears he has very minimal coronary artery disease other than his stented area. At the time his ejection fraction had mildly increased to 45-50% on left ventriculogram. He has had complaints of chest pain in the past which have for the most part been non cardiogenic. He admits he got his second dose of Moderna vaccination 3 days ago and felt fairly awful the next day with fatigue and body aches. He felt better the next day however had 2 episodes of "thumping" of his chest which only lasted a few seconds. He did not feel lightheaded or dizzy with this or short of breath. He noted some mild chest pressure after this and therefore came to emergency department. Other than these few minutes of discomfort he is felt well. No further episodes since yesterday. Troponins were checked which have been negative. Chest x-ray showed no acute process. EKG showed no acute changes, no ischemia. REVIEW OF SYSTEMS At the time of my exam: CONSTITUTIONAL: Denies fever or chills. CARDIOVASCULAR: +chest pain, no shortness of breath, orthopnea, PND or palpitations. RESPIRATORY: Denies cough. GASTROINTESTINAL: Denies abdominal pain, diarrhea, constipation, nausea or vomiting. MUSCULOSKELETAL: Denies myalgias. NEUROLOGIC: Denies numbness, tingling or weakness. ENDOCRINE: Denies fatigue, weight change, polydipsia or polyurina. GENITOURINARY: Denies burning, hematuria or urgency with micturation. HEMATOLOGIC: Denies history of anemia or bleeding. PHYSICAL EXAMINATION Vital signs reviewed. CONSTITUTIONAL: No apparent distress. HEENT: Head is normocephalic. Pupils are equal, round. Sclerae anicteric. Mucous membranes of the mouth are moist. No JVD. No carotid bruit. CHEST EXAMINATION: Lungs are clear to auscultation. No chest wall tenderness is noted on palpation or with deep breathing. HEART EXAMINATION: Regular rate and rhythm. S1, S2 heard. No murmurs, gallops or rub. ABDOMEN: Soft, nontender. Positive bowel sounds. EXTREMITIES: 2+ peripheral pulses, no lower extremity edema and no calf tenderness. NEUROLOGIC EXAMINATION: Patient is awake, alert and oriented x3. ASSESSMENT 1. Atypical chest pain lasting only a few minutes. Does not appear cardiac in nature. Troponins negative 3 and acute coronary syndrome has been ruled out 2. Very minimal coronary artery disease other then mid LAD stenosis with history of PCI of the mid LAD. Last heart catheterization from May 2020 showed relatively normal coronary arteries and patent LAD stent 3. Hypertension 4. Hyperlipidemia 5. History of cardiomyopathy with recovered ejection fraction PLAN Patient's symptoms are atypical and may be a reaction to the vaccination which she received 3 days ago. No signs of acute coronary syndrome and do not suspect cardiac etiology. Vital signs stable and patient appears stable for discharge home with outpatient follow-up. No further inpatient workup at this time. Past Medical History Past Medical History: Coronary Artery Disease (CAD), Chest Pain / Angina, Hyperlipidemia, Hypertension, Osteoarthritis (OA) Additional Past Medical History / Comment(s): Low testosterone. c/o shortness of breath, improving. Last Myocardial Infarction Date:: 2017 History of Any Multi-Drug Resistant Organisms: None Reported Past Surgical History: Back Surgery, Heart Catheterization, Heart Catheterization With Stent Additional Past Surgical History / Comment(s): back surgeries x2, Colonoscopy. EGD 03/2020. Heart cath 05/17/20 Past Anesthesia/Blood Transfusion Reactions: No Reported Reaction Date of Last Stent Placement:: 05/19/18 Past Psychological History: Anxiety, Bipolar, Depression Additional Psychological History / Comment(s): claustrophobia; denies any Rx for this 05/31/20 Smoking Status: Former smoker Past Alcohol Use History: None Reported Additional Past Alcohol Use History / Comment(s): started smoking 1984, quit smoking 2015, 1 PPD. Quit alcohol, states unsure when 05/31/20 Past Drug Use History: None Reported Additional Drug Use History / Comment(s): quit 2004; then stated he used methamphetamine 08/13/19; denies current drug use 05/31/20. - Past Family History Father Family Medical History: Cancer Additional Family Medical History / Comment(s): lung Mother Family Medical History: Cancer Additional Family Medical History / Comment(s): colon Medications and Allergies Home Medications Medication Instructions Recorded Confirmed Type Carvedilol [Coreg] 12.5 mg PO BID 06/22/18 10/25/20 History Spironolactone 25 mg PO DAILY 02/23/19 10/25/20 History oxyCODONE HCL/ACETAMINOPHEN 1 tab PO QID 02/23/19 10/25/20 History [Percocet 10-325 mg] Rosuvastatin Calcium 20 mg PO HS 11/13/19 10/25/20 History Testosterone Cypionate 300 mg IM Q21D 11/13/19 10/25/20 History [Depo-Testosterone] Furosemide [Lasix] 20 mg PO DAILY #30 tab 05/17/20 10/25/20 Rx Budesonide-Formot 160-4.5 Mcg 2 puff INHALATION RT-BID 05/31/20 10/25/20 History [Symbicort 160-4.5 Mcg Inhaler] ARIPiprazole [Abilify] 15 mg PO DAILY 10/25/20 10/25/20 History Albuterol Inhaler [Ventolin Hfa 1 - 2 puff INHALATION RT-QID PRN 10/25/20 10/25/20 History Inhaler] Losartan [Cozaar] 25 mg PO DAILY 10/25/20 10/25/20 History Allergies Allergy/AdvReac Type Severity Reaction Status Date / Time No Known Allergies Allergy Verified 10/25/20 15:12 Physical Exam Vitals: Vital Signs Temp Pulse Pulse Pulse Resp BP BP 10/26/20 07:00 98.0 F 78 18 125/64 10/26/20 02:25 72 80 18 10/26/20 02:00 97.8 F 69 18 126/64 10/25/20 20:44 72 80 18 10/25/20 19:42 97.8 F 80 18 97/58 10/25/20 17:41 77 18 114/68 10/25/20 16:53 97.9 F 72 16 126/69 10/25/20 16:00 70 17 101/60 10/25/20 15:51 71 17 130/88 10/25/20 14:20 98.3 F 81 22 160/81 Pulse Ox 10/26/20 07:00 97 10/26/20 02:25 10/26/20 02:00 97 10/25/20 20:44 10/25/20 19:42 96 10/25/20 17:41 99 10/25/20 16:53 97 10/25/20 16:00 100 10/25/20 15:51 99 10/25/20 14:20 99 Intake and Output 10/25/20 10/26/20 10/26/20 22:59 06:59 14:59 Other: # Voids 2 2 Weight 102.058 kg Results 10/25/20 14:45 10/25/20 14:45 Cardiac Enzymes 10/25/20 10/25/20 10/25/20 Range/Units 14:45 14:45 18:00 AST 31 (17-59) U/L Troponin I <0.012 <0.012 (0.000-0.034) ng/mL 10/25/20 Range/Units 20:37 AST (17-59) U/L Troponin I <0.012 (0.000-0.034) ng/mL Coagulation 10/25/20 Range/Units 14:45 PT 10.4 (9.0-12.0) sec APTT 22.1 (22.0-30.0) sec Lipids 10/25/20 Range/Units 14:45 Triglycerides 137 (<150) mg/dL Cholesterol 122 (<200) mg/dL HDL Cholesterol 33 L (40-60) mg/dL CBC 10/25/20 Range/Units 14:45 WBC 4.4 (3.8-10.6) k/uL RBC 5.26 (4.30-5.90) m/uL Hgb 16.1 (13.0-17.5) gm/dL Hct 49.4 (39.0-53.0) % Plt Count 138 L (150-450) k/uL Comprehensive Metabolic Panel 10/25/20 Range/Units 14:45 Sodium 135 L (137-145) mmol/L Potassium 4.2 (3.5-5.1) mmol/L Chloride 100 (98-107) mmol/L Carbon Dioxide 26 (22-30) mmol/L BUN 21 H (9-20) mg/dL Creatinine 1.47 H (0.66-1.25) mg/dL Glucose 146 H (74-99) mg/dL Calcium 9.3 (8.4-10.2) mg/dL AST 31 (17-59) U/L ALT 23 (4-49) U/L Alkaline Phosphatase 58 (38-126) U/L Total Protein 7.7 (6.3-8.2) g/dL Albumin 4.3 (3.5-5.0) g/dL Current Medications Generic Name Dose Route Start Last Admin Trade Name Freq PRN Reason Stop Dose Admin Albuterol Sulfate 1 - 2 puff 10/25/20 18:48 Albuterol Hfa Inhaler INHALATION RT-QID PRN Shortness Of Breath Aripiprazole 15 mg 10/26/20 09:00 10/26/20 08:59 Aripiprazole 15 Mg Tab PO 15 mg DAILY NOEMÍ Administration Aspirin 325 mg 10/26/20 09:00 10/26/20 08:59 Aspirin 325 Mg Tab PO 325 mg DAILY NOEMÍ Administration Atorvastatin Calcium 40 mg 10/25/20 21:00 10/25/20 20:44 Atorvastatin 40 Mg Tab PO Not Given HS NOEMÍ Budesonide/Formoterol Fumarate 2 puff 10/25/20 20:00 10/26/20 07:54 Symbicort 160-4.5 Mcg Inhaler INHALATION 2 puff RT-BID NOEMÍ Administration Carvedilol 12.5 mg 10/25/20 21:00 10/26/20 12:41 Carvedilol 12.5 Mg Tab PO 12.5 mg BID NOEMÍ Administration Furosemide 20 mg 10/26/20 09:00 10/26/20 08:59 Furosemide 20 Mg Tab PO 20 mg DAILY NOEMÍ Administration Losartan Potassium 25 mg 10/26/20 09:00 10/26/20 08:59 Losartan 25 Mg Tab PO 25 mg DAILY NOEMÍ Administration Morphine Sulfate 4 mg 10/25/20 16:21 10/25/20 20:53 Morphine Sulfate 4 Mg/Ml Syringe IV 4 mg Q4H PRN Administration Chest Pain Nitroglycerin 0.4 mg 10/25/20 16:21 Nitroglycerin Sl Tabs 0.4 Mg Tab SUBLINGUAL Q5M PRN Chest Pain Oxycodone/Acetaminophen 1 each 10/25/20 18:51 10/26/20 07:35 Oxycodone-Apap 5-325mg 1 Each Tab PO 1 each Q6HR PRN Administration Pain Sodium Chloride 10 ml 10/25/20 21:00 10/26/20 09:00 Sodium Chloride 0.9% Flush 10 Ml Syringe IV 10 ml BID NOEMÍ Administration Spironolactone 25 mg 10/26/20 09:00 10/26/20 08:59 Spironolactone 25 Mg Tab PO 25 mg DAILY NOEMÍ Administration Intake and Output 10/25/20 10/26/20 10/26/20 22:59 06:59 14:59 Other: # Voids 2 2 Weight 102.058 kg 10/25/20 14:45 10/25/20 14:45
--- NOTE | 2020-10-26 14:06 | DS ---
DISCHARGE SUMMARY CHIEF COMPLAINT: Chest pain. HISTORY OF PRESENT ILLNESS AND PHYSICAL EXAMINATION: Details of this man's history and physical can be found in the initial workup. LABORATORY STUDIES: While he was in the hospital, he had laboratory studies, details of which can be found in the laboratory section of his chart. COURSE IN THE HOSPITAL: After admission, he was placed on bedrest, started intravenous fluids and had serial EKGs and enzymes. They were normal. He was seen by Cardiology. It was felt that he could be discharged to go home on his usual activity, diet, medication, and he will be followed up in several days. FINAL DIAGNOSES: 1. Anterior chest pain, noncardiac. 2. History of coronary artery disease. OPERATIONS: None. CONSULTATION: Cardiology. He is improved. MMODL / IJN: [id number] /
--- NOTE | 2020-10-26 14:06 | HP ---
HISTORY AND PHYSICAL CHIEF COMPLAINT: Chest pain. HISTORY OF PRESENT ILLNESS: This is another admission for this 50-year-old -[place] male who has had a prior history of coronary artery problems. He had a brief sharp anterior chest pain while walking to his car. He had no nausea, vomiting, diaphoresis, shortness of breath. He had some tingling in the left arm. He came to emergency room where his EKG and enzymes were unremarkable. He was admitted. REVIEW OF SYSTEMS: He has had no syncope, neurologic problems, cough, hemoptysis, fever, chills, abdominal pain, nausea, vomiting, melena, hematochezia, jaundice, hepatitis, renal failure, frequency, urgency, dysuria, incontinence, nocturia, diabetes, etc. Past medical history, family history and personal and social histories are unremarkable otherwise. He does not drink. He used to smoke but has stopped. He has had cardiac procedure in the past as well as 2 back surgeries. He takes at this time: Testosterone injections every 3 weeks, losartan 25 once a day, rosuvastatin 20 once a day, furosemide once a day, spironolactone once a day, albuterol, carvedilol twice a day, aspirin, and Percocet. PHYSICAL EXAMINATION: Blood pressure is 134/85 with a pulse of 78, respirations of 17. He is afebrile. In general appeared to be well developed, well nourished, in no acute distress. Skin color is normal. Skin is warm, dry. Lymph nodes are not enlarged. Head, ears, eyes, nose, mouth and throat are normal. Neck veins not distended. Thyroid not enlarged. Chest is clear. Cardiac exam is normal with sinus rhythm and no murmurs or extra sounds. Abdomen is soft and nontender. Extremities are normal. Neurological: He is intact. IMPRESSION: He is admitted to the hospital with diagnoses: 1. Anterior chest pain. 2. History of coronary artery disease. PLAN: 1. Bedrest. 2. IV fluids. 3. Serial EKGs and enzymes. 4. Cardiology consult. MMODL / IJN: [id number] /
== END 2020-10-26 13:05 | disposition home or self-care (01) ==
LOC: EC 14:19 → 6NMEDSUR 16:18
PROVIDERS: ADMIT Family Medicine; ATTEND Family Medicine
DX: R07.89 Other chest pain (principal); I25.10 Atherosclerotic heart disease of native coronary artery without angina pectoris; I10 Essential (primary) hypertension; E78.5 Hyperlipidemia, unspecified; R06.02 Shortness of breath; R20.2 Paresthesia of skin; I25.2 Old myocardial infarction; M19.90 Unspecified osteoarthritis, unspecified site; F31.9 Bipolar disorder, unspecified; F41.9 Anxiety disorder, unspecified; F40.240 Claustrophobia; Z79.899 Other long term (current) drug therapy; Z79.51 Long term (current) use of inhaled steroids; Z79.890 Hormone replacement therapy; Z79.82 Long term (current) use of aspirin; Z20.822 Contact with and (suspected) exposure to COVID-19; Z95.5 Presence of coronary angioplasty implant and graft; Z87.891 Personal history of nicotine dependence; Z80.1 Family history of malignant neoplasm of trachea, bronchus and lung; Z80.0 Family history of malignant neoplasm of digestive organs
CPT/HCPCS: 96376; 96374; 96375; 99285; 36415; 94640 ×2; 93005; 80061; 80053; 84443; 83735; 84484; 85025; 85610; 85730; 87635; 71046; G0378 ×2; J2270; J2405

== ENCOUNTER 2022-05-11 07:42 | Inpatient (IN) | payer MEDICARE, MEDICAID ==
--- NOTE | 2022-05-11 08:26 | ED ---
General Adult HPI - General Chief complaint: Psychiatric Symptoms Stated complaint: Mental Health Time Seen by Provider: 05/11/22 07:54 Source: patient, RN notes reviewed, old records reviewed Mode of arrival: ambulatory Limitations: no limitations - History of Present Illness Initial comments: Patient is a 51-year-old male with past medical history remarkable for psychiatric illness who presents emergency Department complaining of suicidal ideations. States he is supposed no medications but has not been taking them for 2 months. Endorses suicidal ideations over the last 1-2 days. Denies any attempts or plans. Denies homicidal ideations, attempts, plans. Does endorse some auditory hallucinations. Does not detail what they are. States he does use cocaine yesterday as well. Didn't drink yesterday as well. No history of withdrawals. He is hiccuping at this time. Presents for further evaluation of this time by psychiatric services. Denies any chest pain, shortness of breath, abdominal pain, nausea, vomiting. - Related Data Home Medications Medication Instructions Recorded Confirmed Spironolactone 25 mg PO DAILY 02/23/19 05/11/22 oxyCODONE HCL/ACETAMINOPHEN 1 tab PO QID 02/23/19 05/11/22 [Percocet 10-325 mg] Rosuvastatin Calcium 20 mg PO HS 11/13/19 05/11/22 Testosterone Cypionate 300 mg IM Q21D 11/13/19 05/11/22 [Depo-Testosterone] Losartan [Cozaar] 25 mg PO DAILY 10/25/20 05/11/22 Baclofen [Lioresal] 10 mg PO TID PRN 05/11/22 05/11/22 Ergocalciferol [Vitamin D2 (1250 1,250 mcg PO Q30D 05/11/22 05/11/22 Mcg = 21342 Iu)] Naloxone HCl [Narcan] 4 mg NASAL ONCE PRN 05/11/22 05/11/22 Nitroglycerin Sl Tabs [Nitrostat] 0.4 mg SL Q5M PRN 05/11/22 05/11/22 carvediloL [Coreg] 6.25 mg PO BID 05/11/22 05/11/22 Previous Rx's Medication Instructions Recorded Aspirin 325 mg PO DAILY #100 tab 10/26/20 Allergies Allergy/AdvReac Type Severity Reaction Status Date / Time No Known Allergies Allergy Verified 05/11/22 10:51 Review of Systems ROS Statement: Those systems with pertinent positive or pertinent negative responses have been documented in the HPI. Review of Systems: CONST: Denies fever EYES: Denies blurry vision ENT: Denies nasal congestion C/V: Denies Chest pain RESP: Denies shortness of breath GI: Denies abdominal pain : Denies dysuria SKIN: Denies rash. MSK: Denies joint pain. NEURO: Denies headache PSYCH: Denies homicidal ideations/plans/attempts. Denies visual or auditory hallucinations. He endorses suicidal ideations. Denies plans or attempts. ROS Other: All systems not noted in ROS Statement are negative. Past Medical History Past Medical History: Coronary Artery Disease (CAD), Chest Pain / Angina, Hyperlipidemia, Hypertension, Osteoarthritis (OA) Additional Past Medical History / Comment(s): Low testosterone. c/o shortness of breath, improving. Last Myocardial Infarction Date:: 2017 History of Any Multi-Drug Resistant Organisms: None Reported Past Surgical History: Back Surgery, Heart Catheterization, Heart Catheterization With Stent Additional Past Surgical History / Comment(s): back surgeries x2, Colonoscopy. EGD 03/2020. Heart cath 05/17/20 Past Anesthesia/Blood Transfusion Reactions: No Reported Reaction Date of Last Stent Placement:: 05/19/18 Past Psychological History: Anxiety, Bipolar, Depression Smoking Status: Former smoker Past Alcohol Use History: None Reported Past Drug Use History: None Reported - Past Family History Father Family Medical History: Cancer Additional Family Medical History / Comment(s): lung Mother Family Medical History: Cancer Additional Family Medical History / Comment(s): colon General Exam - General Exam Comments Initial Comments: General: Appears in no acute distress. HEAD: Normal with no signs of head trauma. EYES: PERRLA, EOMI, conjunctiva normal, no discharge. ENT: Hearing grossly intact, normal oropharynx. RESPIRATORY: Clear breath sounds bilaterally. No wheezes, rales, or rhonchi. C/V: Regular rate and rhythm. S1 and S2 auscultated, no edema, peripheral pulses 2+ and intact throughout ABD: Abd is soft, nontender, nondistended EXT: Normal range of motion, no obvious deformity SKIN: No rashes or lesions observed on exposed skin. NEURO: Alert and oriented 4. Limitations: no limitations Course Vital Signs 05/11/22 07:48 Temperature 99.1 F Pulse Rate 106 H Respiratory 16 Rate Blood Pressure 153/85 O2 Sat by Pulse 98 Oximetry Medical Decision Making - Medical Decision Making Based on the patient's presentation and physical exam, I do believe he requires psychiatric evaluation. Vital signs within acceptable limits. BAT is 0. UDS is pending at this time. Screening EKG was obtained due to the cocaine use and was within normal limits. Patient was placed in green scrubs. Sitter was ordered. Suicide precautions were ordered. At this time patient is medically cleared for evaluation by psychiatry. Dispos ition is pending EPS and psychiatric evaluation. EPS evaluated the patient, and determined that he does meet inpatient criteria. Patient will be admitted in stable condition to inpatient psychiatry. He signed himself in. - EKG Data -: EKG Interpreted by Me EKG Comments: 12-lead Electrocardiogram Interpretation Note EKG was reviewed and interpreted by myself. 12-lead ECG performed at 0809 is interpreted by me as revealing normal sinus rhythm at a rate of 90 beats per minute. [place] is normal. RI interval is 100 ms, QRS duration is 81 ms, QTc is 362 ms.. There were no ST or T wave abnormalities to suggest myocardial ischemia or injury. R wave progression across the precordium was satisfactory. By my interpretation this EKG is non-diagnostic for acute ischemia. Disposition Clinical Impression: Encounter for psychiatric assessment Disposition: ADMITTED IP TO THIS HOSP Condition: Stable Referrals: Bossman Kent MD [Primary Care Provider] - 1-2 days
[2022-05-11] MEDS ORDERED: ONDANSETRON ODT 4 MG TAB PO STA ×2 (09:54→12:21)
[2022-05-11] MEDS ORDERED: HALOPERIDOL LACTATE 5 MG/ML 1 ML VIAL IM STA (15:03)
[2022-05-11] MEDS ORDERED: haloperidoL 5 MG TAB PO PRN (21:31)
[2022-05-11 21:48] LABS: Amphetamine Screen,Urine Not Detected (NotDetected); Barbiturate Screen,Urine Not Detected (NotDetected); Benzodiazepines Screen,Urine Not Detected (NotDetected); Cocaine Screen,Urine Detected (NotDetected); Methadone Screen, Urine Not Detected (NotDetected); Opiate Screen,Urine Not Detected (NotDetected); Oxycodone Screen, Urine Detected (NotDetected); Phencyclidine Screen,Urine Not Detected (NotDetected); Tricyclic Antidepressant,Urine Not Detected (NotDetected); Urn Cannabinoid Scrn Not Detected (NotDetected)
[2022-05-11] MEDS ORDERED: LORazepam 1 MG/0.5 ML VIAL IM PRN (22:00)
[2022-05-11] MEDS ORDERED: HALOPERIDOL LACTATE 5 MG/ML 1 ML VIAL IM PRN (22:00)
[2022-05-12] MEDS: SPIRONOLACTONE 25 MG TAB PO SCH (08:43)
[2022-05-12] MEDS: NICOTINE 14MG/24HR PATCH TRANSDERM SCH (08:43)
[2022-05-12] MEDS: BACLOFEN 10 MG TAB PO PRN (08:43)
[2022-05-12] MEDS: LOSARTAN 25 MG TAB PO SCH (08:44)
[2022-05-12] MEDS: MAG HYDROX/AL HYDROX/SIMETH 30 ML CUP PO PRN (08:44)
[2022-05-12] MEDS: ASPIRIN 325 MG TAB PO SCH (08:44)
[2022-05-12] MEDS: carvediloL 6.25 MG TAB PO SCH ×2 (08:45→18:00)
[2022-05-12] MEDS ORDERED: MAGNESIUM HYDROXIDE 2,400 MG/10 ML CUP PO PRN (09:00)
[2022-05-12] MEDS: LORazepam 1 MG TAB PO PRN (12:47)
--- NOTE | 2022-05-12 12:57 | P.HP ---
Psychiatric H&P - . H&P Date: 05/12/22 History & Physical: Allergies Allergy/AdvReac Type Severity Reaction Status Date / Time No Known Allergies Allergy Verified 05/11/22 10:51 Vital Signs Temp 98.2 F 05/12/22 06:00 Pulse 109 H 05/12/22 06:00 Resp 18 05/12/22 06:00 BP 146/87 05/12/22 06:00 Pulse Ox 95 05/12/22 06:00 FiO2 Intake & Output 05/11/22 05/12/22 05/12/22 18:59 06:59 18:59 Weight 108.862 kg 104.6 kg Laboratory Last Values Urine Opiates Screen Not Detected (NotDetected) 05/11/22 21:27 Ur Oxycodone Screen Detected (NotDetected) H 05/11/22 21:27 Urine Methadone Screen Not Detected (NotDetected) 05/11/22 21:27 Ur Propoxyphene Screen Not Detected (NotDetected) 05/11/22 21:27 Ur Barbiturates Screen Not Detected (NotDetected) 05/11/22 21:27 U Tricyclic Antidepress Not Detected (NotDetected) 05/11/22 21:27 Ur Phencyclidine Scrn Not Detected (NotDetected) 05/11/22 21:27 Ur Amphetamines Screen Not Detected (NotDetected) 05/11/22 21:27 U Methamphetamines Scrn Not Detected (NotDetected) 05/11/22 21:27 U Benzodiazepines Scrn Not Detected (NotDetected) 05/11/22 21:27 Urine Cocaine Screen Detected (NotDetected) H 05/11/22 21:27 U Marijuana (THC) Screen Not Detected (NotDetected) 05/11/22 21:27 Coronavirus (PCR) Not Detected (Not Detectd) 05/11/22 18:07 05/12/22 12:35 IDENTIFYING DATA: Patient is a 51-year-old -[place]ron[place] male, currently lives alone in a trailer, has 3 kids, collects Social Security disability HPI: Patient presented to the hospital yesterday complaining of suicidal ideations, depression and also auditory hallucinations. Patient had admitted to using cocaine recently. He claims that he has been off of his medications for about 2 months now. Patient's UDS was positive for oxycodone and also cocaine. Patient was admitted voluntarily to the mental health unit. Patient has a history of schizoaffective disorder and also polysubstance abuse in the past. Patient was seen today wandering the hallways and agreeable speech assistant in the office. Patient appears to have a depressed affect, looking at the ground during the interview. He states that he recently relapsed on cocaine about 2 days ago. Claims that he has been feeling hopeless and depressed. States that he has poor motivation. He claims that he is also having some anxiety and also paranoia about other people. He claims he has been hearing voices and "seeing things" however as fairly vague about what he is seeing and hearing. He claims that the voices sometimes telling harm himself. Claims that he is been feeling "off" lately. He states that he has been sleeping on and off as well. Claims that his appetite is poor and has been having cramping in his stomach at times. Patient admits to suicidal however denies any homicidal ideations intent or plan. Patient admits to auditory and visual hallucinations as noted above. Patient denies any flight of ideas racing thoughts and increased in goal directed behavior. Patient admits to using cocaine recently however did not specify how much. Claims that he relapsed 2 days ago. States that he does not use any other recreational drugs or cigarettes. PAST PSYCHIATRIC HISTORY: Patient states that as a history of schizoaffective disorder and polysubstance abuse. Patient was previously on Abilify and was [facility]. Patient was hospitalized several times in the past and the loss Hospital hospitalization on the psychiatric unit was in August 2019. Patient denies any psychiatric outpatient follow-up. Patient denies any history of suicide attempts in the past. PMH:Past Medical History: Coronary Artery Disease (CAD), Chest Pain / Angina, Hyperlipidemia, Hypertension, Osteoarthritis (OA) Additional Past Medical History / Comment(s): Low testosterone. c/o shortness of breath, improving. ALLERGIES: as per EMR CHEMICAL DEPENDENCY HISTORY: as per HPI FAMILY PSYCHIATRIC/SUBSTANCE USE HISTORY: States that his father had schizophrenia SOCIAL HISTORY: Patient was born and raised in [facility]. He states that he completed high school. 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 States that at this time he is collecting Social Security disability. He lives alone in a trailer. Has 3 kids. He claims that he went to detention "years ago" however did not mention when or what the charge was. MENTAL STATUS EXAM: General Appearance: Patient appears to be muscular, several tattoos, stated age is alert, directable, and attempts to cooperate. Poor eye contact. Patient appears to have poor hygiene and grooming. Behavior: Patient is seated without any agitated behavior. Isolative and appears to be depressed. Speech: Patient's speech is fluent and nonpressured. [place]. Soft tone. Mood/Affect: Patient reports their mood is depressed and anxious, affect is congruent and constricted. Suicidality/Homicidality: Patient denies having any homicidal ideation intent or plan. Patient admits to suicidal ideations, no intent or plan. Perceptions: Patient claims that he hears voices and is "seeing things". Though content/process: There is no evidence of any delusional thought content and thought process is linear and goal-directed. Poverty of content. Memory and concentration: AOX3, grossly intact for the purposes of this session. Can spell "WORLD" backwards Judgment and insight: poor STRENGTHS/WEAKNESSES: strength is that patient is resilient. Weakness is that patient has poor judgment and is impulsive INTELLECT: average IMPRESSIONS: Schizoaffective disorder, depressive type Cocaine abuse PLAN: -Patient is admitted under voluntary status to MHU for stabilization of psychiatric symptoms and safety. Patient has signed adult voluntary form and medication consent and is placed in patient's chart. -Medications : Will start patient on paliperidone by mouth 3 mg daily at bedtime for psychosis/mood stabilization. Cymbalta 30 mg daily for mood/anxiety/pain. -Ativan and Haldol PRN for agitation/aggression -Patient was counselled on substance abuse and desired to cut back on use -Patient was informed of the risks, benefits and side effects of the medication and patient verbally consented to taking the medications. Patient signed med consent form and was placed in chart. -Internal Medicine consult to perform medical evaluation and physical. -NRT - not needed as patient does not smoke -SW on board for discharge planning. Encourage patient to participate in groups to work on coping skills. will speak to patient about rehab 05/12/22 12:51
[2022-05-12] MEDS ORDERED: ERGOCALCIFEROL 1,250 MCG (50,000 IU) CAPSULE PO SCH (13:00)
[2022-05-12] MEDS: SIMETHICONE 80 MG CHEWABLE PO SCH ×3 (15:01→21:20)
[2022-05-12] MEDS: ACETAMINOPHEN TAB 325 MG TAB PO PRN (15:01)
[2022-05-12] MEDS: DULoxetine HCL 30 MG CAPSULE.DR PO SCH (15:02)
[2022-05-12] MEDS ORDERED: PALIPERIDONE 3 MG TAB.ER.24 PO SCH (21:00)
[2022-05-12] MEDS: ATORVASTATIN 40 MG TAB PO SCH (21:21)
--- NOTE | 2022-05-13 00:18 | CONS ---
CONSULTATION CHIEF COMPLAINT: Major depression and suicidal thoughts. HISTORY OF PRESENT ILLNESS: This is another admission for this 51-year-old male. He has had some psychiatric problems in the past and became depressed and was thinking about hurting himself. He came to the emergency room. REVIEW OF SYSTEMS: He has had no headaches, change in vision or hearing, chest pain, cough, shortness of breath, abdominal pain, nausea, vomiting, melena, hematochezia, urinary symptoms, etc. Past medical history, family history, personal and social histories are significant only. In that, he has hypogonadism, for which he takes testosterone injections, but he is also on Abilify, aspirin, losartan, rosuvastatin, spironolactone, and carvedilol. He has had cardiac issues in the past. He used to smoke, but does not any longer. He does not abuse alcohol. PHYSICAL EXAMINATION: VITAL SIGNS: Blood pressure is 142/87 with a pulse of 68, respirations of 13. He is afebrile. GENERAL: Appeared to be well developed, well nourished, in no acute distress. Skin color is normal. SKIN: Warm and dry. Lymph nodes are not enlarged. HEAD, EARS, EYES, NOSE, MOUTH AND THROAT: Normal. NECK: Neck veins are not distended. Thyroid is not enlarged. CHEST: Clear. CARDIAC: Normal sinus rhythm. No murmurs or extra sounds. ABDOMEN: Soft and nontender. EXTREMITIES: Normal. NEUROLOGIC: He is intact. He is admitted to the hospital with diagnosis of: 1. Depression. 2. Suicidal thoughts. 3. History of hypertension. RECOMMENDATIONS: None at this time. MMODL / IJN: [id number] /
[2022-05-13] MEDS: MAG HYDROX/AL HYDROX/SIMETH 30 ML CUP PO PRN ×2 (03:03→08:17)
[2022-05-13] MEDS: SIMETHICONE 80 MG CHEWABLE PO SCH ×5 (03:03→22:31)
[2022-05-13] MEDS: carvediloL 6.25 MG TAB PO SCH ×2 (08:17→17:46)
[2022-05-13] MEDS: DULoxetine HCL 30 MG CAPSULE.DR PO SCH (08:18)
[2022-05-13] MEDS: LOSARTAN 25 MG TAB PO SCH (08:18)
[2022-05-13] MEDS: ASPIRIN 325 MG TAB PO SCH (08:18)
[2022-05-13] MEDS: SPIRONOLACTONE 25 MG TAB PO SCH (08:18)
[2022-05-13] MEDS: NICOTINE 14MG/24HR PATCH TRANSDERM SCH (08:18)
[2022-05-13 11:12] LABS: ALT 35 U/L (4-49); AST 45 U/L (17-59); African American GFR (CKD) 72 (>60 ml/min/1.73 sqM); Albumin 4.5 g/dL (3.5-5.0); Alkaline Phosphatase 64 U/L (38-126); Anion Gap 7 mmol/L; Blood Urea Nitrogen 13 mg/dL (9-20); Calcium 8.6 mg/dL (8.4-10.2); Carbon Dioxide 30 mmol/L (22-30); Chloride 97 mmol/L (98-107); Glucose 129 mg/dL (74-99); Non-African American GFR(CKD) 62 (>60 ml/min/1.73 sqM); Potassium 4.3 mmol/L (3.5-5.1); Sodium 134 mmol/L (137-145); Total Bilirubin 0.8 mg/dL (0.2-1.3); Total Protein 7.5 g/dL (6.3-8.2)
[2022-05-13] MEDS: LORazepam 1 MG TAB PO PRN (11:12)
--- NOTE | 2022-05-13 11:20 | P.PN ---
Progress Note - Text Progress Note Date: 05/13/22 Interval History: Patient was seen wandering the hallways and was directable and agreeable to anand beard with caption writer in the office. Patient continues to state that he feels "sick" and states that his stomach has been hurting him. He claims that his appetite is still low at this time. He claims that he is continuing to have hiccups and having abdominal pain for the past couple of days. He claims that he has never had hiccups this long. He states that he is still feeling depressed and anxious and having suicidal thoughts. States that he is also hearing voices which have not improved since yesterday. We spoke about rehab and patient states that he is not interested at this time. States that he is sleeping fairly at nighttime. At this time patient denies any homical ideations, intent or plan. Patient denies any visual hallucinations and denies any paranoia or delusions. Patient denies any side effects from the medications and has been compliant with meds. Mental Status Exam: General Appearance: Patient appears to be muscular, several tattoos, stated age is alert, directable, and attempts to cooperate. Poor eye contact. Patient appears to have improving hygiene and grooming. Behavior: Patient is seated without any agitated behavior. Isolative, hiccups Speech: Patient's speech is fluent and nonpressured. [place]. Soft tone. Mood/Affect: Patient reports their mood is depressed and anxious, affect is congruent and constricted. Suicidality/Homicidality: Patient denies having any homicidal ideation intent or plan. Patient admits to suicidal ideations, no intent or plan. Perceptions: Patient claims that he hears voices and is "seeing things". Though content/process: There is no evidence of any delusional thought content and thought process is linear and goal-directed. Poverty of content. Memory and concentration: AOX3, grossly intact for the purposes of this session Judgment and insight: poor IMPRESSIONS: Schizoaffective disorder, depressive type Cocaine abuse Plan: -Patient continues to meet criteria for inpatient psychiatric admission for symptom stabilization and safety. Patient has signed adult voluntary form and medication consent and was placed in patient's chart. -Medications: Discontinue paliperidone briefly and start Thorazine by mouth 25 m g 3 times a day for intractable hiccups. Increase Cymbalta to 60 mg daily for mood/anxiety/pain. -When necessary Ativan and Haldol for agitation/aggression. -NRT - not need this patient is thought smoke -SW on board for discharge planning. Encouraged the patient to participate in milieu. Patient is not interested in rehab at this time.
[2022-05-13 11:24] LABS: Basophils % (A) 0 %; Eosinophils % (A) 0 %; HCT 44.4 % (39.0-53.0); HGB 15.5 gm/dL (13.0-17.5); Lymphocytes # (A) 1.3 k/uL (1.0-4.8); Lymphocytes % (A) 24 %; MCH 31.7 pg (25.0-35.0); MCHC 34.9 g/dL (31.0-37.0); MCV 90.9 fL (80.0-100.0); Mean Platelet Volume 7.5; Monocytes # (A) 0.7 k/uL (0-1.0); Monocytes % (A) 14 %; Neutrophils # (A) 3.2 k/uL (1.3-7.7); Neutrophils % (A) 58 %; Platelet Count 128 k/uL (150-450); RBC 4.89 m/uL (4.30-5.90); RDW 13.6 % (11.5-15.5); WBC 5.5 k/uL (3.8-10.6)
[2022-05-13] MEDS: chlorproMAZINE 25 MG TAB PO SCH ×3 (11:47→22:32)
[2022-05-13 19:50] LABS: Chol/HDL Ratio 2.96 Ratio; LDL Cholesterol,Calculated 49.2 mg/dL (0.0-131.0)
[2022-05-13] MEDS: ATORVASTATIN 40 MG TAB PO SCH (22:31)
[2022-05-14] MEDS: LORazepam 1 MG TAB PO PRN ×2 (04:07→17:28)
[2022-05-14] MEDS: MAG HYDROX/AL HYDROX/SIMETH 30 ML CUP PO PRN (04:07)
[2022-05-14] MEDS: SPIRONOLACTONE 25 MG TAB PO SCH (07:37)
[2022-05-14] MEDS: LOSARTAN 25 MG TAB PO SCH (07:37)
[2022-05-14] MEDS: chlorproMAZINE 25 MG TAB PO SCH ×2 (07:37→20:21)
[2022-05-14] MEDS: carvediloL 6.25 MG TAB PO SCH ×2 (07:37→17:28)
[2022-05-14] MEDS: ASPIRIN 325 MG TAB PO SCH (07:38)
[2022-05-14] MEDS: SIMETHICONE 80 MG CHEWABLE PO SCH ×4 (07:38→20:20)
[2022-05-14] MEDS: ACETAMINOPHEN TAB 325 MG TAB PO PRN (07:40)
[2022-05-14] MEDS: NICOTINE 14MG/24HR PATCH TRANSDERM SCH (07:48)
[2022-05-14] MEDS ORDERED: DULoxetine HCL 60 MG CAPSULE.DR PO SCH (09:00)
--- NOTE | 2022-05-14 11:29 | P.PN ---
Progress Note - Text Progress Note Date: 05/14/22 Interval History: Patient was seen lying in bed today and was directable and agreeable to speak with job specification writer in the office. Patient claims that he continues to feel withdrawn and was laying in bed. He states that he still feels depressed and feels that there has not been much change since yesterday. He does claim that his hiccups have improved. He states that he is still having some abdominal pain and "burning in my throat". He states that he is able to sleep a bit better last night. Claims that he still not tolerating much food. He was requesting to have ensure added. He states that he is not interested in going to many groups continues to feel a motivation. Also claiming that he feels anxious at this time. We spoke about rehab and patient states that he is not interested at this time. At this time patient denies any homical ideations, intent or plan. He continues to state that he has suicidal thoughts however no intent or plan. Continues to state that he is hearing voices telling him to harm himself. Patient denies any visual hallucinations and denies any paranoia or delusions. Patient denies any side effects from the medications and has been compliant with meds. Mental Status Exam: General Appearance: Patient appears to be muscular, several tattoos, stated age is alert, directable, and attempts to cooperate. Poor eye contact. Patient appears to have improving hygiene and grooming. Behavior: Patient is seated without any agitated behavior. less hiccups. Speech: Patient's speech is fluent and nonpressured. [place]. Soft tone. Mood/Affect: Patient reports their mood is depressed and anxious, affect is congruent and constricted. Suicidality/Homicidality: Patient denies having any homicidal ideation intent or plan. Patient admits to suicidal ideations, no intent or plan. Perceptions: Patient claims that he hears voices and is "seeing things". Though content/process: There is no evidence of any delusional thought content and thought process is linear and goal-directed. Poverty of content. Memory and concentration: AOX3, grossly intact for the purposes of this session Judgment and insight: poor, improving mildly IMPRESSIONS: Schizoaffective disorder, depressive type Cocaine abuse Plan: -Patient continues to meet criteria for inpatient psychiatric admission for symptom stabilization and safety. Patient has signed adult voluntary form and medication consent and was placed in patient's chart. -Medications: decrease Thorazine by mouth 25 mg BID a day for intractable hiccups and continue titrating down. will likely add back invega tomorrow to help with AH/psychotic sx. Increase Cymbalta to 60 mg daily + 30 mg qhs for mood/anxiety/pain. -When necessary Ativan and Haldol for agitation/aggression. -NRT - not need this patient is thought smoke -SW on board for discharge planning. Encouraged the patient to participate in milieu. Patient is not interested in rehab at this time.
[2022-05-14] MEDS: PANTOPRAZOLE 40 MG TABLET PO SCH (11:34)
[2022-05-14] MEDS: ATORVASTATIN 40 MG TAB PO SCH (20:20)
[2022-05-14] MEDS ORDERED: DULoxetine HCL 30 MG CAPSULE.DR PO SCH (21:00)
[2022-05-15] MEDS: MAG HYDROX/AL HYDROX/SIMETH 30 ML CUP PO PRN ×3 (02:37→12:55)
[2022-05-15] MEDS: LORazepam 1 MG TAB PO PRN (02:37)
[2022-05-15] MEDS: SIMETHICONE 80 MG CHEWABLE PO SCH ×4 (08:05→20:51)
[2022-05-15] MEDS: DULoxetine HCL 60 MG CAPSULE.DR PO SCH ×2 (08:06→20:50)
[2022-05-15] MEDS: PANTOPRAZOLE 40 MG TABLET PO SCH ×2 (08:06→20:53)
[2022-05-15] MEDS: carvediloL 6.25 MG TAB PO SCH ×2 (08:06→18:20)
[2022-05-15] MEDS: chlorproMAZINE 25 MG TAB PO SCH (08:06)
[2022-05-15] MEDS: ASPIRIN 325 MG TAB PO SCH (08:06)
[2022-05-15] MEDS: SPIRONOLACTONE 25 MG TAB PO SCH (08:06)
[2022-05-15] MEDS: LOSARTAN 25 MG TAB PO SCH (08:07)
[2022-05-15] MEDS: NICOTINE 14MG/24HR PATCH TRANSDERM SCH (08:07)
--- NOTE | 2022-05-15 10:00 | P.PN ---
Progress Note - Text Progress Note Date: 05/15/22 Interval History: Patient was seen lying in bed today and was directable and agreeable to speak with mortgage loan underwriter. Ebony Dooley continues to be mainly staying in his room at this time. He states that he is still having some abdominal pain however states that the Protonix was helping with the "burning in my chest". He states that he only had a "hard boiled egg" this morning and does not have much of an appetite. He states that he would like to speak to a medical doctor. He claims that he is still having depression at this time however it is mildly improving since yesterday. Denies any anxiety today. Continues to state that he has suicidal thoughts, no intent or plan. Denies any homicidal ideations. Continues to state that he does hear voices however claims that they're moderately improving. Patient denies any visual hallucinations and denies any paranoia or delusions. Patient denies any side effects from the medications and has been compliant with meds. Mental Status Exam: General Appearance: Patient appears to be muscular, several tattoos, stated age is alert, directable, and attempts to cooperate. Improving eye contact. Patient appears to have improving hygiene and grooming. Behavior: Patient is seated without any agitated behavior. Speech: Patient's speech is fluent and nonpressured. [place]. Improving Mood/Affect: Patient reports their mood is depressed, improving mildly, affect is congruent and constricted. Suicidality/Homicidality: Patient denies having any homicidal ideation intent or plan. Patient admits to suicidal ideations, which are improving since yesterday. Perceptions: Patient claims that he hears voices and is "seeing things". Though content/process: There is no evidence of any delusional thought content and thought process is linear and goal-directed. Memory and concentration: AOX3, grossly intact for the purposes of this session Judgment and insight: poor, improving mildly IMPRESSIONS: Schizoaffective disorder, depressive type Cocaine abuse Plan: -Patient continues to meet criteria for inpatient psychiatric admission for symptom stabilization and safety. Patient has signed adult voluntary form and medication consent and was placed in patient's chart. -Medications: d/c Thorazine for intractable hiccups as they have resolved. added abilify po 5 mg daily for mood adjunct/psychosis with plan to increase over the weekend. Increase Cymbalta to 60 mg daily + 60 mg qhs for mood/anxiety/pain. -will ask medicine to come and see patient regarding abdominal pain. -When necessary Ativan and Haldol for agitation/aggression. -NRT - not need this patient is thought smoke -SW on board for discharge planning. Encouraged the patient to participate in milieu. Patient is not interested in rehab at this time. Likely discharge early next week if patient continues to improve.
[2022-05-15] MEDS: SUCRALFATE 1 GM TAB PO SCH (20:50)
[2022-05-15] MEDS: ATORVASTATIN 40 MG TAB PO SCH (20:51)
[2022-05-16] MEDS: LORazepam 1 MG TAB PO PRN (03:31)
[2022-05-16] MEDS: MAG HYDROX/AL HYDROX/SIMETH 30 ML CUP PO PRN ×3 (03:31→12:56)
[2022-05-16] MEDS: NICOTINE 14MG/24HR PATCH TRANSDERM SCH (08:03)
[2022-05-16] MEDS: SPIRONOLACTONE 25 MG TAB PO SCH (08:04)
[2022-05-16] MEDS: PANTOPRAZOLE 40 MG TABLET PO SCH ×2 (08:04→18:56)
[2022-05-16] MEDS: LOSARTAN 25 MG TAB PO SCH (08:04)
[2022-05-16] MEDS: DULoxetine HCL 60 MG CAPSULE.DR PO SCH ×2 (08:04→21:23)
[2022-05-16] MEDS: ARIPiprazole 5 MG TAB PO SCH (08:04)
[2022-05-16] MEDS: ASPIRIN 325 MG TAB PO SCH (08:04)
[2022-05-16] MEDS: SIMETHICONE 80 MG CHEWABLE PO SCH ×4 (08:04→21:24)
[2022-05-16] MEDS: carvediloL 6.25 MG TAB PO SCH ×2 (08:04→18:57)
[2022-05-16] MEDS: SUCRALFATE 1 GM TAB PO SCH ×4 (08:04→21:23)
[2022-05-16 11:44] LABS: Basophils % (A) 0 %; Eosinophils % (A) 1 %; HCT 44.8 % (39.0-53.0); HGB 15.8 gm/dL (13.0-17.5); Lymphocytes # (A) 1.3 k/uL (1.0-4.8); Lymphocytes % (A) 32 %; MCH 32.1 pg (25.0-35.0); MCHC 35.3 g/dL (31.0-37.0); Mean Platelet Volume 7.6; Monocytes # (A) 0.4 k/uL (0-1.0); Monocytes % (A) 11 %; Neutrophils % (A) 52 %; Platelet Count 142 k/uL (150-450); RBC 4.92 m/uL (4.30-5.90); RDW 13.8 % (11.5-15.5); WBC 3.9 k/uL (3.8-10.6)
[2022-05-16 12:05] LABS: Albumin 4.5 g/dL (3.5-5.0); Calcium 8.8 mg/dL (8.4-10.2); Potassium 4.4 mmol/L (3.5-5.1); Total Bilirubin 0.8 mg/dL (0.2-1.3); Total Protein 7.4 g/dL (6.3-8.2)
--- NOTE | 2022-05-16 18:02 | P.PN ---
Progress Note - Text Progress Note Date: 05/16/22 Interval history: Patient was seen resting in his bed in the dark this afternoon, appears withdrawn and isolative, and was directable and agreeable to speak with card writer hand. He reports his mood is depressed, reports good sleep and fair appetite. He reports hearing auditory hallucinations telling him to escape this place. He also endorses seeing "smokey" visual disturbances. There appears to be some thought blocking. He endorses suicidal thoughts but does not report plan. He has not been attending groups. When discussing his Abilify he does not want this increased and prefers to keep it at 5 mg. At this time patient denies any homicidal ideation, intent or plan. Patient denies any side effects from the medications and appears to be compliant with meds. He took his first dose of Abilify 5 mg this morning. Mental status exam: General Appearance: Patient appears to be stated age, has tattoos, dressed in hospital gown. Behavior: No agitated behavior. Appears withdrawn and isolative. Speech: Patient's speech is fluent, low volume and tone. Mood/Affect: Mood is low but improving mildly, affect is blunted and constricted. Suicidality/Homicidality: Patient endorses suicidal thoughts, He denies homicidal ideation intent or plan. Perceptions: He endorses auditory and visual hallucinations. Thought process: Some thought blocking observed. Thought content: Asks for Boost, little spontaneous thoughts. Memory and concentration: AOX3, grossly intact for the purposes of this session Judgment and insight: Poor, improving mildly Assessment/Plan: Continue with current diagnosis. Patient continues to meet criteria for inpatient psychiatric admission for symptom stabilization and safety. Patient will be maintained on current psychotropic medication regimen. Will consider increasing Abilify tomorrow. Monitor for medication compliance and for any psychotropic medication side effects. Will continue to monitor ongoing response to treatment. Encouraged participation in milieu.
[2022-05-16] MEDS: ATORVASTATIN 40 MG TAB PO SCH (21:24)
[2022-05-17] MEDS: MAG HYDROX/AL HYDROX/SIMETH 30 ML CUP PO PRN (02:57)
[2022-05-17] MEDS: LORazepam 1 MG TAB PO PRN ×2 (02:57→12:25)
[2022-05-17] MEDS: ARIPiprazole 5 MG TAB PO SCH ×2 (08:16→21:39)
[2022-05-17] MEDS: SPIRONOLACTONE 25 MG TAB PO SCH (08:16)
[2022-05-17] MEDS: LOSARTAN 25 MG TAB PO SCH (08:16)
[2022-05-17] MEDS: DULoxetine HCL 60 MG CAPSULE.DR PO SCH ×2 (08:16→21:39)
[2022-05-17] MEDS: carvediloL 6.25 MG TAB PO SCH ×2 (08:16→17:35)
[2022-05-17] MEDS: PANTOPRAZOLE 40 MG TABLET PO SCH ×2 (08:16→17:35)
[2022-05-17] MEDS: NICOTINE 14MG/24HR PATCH TRANSDERM SCH (08:16)
[2022-05-17] MEDS: SUCRALFATE 1 GM TAB PO SCH ×4 (08:16→21:38)
[2022-05-17] MEDS: SIMETHICONE 80 MG CHEWABLE PO SCH ×4 (08:17→21:39)
[2022-05-17] MEDS: ASPIRIN 325 MG TAB PO SCH (08:48)
[2022-05-17] MEDS: ATORVASTATIN 40 MG TAB PO SCH (21:38)
--- NOTE | 2022-05-17 22:52 | P.PN ---
Progress Note - Text Progress Note Date: 05/17/22 Interval history: Patient was seen isolating to his room today, laying in bed in the dark for most of the day, withdrawn and isolative. He reports his mood is depressed, eye contact is poor. He reports hearing auditory hallucinations, denies visual hallucinations today. Poverty of thought and psychomotor slowing are evident. He denies suicidal or homicidal ideation, intent or plan. Patient denies any side effects from the medications and appears to be compliant with meds. Mental status exam: General Appearance: Patient appears to be stated age, has tattoos, obese, dressed in hospital gown. Behavior: No agitated behavior. Appears withdrawn, isolates to his bed most of the day. Speech: Patient's speech is low in volume and tone. Mood/Affect: Mood is depressed, affect is blunted and constricted. Suicidality/Homicidality: Patient denies suicidal or homicidal ideation intent or plan. Perceptions: He endorses auditory hallucinations and denies visual hallucinations. Thought process: Poverty of thought and psychomotor slowing. Thought content: Minimal thought content. Memory and concentration: AOX3, grossly intact for the purposes of this session Judgment and insight: Poor Assessment/Plan: Continue with current diagnosis. Patient continues to meet criteria for inpatient psychiatric admission for symptom stabilization and safety. Increase Abilify to 5 mg BID for psychosis and mood. Monitor for medication compliance and for any psychotropic medication side effects. Will continue to monitor ongoing response to treatment. Encouraged participation in milieu.
[2022-05-18] MEDS: MAG HYDROX/AL HYDROX/SIMETH 30 ML CUP PO PRN (05:37)
[2022-05-18] MEDS: LORazepam 1 MG TAB PO PRN (05:37)
--- NOTE | 2022-05-18 08:27 | US ---
EXAMINATION TYPE: US abdomen complete DATE OF EXAM: 05/18/2022 COMPARISON: CT 2018 CLINICAL HISTORY: Abdominal pain. Abdominal pain x 7 days per patient. TECHNIQUE: Multiple sonographic images of the abdomen are obtained. FINDINGS: EXAM MEASUREMENTS: Liver Length: 12.5 cm Gallbladder Wall: 0.18 cm CBD: 0.32 cm Spleen: 10.0 cm Right Kidney: 10.8 x 6.2 x 6.5 cm Left Kidney: 10.5 x 5.1 x 4.3 cm EVENT PLANNER NOTES: Very limited due to overlying bowel gas. Pancreas: Limited due to gas. Liver: Appears very coarse in echotexture. Gallbladder: Folds seen. Appears anechoic. Evidence for sonographic Rosa's sign: No CBD: Portions seen appear wnl Spleen: Appears wnl Right Kidney: No hydronephrosis or masses seen Left Kidney: Irregular appearance. Appears to have abnormal contour. Possible isoechoic area seen upp er pole versus normal tissue measuring 1.8 x 3.3 x 2.1 cm. Upper IVC: Appears wnl Abd Aorta: Iliacs were obscured. Proximal appears ectatic. Suboptimal study due to overlying bowel gas. No aneurysm of the visualized abdominal aorta. Pancreas mostly obscured by overlying bowel gas. Visualized liver heterogeneously hyperechoic. No adjacent asc ites. Gallbladder shows no shadowing mobile gallstones. Normal size kidneys with at least partially d uplicated collecting system on the left on ultrasound correlates with CT. IMPRESSION: Suboptimal study. No acute findings are evident.
[2022-05-18] MEDS: PANTOPRAZOLE 40 MG TABLET PO SCH ×2 (08:33→17:11)
[2022-05-18] MEDS: DULoxetine HCL 60 MG CAPSULE.DR PO SCH ×2 (08:33→21:18)
[2022-05-18] MEDS: SIMETHICONE 80 MG CHEWABLE PO SCH ×4 (08:33→21:19)
[2022-05-18] MEDS: LOSARTAN 25 MG TAB PO SCH (08:33)
[2022-05-18] MEDS: SUCRALFATE 1 GM TAB PO SCH ×4 (08:33→21:18)
[2022-05-18] MEDS: carvediloL 6.25 MG TAB PO SCH ×2 (08:33→17:11)
[2022-05-18] MEDS: ASPIRIN 325 MG TAB PO SCH (08:33)
[2022-05-18] MEDS: SPIRONOLACTONE 25 MG TAB PO SCH (08:33)
[2022-05-18] MEDS: ARIPiprazole 5 MG TAB PO SCH ×2 (08:33→21:18)
--- NOTE | 2022-05-18 13:47 | P.PN ---
Progress Note - Text Progress Note Date: 05/18/22 Interval History: Patient was seen wandering today and was directable and agreeable to speak with speech writer. patient continues to be mainly staying in his room at this time however does state that he is feeling a bit better today with regards to his mood and anxiety. He states that he is tolerating the medication better. He claims that he got the ultrasound completed today by his medical doctor. He states that he is still dealing with the abdominal pain. He claims that he is not having a ve ry good appetite at this time. He is denying any nausea or vomiting or diarrhea. He claims that he is sleeping a bit better at nighttime. Claims that he is not expressing any auditory hallucinations and denying any suicidal thoughts today.Denies any homicidal ideations. Patient denies any visual hallucinations and denies any paranoia or delusions. Patient denies any side effects from the medications and has been compliant with meds. Mental Status Exam: General Appearance: Patient appears to be muscular, several tattoos, stated age is alert, directable, and attempts to cooperate. Improving eye contact. Patient appears to have improving hygiene and grooming. Behavior: Patient is seated without any agitated behavior. Speech: Patient's speech is fluent and nonpressured. [place]. Improving Mood/Affect: Patient reports their mood is depressed, improving mildly, affect is congruent and constricted. Suicidality/Homicidality: Patient denies having any homicidal ideation intent or plan. Denies any suicidal ideations, and intent Perceptions: Patient denies any auditory or visual hallucinations. Though content/process: There is no evidence of any delusional thought content and thought process is linear and goal-directed. Memory and concentration: AOX3, grossly intact for the purposes of this session Judgment and insight: improving mildly IMPRESSIONS: Schizoaffective disorder, depressive type Cocaine abuse Plan: -Patient continues to meet criteria for inpatient psychiatric admission for symptom stabilization and safety. Patient has signed adult voluntary form and medication consent and was placed in patient's chart. -Medications: Continue with abilify po 5 mg bid for mood adjunct/psychosis. Cymbalta to 60 mg daily + 60 mg qhs for mood/anxiety/pain. -patient had an abdominal US which was a suboptimal study and did not show any acute changes. -When necessary Ativan and Haldol for agitation/aggression. -NRT - not need this patient is thought smoke -SW on board for discharge planning. Encouraged the patient to participate in milieu. Patient is not interested in rehab at this time. Likely discharge tomorrow.
[2022-05-18] MEDS: ATORVASTATIN 40 MG TAB PO SCH (21:18)
--- NOTE | 2022-05-18 22:26 | PN ---
PROGRESS NOTE DATE OF SERVICE: 05/18/2022 CHIEF COMPLAINT: Abdominal pain. HISTORY OF PRESENT ILLNESS: This gentleman is doing a little bit better with the discomfort. His lipase was slightly elevated and pancreatitis will be further addressed. PHYSICAL EXAMINATION: Physical exam is unchanged. IMPRESSION: 1. Upper abdominal pain. 2. Elevated lipase. 3. Rule out ulcer disease or pancreatitis. MMODL / IJN: [id number] /
--- NOTE | 2022-05-18 22:46 | PN ---
PROGRESS NOTE DATE OF SERVICE: 05/17/2022 CHIEF COMPLAINT: Abdominal pain. HISTORY OF PRESENT ILLNESS: This gentleman has been complaining of some upper abdominal pain. It is not particularly severe and he has had no nausea, vomiting, food intolerance, diarrhea, melena, hematochezia, etc. PHYSICAL EXAMINATION: He has some mild upper abdominal tenderness. IMPRESSION: Upper abdominal pain, etiology unknown. PLAN: 1. Laboratory studies. 2. Start on antacid program. MMBRITTANYL / JAYSONN: [id number] /
[2022-05-19] MEDS: BACLOFEN 10 MG TAB PO PRN (04:40)
[2022-05-19] MEDS: MAG HYDROX/AL HYDROX/SIMETH 30 ML CUP PO PRN ×2 (04:40→11:57)
[2022-05-19 06:20] VITALS: RESP 17; TEMP 97.7
[2022-05-19 08:04] VITALS: BP 133/87; PULSE 95
[2022-05-19] MEDS: SUCRALFATE 1 GM TAB PO SCH ×2 (08:04→11:57)
[2022-05-19] MEDS: ARIPiprazole 5 MG TAB PO SCH (08:04)
[2022-05-19] MEDS: ASPIRIN 325 MG TAB PO SCH (08:04)
[2022-05-19] MEDS: DULoxetine HCL 60 MG CAPSULE.DR PO SCH (08:04)
[2022-05-19] MEDS: SIMETHICONE 80 MG CHEWABLE PO SCH ×2 (08:04→11:57)
[2022-05-19] MEDS: PANTOPRAZOLE 40 MG TABLET PO SCH (08:04)
[2022-05-19] MEDS: SPIRONOLACTONE 25 MG TAB PO SCH (08:04)
[2022-05-19] MEDS: LOSARTAN 25 MG TAB PO SCH (08:04)
[2022-05-19] MEDS: carvediloL 6.25 MG TAB PO SCH (08:04)
--- NOTE | 2022-05-19 09:31 | P.DS ---
Providers Date of admission: 05/11/22 21:03 Expected date of discharge: 05/19/22 Attending physician: Juan Pablo Redmond MD Consults: 05/11/22 21:29 Consult Physician Routine Consulting Provider: Bossman Kent Consult Reason/Comments: H&P and medical Do you want consulting provider notified?: Yes Primary care physician: Bossman Kent - Discharge Diagnosis(es) (1) Schizoaffective disorder, depressive type Current Visit: Yes Status: Acute Priority: High (2) Cocaine abuse Current Visit: Yes Status: Acute Priority: High Hospital Course: Admission HPI: Admission note was completed by auto service writer "Patient is a 51-year-old - [place] male, currently lives alone in a trailer, has 3 kids, collects Social Security disability. Patient presented to the hospital yesterday complaining of suicidal ideations, depression and also auditory hallucinations. Patient had admitted to using cocaine recently. He claims that he has been off of his medications for about 2 months now. Patient's UDS was positive for oxycodone and also cocaine. Patient was admitted voluntarily to the mental health unit. Patient has a history of schizoaffective disorder and also polysubstance abuse in the past. Patient was seen today wandering the hallways and agreeable speech language pathologist in the office. Patient appears to have a depressed affect, looking at the ground during the interview. He states that he recently relapsed on cocaine about 2 days ago. Claims that he has been feeling hopeless and depressed. States that he has poor motivation. He claims that he is also having some anxiety and also paranoia about other people. He claims he has been hearing voices and "seeing things" however as fairly vague about what he is seeing and hearing. He claims that the voices sometimes telling harm himself. Claims that he is been feeling "off" lately. He states that he has been sleeping on and off as well. Claims that his appetite is poor and has been having cramping in his s tomach at times. Patient admits to suicidal however denies any homicidal ideations intent or plan. Patient admits to auditory and visual hallucinations as noted above. Patient denies any flight of ideas racing thoughts and increased in goal directed behavior. Patient admits to using cocaine recently however did not specify how much. Claims that he relapsed 2 days ago. States that he does not use any other recreational drugs or cigarettes." Hospital course: Upon admission to the unit patient was directable and agreeable to commence treatment and signed adult voluntary form. Patient got along well with other patients on the unit and followed unit protocol. Patient was compliant with the medications and denied any side effects throughout hospital course. Patient was started on Abilify and increased to a dose of 5 mg twice a day for mood stabilization/psychosis, Cymbalta increased the dose of 60 mg twice a day for mood/anxiety/pain.. Patient spoke of his stressors however did not go to many groups and engage in milieu during his hospitalization. Patient was also seen by medical team for history and physical exam. Patient did have blood work which showed an increase in lipaseand he was complaining of heart burn and abdominal pain. Patient was seen again by his PCP and will continue with outpatient follow up. Throughout the course of the hospitalization patient gradually improved with regards to mood, anxiety, psychosis, suicidal thoughts, sleep and returned back to their baseline level of functioning. On the day of discharge patient denied any suicidal or homicidal ideations intent or plan denied any auditory or visual hallucinations. Patient endorsed wanting to live for his health and family. The patient denied any access to guns or weapons. Patient denied any paranoia and did not endorse any delusions. Patient does have a significant history of substance abuse and was counseled on abstaining from all substances including alcohol and marijuana. Patient was offered however declined inpatient substance- abuse rehab. Patient was also counseled on the medications and need for regular compliance and was encouraged to follow-up with their outpatient appointment for mental health and also for primary care. Mental status exam: General Appearance: Patient appears to be well built, multiple tattoos, stated age is alert, pleasant, and cooperative. Patient is in no acute distress and has improved hygiene and grooming Behavior: Patient is calmly seated without any agitated behavior. Speech: Patient's speech is fluent and nonpressured. Mood/Affect: Patient reports their mood is "good", affect is congruent and constricted Suicidality/Homicidality: Patient denies having any suicidal or homicidal ideation intent or plan. Perceptions: Patient denies any auditory or visual hallucinations. Though content/process: There is no evidence of any delusional thought content and thought process is linear and goal-directed. more future oriented Memory and concentration: AOX3, grossly intact for the purposes of this session. Can spell "WORLD" backwards correctly. Judgment and insight: chronically poor, however has improved with guarded prognosis Impression: Schizoaffective disorder, depressive type Cocaine abuse Plan: -Continue with discharge today as patient has improved and stabilized psychiatrically and is not currently an imminent threat to himself and/or others. Patient will remain at chronically elevated risk for harm to self and/or others due to his impulsivity and substance abuse. -Continue medications: Abilify by mouth 5 mg twice a day for mood adjunct/psychosis, Cymbalta 60 mg twice a day for mood/anxiety/pain. -Patient was counseled on the need for medication compliance and appropriate follow-up at mental health and also primary care for medical issues. Patient verbalized understanding and agreed. -Social work to arrange for and conduct family meeting to ensure safety upon discharge and answer any questions/concerns. Social work also to arrange for patients follow up appointments with [facility] for psychiatric care along with follow up with primary care provider. -Patient counseled on abstaining from recreational drugs and marijuana and alcohol. Was informed/educated on the adverse effects on their physical and mental health. Patient verbally agreed and understood. Patient was offered substance abuse treatment however declined at this time. -Patient was instructed to return to the hospital or seek immediate medical care if their psychiatric or medical symptoms do worsen or reoccur. Allergies Allergy/AdvReac Type Severity Reaction Status Date / Time No Known Allergies Allergy Verified 05/11/22 10:51 Laboratory Results WBC 3.9 k/uL (3.8-10.6) 05/16/22 10:22 RBC 4.92 m/uL (4.30-5.90) 05/16/22 10:22 Hgb 15.8 gm/dL (13.0-17.5) 05/16/22 10:22 Hct 44.8 % (39.0-53.0) 05/16/22 10:22 MCV 91.0 fL (80.0-100.0) 05/16/22 10:22 MCH 32.1 pg (25.0-35.0) 05/16/22 10:22 MCHC 35.3 g/dL (31.0-37.0) 05/16/22 10:22 RDW 13.8 % (11.5-15.5) 05/16/22 10:22 Plt Count 142 k/uL (150-450) L 05/16/22 10:22 MPV 7.6 05/16/22 10:22 Neutrophils % 52 % 05/16/22 10:22 Lymphocytes % 32 % 05/16/22 10:22 Monocytes % 11 % 05/16/22 10:22 Eosinophils % 1 % 05/16/22 10:22 Basophils % 0 % 05/16/22 10:22 Neutrophils # 2.0 k/uL (1.3-7.7) 05/16/22 10:22 Lymphocytes # 1.3 k/uL (1.0-4.8) 05/16/22 10:22 Monocytes # 0.4 k/uL (0-1.0) 05/16/22 10:22 Eosinophils # 0.0 k/uL (0-0.7) 05/16/22 10: Basophils # 0.0 k/uL (0-0.2) 05/16/22 10:22 Sodium 135 mmol/L (137-145) L 05/16/22 10:22 Potassium 4.4 mmol/L (3.5-5.1) 05/16/22 10:22 Chloride 98 mmol/L (98-107) 05/16/22 10:22 Carbon Dioxide 26 mmol/L (22-30) 05/16/22 10:22 Anion Gap 11 mmol/L 05/16/22 10:22 BUN 12 mg/dL (9-20) 05/16/22 10:22 Creatinine 1.38 mg/dL (0.66-1.25) H 05/16/22 10:22 Est GFR (CKD-EPI)AfAm 67 (>60 ml/min/1.73 sqM) 05/16/22 10:22 Est GFR (CKD-EPI)NonAf 58 (>60 ml/min/1.73 sqM) 05/16/22 10:22 Glucose 114 mg/dL (74-99) H 05/16/22 10:[address] Glu mg/dL 118 05/13/22 10:29 Hemoglobin A1c 5.8 % (0.0-6.0) 05/13/22 10:29 Calcium 8.8 mg/dL (8.4-10.2) 05/16/22 10:22 Total Bilirubin 0.8 mg/dL (0.2-1.3) 05/16/22 10:22 AST 28 U/L (17-59) 05/16/22 10:22 ALT 35 U/L (4-49) 05/16/22 10:22 Alkaline Phosphatase 65 U/L (38-126) 05/16/22 10:22 Total Protein 7.4 g/dL (6.3-8.2) 05/16/22 10:22 Albumin 4.5 g/dL (3.5-5.0) 05/16/22 10:22 Triglycerides 115.00 mg/dL (0.00-149.00) 05/13/22 10:29 Cholesterol 109.00 mg/dL (0.00-200.00) 05/13/22 10:29 LDL Cholesterol, Calc 49.2 mg/dL (0.0-131.0) 05/13/22 10:29 VLDL Cholesterol, Calc 23.00 mg/dL (5.00-40.00) 05/13/22 10:29 HDL Cholesterol 36.80 mg/dL (40.00-60.00) L 05/13/22 10:29 Cholesterol/HDL Ratio 2.96 Ratio 05/13/22 10:29 Lipase 439 U/L (23-300) H 05/17/22 18:07 TSH 0.903 mIU/L (0.465-4.680) 05/13/22 10:29 Urine Opiates Screen Not Detected (NotDetected) 05/11/22 21:27 Ur Oxycodone Screen Detected (NotDetected) H 05/11/22 21:27 Urine Methadone Screen Not Detected (NotDetected) 05/11/22 21:27 Ur Propoxyphene Screen Not Detected (NotDetected) 05/11/22 21:27 Ur Barbiturates Screen Not Detected (NotDetected) 05/11/22 21:27 U Tricyclic Antidepress Not Detected (NotDetected) 05/11/22 21:27 Ur Phencyclidine Scrn Not Detected (NotDetected) 05/11/22 21:27 Ur Amphetamines Screen Not Detected (NotDetected) 05/11/22 21:27 U Methamphetamines Scrn Not Detected (NotDetected) 05/11/22 21:27 U Benzodiazepines Scrn Not Detected (NotDetected) 05/11/22 21:27 Urine Cocaine Screen Detected (NotDetected) H 05/11/22 21:27 U Marijuana (THC) Screen Not Detected (NotDetected) 05/11/22 21:27 Coronavirus (PCR) Not Detected (Not Detectd) 05/11/22 18:07 Vital Signs Temp 97.7 F 05/19/22 05:00 Pulse 95 05/19/22 08:03 Resp 17 05/19/22 05:00 BP 133/87 05/19/22 08:03 Pulse Ox 95 05/19/22 05:00 FiO2 Patient Condition at Discharge: Stable Plan - Discharge Summary Discharge Rx Participant: Yes New Discharge Prescriptions: New Sucralfate [Carafate] 1 gm PO ACHS 14 Days tab DULoxetine HCL [Cymbalta] 60 mg PO BID 30 Days cap Simethicone Chew [Mylicon Chew] 40 mg PO QID 14 Days tab ARIPiprazole [Abilify] 5 mg PO BID 30 Days tab Continue Testosterone Cypionate [Depo-Testosterone] 300 mg IM Q21D Aspirin 325 mg PO DAILY 30 Days tab carvediloL [Coreg] 6.25 mg PO BID 14 Days tab Losartan [Cozaar] 25 mg PO DAILY 14 Days #0 Rosuvastatin Calcium 20 mg PO HS 14 Days tab Spironolactone 25 mg PO DAILY 14 Days tab Ergocalciferol [Vitamin D2 (1250 Mcg = 94607 Iu)] 1,250 mcg PO Q30D 30 Days cap Naloxone HCl [Narcan] 4 mg NASAL ONCE PRN PRN Reason: overdose Nitroglycerin Sl Tabs [Nitrostat] 0.4 mg SL Q5M PRN PRN Reason: Chest Pain Baclofen [Lioresal] 10 mg PO TID PRN 14 Days tab PRN Reason: Muscle Spasm Discontinued oxyCODONE HCL/ACETAMINOPHEN [Percocet 10-325 mg] 1 tab PO QID Discharge Medication List Testosterone Cypionate [Depo-Testosterone] 300 mg IM Q21D 11/13/19 [History] Naloxone HCl [Narcan] 4 mg NASAL ONCE PRN 05/11/22 [History] Nitroglycerin Sl Tabs [Nitrostat] 0.4 mg SL Q5M PRN 05/11/22 [History] ARIPiprazole [Abilify] 5 mg PO BID 30 Days tab 05/19/22 [Rx] Aspirin 325 mg PO DAILY 30 Days tab 05/19/22 [Rx] Baclofen [Lioresal] 10 mg PO TID PRN 14 Days tab 05/19/22 [Rx] DULoxetine HCL [Cymbalta] 60 mg PO BID 30 Days cap 05/19/22 [Rx] Ergocalciferol [Vitamin D2 (1250 Mcg = 85671 Iu)] 1,250 mcg PO Q30D 30 Days cap 05/19/22 [Rx] Losartan [Cozaar] 25 mg PO DAILY 14 Days #0 05/19/22 [Rx] Rosuvastatin Calcium 20 mg PO HS 14 Days tab 05/19/22 [Rx] Simethicone Chew [Mylicon Chew] 40 mg PO QID 14 Days tab 05/19/22 [Rx] Spironolactone 25 mg PO DAILY 14 Days tab 05/19/22 [Rx] Sucralfate [Carafate] 1 gm PO ACHS 14 Days tab 05/19/22 [Rx] carvediloL [Coreg] 6.25 mg PO BID 14 Days tab 05/19/22 [Rx] Follow up Appointment(s)/Referral(s): Bossman Kent MD [Primary Care Provider] - 1-2 days Activity/Diet/Wound Care/Special Instructions: Avoid the use of street drugs and alcohol. Take all prescriptions as prescribed. When you are in need of refills on your medications, please contact your medical provider and/or outpatient psychiatrist to have this done. Please go to scheduled outpatient appointment for aftercare treatment. If symptoms return or become worse, call the crisis line at and/or go to the nearest emergency room for evaluation. Discharge Disposition: HOME SELF-CARE
== END 2022-05-19 12:15 | disposition home or self-care (01) | DRG 885 ==
LOC: EC 07:42 → 3MHU 21:03
PROVIDERS: ADMIT Psychiatry & Neurology Psychiatry; ATTEND Psychiatry & Neurology Psychiatry
DX: F25.1 Schizoaffective disorder, depressive type (principal); R45.851 Suicidal ideations; R74.8 Abnormal levels of other serum enzymes; F14.10 Cocaine abuse, uncomplicated; Z20.822 Contact with and (suspected) exposure to COVID-19; F41.9 Anxiety disorder, unspecified; E29.1 Testicular hypofunction; E78.5 Hyperlipidemia, unspecified; I10 Essential (primary) hypertension; I25.10 Atherosclerotic heart disease of native coronary artery without angina pectoris; I25.2 Old myocardial infarction; R10.10 Upper abdominal pain, unspecified; R06.6 Hiccough; M19.90 Unspecified osteoarthritis, unspecified site; Z79.82 Long term (current) use of aspirin; Z79.890 Hormone replacement therapy; Z79.891 Long term (current) use of opiate analgesic; Z79.899 Other long term (current) drug therapy; Z87.891 Personal history of nicotine dependence; Z95.5 Presence of coronary angioplasty implant and graft; Z81.8 Family history of other mental and behavioral disorders
CPT/HCPCS: 76700; 80053; 80061; 80306; 82075; 83036; 83690; 84443; 85025; 87635; 93005; 96372; 99285

== ENCOUNTER 2022-05-30 00:04 | Emergency (ER) | payer MEDICARE, MEDICAID ==
[2022-05-30 00:09] VITALS: TEMP 98.8
[2022-05-30] MEDS ORDERED: SODIUM CHLORIDE 0.9% 1,000 ML IV STA ×2 (00:17→00:53)
--- NOTE | 2022-05-30 00:26 | ED ---
Chest Pain HPI - General Chief Complaint: Chest Pain Stated Complaint: Chest Tightness Time Seen by Provider: 05/30/22 00:17 Source: patient, RN notes reviewed, old records reviewed Mode of arrival: wheelchair Limitations: no limitations - History of Present Illness Initial Comments: This is a 61-year-old male to the emergency department for evaluation. Patient presents today for evaluation of chest pain. Patient is very anxious a little sweaty. Patient has history of stent placement 5 years ago. Patient does admit to using cocaine tonight. Patient states after that he became very tachycardic felt like his heart was started to get pretty high. MD Complaint: chest pain -: minutes(s) Onset: during rest Pain Location: left chest Pain Radiation: none Severity: moderate Severity scale (1-10): 5 Quality: tightness Consistency: constant Improves With: nothing Worsens With: nothing Other Symptoms: acid taste in mouth, palpitations Treatments Prior to Arrival: none - Related Data Home Medications Medication Instructions Recorded Confirmed Testosterone Cypionate 300 mg IM Q21D 11/13/19 05/11/22 [Depo-Testosterone] Naloxone HCl [Narcan] 4 mg NASAL ONCE PRN 05/11/22 05/11/22 Nitroglycerin Sl Tabs [Nitrostat] 0.4 mg SL Q5M PRN 05/11/22 05/11/22 Previous Rx's Medication Instructions Recorded ARIPiprazole [Abilify] 5 mg PO BID 30 Days tab 05/19/22 Aspirin 325 mg PO DAILY 30 Days tab 05/19/22 Baclofen [Lioresal] 10 mg PO TID PRN 14 Days tab 05/19/22 DULoxetine HCL [Cymbalta] 60 mg PO BID 30 Days cap 05/19/22 Ergocalciferol [Vitamin D2 (1250 1,250 mcg PO Q30D 30 Days cap 05/19/22 Mcg = 29960 Iu)] Losartan [Cozaar] 25 mg PO DAILY 14 Days #0 05/19/22 Rosuvastatin Calcium 20 mg PO HS 14 Days tab 05/19/22 Simethicone Chew [Mylicon Chew] 40 mg PO QID 14 Days tab 05/19/22 Spironolactone 25 mg PO DAILY 14 Days tab 05/19/22 Sucralfate [Carafate] 1 gm PO ACHS 14 Days tab 05/19/22 carvediloL [Coreg] 6.25 mg PO BID 14 Days tab 05/19/22 Allergies Allergy/AdvReac Type Severity Reaction Status Date / Time No Known Allergies Allergy Verified 05/30/22 00:07 Review of Systems ROS Statement: Those systems with pertinent positive or pertinent negative responses have been documented in the HPI. ROS Other: All systems not noted in ROS Statement are negative. EKG Findings - EKG Comments: EKG Findings:: EKG interpreted by me sinus tachycardia 125 DE 180 QRS 84 QTc 380 Past Medical History Past Medical History: Coronary Artery Disease (CAD), Chest Pain / Angina, Hyperlipidemia, Hypertension, Osteoarthritis (OA) Additional Past Medical History / Comment(s): Low testosterone. c/o shortness of breath, improving. Last Myocardial Infarction Date:: 2017 History of Any Multi-Drug Resistant Organisms: None Reported Past Surgical History: Back Surgery, Heart Catheterization, Heart Catheterization With Stent Additional Past Surgical History / Comment(s): back surgeries x2, Colonoscopy. EGD 03/2020. Heart cath 05/17/20 Past Anesthesia/Blood Transfusion Reactions: No Reported Reaction Date of Last Stent Placement:: 05/19/18 Past Psychological History: Anxiety, Bipolar, Depression Smoking Status: Former smoker Past Alcohol Use History: None Reported Past Drug Use History: None Reported - Past Family History Father Family Medical History: Cancer Additional Family Medical History / Comment(s): lung Mother Family Medical History: Cancer Additional Family Medical History / Comment(s): colon General Exam Limitations: no limitations General appearance: alert, in no apparent distress Head exam: Present: atraumatic, normocephalic, normal inspection Eye exam: Present: normal appearance, PERRL, EOMI. Absent: scleral icterus, conjunctival injection, periorbital swelling ENT exam: Present: normal exam, mucous membranes moist Neck exam: Present: normal inspection. Absent: tenderness, meningismus, lymphadenopathy Respiratory exam: Present: normal lung sounds bilaterally. Absent: respiratory distress, wheezes, rales, rhonchi, stridor Cardiovascular Exam: Present: normal rhythm, tachycardia, normal heart sounds. Absent: systolic murmur, diastolic murmur, rubs, gallop, clicks GI/Abdominal exam: Present: soft, normal bowel sounds. Absent: distended, tenderness, guarding, rebound, rigid Extremities exam: Present: normal inspection, full ROM, normal capillary refill. Absent: tenderness, pedal edema, joint swelling, calf tenderness Back exam: Present: normal inspection Neurological exam: Present: alert, oriented X3, CN II-XII intact Psychiatric exam: Present: normal affect, normal mood Skin exam: Present: warm, dry, intact, normal color. Absent: rash Course Vital Signs 05/30/22 05/30/22 05/30/22 00:07 00:27 00:32 Temperature 98.8 F Pulse Rate 136 H 116 H 113 H Respiratory 24 20 Rate Blood Pressure 137/75 112/61 O2 Sat by Pulse 963 H 96 Oximetry 05/30/22 01:25 Temperature Pulse Rate 101 H Respiratory Rate Blood Pressure O2 Sat by Pulse Oximetry - Reevaluation(s) Reevaluation #1: 05/30/22 01:01 Medical record is reviewed Reevaluation #2: 05/30/22 01:01 patient is feeling improved here in the ER Reevaluation #3: 05/30/22 01:01 Patient informed results and questions are answered Chest Pain MDM - MDM 48 female with chest pain typical versus atypical chest pain. History of stent, EKG troponin are negative. Did use cocaine today. Improved with Ativan symptoms improved here with hydration and patient can be discharged home Disposition Clinical Impression: Chest pain Disposition: HOME SELF-CARE Condition: Good Instructions (If sedation given, give patient instructions): Chest Pain (ED) Is patient prescribed a controlled substance at d/c from ED?: No Referrals: Bossman Kent MD [Primary Care Provider] - 1-2 days Time of Disposition: 02:00
[2022-05-30 00:35] LABS: Basophils % (A) 0 %; Eosinophils % (A) 1 %; HCT 41.7 % (39.0-53.0); HGB 14.8 gm/dL (13.0-17.5); Lymphocytes # (A) 0.9 k/uL (1.0-4.8); Lymphocytes % (A) 20 %; MCH 32.2 pg (25.0-35.0); MCHC 35.4 g/dL (31.0-37.0); MCV 91.1 fL (80.0-100.0); Mean Platelet Volume 7.9; Monocytes # (A) 0.2 k/uL (0-1.0); Monocytes % (A) 6 %; Neutrophils % (A) 71 %; Platelet Count 121 k/uL (150-450); RBC 4.58 m/uL (4.30-5.90); RDW 14.2 % (11.5-15.5); WBC 4.3 k/uL (3.8-10.6)
[2022-05-30] MEDS ORDERED: NITROGLYCERIN SL TABS 0.4 MG TAB SUBLINGUAL STA (00:53)
[2022-05-30] MEDS ORDERED: LORazepam 2 MG/ML INJ IV STA (00:53)
--- NOTE | 2022-05-30 01:02 | XR ---
EXAMINATION TYPE: XR chest 1V portable DATE OF EXAM: 05/30/2022 COMPARISON: 10/25/2020 HISTORY: Chest pain TECHNIQUE: Single view FINDINGS: There is some mild atelectasis at the lung bases. No heart failure. Heart is top normal in size. There are chest leads. Bony thorax is intact. IMPRESSION: Interstitial mild infiltrate and atelectasis at the lung bases is new compared to old exa m. No heart failure seen.
[2022-05-30 01:08] LABS: INR 0.9 (<1.2); Prothrombin Time 10.2 sec (9.0-12.0)
[2022-05-30 01:09] LABS: Partial Thromboplastin Time 21.5 sec (22.0-30.0)
[2022-05-30 01:11] LABS: ALT 35 U/L (4-49); AST 31 U/L (17-59); Acetaminophen <10.0 ug/mL; African American GFR (CKD) 72 (>60 ml/min/1.73 sqM); Albumin 4.6 g/dL (3.5-5.0); Alcohol <10 mg/dL; Alkaline Phosphatase 67 U/L (38-126); Anion Gap 12 mmol/L; Blood Urea Nitrogen 17 mg/dL (9-20); Carbon Dioxide 21 mmol/L (22-30); Chloride 104 mmol/L (98-107); Glucose 182 mg/dL (74-99); Magnesium 1.7 mg/dL (1.6-2.3); Non-African American GFR(CKD) 63 (>60 ml/min/1.73 sqM); Phosphorus 2.5 mg/dL (2.5-4.5); Potassium 4.2 mmol/L (3.5-5.1); Salicylate <1.0 mg/dL; Sodium 137 mmol/L (137-145); Total Bilirubin 0.3 mg/dL (0.2-1.3); Total Protein 7.7 g/dL (6.3-8.2)
[2022-05-30 02:24] VITALS: BP 100/43; PULSE 96; RESP 18
== END 2022-05-30 02:25 | disposition home or self-care (01) ==
LOC: EC 00:04
DX: R07.89 Other chest pain (principal); I25.10 Atherosclerotic heart disease of native coronary artery without angina pectoris; I10 Essential (primary) hypertension; M19.90 Unspecified osteoarthritis, unspecified site; I25.2 Old myocardial infarction; Z87.891 Personal history of nicotine dependence; Z79.899 Other long term (current) drug therapy
CPT/HCPCS: 36415; 93005; 80053; 83605; 83735; 84100; 84443; 84484; 85025; 85610; 85730; 80143; 80179; 71045; 99285; 96374; 96361; G0480; J2060; 80320

== ENCOUNTER 2022-06-09 10:28 | Observation (INO) | payer MEDICARE, OTHER ==
[2022-06-09 11:21] LABS: Basophils % (A) 0 %; Eosinophils % (A) 1 %; HCT 39.1 % (39.0-53.0); HGB 13.8 gm/dL (13.0-17.5); Lymphocytes # (A) 1.1 k/uL (1.0-4.8); Lymphocytes % (A) 30 %; MCH 31.9 pg (25.0-35.0); MCHC 35.3 g/dL (31.0-37.0); MCV 90.4 fL (80.0-100.0); Mean Platelet Volume 7.5; Monocytes # (A) 0.4 k/uL (0-1.0); Monocytes % (A) 10 %; Neutrophils % (A) 55 %; Platelet Count 138 k/uL (150-450); RBC 4.33 m/uL (4.30-5.90); RDW 14.1 % (11.5-15.5); WBC 3.6 k/uL (3.8-10.6)
[2022-06-09 11:32] LABS: Partial Thromboplastin Time 23.4 sec (22.0-30.0); Prothrombin Time 10.5 sec (9.0-12.0)
--- NOTE | 2022-06-09 11:33 | XR ---
EXAMINATION TYPE: XR chest 2V DATE OF EXAM: 06/09/2022 COMPARISON: 05/30/2022 HISTORY: 51-year-old male with chest pain and shortness of breath TECHNIQUE: PA and lateral views FINDINGS: The cardiomediastinal silhouette, aorta, and pulmonary vasculature are within normal limits. Aeration in the lower lungs has improved from prior study. Some residual opacity remains at the left base. IMPRESSION: Bilateral lower lung interstitial changes have improved from prior study. Some residual patchy atelec tasis or mild infiltrate remains at the left base.
[2022-06-09 11:34] LABS: Albumin 3.9 g/dL (3.5-5.0); Calcium 8.5 mg/dL (8.4-10.2); Magnesium 1.7 mg/dL (1.6-2.3); Total Bilirubin 0.6 mg/dL (0.2-1.3)
[2022-06-09] MEDS ORDERED: ASPIRIN 81 MG PO STA (12:13)
--- NOTE | 2022-06-09 12:13 | ED ---
Chest Pain HPI - General Chief Complaint: Chest Pain Stated Complaint: Chest Pain,SOB Time Seen by Provider: 06/09/22 11:20 Source: patient, RN notes reviewed Mode of arrival: ambulatory Limitations: no limitations - History of Present Illness Initial Comments: 51-year-old male presents emergency Department with chief complaint of chest pain. Patient states that he's been having increasing chest pain he was admitted at [facility] but states he signed out AGAINST MEDICAL ADVICE as he is feeling better. He has exertional chest pain while shortness of breath. Patient doesn'thave prior cardiac disease he states that cardiology was planning area Versus stress test. Patient denies any significant symptoms at rest. Patient prior documentation shows that he uses cocaine. Denies any leg pain leg swelling no history DVT or PE. - Related Data Home Medications Medication Instructions Recorded Confirmed Testosterone Cypionate 300 mg IM Q21D 11/13/19 05/11/22 [Depo-Testosterone] Naloxone HCl [Narcan] 4 mg NASAL ONCE PRN 05/11/22 05/11/22 Nitroglycerin Sl Tabs [Nitrostat] 0.4 mg SL Q5M PRN 05/11/22 05/11/22 Previous Rx's Medication Instructions Recorded ARIPiprazole [Abilify] 5 mg PO BID 30 Days tab 05/19/22 Aspirin 325 mg PO DAILY 30 Days tab 05/19/22 Baclofen [Lioresal] 10 mg PO TID PRN 14 Days tab 05/19/22 DULoxetine HCL [Cymbalta] 60 mg PO BID 30 Days cap 05/19/22 Ergocalciferol [Vitamin D2 (1250 1,250 mcg PO Q30D 30 Days cap 05/19/22 Mcg = 60690 Iu)] Losartan [Cozaar] 25 mg PO DAILY 14 Days #0 05/19/22 Rosuvastatin Calcium 20 mg PO HS 14 Days tab 05/19/22 Simethicone Chew [Mylicon Chew] 40 mg PO QID 14 Days tab 05/19/22 Spironolactone 25 mg PO DAILY 14 Days tab 05/19/22 Sucralfate [Carafate] 1 gm PO ACHS 14 Days tab 05/19/22 carvediloL [Coreg] 6.25 mg PO BID 14 Days tab 05/19/22 Allergies Allergy/AdvReac Type Severity Reaction Status Date / Time No Known Allergies Allergy Verified 06/09/22 10:49 Review of Systems ROS Statement: Those systems with pertinent positive or pertinent negative responses have been documented in the HPI. ROS Other: All systems not noted in ROS Statement are negative. EKG Findings - EKG Comments: EKG Findings:: EKG performed at 11:00 sinus rhythm with short MT rate of 92 MT 118 QRS 87 QT/QTC 329/379 - EKG Results: EKG: interpreted by MICHELLE Past Medical History Past Medical History: Coronary Artery Disease (CAD), Chest Pain / Angina, Hyperlipidemia, Hypertension, Osteoarthritis (OA) Additional Past Medical History / Comment(s): Low testosterone. c/o shortness of breath, improving. Last Myocardial Infarction Date:: 2017 History of Any Multi-Drug Resistant Organisms: None Reported Past Surgical History: Back Surgery, Heart Catheterization, Heart Catheterization With Stent Additional Past Surgical History / Comment(s): back surgeries x2, Colonoscopy. EGD 03/2020. Heart cath 05/17/20 Past Anesthesia/Blood Transfusion Reactions: No Reported Reaction Date of Last Stent Placement:: 05/19/18 Past Psychological History: Anxiety, Bipolar, Depression Smoking Status: Former smoker Past Alcohol Use History: None Reported Past Drug Use History: None Reported - Past Family History Father Family Medical History: Cancer Additional Family Medical History / Comment(s): lung Mother Family Medical History: Cancer Additional Family Medical History / Comment(s): colon General Exam Limitations: no limitations General appearance: alert, in no apparent distress Head exam: Present: atraumatic, normocephalic, normal inspection Eye exam: Present: normal appearance, PERRL, EOMI. Absent: scleral icterus, conjunctival injection, periorbital swelling ENT exam: Present: normal exam, normal oropharynx, mucous membranes moist Neck exam: Present: normal inspection, full ROM. Absent: tenderness, meningismus, lymphadenopathy Respiratory exam: Present: normal lung sounds bilaterally. Absent: respiratory distress, wheezes, rales, rhonchi, stridor Cardiovascular Exam: Present: regular rate, normal rhythm, normal heart sounds. Absent: systolic murmur, diastolic murmur, rubs, gallop, clicks Extremities exam: Absent: pedal edema, calf tenderness Neurological exam: Present: alert, oriented X3, CN II-XII intact Skin exam: Present: warm, dry, intact, normal color. Absent: rash Course Vital Signs 06/09/22 06/09/22 10:46 12:02 Temperature 98.7 F Pulse Rate 96 Pulse Rate [ 92 Torpedo Man ] Respiratory 18 20 Rate Blood Pressure 115/71 O2 Sat by Pulse 98 Oximetry Disposition Clinical Impression: Chest pain Disposition: ADMITTED IP TO THIS HOSP Condition: Fair Referrals: Bossman Kent MD [Primary Care Provider] - 1-2 days Time of Disposition: 12:12
[2022-06-09] MEDS: NITROGLYCERIN SL TABS 0.4 MG TAB SUBLINGUAL PRN ×2 (12:42→18:54)
[2022-06-09] MEDS ORDERED: KETOROLAC 15 MG/ML 1 ML VIAL IVP STA ×2 (13:07→14:28)
[2022-06-09] MEDS ORDERED: NITROGLYCERIN OINT 1 INCH/GM PACKET TOPICAL STA (13:07)
[2022-06-09] MEDS ORDERED: ACETAMINOPHEN TAB 325 MG TAB PO STA (15:16)
--- NOTE | 2022-06-09 20:57 | HP ---
HISTORY AND PHYSICAL CHIEF COMPLAINT: Chest pain. HISTORY OF PRESENT ILLNESS: This is another recent admission for this 51-year-old male. He went to the emergency room at [facility] for chest pain, was treated and then left. He came back again with chest pain and it turned out that he had been using cocaine. He was admitted and was to be further evaluated by Cardiology, but when narcotic analgesics were refused, he signed himself out against medical advice. Several days later, he came to this emergency room. Chest pain is substernal and cardiac enzymes are normal. REVIEW OF SYSTEMS: Otherwise normal. He has had no neurologic problems, hemoptysis, sputum production, chills, fever, radiation of the pain, etc. Past medical history, family history, personal and social histories are all otherwise unremarkable and unchanged from prior admissions. ALLERGIES: He is not allergic to any medication. MEDICATIONS: He has been on, 1. Relistor 150 mg once a day. 2. Claritin-D. 3. Baclofen. 4. Testosterone injections 200 mg every 3 weeks. 5. Abilify 300 mg IM once a month. 6. Aspirin once a day. 7. Losartan 25 mg once a day. 8. Rosuvastatin 20 mg once a day. 9. Spironolactone 25 mg once a day. 10.Carvedilol 12.5 mg twice a day. He has had prior problems with coronary artery disease. He has also had back surgeries in the past. In 2018, he had a coronary artery stent. He used to smoke, but states he does not any longer. PHYSICAL EXAMINATION: VITAL SIGNS: Blood pressure is 136/90 with a pulse of 70, respirations of 22, and he is afebrile. GENERAL: He appeared to be well developed, well nourished, in no acute distress. He is very muscular. He had multiple tattoos. HEAD, EARS, EYES, NOSE, MOUTH AND THROAT: Normal. NECK: Neck veins are not distended. CHEST: Clear. CARDIAC: Demonstrates sinus rhythm and no murmurs or extra sounds. ABDOMEN: Soft, nontender without any visceromegaly or masses. Bowel sounds are present. EXTREMITIES: Normal. ASSESSMENT: He is admitted to the hospital with diagnosis of; 1. Chest pain. 2. History of coronary artery disease. 3. Drug abuse. 4. Cocaine use. PLAN: 1. Bedrest. 2. IV fluids. 3. Serial EKGs and enzymes. 4. Consult with Cardiology. ETHAN / JAYSONN: [id number] /
[2022-06-09] MEDS: ATORVASTATIN 40 MG TAB PO SCH (21:32)
[2022-06-09] MEDS: carvediloL 6.25 MG TAB PO SCH (21:32)
[2022-06-09] MEDS ORDERED: oxyCODONE-APAP 10-325MG 1 EACH TAB PO SCH (22:00)
[2022-06-10] MEDS: carvediloL 6.25 MG TAB PO SCH ×2 (05:19→17:56)
[2022-06-10] MEDS: oxyCODONE-APAP 10-325MG 1 EACH TAB PO PRN ×3 (05:19→20:35)
[2022-06-10] MEDS ORDERED: ASPIRIN 325 MG TAB PO SCH (09:00)
[2022-06-10] MEDS: ASPIRIN 325 MG TAB PO SCH (09:13)
[2022-06-10] MEDS: SPIRONOLACTONE 25 MG TAB PO SCH (09:13)
[2022-06-10 09:19] LABS: Chol/HDL Ratio 3.12 Ratio; LDL Cholesterol,Calculated 55.2 mg/dL (0.0-131.0)
--- NOTE | 2022-06-10 11:42 | P.CRDCN ---
History of Present Illness History of present illness: This is Dr. Perkins dictating a consult on this patient The patient was interviewed and examined IMPRESSION / ASSESSMENT: Recurrent chest discomfort Positive for cocaine and meth amphetamine in [facility] on June 07 During chest discomfort EKG does not show any ST segment abnormalities Normal cardiac enzymes Known coronary artery disease status post stenting Mild cardio myopathy ejection fraction 40% On good, guideline directed medical treatment Mildly reduced platelet count, thrombocytopenia Borderline diabetes PLAN: Repeat tox screen Stop cocaine use Patient has no evidence for myocardial infarction His EKGs are completely normal and unchanged from baseline He needs to stop drug abuse He has a mild cardio myopathy and known coronary artery abnormalities an excellent treatment His LDL is at goal His HDL is low From a cardiac standpoint he may go home and follow-up with Dr. Gr within one week HPI Patient comes in with recurrent chest discomfort He was recently at [facility] and was complaining of palpitations and chest discomfort but signed out AGAINST MEDICAL ADVICE is is not getting pain medications No cardiac enzyme abnormalities there He was cocaine positive there Positive for meth amphetamines and benzodiazepines and positive for oxycodone Here he is still complaining of chest discomfort resting in bed I repeated his EKG No new ST segment abnormalities Isolated inverted T-wave in lead 3 , sinus mechanism ROS: No fever chills or rigors, no cough, phlegm or expectoration, no nausea, vomiting or diarrhea, no hematuria, dysuria, no musculoskeletal complaints, no strokes or seizures, no skin lesions. EXAMINATION: Resting comfortably in bed but complaining of active chest discomfort Breath sounds are clear Heart sounds are normal No JVD Been No Respiratory Distress REVIEW OF LABS, ECG & MEDICAL DATA White count 3.6 thousand, hemoglobin normal at 13.8, platelet count 138,000 Sodium 136, potassium 4.0 BUN and creatinine normal Hemoglobin A1c 6.1 3 normal cardiac enzymes Serial EKGs do not show any ST segment abnormalities of significance or concern LDL 55, HDL 36 Normal liver function Past Medical History Past Medical History: Coronary Artery Disease (CAD), Chest Pain / Angina, Hyperlipidemia, Hypertension, Osteoarthritis (OA) Additional Past Medical History / Comment(s): Low testosterone. c/o shortness of breath, improving. Last Myocardial Infarction Date:: 2017 History of Any Multi-Drug Resistant Organisms: None Reported Past Surgical History: Back Surgery, Heart Catheterization, Heart Catheterization With Stent Additional Past Surgical History / Comment(s): back surgeries x2, Colonoscopy. EGD 03/2020. Heart cath 05/17/20 Past Anesthesia/Blood Transfusion Reactions: No Reported Reaction Date of Last Stent Placement:: 05/19/18 Past Psychological History: Anxiety, Bipolar, Depression Additional Psychological History / Comment(s): claustrophobia; denies any Rx for this 05/31/20 Smoking Status: Former smoker Past Alcohol Use History: None Reported Additional Past Alcohol Use History / Comment(s): started smoking 1984, quit s moking 2015, 1 PPD. Quit alcohol, states unsure when 05/31/20 Past Drug Use History: None Reported Additional Drug Use History / Comment(s): quit 2004; then stated he used methamphetamine 08/13/19; denies current drug use 05/31/20. - Past Family History Father Family Medical History: Cancer Additional Family Medical History / Comment(s): lung Mother Family Medical History: Cancer Additional Family Medical History / Comment(s): colon Medications and Allergies Home Medications Medication Instructions Recorded Confirmed Type Testosterone Cypionate 300 mg IM Q21D 11/13/19 06/09/22 History [Depo-Testosterone] Nitroglycerin Sl Tabs [Nitrostat] 0.4 mg SL Q5M PRN 05/11/22 06/09/22 History Aspirin 325 mg PO DAILY 30 Days tab 05/19/22 06/09/22 Rx Rosuvastatin Calcium 20 mg PO HS 14 Days tab 05/19/22 06/09/22 Rx Spironolactone 25 mg PO DAILY 14 Days tab 05/19/22 06/09/22 Rx carvediloL [Coreg] 6.25 mg PO BID 14 Days tab 05/19/22 06/09/22 Rx Ergocalciferol [Vitamin D2 (1250 1,250 mcg PO MO 06/09/22 06/09/22 History Mcg = 82906 Iu)] Losartan [Cozaar] 25 mg PO DAILY@1600 06/09/22 06/09/22 History oxyCODONE-APAP 10-325MG [Percocet 1 tab PO QID 06/09/22 06/09/22 History 10-325 mg] Allergies Allergy/AdvReac Type Severity Reaction Status Date / Time No Known Allergies Allergy Verified 06/09/22 18:22 Physical Exam Vitals: Vital Signs Temp Pulse Pulse Pulse Resp BP BP 06/10/22 07:00 98.0 F 72 16 124/71 06/10/22 02:29 97.8 F 84 18 103/64 06/09/22 20:00 16 06/09/22 18:40 116/62 06/09/22 18:14 97.4 F L 76 18 99/64 06/09/22 17:35 81 18 98/70 06/09/22 17:00 70 26 H 06/09/22 16:00 89 18 06/09/22 15:00 87 20 114/70 06/09/22 14:00 79 12 114/66 06/09/22 13:00 84 26 H 134/80 06/09/22 12:02 92 20 06/09/22 12:00 12 126/81 Pulse Ox 06/10/22 07:00 98 06/10/22 02:29 96 06/09/22 20:00 06/09/22 18:40 06/09/22 18:14 96 06/09/22 17:35 97 06/09/22 17:00 06/09/22 16:00 06/09/22 15:00 06/09/22 14:00 92 L 06/09/22 13:00 97 06/09/22 12:02 06/09/22 12:00 96 Intake and Output 06/09/22 06/10/22 06/10/22 22:59 06:59 14:59 Other: Voiding Method Toilet # Voids 1 3 Weight 104.326 kg Results 06/09/22 11:06 06/09/22 11:06 Cardiac Enzymes 06/09/22 06/09/22 06/09/22 Range/Units 11:06 14:49 17:43 Troponin I <0.012 <0.012 <0.012 (0.000-0.034) ng/mL Lipids 06/09/22 Range/Units 11:06 Triglycerides 101.00 (0.00-149.00) mg/dL Cholesterol 111.00 (0.00-200.00) mg/dL HDL Cholesterol 35.60 L (40.00-60.00) mg/dL Cholesterol/HDL Ratio 3.12 Ratio Current Medications Generic Name Dose Route Start Last Admin Trade Name Freq PRN Reason Stop Dose Admin Aspirin 325 mg 06/10/22 09:00 06/10/22 09:13 Aspirin 325 Mg Tab PO 325 mg DAILY NOEMÍ Administration Atorvastatin Calcium 40 mg 06/09/22 21:00 06/09/22 21:32 Atorvastatin 40 Mg Tab PO 40 mg HS NOEMÍ Administration Carvedilol 6.25 mg 06/09/22 21:00 06/10/22 05:19 Carvedilol 6.25 Mg Tab PO 6.25 mg AC-BID NOEMÍ Administration Losartan Potassium 25 mg 06/10/22 16:00 Losartan 25 Mg Tab PO DAILY@1600 [facility] Nitroglycerin 0.4 mg 06/09/22 12:13 06/09/22 18:54 Nitroglycerin Sl Tabs 0.4 Mg Tab SUBLINGUAL 0.4 mg Q5M PRN Administration Chest Pain Oxycodone/Acetaminophen 1 each 06/10/22 05:16 06/10/22 05:19 Oxycodone-Apap 10-325mg 1 Each Tab PO 1 each Q6H PRN Administration Pain Spironolactone 25 mg 06/10/22 09:00 06/10/22 09:13 Spironolactone 25 Mg Tab PO 25 mg DAILY NOEMÍ Administration Intake and Output 06/09/22 06/10/22 06/10/22 22:59 06:59 14:59 Other: Voiding Method Toilet # Voids 1 3 Weight 104.326 kg 06/09/22 11:06 06/09/22 11:06
[2022-06-10] MEDS: NITROGLYCERIN SL TABS 0.4 MG TAB SUBLINGUAL PRN ×2 (13:03→18:19)
[2022-06-10] MEDS: LOSARTAN 25 MG TAB PO SCH (16:58)
[2022-06-10] MEDS: ATORVASTATIN 40 MG TAB PO SCH (20:35)
[2022-06-10 21:47] LABS: Urine Alcohol Negative (Negative); Urine Barbiturate Negative (Negative); Urine Cocaine Negative (Negative); Urine Methadone Negative (Negative); Urine Opiates Negative (Negative); Urine Phencyclidine Negative (Negative)
[2022-06-11] MEDS: oxyCODONE-APAP 10-325MG 1 EACH TAB PO PRN ×3 (05:22→21:29)
[2022-06-11] MEDS ORDERED: CAFFEINE CITRATE 60 MG/3 ML VIAL IV PRN (06:00)
[2022-06-11] MEDS ORDERED: AMINOPHYLLINE 500 MG/20 ML VIAL IV PRN (06:00)
[2022-06-11] MEDS: carvediloL 6.25 MG TAB PO SCH ×2 (06:16→17:42)
[2022-06-11] MEDS ORDERED: REGADENOSON 0.4 MG/5 ML SYRINGE IV PRN (07:00)
--- NOTE | 2022-06-11 09:33 | P.PN ---
Subjective Progress Note Date: 06/11/22 The patient was interviewed and examined IMPRESSION / ASSESSMENT: Recurrent chest discomfort Positive for cocaine and meth amphetamine in [facility] on June 07 During chest discomfort EKG does not show any ST segment abnormalities Normal cardiac enzymes Known coronary artery disease status post stenting Mild cardio myopathy ejection fraction 40% On good, guideline directed medical treatment Mildly reduced platelet count, thrombocytopenia Borderline diabetes PLAN: Stop cocaine use Patient has no evidence for myocardial infarction His EKGs are completely normal and unchanged from baseline He needs to stop drug abuse He has a mild cardiomyopathy and known coronary artery abnormalities on excellent treatment His LDL is at goal His HDL is low Lexiscan stress test has been ordered and if this is showing no abnormality, he may go home and follow-up with Dr. Gr within one week HPI Patient comes in with recurrent chest discomfort He was recently at [facility] and was complaining of palpitations and chest discomfort but signed out AGAINST MEDICAL ADVICE is is not getting pain medications No cardiac enzyme abnormalities there He was cocaine positive there Positive for meth amphetamines and benzodiazepines and positive for oxycodone Here he is still complaining of chest discomfort resting in bed I repeated his EKG No new ST segment abnormalities Isolated inverted T-wave in lead 3 , sinus mechanism 06/11 Patient states that he had some chest pain during the night but none today. Discussed the need for discontinuing cocaine and drug use and patient states that he is done using drugs. EXAMINATION: Resting comfortably in bed but no complaints of active chest discomfort Breath sounds are clear Heart sounds are normal No JVD Been No Respiratory Distress REVIEW OF LABS, ECG & MEDICAL DATA White count 3.6 thousand, hemoglobin normal at 13.8, platelet count 138,000 Sodium 136, potassium 4.0 BUN and creatinine normal Hemoglobin A1c 6.1 3 normal cardiac enzymes Serial EKGs do not show any ST segment abnormalities of significance or concern LDL 55, HDL 36 Normal liver function Nurse practitioner note has been reviewed, I agree with the documented findings and plan of care. Patient was seen and examined. Objective - Vital Signs Vital signs: Vital Signs Temp 98.4 F 06/11/22 03:12 Pulse 77 06/11/22 03:12 Resp 16 06/11/22 03:12 BP 104/53 06/11/22 03:12 Pulse Ox 99 06/11/22 03:12 FiO2 Intake & Output 06/10/22 06/11/22 06/11/22 18:59 06:59 18:59 Intake Total 118 Balance 118 Intake: Oral 118 Other: Voiding Method Toilet Toilet # Voids 3 2 - Labs CBC & Chem 7: 06/09/22 11:06 06/09/22 11:06 Labs: Abnormal Lab Results - Last 24 Hours (Table) 06/09/22 06/09/22 Range/Units 11:06 11:06 Hemoglobin A1c 6.1 H (0.0-6.0) % HDL Cholesterol 35.60 L (40.00-60.00) mg/dL
[2022-06-11] MEDS: ASPIRIN 325 MG TAB PO SCH (10:46)
[2022-06-11] MEDS: SPIRONOLACTONE 25 MG TAB PO SCH (10:47)
--- NOTE | 2022-06-11 11:18 | CA ---
Lexiscan Nuclear Stress Test Report Name: Mansoor Reynoso Exam Date: 06/11/2022 09:44 Exam Location: [place] Stress Ht (in): 68 Wt (lb): 230 BSA: 2.17 Ordering Phys: Tj Perkins MD Referring Phys: DIANA, Technologist: Luis Glover Age: 52 Gender: M : 1970 Procedure CPT: Indications: Reflex order-Stress test ICD-10 Codes: Patient History: Medications: SEE CHART Meds past 24 hrs: Pretest Chest Pain: STRESS TEST Lexiscan Protocol Exercise Duration (min:sec): 02:[address] Depressions (mm): Angina Score: Mustafa Score: Resting HR (bpm): 83 Peak HR (bpm): 114 Resting BP (mmHg): 117 / 74 Peak BP (mmHg): 145 / 83 MPHR: 166 Target HR: 141 % MPHR: 69 METS: 1.0 Total Dose: Peak Dose: Atropine: Double Product: 81371 BP Response: Stress Termination: PROTOCOL COMPLETE Stress Symptoms: LIGHT HEADED Stress Summary: ECG ANALYSIS Resting ECG: Stress ECG: CONCLUSIONS Normal heart rate and blood pressure response to Lexiscan No ECG evidence for ischemia No arrhythmias Nuclear portion will be reported separately Dr. Tj Perkins MD (Electronically Signed) Final Date: 11 June 2022 11:17
--- NOTE | 2022-06-11 14:37 | NM ---
EXAMINATION TYPE: NM stress lexiscan cardiolite DATE OF EXAM: 06/11/2022 COMPARISON: NONE HISTORY: chest pain TECHNIQUE: After the intravenous administration of 10 mCi Tc 99m Sestamibi - Cardiolite resting SPEC T images acquired 70 minutes post injection. The patient received 0.4mg Lexiscan, 25.1 mCi Tc 99m Sestamibi - Stress images obtained [address] injection FINDINGS: Review of stress and rest SPECT images demonstrates fixed defect inferior wall. No definite evidence for stress-induced ischemia. Gated analysis shows hypokinesia with an estimated left ventricular ejec tion fraction of 34 %. IMPRESSION: No scintigraphic evidence for reversible ischemia.
[2022-06-11] MEDS: LOSARTAN 25 MG TAB PO SCH (17:42)
[2022-06-11] MEDS: ATORVASTATIN 40 MG TAB PO SCH (21:29)
--- NOTE | 2022-06-11 22:14 | PN ---
PROGRESS NOTE CHIEF COMPLAINT: Chest pain. HISTORY OF PRESENT ILLNESS: This gentleman is still having the anterior chest pain, unrelenting. He is going down today for a stress study and he just had an echo. PHYSICAL EXAMINATION: CHEST: Clear. The chest wall is nontender. CARDIAC: Normal. ABDOMEN: Soft, nontender. IMPRESSION: 1. Chest pain. 2. History of coronary artery disease with stenting. PLAN: Today, he is going to undergo stress study and if it is normal, he can probably go home. MMODL / IJN: [id number] /
--- NOTE | 2022-06-11 23:08 | PN ---
PROGRESS NOTE DATE OF SERVICE: 06/10/2022 CHIEF COMPLAINT: Chest pain. HISTORY OF PRESENT ILLNESS: This gentleman continues to have he is going tomorrow for a stress study. He is not having any shortness of breath or diaphoresis. PHYSICAL EXAMINATION: CHEST: Clear. CARDIAC: Normal. ABDOMEN: Soft, nontender. IMPRESSION: 1. Chest pain. 2. History of coronary artery disease. 3. History of cocaine use. PLAN: Await results of cardiac studies tomorrow. MMODL / IJN: [id number] /
[2022-06-12] MEDS: oxyCODONE-APAP 10-325MG 1 EACH TAB PO PRN (04:42)
[2022-06-12] MEDS: carvediloL 6.25 MG TAB PO SCH (07:44)
[2022-06-12 08:55] VITALS: BP 116/61; PULSE 82; RESP 16; TEMP 98.1
[2022-06-12] MEDS: ASPIRIN 325 MG TAB PO SCH (09:01)
[2022-06-12] MEDS: SPIRONOLACTONE 25 MG TAB PO SCH (09:01)
--- NOTE | 2022-06-12 09:11 | CA ---
Transthoracic Echo Report Name: Mansoor Reynoso Age: 52 Gender: M : 1970 Exam Date: 06/11/2022 08:41 Exam Location: [place] Echo Ht (in): 68 Wt (lb): 230 Ordering Physician: Tj Perkins MD ([id number]) Attending/Referring Phys: Flight Attendant/Inflight Manager Jane Cordero RDCS Procedure CPT: Indications: Chest Pain Cardiac Hx: Technical Quality: Fair Contrast 1: Total Dose (mL): Contrast 2: Total Dose (mL): MEASUREMENTS (Male / Female) Normal Values 2D ECHO LV Diastolic Diameter PLAX 4.4 cm 4.2 - 5.9 / 3.9 - 5.3 cm LV Systolic Diameter PLAX 3.2 cm IVS Diastolic Thickness 1.3 cm 0.6 - 1.0 / 0.6 - 0.9 cm LVPW Diastolic Thickness 1.1 cm 0.6 - 1.0 / 0.6 - 0.9 cm LV Relative Wall Thickness 0.6 RV Internal Dim ED PLAX 3.8 cm LA Volume 39.0 cm??? 18 - 58 / 22 - 52 cm??? M-MODE Aortic Root Diameter MM 3.1 cm LA Systolic Diameter MM 3.9 cm LA Ao Ratio MM 1.2 AV Cusp Separation MM 1.8 cm DOPPLER AV Peak Velocity 120.0 cm/s AV Peak Gradient 5.8 mmHg AV Mean Velocity 91.2 cm/s AV Mean Gradient 3.6 mmHg AV Velocity Time Integral 19.8 cm LVOT Peak Velocity 106.5 cm/s LVOT Peak Gradient 4.5 mmHg LVOT Velocity Time Integral 18.8 cm MV Area PHT 3.7 cm??? Mitral E Point Velocity 68.9 cm/s Mitral A Point Velocity 116.0 cm/s Mitral E to A Ratio 0.6 MV Deceleration Time 194.8 ms MV E' Velocity 5.9 cm/s Mitral E to MV E' Ratio 11.7 TR Peak Velocity 195.8 cm/s TR Peak Gradient 15.3 mmHg Right Ventricular Systolic Press 19.5 mmHg FINDINGS Left Ventricle Mildly increased left ventricular wall thickness. Normal left ventricular systolic function with no obvious regional wall motion abnormalities. Left ventricular ejection fraction is estimated at 50-55 %. Right Ventricle Mild right ventricular dilatation. Right Atrium Normal right atrial size. Left Atrium Normal left atrial size. Mitral Valve Structurally normal mitral valve. Mitral valve thickened. Mild mitral annular calcification. Mild mitral regurgitation. Aortic Valve Aortic valve sclerosis. No aortic valve stenosis or regurgitation. Tricuspid Valve Structurally normal tricuspid valve. Mild tricuspid regurgitation. Pulmonic Valve Trace pulmonic regurgitation. Pericardium No pericardial effusion. Aorta Normal size aortic root and proximal ascending aorta. CONCLUSIONS LVH with left ventricular ejection fraction of about 50% Previewed by: Dr. Tj Perkins MD (Electronically Signed) Final Date: 12 June 2022 09:10
--- NOTE | 2022-06-12 09:44 | P.PN ---
Subjective Progress Note Date: 06/12/22 The patient was interviewed and examined IMPRESSION / ASSESSMENT: Recurrent chest discomfort Positive for cocaine and meth amphetamine in [facility] on June 07 During chest discomfort EKG does not show any ST segment abnormalities Normal cardiac enzymes Known coronary artery disease status post stenting Mild cardiomyopathy ejection fraction 40% On good, guideline directed medical treatment Mildly reduced platelet count, thrombocytopenia Borderline diabetes PLAN: Stop cocaine use Patient has no evidence for myocardial infarction His EKGs are completely normal and unchanged from baseline He needs to stop drug abuse He has a mild cardiomyopathy and known coronary artery abnormalities on excellent treatment His LDL is at goal His HDL is low Patient is cleared for discharge and follow-up with Dr. Gr in 2 weeks. At that time, consider starting patient on Entresto and removing losartan. HPI Patient comes in with recurrent chest discomfort He was recently at [facility] and was complaining of palpitations and chest discomfort but signed out AGAINST MEDICAL ADVICE is is not getting pain medications No cardiac enzyme abnormalities there He was cocaine positive there Positive for meth amphetamines and benzodiazepines and positive for oxycodone Here he is still complaining of chest discomfort resting in bed I repeated his EKG No new ST segment abnormalities Isolated inverted T-wave in lead 3 , sinus mechanism 06/11 Patient states that he had some chest pain during the night but none today. Discussed the need for discontinuing cocaine and drug use and patient states that he is done using drugs. 06/12 Echocardiogram reveals left ventricular hypertrophy with ejection fraction of about 50%. Lexiscan stress test was negative for reversible ischemia. No new concerns from the patient. Discussed arrived in detail results of echocardiogram and stress tests and patient's need to stop drug use and follow the medical regime closely. EXAMINATION: Resting comfortably in bed but no complaints of active chest discomfort Breath sounds are clear Heart sounds are normal No JVD Been No Respiratory Distress REVIEW OF LABS, ECG & MEDICAL DATA White count 3.6 thousand, hemoglobin normal at 13.8, platelet count 138,000 Sodium 136, potassium 4.0 BUN and creatinine normal Hemoglobin A1c 6.1 3 normal cardiac enzymes Serial EKGs do not show any ST segment abnormalities of significance or concern LDL 55, HDL 36 Normal liver function Nurse practitioner note has been reviewed, I agree with the documented findings and plan of care. Patient was seen and examined. Objective - Vital Signs Vital signs: Vital Signs Temp 98.3 F 06/12/22 02:54 Pulse 79 06/12/22 02:54 Resp 17 06/12/22 02:54 BP 121/61 06/12/22 02:54 Pulse Ox 95 06/12/22 07:26 FiO2 Intake & Output 06/11/22 06/12/22 06/12/22 18:59 06:59 18:59 Intake Total 318 Balance 318 Intake: Oral 318 Other: Voiding Method Toilet Toilet # Voids 1 1 - Labs CBC & Chem 7: 06/09/22 11:06 06/09/22 11:06
[2022-06-12] MEDS ORDERED: ALBUTEROL NEBULIZED 2.5 MG/3 ML INHALATION PRN (12:39)
[2022-06-12] MEDS ORDERED: CEPHALEXIN 500 MG CAP PO SCH (13:00)
[2022-06-12] MEDS ORDERED: LORATADINE-PSEUDOEPH 5-120 MG 1 EACH TAB.ER.12H PO SCH (21:00)
--- NOTE | 2022-06-12 21:26 | DS ---
DISCHARGE SUMMARY CHIEF COMPLAINT: Chest pain. HISTORY OF PRESENT ILLNESS AND PHYSICAL EXAMINATION: Details of this man's history and physical can be found in the initial workup. LABORATORY STUDIES: While he was in the hospital, he had laboratory studies, details of which can be found in the laboratory section of his chart. COURSE IN THE HOSPITAL: After admission, he was placed on bedrest, started on intravenous fluids and seen by Cardiology. He was taken for a cardiac cath, which was clear. He continued to complain of anterior chest pain. It was felt that this might be a motivation for seeking more narcotic analgesics. All of these studies were essentially unremarkable. It was felt that he could go home on the , but he was complaining of a little bit of shortness of breath, and he will be discharged with an albuterol inhaler. He will be followed up in several days. FINAL DIAGNOSES: 1. Chest pain, noncardiac. 2. History of coronary artery disease. 3. Cocaine abuse is likely cause for his chest pain. 4. Sinusitis. OPERATIONS: None. CONSULTATION: Cardiology. He is improved. MMODL / IJN: [id number] /
== END 2022-06-12 14:03 | disposition home or self-care (01) ==
LOC: EC 10:28 → 6NMEDSUR 12:13
PROVIDERS: ADMIT Family Medicine; ATTEND Family Medicine
DX: R07.89 Other chest pain (principal); J32.9 Chronic sinusitis, unspecified; F14.10 Cocaine abuse, uncomplicated; I25.10 Atherosclerotic heart disease of native coronary artery without angina pectoris; I10 Essential (primary) hypertension; E78.5 Hyperlipidemia, unspecified; M19.90 Unspecified osteoarthritis, unspecified site; I25.2 Old myocardial infarction; F31.9 Bipolar disorder, unspecified; F41.9 Anxiety disorder, unspecified; R73.03 Prediabetes; D69.6 Thrombocytopenia, unspecified; I42.9 Cardiomyopathy, unspecified; Z87.891 Personal history of nicotine dependence; Z95.5 Presence of coronary angioplasty implant and graft; Z79.82 Long term (current) use of aspirin; Z79.899 Other long term (current) drug therapy; Z20.822 Contact with and (suspected) exposure to COVID-19
CPT/HCPCS: 96376; 96374; 99285; 36415; 94760; 93005; 93017; 93306; 85379; 83880 ×2; 80061 ×2; 80053; 83735; 84484; 85025; 85610; 85730; 86038; 80306; 83036; 87635; 71046; 78452; G0378 ×4; A9500; J1885

== ENCOUNTER 2022-06-15 02:18 | Emergency (ER) | payer MEDICARE, OTHER ==
[2022-06-15] MEDS ORDERED: NITROGLYCERIN SL TABS 0.4 MG TAB SUBLINGUAL STA (02:24)
[2022-06-15 02:31] VITALS: RESP 18
[2022-06-15 03:00] LABS: Basophils % (A) 0 %; Eosinophils % (A) 1 %; HGB 14.6 gm/dL (13.0-17.5); Lymphocytes # (A) 1.4 k/uL (1.0-4.8); Lymphocytes % (A) 38 %; MCH 31.9 pg (25.0-35.0); MCHC 34.8 g/dL (31.0-37.0); MCV 91.8 fL (80.0-100.0); Mean Platelet Volume 7.6; Monocytes # (A) 0.5 k/uL (0-1.0); Monocytes % (A) 13 %; Neutrophils # (A) 1.6 k/uL (1.3-7.7); Neutrophils % (A) 44 %; Partial Thromboplastin Time 22.3 sec (22.0-30.0); Platelet Count 143 k/uL (150-450); Prothrombin Time 10.2 sec (9.0-12.0); RBC 4.58 m/uL (4.30-5.90); RDW 13.9 % (11.5-15.5); WBC 3.6 k/uL (3.8-10.6)
--- NOTE | 2022-06-15 03:00 | XR ---
EXAMINATION TYPE: XR chest 2V DATE OF EXAM: 06/15/2022 COMPARISON: 06/09/2022 HISTORY: Chest pain TECHNIQUE: 2 views FINDINGS: There are some minimal linear density left lung base. No heart failure. Heart size is noé l. There are chest leads. IMPRESSION: Minimal subsegmental atelectasis left lung base without much change from the old exam. No rmal heart.
[2022-06-15] MEDS ORDERED: NITROGLYCERIN OINT 1 INCH/GM PACKET TOPICAL STA (03:08)
[2022-06-15 03:14] LABS: Calcium 8.6 mg/dL (8.4-10.2); Magnesium 1.8 mg/dL (1.6-2.3); Potassium 4.2 mmol/L (3.5-5.1); Total Bilirubin 0.5 mg/dL (0.2-1.3); Total Protein 7.2 g/dL (6.3-8.2)
--- NOTE | 2022-06-15 03:43 | ED ---
Chest Pain HPI - General Chief Complaint: Chest Pain Stated Complaint: chest pain Time Seen by Provider: 06/15/22 02:30 Source: EMS Mode of arrival: EMS Limitations: no limitations - History of Present Illness Initial Comments: 52-year-old male with past history of coronary artery disease, hypertension, hyperlipidemia, cocaine use who presents to emergency room with reported chest pain. He states that he awoke from sleep at midnight with squeezing pressure in his chest. The pain radiated to his back, neck and left arm. He had associated shortness of breath, nausea and diaphoresis. He does have nitro at home however forgot that he had it did not take any. When the pain persisted for 2 hours he decided to call an ambulance. EMS did provide him with an aspirin. He does have a history of coronary disease. Had stent placement in 2018. He denies history of DVT or PE. No calf pain or swelling. No fevers, chills or cough. He was just hospitalized from the 2 the ninth for chest pain. He had a chemical stress test which was negative. Patient was persistent in asking for narcotic medications at that time and has known history of cocaine use. Patient denies any drug use to me. 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 - Related Data Home Medications Medication Instructions Recorded Confirmed Testosterone Cypionate 300 mg IM Q21D 11/13/19 06/16/22 [Depo-Testosterone] Nitroglycerin Sl Tabs [Nitrostat] 0.4 mg SL Q5M PRN 05/11/22 06/16/22 Ergocalciferol [Vitamin D2 (1250 1,250 mcg PO MO 06/09/22 06/16/22 Mcg = 05310 Iu)] Losartan [Cozaar] 25 mg PO DAILY@1600 06/09/22 06/16/22 oxyCODONE-APAP 10-325MG [Percocet 1 tab PO QID 06/09/22 06/16/22 10-325 mg] Loratadine-Pseudoeph 5-120 mg 1 tab PO Q12H 06/16/22 06/16/22 [Claritin-D 12 Hour] Previous Rx's Medication Instructions Recorded Aspirin 325 mg PO DAILY 30 Days tab 05/19/22 Rosuvastatin Calcium 20 mg PO HS 14 Days tab 05/19/22 Spironolactone 25 mg PO DAILY 14 Days tab 05/19/22 carvediloL [Coreg] 6.25 mg PO BID 14 Days tab 05/19/22 Albuterol Inhaler [Ventolin Hfa 2 puff INHALATION RT-QID PRN #1 06/12/22 Inhaler] each Cephalexin [Keflex] 500 mg PO QID 10 Days #40 cap 06/12/22 Allergies Allergy/AdvReac Type Severity Reaction Status Date / Time No Known Allergies Allergy Verified 06/16/22 07:43 Review of Systems ROS Statement: Those systems with pertinent positive or pertinent negative responses have been documented in the HPI. ROS Other: All systems not noted in ROS Statement are negative. EKG Findings - EKG Comments: EKG Findings:: EKG demonstrates sinus rhythm with a rate of 94. DC interval 127. QRS 87. QTC is 378. No acute ST segment elevations or depressions. EKG is interpreted by myself Past Medical History Past Medical History: Coronary Artery Disease (CAD), Chest Pain / Angina, Hyperlipidemia, Hypertension, Osteoarthritis (OA) Additional Past Medical History / Comment(s): Low testosterone. c/o shortness of breath, improving. Last Myocardial Infarction Date:: 2017 History of Any Multi-Drug Resistant Organisms: None Reported Past Surgical History: Back Surgery, Heart Catheterization, Heart Catheteriz ation With Stent Additional Past Surgical History / Comment(s): back surgeries x2, Colonoscopy. EGD 03/2020. Heart cath 05/17/20 Past Anesthesia/Blood Transfusion Reactions: No Reported Reaction Date of Last Stent Placement:: 05/19/18 Past Psychological History: Anxiety, Bipolar, Depression Smoking Status: Former smoker Past Alcohol Use History: None Reported Past Drug Use History: None Reported - Past Family History Father Family Medical History: Cancer Additional Family Medical History / Comment(s): lung Mother Family Medical History: Cancer Additional Family Medical History / Comment(s): colon General Exam Limitations: no limitations General appearance: alert, in no apparent distress Head exam: Present: atraumatic, normocephalic, normal inspection Eye exam: Present: normal appearance, PERRL, EOMI. Absent: scleral icterus, conjunctival injection, periorbital swelling ENT exam: Present: normal exam, mucous membranes moist Neck exam: Present: normal inspection. Absent: tenderness, meningismus, lymphadenopathy Respiratory exam: Present: normal lung sounds bilaterally. Absent: respiratory distress, wheezes, rales, rhonchi, stridor Cardiovascular Exam: Present: regular rate, normal rhythm, normal heart sounds. Absent: systolic murmur, diastolic murmur, rubs, gallop, clicks GI/Abdominal exam: Present: soft, normal bowel sounds. Absent: distended, tenderness, guarding, rebound, rigid Extremities exam: Present: normal inspection, full ROM, normal capillary refill. Absent: tenderness, pedal edema, joint swelling, calf tenderness Back exam: Present: normal inspection Neurological exam: Present: alert, oriented X3, CN II-XII intact Psychiatric exam: Present: normal affect, normal mood Skin exam: Present: warm, dry, intact, normal color. Absent: rash Course Vital Signs 06/15/22 06/15/22 02:26 05:14 Temperature 98.2 F 98.4 F Pulse Rate 100 72 Respiratory 18 18 Rate Blood Pressure 129/79 120/82 O2 Sat by Pulse 100 99 Oximetry Chest Pain MDM - MDM On arrival patient was placed in room 19. A thorough history and physical exam was performed. She placed on continuous pulse ox and cardiac monitoring. A 12- lead EKG was performed which demonstrates st segment elevation. Patient was given a sublingual nitro. Reports to mild improvement in his pain and therefore I did apply Nitropaste. Laboratory studies are conducted reviewed. Troponin is negative. Chest x-ray was performed which demonstrates minimal subsegmental atelectasis. No change from the old exam. Results are discussed with the patient. Did recommend admission in order to trend his troponins have a cardiology consultation. Patient was not agreeable to this. States he would prefer to go home at this time. I did discuss the risks of leaving to include sudden cardiac . Patient understood this. Was alert and oriented and capable of making his own decisions. Patient requests to leave at this time. He needs to follow up with his primary care doctor in 2-4 days or return for any new or worsening symptoms. Patient agreeable to treatment plan and was discharged home in stable condition Disposition Clinical Impression: Chest pain Disposition: HOME SELF-CARE Condition: Stable Instructions (If sedation given, give patient instructions): Chest Pain (ED) Additional Instructions: Please return should you have any new or worsening symptoms Is patient prescribed a controlled substance at d/c from ED?: No Referrals: Bossman Kent MD [Primary Care Provider] - 1-2 days Time of Disposition: 04:55
[2022-06-15 05:17] VITALS: BP 120/82; PULSE 72; TEMP 98.4
== END 2022-06-15 05:16 | disposition home or self-care (01) ==
LOC: EC 02:18
DX: R07.9 Chest pain, unspecified (principal); I25.10 Atherosclerotic heart disease of native coronary artery without angina pectoris; I10 Essential (primary) hypertension; F41.9 Anxiety disorder, unspecified; F31.9 Bipolar disorder, unspecified; I25.2 Old myocardial infarction; M19.90 Unspecified osteoarthritis, unspecified site; Z79.891 Long term (current) use of opiate analgesic; Z87.891 Personal history of nicotine dependence; Z79.899 Other long term (current) drug therapy
CPT/HCPCS: 36415; 71046; 80053; 83690; 83735; 84484; 85025; 85610; 85730; 93005; 99285

== ENCOUNTER 2022-06-16 02:31 | Observation (INO) | payer MEDICARE, OTHER ==
--- NOTE | 2022-06-16 03:23 | ED ---
General Adult HPI - General Chief complaint: Chest Pain Stated complaint: Chest Pain Time Seen by Provider: 06/16/22 03:14 Source: patient Mode of arrival: ambulatory Limitations: no limitations - History of Present Illness Initial comments: Dictation was produced using [employer] dictation software. please excuse any grammatical, word or spelling errors. Chief Complaint: 52-year-old male seen here in emergency department yesterday for chest pain presents to the ER for chest pain History of Present Illness: Patient 52-year-old male who initially presented to the emergency department yesterday for chest pressure. His recommended to him to be admitted for cardiac monitoring cardiology consultation he refuses and ended up being discharged. Here he presents to the hospital because he still having persistent pain. Just prior to arrival he took 3-24 mg of aspirin and nitroglycerin with slight improvement of his symptoms. States that it feels like a sternal pressure that radiates to his upper back. Not associated with nausea or diaphoresis. He does have a history of coronary artery disease and coronary artery stent placed 3 or 4 years ago. He does have established care with Dr. Gr of cardiology. The ROS documented in this emergency department record has been reviewed and confirmed by me. Those systems with pertinent positive or negative responses have been documented in the HPI. All other systems are other negative and/or noncontributory. PHYSICAL EXAM: General Impression: Alert and oriented x3, not in acute distress HEENT: Normocephalic atraumatic, extra-ocular movements intact, pupils equal and reactive to light bilaterally, mucous membranes moist. Cardiovascular: Heart regular rate and rhythm Chest: Able to complete full sentences, no retractions, no tachypnea Abdomen: abdomen soft, non-tender, non-distended, no organomegaly Musculoskeletal: Pulses present and equal in all extremities, no peripheral edema Motor: no focal deficits noted Neurological: CN II-XII grossly intact, no focal motor or sensory deficits noted Skin: Intact with no visualized rashes Psych: Normal affect and mood ED course: 52-year-old male presents emergency department with chest pain concerning for acute coronary syndrome. Vital signs upon arrival are within acceptable limits. EKG does not show any signs of ischemia or infarction. Nursing notes and chart review was performed Laboratory evaluation obtained on the unremarkable. Cardiac enzymes negative. Given patient's history of coronary artery disease he will be admitted observation for cardiac monitoring, etc. troponins and cardiology consultation. Case discussed with Dr. Kent. My EKG interpretation: Ventricular rate 82, sinus rhythm,. 127, QRS 80, QTc 391. No ME prolongation, no QTC prolongation, no ST or T-wave changes noted. EKG compared to showing no changes. Overall, this EKG is unremarkable - Related Data Home Medications Medication Instructions Recorded Confirmed Testosterone Cypionate 300 mg IM Q21D 11/13/19 06/09/22 [Depo-Testosterone] Nitroglycerin Sl Tabs [Nitrostat] 0.4 mg SL Q5M PRN 05/11/22 06/09/22 Ergocalciferol [Vitamin D2 (1250 1,250 mcg PO MO 06/09/22 06/09/22 Mcg = 53522 Iu)] Losartan [Cozaar] 25 mg PO DAILY@1600 06/09/22 06/09/22 oxyCODONE-APAP 10-325MG [Percocet 1 tab PO QID 06/09/22 06/09/22 10-325 mg] Previous Rx's Medication Instructions Recorded Aspirin 325 mg PO DAILY 30 Days tab 05/19/22 Rosuvastatin Calcium 20 mg PO HS 14 Days tab 05/19/22 Spironolactone 25 mg PO DAILY 14 Days tab 05/19/22 carvediloL [Coreg] 6.25 mg PO BID 14 Days tab 05/19/22 Albuterol Inhaler [Ventolin Hfa 2 puff INHALATION RT-QID PRN #1 06/12/22 Inhaler] each Cephalexin [Keflex] 500 mg PO QID 10 Days #40 cap 06/12/22 Loratadine-Pseudoeph 5-120 mg 1 each PO Q12HR #20 tab 06/12/22 [Claritin-D 12 Hour] Allergies Allergy/AdvReac Type Severity Reaction Status Date / Time No Known Allergies Allergy Verified 06/16/22 02:37 Review of Systems ROS Statement: Those systems with pertinent positive or pertinent negative responses have been documented in the HPI. ROS Other: All systems not noted in ROS Statement are negative. Past Medical History Past Medical History: Coronary Artery Disease (CAD), Chest Pain / Angina, Hyperlipidemia, Hypertension, Osteoarthritis (OA) Additional Past Medical History / Comment(s): Low testosterone. c/o shortness of breath, improving. Last Myocardial Infarction Date:: 2018 History of Any Multi-Drug Resistant Organisms: None Reported Past Surgical History: Back Surgery, Heart Catheterization, Heart Ca theterization With Stent Additional Past Surgical History / Comment(s): back surgeries x2, Colonoscopy. EGD 03/2020. Heart cath 05/17/20 Past Anesthesia/Blood Transfusion Reactions: No Reported Reaction Date of Last Stent Placement:: 05/19/18 Past Psychological History: Anxiety, Bipolar, Depression Smoking Status: Former smoker Past Alcohol Use History: None Reported Past Drug Use History: Cocaine - Past Family History Father Family Medical History: Cancer Additional Family Medical History / Comment(s): lung Mother Family Medical History: Cancer Additional Family Medical History / Comment(s): colon General Exam Limitations: no limitations Course Vital Signs 06/16/22 02:35 Temperature 98.7 F Pulse Rate 97 Respiratory 18 Rate Blood Pressure 110/63 O2 Sat by Pulse 97 Oximetry Medical Decision Making - Lab Data Result diagrams: 06/16/22 04:16 06/16/22 04:16 Lab Results 06/16/22 06/16/22 06/16/22 Range/Units 04:16 04:16 04:16 WBC 3.7 L (3.8-10.6) k/uL RBC 4.53 (4.30-5.90) m/uL Hgb 14.6 (13.0-17.5) gm/dL Hct 41.1 (39.0-53.0) % MCV 90.8 (80.0-100.0) fL MCH 32.2 (25.0-35.0) pg MCHC 35.5 (31.0-37.0) g/dL RDW 13.8 (11.5-15.5) % Plt Count 142 L (150-450) k/uL MPV 7.7 Neutrophils % 51 % Lymphocytes % 35 % Monocytes % 9 % Eosinophils % 2 % Basophils % 0 % Neutrophils # 1.9 (1.3-7.7) k/uL Lymphocytes # 1.3 (1.0-4.8) k/uL Monocytes # 0.3 (0-1.0) k/uL Eosinophils # 0.1 (0-0.7) k/uL Basophils # 0.0 (0-0.2) k/uL Sodium 136 L (137-145) mmol/L Potassium 4.4 (3.5-5.1) mmol/L Chloride 104 (98-107) mmol/L Carbon Dioxide 25 (22-30) mmol/L Anion Gap 7 mmol/L BUN 14 (9-20) mg/dL Creatinine 1.16 (0.66-1.25) mg/dL Est GFR (CKD-EPI)AfAm 83 (>60 ml/min/1.73 sqM) Est GFR (CKD-EPI)NonAf 72 (>60 ml/min/1.73 sqM) Glucose 104 H (74-99) mg/dL Calcium 8.7 (8.4-10.2) mg/dL Troponin I <0.012 (0.000-0.034) ng/mL Disposition Clinical Impression: Chest pain Disposition: ADMITTED IP TO THIS [facility] Condition: Fair Decision Time: 04:22
--- NOTE | 2022-06-16 04:19 | XR ---
EXAMINATION TYPE: XR chest 1V portable DATE OF EXAM: 06/16/2022 COMPARISON: 06/15/2022 HISTORY: Chest pain TECHNIQUE: FINDINGS: There is no heart failure nor confluent-like infiltrate. There is mild linear density later al left lung base. There are no hilar masses. There are chest leads. The bony thorax is intact. IMPRESSION: There is subsegmental atelectasis left lung base. Normal heart. No change compared to yes terday.
[2022-06-16] MEDS ORDERED: NITROGLYCERIN SL TABS 0.4 MG TAB SUBLINGUAL PRN (04:22)
[2022-06-16 04:25] LABS: Basophils % (A) 0 %; Eosinophils # (A) 0.1 k/uL (0-0.7); Eosinophils % (A) 2 %; HCT 41.1 % (39.0-53.0); HGB 14.6 gm/dL (13.0-17.5); Lymphocytes # (A) 1.3 k/uL (1.0-4.8); Lymphocytes % (A) 35 %; MCH 32.2 pg (25.0-35.0); MCHC 35.5 g/dL (31.0-37.0); MCV 90.8 fL (80.0-100.0); Mean Platelet Volume 7.7; Monocytes # (A) 0.3 k/uL (0-1.0); Monocytes % (A) 9 %; Neutrophils # (A) 1.9 k/uL (1.3-7.7); Neutrophils % (A) 51 %; Platelet Count 142 k/uL (150-450); RBC 4.53 m/uL (4.30-5.90); RDW 13.8 % (11.5-15.5); WBC 3.7 k/uL (3.8-10.6)
[2022-06-16 04:41] LABS: Calcium 8.7 mg/dL (8.4-10.2); Potassium 4.4 mmol/L (3.5-5.1)
[2022-06-16] MEDS ORDERED: NITROGLYCERIN OINT 1 INCH/GM PACKET TOPICAL STA (06:12)
[2022-06-16] MEDS: carvediloL 6.25 MG TAB PO SCH ×2 (09:53→18:34)
[2022-06-16] MEDS: SPIRONOLACTONE 25 MG TAB PO SCH (10:28)
--- NOTE | 2022-06-16 11:25 | P.CRDCN ---
History of Present Illness Consult date: 06/16/22 History of present illness: History of present illness: This is a 52-year-old male patient of Dr. Gr with past medical history of coronary artery disease with previous stenting, mild cardiomyopathy with ejection fraction of 40%, chronic thrombocytopenia, borderline diabetes, cocaine and methamphetamine use. Patient was recently hospitalized for chest pain and underwent Lexiscan stress test which came back negative as well as echocardiogram which revealed left ventricular hypertrophy with EF of 50%. Patient was cleared for discharge to follow up with Dr. Gr in the office. Patient has returned to the emergency center due to chest pain on 06/15. His vital signs were stable at that time and troponin was negative. Chest x-ray showed subsegmental atelectasis. It was recommended the patient be admitted to recheck troponins and patient refused and requested to go home. Patient again returned on 06/16 with chest pain which is across his upper anterior chest and through to his shoulder blades. He denies any radiation to his neck or arms. He states he has a little shortness of breath. He denies any nausea or vomiting. No lightheadedness or dizziness. No diaphoresis. No increased pain with deep inspiration. Patient states his pain occurs at rest. He states he "wants some medicine or he wants somebody to do something about this pain." Patient denies using any drugs since he was discharged from the hospital on 06/12. EKGs from 06/15 and 06/16 reviewed, sinus rhythm with no acute ST changes Troponin negative 3 draws. WBC 3.7, hemoglobin 14.6, platelet count 142. Sodium 136 otherwise electrolytes renal function and liver function tests are within normal limits. Lipase 262. Chest x-ray reveals atelectasis Review Of Systems: At the time of my evaluation Constitutional: No fever, no chills. No weakness, fatigue or lethargy. EENT: No headache. No dizziness. Lungs: No shortness of breath, cough, no sputum production. No wheezing. Cardiovascular: Reports chest pain, no lower extremity edema. No palpitations. No paroxysmal nocturnal dyspnea. No orthopnea. No lightheadedness or dizziness. No syncopal episodes. Abdominal: No abdominal pain. No nausea, vomiting. No diarrhea. No constipation. No bloody or tarry stools.. No loss of appetite. Genitourinary: No dysuria.. No urinary retention. Musculoskeletal: No myalgias. No muscle weakness, no gait dysfunction, no frequent falls. No back pain. No neck pain. Integumentary: No wounds. No rash or pruritus. No unusual bruising. Neurologic: No aphasia. No facial droop. No change in mentation. No head injury. No headache. No paralysis. No paresthesia. Psychiatric: No depression. No anxiety. Endocrine: No abnormal blood sugars. Physical examination: Gen: This is a 52 year old black male. He is resting on the ER stretcher and appears to be comfortable and in no acute distress VS: reviewed HEENT: Head is atraumatic, normocephalic. Pupils equal, round. Sclerae is anicteric. NECK: Supple. No JVD. LUNGS: Clear to auscultation. No wheezes or rhonchi. No intercostal retractions. HEART: Regular rate and rhythm. No murmur. No gallop. Positive chest wall tenderness. ABDOMEN: Soft. No masses. No tenderness. EXTREMITIES: No pedal edema. No calf tenderness. Dorsalis pedis +2 bilaterally. NEUROLOGICAL: Patient is awake, alert and oriented x3. Assessment: Chest pain History of coronary artery disease status post PCI of the LAD in 2018 Dilated cardiomyopathy Chronic systolic heart failure with previous EF of 40%, improved Hypertension Hyperlipidemia Plan: No need to repeat echocardiogram No need to repeat stress testing patient will have follow-up with Dr. Gr in 1-2 weeks. We have resume patient on atorvastatin, Coreg, losartan and Aldactone. Thank you kindly for this consultation. Nurse practitioner note has been reviewed, I agree with documented findings and plan of care. Patient was seen and examined. Past Medical History Past Medical History: Coronary Artery Disease (CAD), Chest Pain / Angina, Hyperlipidemia, Hypertension, Osteoarthritis (OA) Additional Past Medical History / Comment(s): Low testosterone. c/o shortness of breath, improving. Last Myocardial Infarction Date:: 2017 History of Any Multi-Drug Resistant Organisms: None Reported Past Surgical History: Back Surgery, Heart Catheterization, Heart Catheterization With Stent Additional Past Surgical History / Comment(s): back surgeries x2, Colonoscopy. EGD 03/2020. Heart cath 05/17/20 Past Anesthesia/Blood Transfusion Reactions: No Reported Reaction Date of Last Stent Placement:: 11/15/18 Past Psychological History: Anxiety, Bipolar, Depression Smoking Status: Former smoker Past Alcohol Use History: None Reported Past Drug Use History: Cocaine - Past Family History Father Family Medical History: Cancer Additional Family Medical History / Comment(s): lung Mother Family Medical History: Cancer Additional Family Medical History / Comment(s): colon Medications and Allergies Home Medications Medication Instructions Recorded Confirmed Type Testosterone Cypionate 300 mg IM Q21D 11/13/19 06/16/22 History [Depo-Testosterone] Nitroglycerin Sl Tabs [Nitrostat] 0.4 mg SL Q5M PRN 05/11/22 06/16/22 History Aspirin 325 mg PO DAILY 30 Days tab 05/19/22 06/16/22 Rx Rosuvastatin Calcium 20 mg PO HS 14 Days tab 05/19/22 06/16/22 Rx Spironolactone 25 mg PO DAILY 14 Days tab 05/19/22 06/16/22 Rx carvediloL [Coreg] 6.25 mg PO BID 14 Days tab 05/19/22 06/16/22 Rx Ergocalciferol [Vitamin D2 (1250 1,250 mcg PO MO 06/09/22 06/16/22 History Mcg = 28806 Iu)] Losartan [Cozaar] 25 mg PO DAILY@1600 06/09/22 06/16/22 History oxyCODONE-APAP 10-325MG [Percocet 1 tab PO QID 06/09/22 06/16/22 History 10-325 mg] Albuterol Inhaler [Ventolin Hfa 2 puff INHALATION RT-QID PRN #1 06/12/22 06/16/22 Rx Inhaler] each Cephalexin [Keflex] 500 mg PO QID 10 Days #40 cap 06/12/22 06/16/22 Rx Loratadine-Pseudoeph 5-120 mg 1 tab PO Q12H 06/16/22 06/16/22 History [Claritin-D 12 Hour] Allergies Allergy/AdvReac Type Severity Reaction Status Date / Time No Known Allergies Allergy Verified 06/16/22 07:43 Physical Exam Vitals: Vital Signs Temp Pulse Resp BP Pulse Ox 06/16/22 07:31 98 F 97 18 117/94 98 06/16/22 02:35 98.7 F 97 18 110/63 97 Intake and Output 12/06/2506/16/22 06/16/22 22:59 06:59 14:59 Other: Weight 104.326 kg Results 06/16/22 04:16 06/16/22 04:16 Cardiac Enzymes 06/16/22 Range/Units 04:16 Troponin I <0.012 (0.000-0.034) ng/mL CBC 06/16/22 Range/Units 04:16 WBC 3.7 L (3.8-10.6) k/uL RBC 4.53 (4.30-5.90) m/uL Hgb 14.6 (13.0-17.5) gm/dL Hct 41.1 (39.0-53.0) % Plt Count 142 L (150-450) k/uL Comprehensive Metabolic Panel 06/16/22 Range/Units 04:16 Sodium 136 L (137-145) mmol/L Potassium 4.4 (3.5-5.1) mmol/L Chloride 104 (98-107) mmol/L Carbon Dioxide 25 (22-30) mmol/L BUN 14 (9-20) mg/dL Creatinine 1.16 (0.66-1.25) mg/dL Glucose 104 H (74-99) mg/dL Calcium 8.7 (8.4-10.2) mg/dL Current Medications Generic Name Dose Route Start Last Admin Trade Name Freq PRN Reason Stop Dose Admin Aspirin 325 mg 06/17/22 09:00 Aspirin 325 Mg Tab PO DAILY [facility] Carvedilol 6.25 mg 06/16/22 09:00 Carvedilol 6.25 Mg Tab PO BID [facility] Losartan Potassium 25 mg 06/16/22 16:00 Losartan 25 Mg Tab PO DAILY@1600 NOEMÍ Nitroglycerin 0.4 mg 06/16/22 04:22 Nitroglycerin Sl Tabs 0.4 Mg Tab SUBLINGUAL Q5M PRN Chest Pain Non-Formulary Medication 20 mg 06/16/22 21:00 Rosuvastatin Calcium [Rosuvastatin Calcium] PO HS [facility] Spironolactone 25 mg 06/16/22 09:00 Spironolactone 25 Mg Tab PO DAILY [facility] Intake and Output 06/15/22 06/16/22 06/16/22 22:59 06:59 14:59 Other: Weight 104.326 kg 06/16/22 04:16 06/16/22 04:16
[2022-06-16] MEDS: oxyCODONE-APAP 10-325MG 1 EACH TAB PO PRN ×2 (15:43→22:22)
[2022-06-16] MEDS: LOSARTAN 25 MG TAB PO SCH (18:34)
[2022-06-16] MEDS: ATORVASTATIN 40 MG TAB PO SCH (20:57)
--- NOTE | 2022-06-17 04:03 | HP ---
HISTORY AND PHYSICAL CHIEF COMPLAINT: Chest pain. HISTORY OF PRESENT ILLNESS: This is another admission for this 52-year-old muscular . He has been in and out of the emergency rooms in both hospitals for chest pain lately and finally was inpatient at [facility] last week. He has been fully evaluated by Cardiology and nothing can be found that is causing his pain. It is in the anterior chest and is not associated with diaphoresis or shortness of breath. All of his cardiac studies have been normal. He has had coronary artery disease in the past. This is not related to eating. He has no nausea, vomiting, hematemesis, etc. Past medical history, family history, personal and social histories are all unchanged. He does use cocaine and it has been thought that this is the fact that may be contributing to his chest pain. It is not related to exertion. PHYSICAL EXAMINATION: VITAL SIGNS: Blood pressure is 145/85 with a pulse of 80, respirations of 19, and he is afebrile. GENERAL: He appeared to be comfortable and very muscular. HEAD, EARS, EYES, NOSE, MOUTH AND THROAT: Normal. CHEST: Clear. Chest wall is nontender. CARDIAC: Normal sinus rhythm. There are no murmurs or extra sounds. ABDOMEN: Soft and nontender with normal bowel sounds. EXTREMITIES: Normal. NEUROLOGICAL: He is intact. IMPRESSION: 1. Recurrent episodes of chest pain, etiology unknown. 2. History of coronary artery disease. 3. History of cocaine abuse. PLAN: 1. Bedrest. 2. Repeat cardiac enzymes and EKGs. 3. Consult Cardiology. MMODL / IJN: [id number] /
[2022-06-17] MEDS: oxyCODONE-APAP 10-325MG 1 EACH TAB PO PRN ×3 (05:04→18:45)
[2022-06-17] MEDS: carvediloL 6.25 MG TAB PO SCH ×2 (05:05→17:26)
[2022-06-17] MEDS: SPIRONOLACTONE 25 MG TAB PO SCH (09:00)
[2022-06-17] MEDS ORDERED: ASPIRIN 325 MG TAB PO SCH (09:00)
--- NOTE | 2022-06-17 10:18 | P.PN ---
Subjective Progress Note Date: 06/17/22 History of present illness: This is a 52-year-old male patient of Dr. Gr with past medical history of coronary artery disease with previous stenting, mild cardiomyopathy with ejection fraction of 40%, chronic thrombocytopenia, borderline diabetes, cocaine and methamphetamine use. Patient was recently hospitalized for chest pain and underwent Lexiscan stress test which came back negative as well as echocardiogram which revealed left ventricular hypertrophy with EF of 50%. Patient was cleared for discharge to follow up with Dr. Gr in the office. Patient has returned to the emergency center due to chest pain on 06/15. His vital signs were stable at that time and troponin was negative. Chest x-ray showed subsegmental atelectasis. It was recommended the patient be admitted to recheck troponins and patient refused and requested to go home. Patient again returned on 06/16 with chest pain which is across his upper anterior chest and through to his shoulder blades. He denies any radiation to his neck or arms. He states he has a little shortness of breath. He denies any nausea or vomiting. No lightheadedness or dizziness. No diaphoresis. No increased pain with deep inspiration. Patient states his pain occurs at rest. He states he "wants some medicine or he wants somebody to do something about this pain." Patient denies using any drugs since he was discharged from the hospital on 06/12. EKGs from 06/15 and 06/16 reviewed, sinus rhythm with no acute ST changes Troponin negative 3 draws. WBC 3.7, hemoglobin 14.6, platelet count 142. Sodium 136 otherwise electrolytes renal function and liver function tests are within normal limits. Lipase 262. Chest x-ray reveals atelectasis 06/16 Patient states he is still having episodes of chest pain. Last evening he took a Percocet and nitroglycerin sublingual and both helped a little bit. Reviewed previous echocardiograms and in February 2019, EF was greater than 55%. And again in August 2019 EF was 55-60%. Patient was brought in for an outpatient catheterization in May 2020 which found a patent stent in the LAD and in the note included an outpatient echocardiogram that was recorded at 35-40% EF. Physical examination: Gen: This is a 52 year old black male. He is resting in bed and appears to be comfortable and in no acute distress VS: reviewed HEENT: Head is atraumatic, normocephalic. Pupils equal, round. Sclerae is anicteric. NECK: Supple. No JVD. LUNGS: Clear to auscultation. No wheezes or rhonchi. No intercostal retractions. HEART: Regular rate and rhythm. No murmur. No gallop. Positive chest wall tenderness. ABDOMEN: Soft. No masses. No tenderness. EXTREMITIES: No pedal edema. No calf tenderness. Dorsalis pedis +2 bilaterally. NEUROLOGICAL: Patient is awake, alert and oriented x3. Assessment: Chest pain History of coronary artery disease status post PCI of the LAD in 2018 Dilated cardiomyopathy Chronic systolic heart failure with previous EF of 40%, improved Hypertension Hyperlipidemia Plan: No need to repeat echocardiogram We will proceed with cardiac catheterization scheduled for tomorrow with Dr. Feliciano. We have resume patient on atorvastatin, Coreg, losartan and Aldactone. Patient to be weaned off oxygen, ambulating in the hallway and assess for any associated symptoms with activity. Thank you kindly for this consultation. Nurse practitioner note has been reviewed, I agree with documented findings and plan of care. Patient was seen and examined. Objective - Vital Signs Vital signs: Vital Signs Temp 98.4 F 06/17/22 02:02 Pulse 89 06/17/22 05:12 Resp 18 06/17/22 02:02 BP 108/70 06/17/22 05:12 Pulse Ox 100 06/17/22 02:02 FiO2 Intake & Output 06/16/22 06/17/22 06/17/22 18:59 06:59 18:59 Intake Total 118 Balance 118 Weight 104.326 kg Intake: Oral 118 Other: Voiding Method Toilet Toilet # Voids 2 - Labs CBC & Chem 7: 06/16/22 04:16 06/16/22 04:16
[2022-06-17] MEDS ORDERED: ALPRAZolam 0.25 MG TAB PO PRN (10:32)
[2022-06-17] MEDS ORDERED: ALPRAZolam 0.5 MG TAB PO PRN (10:32)
[2022-06-17] MEDS ORDERED: NITROGLYCERIN SL TABS 0.4 MG TAB SUBLINGUAL PRN (10:32)
[2022-06-17 10:55] LABS: Chol/HDL Ratio 3.73 Ratio; LDL Cholesterol,Calculated 60.5 mg/dL (0.0-131.0); VLDL Calculation 17.82 mg/dL (5.00-40.00)
[2022-06-17 10:56] LABS: Urine Alcohol Negative (Negative); Urine Barbiturate Negative (Negative); Urine Cocaine Negative (Negative); Urine Methadone Negative (Negative); Urine Opiates Negative (Negative); Urine Phencyclidine Negative (Negative)
[2022-06-17] MEDS ORDERED: NITROGLYCERIN OINT 1 INCH/GM PACKET TOPICAL ONE (11:30)
[2022-06-17] MEDS: NITROGLYCERIN OINT 1 INCH/GM PACKET TOPICAL SCH ×2 (12:00→16:00)
[2022-06-17] MEDS ORDERED: PATIENT'S OWN (Albuterol Inhaler [Ventolin Hfa Inhaler] 60 PUFF Gm) INHALATION PRN (15:00)
[2022-06-17] MEDS: LOSARTAN 25 MG TAB PO SCH (16:00)
[2022-06-17] MEDS: ATORVASTATIN 40 MG TAB PO SCH (20:06)
[2022-06-18] MEDS: NITROGLYCERIN OINT 1 INCH/GM PACKET TOPICAL SCH ×2 (00:43→09:44)
--- NOTE | 2022-06-18 01:07 | PN ---
PROGRESS NOTE CHIEF COMPLAINT: Chest pain. HISTORY OF PRESENT ILLNESS: This gentleman has been stable. Cardiac enzymes have been normal. Cardiology is taking him to the cathode washer tomorrow. PHYSICAL EXAMINATION: CHEST: Clear. CARDIAC: Normal. ABDOMEN: Soft, nontender. IMPRESSION: 1. Chest pain. 2. History of coronary artery disease. PLAN: Cardiac cath tomorrow. MMODL / IJN: [id number] /
[2022-06-18] MEDS: oxyCODONE-APAP 10-325MG 1 EACH TAB PO PRN ×2 (03:28→12:15)
[2022-06-18] MEDS ORDERED: ASPIRIN 325 MG TAB PO ONE (06:00)
[2022-06-18] MEDS ORDERED: ATORVASTATIN 80 MG TAB PO ONE (06:00)
[2022-06-18] MEDS: carvediloL 6.25 MG TAB PO SCH (06:23)
[2022-06-18] MEDS ORDERED: HEPARIN SODIUM,PORCINE 10,000 UNIT in SODIUM CHLORIDE 0.9% 1,000 ML IRRIGATION PRN (07:00)
[2022-06-18] MEDS ORDERED: HEPARIN SODIUM,PORCINE 2,500 UNIT in SODIUM CHLORIDE 0.9% 250 ML IRRIGATION PRN (07:00)
[2022-06-18] MEDS ORDERED: VERAPAMIL 2.5 MG/ML 2 ML AMP ONE (08:51)
[2022-06-18] MEDS ORDERED: ASPIRIN 325 MG TAB PO SCH (09:00)
[2022-06-18] MEDS ORDERED: IV FLUID CONTINUATION 1,000 ML IV ONE (09:05)
[2022-06-18] MEDS ORDERED: HEPARIN SODIUM 1,000 UN/ML (10ML VL) ONE (09:21)
[2022-06-18] MEDS ORDERED: fentaNYL (PF) 50 MCG/ML 2 ML AMP ONE (09:21)
[2022-06-18] MEDS: MIDAZOLAM 2 MG/2 ML VIAL IV ONE ×2 (09:40→09:48)
[2022-06-18] MEDS ORDERED: fentaNYL (PF) 50 MCG/ML 2 ML AMP IV ONE (09:41)
[2022-06-18] MEDS: SPIRONOLACTONE 25 MG TAB PO SCH (09:44)
[2022-06-18] MEDS ORDERED: LIDOCAINE 1% INJ 10MG/ML (5 ML VIAL-PF) SQ ONE (09:45)
[2022-06-18] MEDS ORDERED: VERAPAMIL SYRINGE (5 MG/10 ML) INTRAARTER ONE (09:51)
[2022-06-18] MEDS ORDERED: HEPARIN SODIUM 1,000 UN/ML (10ML VL) IV ONE (09:55)
[2022-06-18] MEDS ORDERED: IOPAMIDOL-370 125ML BTL INJ ONE (10:02)
[2022-06-18] MEDS ORDERED: RX INFO: IV CONTRAST WAS GIVEN 1 EACH MISC MISCELLANE PRN (10:47)
--- NOTE | 2022-06-18 11:20 | CC ---
CARDIAC CATHETERIZATION REPORT INDICATION: Unstable angina. HISTORY OF PRESENT ILLNESS: This is a 52-year-old gentleman who presented to hospital with chest pain and continued to have recurrent episodes of chest discomfort due to which he wished to proceed with cardiac catheterization for definitive diagnosis. The patient had a negative stress test within the last 2 weeks. The patient had been explained of risks, benefits, and alternatives, understood and accepted. PROCEDURE NOTE: After obtaining informed consent, left heart catheterization and coronary angiogram were performed via the right radial artery using 3.5 right and left Digna catheters. Left ventricular hemodynamics were also obtained by the same. The patient tolerated the procedure well without any obvious immediate complications. He received 5000 units of intravenous heparin and 5 mg of verapamil per protocol. The patient received moderate conscious sedation. Total sedation time was 15 minutes. FINDINGS: 1. Hemodynamics: Left ventricular end-diastolic pressure is 8 mm. There is no significant gradient across the aortic valve. 2. Left ventriculogram: Left ventriculogram is not performed. 3. Angiographic data: a.Right coronary artery: Right coronary artery is a large dominant vessel and is free of stenosis. b.Left main coronary artery: Left main coronary artery is a normal-sized vessel and is free of stenosis, divides into left anterior descending coronary artery and circumflex coronary artery. LAD and its branches are free of significant stenosis. Distal LAD shows a patent stent. Circumflex coronary artery and its branches are free of significant disease. CONCLUSION: Patent stent within the LAD. PLAN: I reviewed angiographic data with the patient and told him that his chest discomfort is noncardiac in origin and his management is going to be in the form of medical therapy and aggressive risk factor modification. In particular, I advised him to continue and continue with the medications. MMODL / IJN: [id number] /
[2022-06-18 13:34] VITALS: TEMP 97.9
[2022-06-18 14:07] VITALS: BP 137/81; PULSE 83; RESP 12
--- NOTE | 2022-06-19 03:32 | DS ---
DISCHARGE SUMMARY CHIEF COMPLAINT: Chest pain. HISTORY OF PRESENT ILLNESS AND PHYSICAL EXAMINATION: Details of this man's history and physical can be found in the initial workup. LABORATORY STUDIES: While he was in the hospital, he had laboratory studies, details of which can be found in the laboratory section of the chart. COURSE IN THE HOSPITAL: After admission, he was placed on bedrest, started on intravenous fluids and seen again by Cardiology. He recently had a normal stress test, but he was taken to the microbiology lab assistant, where he was not found to have any critical lesions in the coronary arteries and his previously placed stent was open. It was felt that he could go home and he will continue workup as an outpatient as to what the etiology of his pain is. FINAL DIAGNOSES: 1. Chest pain. 2. History of coronary artery disease. 3. Cocaine use and abuse. OPERATIONS: Cardiac cath. CONSULTATIONS: Cardiology. He is improved. MMSENAIT / HAIDER: [id number] /
[2022-06-19] MEDS ORDERED: ASPIRIN 325 MG TAB PO SCH (09:00)
[2022-06-24] MEDS ORDERED: TESTOSTERONE CYPIONATE 200 MG/ML 1ML VIAL IM SCH (09:00)
== END 2022-06-18 14:32 | disposition home or self-care (01) ==
LOC: EC 02:31 → 6NMEDSUR 04:22
PROVIDERS: ADMIT Family Medicine; ATTEND Family Medicine
DX: R07.89 Other chest pain (principal); I25.10 Atherosclerotic heart disease of native coronary artery without angina pectoris; F14.10 Cocaine abuse, uncomplicated; I11.0 Hypertensive heart disease with heart failure; I50.22 Chronic systolic (congestive) heart failure; I42.0 Dilated cardiomyopathy; R73.03 Prediabetes; J98.11 Atelectasis; E78.5 Hyperlipidemia, unspecified; D69.6 Thrombocytopenia, unspecified; E29.1 Testicular hypofunction; M19.90 Unspecified osteoarthritis, unspecified site; I25.2 Old myocardial infarction; F31.9 Bipolar disorder, unspecified; F41.9 Anxiety disorder, unspecified; Z79.82 Long term (current) use of aspirin; Z79.890 Hormone replacement therapy; Z79.899 Other long term (current) drug therapy; Z95.5 Presence of coronary angioplasty implant and graft; Z87.891 Personal history of nicotine dependence; Z98.890 Other specified postprocedural states; Z80.1 Family history of malignant neoplasm of trachea, bronchus and lung; Z80.0 Family history of malignant neoplasm of digestive organs
CPT/HCPCS: 99285; 36415; 94760 ×2; 93005; 93458; 80061; 80048; 84484 ×2; 85025; 80306; 71045; G0378 ×3; C1769; C1894; J2250; J2001; J3010; J1644; Q9967

== ENCOUNTER 2022-07-15 19:31 | Emergency (ER) | payer MEDICARE, OTHER ==
[2022-07-15 20:06] VITALS: RESP 18
[2022-07-15 21:34] VITALS: BP 134/82; PULSE 86; TEMP 98.3
--- NOTE | 2022-07-15 21:36 | ED ---
Recheck HPI - General Chief Complaint: Dizziness Stated Complaint: Medication/blood pressure issues Time Seen by Provider: 07/15/22 21:33 Source: patient, RN notes reviewed, old records reviewed Mode of arrival: ambulatory Limitations: no limitations - History of Present Illness Initial Comments: This is a 52-year-old male to the emergency department for evaluation. Patient presents for evaluation of dizziness today. Patient has no current symptoms a symptomatic has no dizziness. Patient just recently started on new medication to today for the first time became very dizzy lightheaded. As time went on he became more nervous given the fact that he came to the emergency department for evaluation. On arrival to the ER he has no complaints MD Complaint: other (Dizziness) -: minutes(s) Returns Today for: other (RestartedMedication) Symptoms Since Prior Visit: no new symptoms (Symptoms resolved) Associated Symptoms: none Treatments Prior to Arrival: other medications - Related Data Home Medications Medication Instructions Recorded Confirmed Testosterone Cypionate 300 mg IM Q21D 11/13/19 06/16/22 [Depo-Testosterone] Nitroglycerin Sl Tabs [Nitrostat] 0.4 mg SL Q5M PRN 05/11/22 06/16/22 Ergocalciferol [Vitamin D2 (1250 1,250 mcg PO MO 06/09/22 06/16/22 Mcg = 44390 Iu)] Losartan [Cozaar] 25 mg PO DAILY@1600 06/09/22 06/16/22 oxyCODONE-APAP 10-325MG [Percocet 1 tab PO QID 06/09/22 06/16/22 10-325 mg] Loratadine-Pseudoeph 5-120 mg 1 tab PO Q12H 06/16/22 06/16/22 [Claritin-D 12 Hour] Previous Rx's Medication Instructions Recorded Aspirin 325 mg PO DAILY 30 Days tab 05/19/22 Rosuvastatin Calcium 20 mg PO HS 14 Days tab 05/19/22 Spironolactone 25 mg PO DAILY 14 Days tab 05/19/22 carvediloL [Coreg] 6.25 mg PO BID 14 Days tab 05/19/22 Albuterol Inhaler [Ventolin Hfa 2 puff INHALATION RT-QID PRN #1 06/12/22 Inhaler] each Cephalexin [Keflex] 500 mg PO QID 10 Days #40 cap 06/12/22 Allergies Allergy/AdvReac Type Severity Reaction Status Date / Time No Known Allergies Allergy Verified 06/16/22 07:43 Review of Systems ROS Statement: Those systems with pertinent positive or pertinent negative responses have been documented in the HPI. ROS Other: All systems not noted in ROS Statement are negative. Past Medical History Past Medical History: Coronary Artery Disease (CAD), Chest Pain / Angina, Hyperlipidemia, Hypertension, Osteoarthritis (OA) Additional Past Medical History / Comment(s): Low testosterone. c/o shortness of breath, improving. Last Myocardial Infarction Date:: 2017 History of Any Multi-Drug Resistant Organisms: None Reported Past Surgical History: Back Surgery, Heart Catheterization, Heart Catheterization With Stent Additional Past Surgical History / Comment(s): back surgeries x2, Colonoscopy. EGD 03/2020. Heart cath 05/17/20 Past Anesthesia/Blood Transfusion Reactions: No Reported Reaction Date of Last Stent Placement:: 05/19/18 Past Psychological History: Anxiety, Bipolar, Depression Past Drug Use History: Cocaine - Past Family History Father Family Medical History: Cancer Additional Family Medical History / Comment(s): lung Mother Family Medical History: Cancer Additional Family Medical History / Comment(s): colon General Exam General appearance: alert, in no apparent distress Head exam: Present: atraumatic, normocephalic, normal inspection Eye exam: Present: normal appearance, PERRL, EOMI. Absent: scleral icterus, conjunctival injection, periorbital swelling ENT exam: Present: normal exam, mucous membranes moist Neck exam: Present: normal inspection. Absent: tenderness, meningismus, lymphadenopathy Respiratory exam: Present: normal lung sounds bilaterally. Absent: respiratory distress, wheezes, rales, rhonchi, stridor Cardiovascular Exam: Present: regular rate, normal rhythm, normal heart sounds. Absent: systolic murmur, diastolic murmur, rubs, gallop, clicks GI/Abdominal exam: Present: soft, normal bowel sounds. Absent: distended, tenderness, guarding, rebound, rigid Extremities exam: Present: normal inspection, full ROM, normal capillary refill. Absent: tenderness, pedal edema, joint swelling, calf tenderness Back exam: Present: normal inspection Neurological exam: Present: alert, oriented X3, CN II-XII intact Psychiatric exam: Present: normal affect, normal mood Skin exam: Present: warm, dry, intact, normal color. Absent: rash Course Vital Signs 07/15/22 07/15/22 20:03 21:29 Temperature 98.1 F 98.3 F Pulse Rate 87 86 Respiratory 18 18 Rate Blood Pressure 152/90 134/82 O2 Sat by Pulse 97 96 Oximetry - Reevaluation(s) Reevaluation #1: 07/15/22 22:09 Medical record is reviewed Reevaluation #2: 07/15/22 22:09 Patient remains asymptomatic here in the ER Reevaluation #3: 07/15/22 22:09 Patient informed of results questions answered Reevaluation #4: 07/15/22 22:10 Differential Dizziness: Benign paroxysmal positional Vertigo, Menieres disease, otitis media, acoustic neuroma, vertebrobasilar insufficiency, cerebellar stroke, encephalitis, hypovolemic, arrhythmia, coronary artery syndrome, anemia, this is not meant to be an all-inclusive list Reevaluation #5: 07/15/22 22:10 Was pt. sent in by a medical professional or institution? @ -no Did you speak to anyone other than the patient for history? @ -no Did you review nursing and triage notes? @ -agree Were old charts reviewed? @ -no Differential Diagnosis? @ -no EKG interpreted by me (3pts min.)? @ -yes X-rays interpreted by me (1pt min.)? @ -[none] CT interpreted by me (1pt min.)? @ -[none] U/S interpreted by me (1pt. min.)? @ -[none] What testing was considered but not performed? (CT, X-rays, U/S, labs)? Why? @ no What meds were considered but not given? Why? @ -[none] Did you discuss the management of the patient with other professionals? @ -no Did you reconcile home meds? @ -[none] Was smoking cessation discussed for >3mins.? @ -[none] Was critical care preformed (if so, how long)? @ -[none] Were there social determinants of health that impacted care today? How? (Homelessness, low income, unemployed, alcoholism, drug addiction, transportation, low edu. Level, literacy, decrease access to med. care, longterm, rehab)? @ -no Was there de-escalation of care discussed even if they declined? (Discuss DNR or withdrawal of care, Hospice)? @ -no What co-morbidities impacted this encounter? (DM, HTN, Smoking, COPD, CAD, Cancer, CVA, Hep., AIDS, mental health diagnosis, sleep apnea, morbid obesity)? @ -no Was patient admitted / discharged? @ -dc Undiagnosed new problem with uncertain prognosis? @ -[none] Drug Therapy requiring intensive monitoring for toxicity (Heparin, Nitro, Insulin, Cardizem)? @ -[none] Were any procedures done? @ -[none] Diagnosis/symptom? @ -[default] Acute, or Chronic, or Acute on Chronic? @ -[default] Uncomplicated (without systemic symptoms) or Complicated (systemic symptoms)? @ -[default] Side effects of treatment? @ -[none] Exacerbation, Progression, or Severe Exacerbation] @ -[no] Poses a threat to life or bodily function? @ -[no] Medical Decision Making - Medical Decision Making 52 male to the emergency department dizziness reaction to Entresto pressure medication. Patient will continue blood pressure medication home encouraged increased oral liquid intake and can pay discharged home - EKG Data -: EKG Interpreted by Me (EKG is sinus 86 MS 101 QRS 90 QTC 412) Disposition Clinical Impression: Dizziness, Medication reaction Disposition: HOME SELF-CARE Condition: Good Instructions (If sedation given, give patient instructions): Sacubitril/Valsartan (By mouth), Dizziness (ED) Is patient prescribed a controlled substance at d/c from ED?: No Referrals: Bossman Kent MD [Primary Care Provider] - 1-2 days Time of Disposition: 22:05
== END 2022-07-15 22:16 | disposition home or self-care (01) ==
LOC: EC 19:31
DX: T46.4X5A Adverse effect of angiotensin-converting-enzyme inhibitors, initial encounter (principal); R42 Dizziness and giddiness; I25.10 Atherosclerotic heart disease of native coronary artery without angina pectoris; I10 Essential (primary) hypertension; M19.90 Unspecified osteoarthritis, unspecified site; F41.9 Anxiety disorder, unspecified; F31.9 Bipolar disorder, unspecified; Z79.899 Other long term (current) drug therapy
CPT/HCPCS: 93005; 99284

== ENCOUNTER 2022-07-19 06:32 | Emergency (ER) | payer MEDICARE, OTHER ==
[2022-07-19 06:46] VITALS: TEMP 97.9
[2022-07-19] MEDS ORDERED: SODIUM CHLORIDE 0.9% 500 ML 500 ML IV STA (06:55)
--- NOTE | 2022-07-19 07:06 | ED ---
SOB HPI - General Chief Complaint: Shortness of Breath Stated Complaint: DANE Time Seen by Provider: 07/19/22 06:45 Source: patient, RN notes reviewed, old records reviewed Mode of arrival: ambulatory - History of Present Illness Initial Comments: This is a well-appearing 52-year-old black male that presents to the emergency room with complaints of shortness of breath for the past month and a half. Denies any fevers, chest pain or nausea vomiting. Patient states he has seen a residential therapist and had a catheterization and he has also seen a punch press setter. Patient states he is scheduled to see his punch press setter Dr. Clarke again on the as he has had no improvement in symptoms. He was seen [address] [facility] and had labs and x-rays. He was prescribed steroids and a breathing treatment with no relief. Patient states he is a nonsmoker. Denies any history of anxiety. Does have history of coronary artery disease, chest pain, cardiac stent, hypertension, bipolar and depression. MD Complaint: shortness of breath -: month(s) (month and a half) Severity scale (1-10): 0 Consistency: constant Improves With: nothing Worsens With: exertion Known History Of: other (CAD, HTN) - Related Data Home Medications Medication Instructions Recorded Confirmed Testosterone Cypionate 300 mg IM Q21D 11/13/19 06/16/22 [Depo-Testosterone] Nitroglycerin Sl Tabs [Nitrostat] 0.4 mg SL Q5M PRN 05/11/22 06/16/22 Ergocalciferol [Vitamin D2 (1250 1,250 mcg PO MO 06/09/22 06/16/22 Mcg = 25977 Iu)] Losartan [Cozaar] 25 mg PO DAILY@1600 06/09/22 06/16/22 oxyCODONE-APAP 10-325MG [Percocet 1 tab PO QID 06/09/22 06/16/22 10-325 mg] Loratadine-Pseudoeph 5-120 mg 1 tab PO Q12H 06/16/22 06/16/22 [Claritin-D 12 Hour] Previous Rx's Medication Instructions Recorded Aspirin 325 mg PO DAILY 30 Days tab 05/19/22 Rosuvastatin Calcium 20 mg PO HS 14 Days tab 05/19/22 Spironolactone 25 mg PO DAILY 14 Days tab 05/19/22 carvediloL [Coreg] 6.25 mg PO BID 14 Days tab 05/19/22 Albuterol Inhaler [Ventolin Hfa 2 puff INHALATION RT-QID PRN #1 06/12/22 Inhaler] each Cephalexin [Keflex] 500 mg PO QID 10 Days #40 cap 06/12/22 Allergies Allergy/AdvReac Type Severity Reaction Status Date / Time No Known Allergies Allergy Verified 07/19/22 06:45 Review of Systems ROS Statement: Those systems with pertinent positive or pertinent negative responses have been documented in the HPI. ROS Other: All systems not noted in ROS Statement are negative. Past Medical History Past Medical History: Coronary Artery Disease (CAD), Chest Pain / Angina, Hyperlipidemia, Hypertension, Osteoarthritis (OA) Additional Past Medical History / Comment(s): Low testosterone. c/o shortness of breath, improving. Last Myocardial Infarction Date:: 2017 History of Any Multi-Drug Resistant Organisms: None Reported Past Surgical History: Back Surgery, Heart Catheterization, Heart Catheterization With Stent Additional Past Surgical History / Comment(s): back surgeries x2, Colonoscopy. EGD 03/2020. Heart cath 05/17/20 Past Anesthesia/Blood Transfusion Reactions: No Reported Reaction Date of Last Stent Placement:: 05/19/18 Past Psychological History: Anxiety, Bipolar, Depression Smoking Status: Never smoker Past Alcohol Use History: None Reported Past Drug Use History: Cocaine - Past Family History Father Family Medical History: Cancer Additional Family Medical History / Comment(s): lung Mother Family Medical History: Cancer Additional Family Medical History / Comment(s): colon General Exam Limitations: no limitations General appearance: alert, in no apparent distress Eye exam: Absent: scleral icterus, conjunctival injection, periorbital swelling Respiratory exam: Present: normal lung sounds bilaterally. Absent: respiratory distress, wheezes, rales, rhonchi, stridor, chest wall tenderness, accessory muscle use Cardiovascular Exam: Present: regular rate GI/Abdominal exam: Present: soft. Absent: distended, tenderness, rigid Extremities exam: Present: normal capillary refill. Absent: pedal edema, calf tenderness Back exam: Absent: tenderness, rash noted Neurological exam: Present: alert, oriented X3, normal gait Psychiatric exam: Present: normal affect, normal mood Skin exam: Present: warm, dry, normal color. Absent: rash, cyanosis, diaphoretic, petechiae, pallor, mottled Course Vital Signs 07/19/22 07/19/22 07/19/22 06:38 07:15 07:22 Temperature 97.9 F Pulse Rate 86 83 Respiratory 18 18 18 Rate Blood Pressure 118/80 118/80 O2 Sat by Pulse 98 95 Oximetry 07/19/22 08:41 Temperature 97.9 F Pulse Rate 78 Respiratory 16 Rate Blood Pressure 138/90 O2 Sat by Pulse 100 Oximetry - Reevaluation(s) Reevaluation #1: 07/19/22 07:43 Patient observed resting in the room with no respiratory distress oxygen saturat ion 97-98% on room air. Reevaluation #2: 07/19/22 07:44 Medical records obtained from [facility] for visit 3 days ago. He was given IV magnesium, Solu-Medrol, albuterol treatment. Chest x-ray showed no acute process. Negative d-dimer, negative for calcitonin, kidney function at baseline BNP negative. They suspected COPD versus asthma, to continue inhalers every 4 hours continue antibiotic and steroid Dosepak. He was also prescribed Singulair at that time and directed to follow up with his punch press setter. Medical Decision Making - Medical Decision Making Patient presents with shortness of breath for a month and a half worse with exertion. He is a former smoker. He denies any chest pain. He states that he has been seen by multiple doctors and ER's for this including cardiology, pulmonology and even ENT for nasal congestion. Most recently seen at [facility] on and states discharged to follow-up with pulmonology. Our medical records show he did have a recent cardiac cath with Dr. Feliciano on 06/18/2022. It was his impression that this was noncardiac. Today labs show no evidence of leukocytosis hemoglobin and hematocrit are stable. D-dimer is negative. Troponin is negative. No EKG changes compared to old. Coronavirus test is negative. Vital signs are stable. Chest x-ray interpreted by me shows no evidence of consolidation, trachea midline, no evidence of free air. Radiologist interpretation low lung volumes no acute cardiopulmonary disease or process. Medical records from [facility] were reviewed. No abnormal trending in labs. Patient was instructed to follow-up with his punch press setter Dr. Clarke pulmonology on the and primary care doctor for continuation of care. Continue the antibiotics, steroids, Singulair and albuterol as prescribed. Case discussed with Dr. Cabezas Was pt. sent in by a medical professional or institution? @ -No Did you speak to anyone other than the patient for history? @ -No Did you review nursing and triage notes? @ -Yes I agree Were old charts reviewed? @ -Yes previous cardiac cath report, EKG and outside records from [facility] Differential Diagnosis? @ -Differential Dyspnea: Coronary syndrome, arrhythmia, tamponade, asthma, COPD, pulmonary embolism, pneumonia, pneumothorax, pulmonary effusion, anaphylaxis, diabetic ketoacidosis, flailed chest, pulmonary contusion, diaphragmatic rupture, anemia, neuromuscular, this is not meant to be an all-inclusive list. EKG interpreted by me (3pts min.)? @ -Yes as above X-rays interpreted by me (1pt min.)? @ -Yes as above What testing was considered but not performed? (CT, X-rays, U/S, labs)? Why? @CT was considered however d-dimer is negative. Lungs sounds are clear, oxygenation is 97-98% on room air. Patient does not appear dyspneic. No accessory muscle use. What meds were considered but not given? Why? @ -None Did you discuss the management of the patient with other professionals? @ -No Did you reconcile home meds? @ -No Was smoking cessation discussed for >3mins.? @ -Former smoker Was critical care preformed (if so, how long)? @ -No Were there social determinants of health that impacted care today? How? (Homelessness, low income, unemployed, alcoholism, drug addiction, transportation, low edu. Level, literacy, decrease access to med. care, residential, rehab)? @ -No Was there de-escalation of care discussed even if they declined? (Discuss DNR or withdrawal of care, Hospice)? @ -No What co-morbidities impacted this encounter? (DM, HTN, Smoking, COPD, CAD, C ancer, CVA, Hep., AIDS, mental health diagnosis, sleep apnea, morbid obesity)? @ -Coronary artery disease, hypertension, depression, bipolar Was patient admitted / discharged? @ -Discharged Undiagnosed new problem with uncertain prognosis? @ -[none] Drug Therapy requiring intensive monitoring for toxicity (Heparin, Nitro, Insulin, Cardizem)? @ -No Were any procedures done? @ -None Diagnosis/symptom? @ -Shortness of breath with exertion likely COPD Acute, or Chronic, or Acute on Chronic? @ -Acute on chronic Uncomplicated (without systemic symptoms) or Complicated (systemic symptoms)? @ -Uncomplicated Side effects of treatment? @ -[none] Exacerbation, Progression, or Severe Exacerbation] @ -[no] Poses a threat to life or bodily function? @ -[no] - Lab Data Result diagrams: 07/19/22 07:19 07/19/22 07:19 Lab Results 07/19/22 07/19/22 07/19/22 Range/Units 07:19 07:19 07:19 WBC 4.0 (3.8-10.6) k/uL RBC 4.37 (4.30-5.90) m/uL Hgb 13.9 (13.0-17.5) gm/dL Hct 39.7 (39.0-53.0) % MCV 90.9 (80.0-100.0) fL MCH 31.8 (25.0-35.0) pg MCHC 35.0 (31.0-37.0) g/dL RDW 14.0 (11.5-15.5) % Plt Count 110 L (150-450) k/uL MPV 8.4 Neutrophils % (Manual) 59 % Lymphocytes % (Manual) 32 % Monocytes % (Manual) 10 % Neutrophils # (Manual) 2.36 (1.3-7.7) k/uL Lymphocytes # (Manual) 1.28 (1.0-4.8) k/uL Monocytes # (Manual) 0.40 (0-1.0) k/uL Nucleated RBCs 0 (0-0) /100 WBC Manual Slide Review Performed RBC Morphology Normal D-Dimer (<0.60) mg/L FEU Sodium 138 (137-145) mmol/L Potassium 4.5 (3.5-5.1) mmol/L Chloride 105 (98-107) mmol/L Carbon Dioxide 26 (22-30) mmol/L Anion Gap 7 mmol/L BUN 23 H (9-20) mg/dL Creatinine 1.13 (0.66-1.25) mg/dL Est GFR (CKD-EPI)AfAm 85 (>60 ml/min/1.73 sqM) Est GFR (CKD-EPI)NonAf 74 (>60 ml/min/1.73 sqM) Glucose 112 H (74-99) mg/dL Plasma Lactic Acid Pritesh 1.2 (0.7-2.0) mmol/L Calcium 8.8 (8.4-10.2) mg/dL Magnesium 1.8 (1.6-2.3) mg/dL Total Bilirubin 0.4 (0.2-1.3) mg/dL AST 25 (17-59) U/L ALT 46 (4-49) U/L Alkaline Phosphatase 50 (38-126) U/L Troponin I (0.000-0.034) ng/mL Total Protein 7.2 (6.3-8.2) g/dL Albumin 4.1 (3.5-5.0) g/dL Coronavirus (PCR) (Not Detectd) 07/19/22 07/19/22 07/19/22 Range/Units 07:19 07:19 07:19 WBC (3.8-10.6) k/uL RBC (4.30-5.90) m/uL Hgb (13.0-17.5) gm/dL Hct (39.0-53.0) % MCV (80.0-100.0) fL MCH (25.0-35.0) pg MCHC (31.0-37.0) g/dL RDW (11.5-15.5) % Plt Count (150-450) k/uL MPV Neutrophils % (Manual) % Lymphocytes % (Manual) % Monocytes % (Manual) % Neutrophils # (Manual) (1.3-7.7) k/uL Lymphocytes # (Manual) (1.0-4.8) k/uL Monocytes # (Manual) (0-1.0) k/uL Nucleated RBCs (0-0) /100 WBC Manual Slide Review RBC Morphology D-Dimer 0.22 (<0.60) mg/L FEU Sodium (137-145) mmol/L Potassium (3.5-5.1) mmol/L Chloride (98-107) mmol/L Carbon Dioxide (22-30) mmol/L Anion Gap mmol/L BUN (9-20) mg/dL Creatinine (0.66-1.25) mg/dL Est GFR (CKD-EPI)AfAm (>60 ml/min/1.73 sqM) Est GFR (CKD-EPI)NonAf (>60 ml/min/1.73 sqM) Glucose (74-99) mg/dL Plasma Lactic Acid Pritesh (0.7-2.0) mmol/L Calcium (8.4-10.2) mg/dL Magnesium (1.6-2.3) mg/dL Total Bilirubin (0.2-1.3) mg/dL AST (17-59) U/L ALT (4-49) U/L Alkaline Phosphatase (38-126) U/L Troponin I <0.012 (0.000-0.034) ng/mL Total Protein (6.3-8.2) g/dL Albumin (3.5-5.0) g/dL Coronavirus (PCR) Not Detected (Not Detectd) - EKG Data EKG shows normal: sinus rhythm (Sinus rhythm, ventricular rate 81, AK interval 0.120, QRS 0.90, QTC 0.349; left axis deviation; compared to old 07/15/2022) Disposition Clinical Impression: Shortness of breath on exertion Disposition: HOME SELF-CARE Condition: Good Instructions (If sedation given, give patient instructions): Shortness of Breath (ED) Additional Instructions: Keep your appointment with your punch press setter as scheduled on 07/29/22. Return to the emergency room with any new or concerning symptoms including chest pain, persistent nausea vomiting or fevers. Is patient prescribed a controlled substance at d/c from ED?: No Referrals: Bossman Kent MD [Primary Care Provider] - 1-2 days Time of Disposition: 08:22
[2022-07-19 07:34] LABS: HCT 39.7 % (39.0-53.0); HGB 13.9 gm/dL (13.0-17.5); MCH 31.8 pg (25.0-35.0); MCV 90.9 fL (80.0-100.0); Mean Platelet Volume 8.4; Platelet Count 110 k/uL (150-450); RBC 4.37 m/uL (4.30-5.90)
--- NOTE | 2022-07-19 07:36 | XR ---
EXAMINATION TYPE: XR chest 2V DATE OF EXAM: 07/19/2022 7:31 AM COMPARISON: Chest radiographs from 06/16/2022 TECHNIQUE: XR chest 2V Frontal and lateral views of the chest. CLINICAL INDICATION:Male, 52 years old with history of difficulty breathing; FINDINGS: Lungs/Pleura: Low lung volumes are present. There is no evidence of pleural effusion, focal consolida tion, or pneumothorax. Pulmonary vascularity: Unremarkable. Heart/mediastinum: Cardiomediastinal silhouette is unremarkable. Musculoskeletal: No acute osseous pathology. IMPRESSION: Low lung volumes, No acute cardiopulmonary disease/process.
[2022-07-19 07:51] LABS: Albumin 4.1 g/dL (3.5-5.0); Calcium 8.8 mg/dL (8.4-10.2); Magnesium 1.8 mg/dL (1.6-2.3); Potassium 4.5 mmol/L (3.5-5.1); Total Bilirubin 0.4 mg/dL (0.2-1.3); Total Protein 7.2 g/dL (6.3-8.2)
[2022-07-19 08:42] VITALS: BP 138/90; PULSE 78; RESP 16
[2022-07-19 09:01] LABS: Nucleated Red Blood Cells 0 /100 WBC (0-0)
[2022-07-19 09:04] LABS: Lymphocytes # (M) 1.28 k/uL (1.0-4.8); Neutrophils # (M) 2.36 k/uL (1.3-7.7); Neutrophils % (M) 59 %; RBC Morphology Normal; Total Cells Counted 200
== END 2022-07-19 08:48 | disposition home or self-care (01) ==
LOC: EC 06:32
DX: R06.02 Shortness of breath (principal); I10 Essential (primary) hypertension; I25.10 Atherosclerotic heart disease of native coronary artery without angina pectoris; I25.2 Old myocardial infarction; Z20.822 Contact with and (suspected) exposure to COVID-19
CPT/HCPCS: 36415; 71046; 80053; 83605; 83735; 84484; 85025; 85379; 87635; 93005; 96360; 99285

== ENCOUNTER 2022-07-24 13:17 | Day surgery (SDC) | payer MEDICARE, OTHER ==
[2022-07-22 15:00] VITALS: BMI 34.0
--- NOTE | 2022-07-23 19:12 | HP ---
HISTORY AND PHYSICAL CHIEF COMPLAINT: Fluid in the right middle ear space. HISTORY OF PRESENT ILLNESS: This patient is a 52-year-old male who was recently seen in my office complaining of having a plugged sensation in his right ear. At the time that he was seen in the office, clinical examination here revealed chronic right serous otitis media, so-called glue ear. The patient was placed on a course of oral antibiotics and steroids. He was seen 2 weeks later, and at that time, it was noted that the ear was still plugged. It was therefore recommended that he undergo a right myringotomy with insertion of ventilation tube under IV sedation with MAC. PAST MEDICAL HISTORY: Reveals previous surgeries include lower back surgery and a colonoscopy. ALLERGIES: He has no known allergies to medications. CURRENT MEDICATIONS: Include: 1. Crestor. 2. Carvedilol. 3. One baby aspirin daily. 4. Entresto. REVIEW OF SYSTEMS: Reveals cardiovascular system is positive for hypertension, metabolic endocrine system is positive for hypercholesterolemia. The remainder of the review of systems is essentially unremarkable. OBJECTIVE: HEENT: The patient is normocephalic. Left tympanic membrane is unremarkable. Examination of the right ear reveals that the right tympanic membrane is dull with fluid in the right middle ear space. Pupils equal, round, react to light and accommodation. Extraocular movements are within normal limits. Intranasal examination reveals [id number] septal deviation with compensatory hypertrophy of inferior turbinates. Examination of the oropharynx, cranial nerves 2 through 12, and the remainder of the head and neck exam all within normal limits. CHEST/CARDIOVASCULAR: Both lung acosta are clear to percussion and auscultation. Patient is in regular sinus rhythm. S1, S2 are present without evidence of any murmurs, S3s, or S4s. Peripheral pulses are bilaterally symmetrical. ABDOMEN: There is no evidence any masses, megaly, or tenderness. The abdomen is soft. SKIN: Unremarkable. MUSCULOSKELETAL/NEUROLOGICAL: All within normal limits. RECTAL: Deferred at this time because the patient has this done on a regular basis at his family physician's office. The remainder of physical exam is unremarkable. IMPRESSION: Chronic right serous otitis media. PLAN: The patient is scheduled to undergo a right myringotomy with insertion of ventilation tubes under IV sedation with MAC in the a.m. Attention RNs in the pre-surgical area, I have not ordered any pre-surgical prophylactic antibiotics for this patient. If the Pharmacy Department sends any pre- surgical prophylactic antibiotics to the pre-surgical area for this patient, please return that medication to the Pharmacy Department and cancel that order. Also, please make sure that the patient's account is credited appropriately. I have discussed the risks, benefits and alternative therapies for the above- mentioned procedure and for both sedation/analgesia as well as necessary blood product administration, if indicated, as they pertain to this patient. The patient has indicated his understanding and acceptance of the risks and procedures discussed. MMODL / IJN: [id number] / MTDD
[~2022-07-24 13:17] MED LIST changes: +DEXAMETHASONE SOD PHOSPHATE 4 MG/ML 1 ML VIAL IV ONE; +HYDROmorphone 0.5 MG/0.5 ML SYRINGE IVP PRN; +MIDAZOLAM 2 MG/2 ML VIAL IV PRN; +ONDANSETRON 4 MG/2 ML VIAL IVP ONE; +Pre Op ABX Message 1 EACH MISC MISCELLANE ONE; +SCOPOLAMINE 1 MG/72 HR PATCH TRANSDERM ONE
[2022-07-24 14:16] LABS: Glucose,Whole Blood 97 mg/dL (70-110)
[2022-07-24] MEDS ORDERED: MIDAZOLAM 2 MG/2 ML VIAL ONE (14:49)
[2022-07-24] MEDS ORDERED: LIDOCAINE 2% INJ 20 MG/ML (2 ML VIAL) ONE (14:49)
[2022-07-24] MEDS ORDERED: PROPOFOL 10 MG/ML 20 ML VIAL IV ONE (14:49)
[2022-07-24] MEDS ORDERED: OFLOXACIN 0.3% OPHTH DROPS 5 ML BOTTLE RIGHT EAR ONE ×2 (14:59→15:16)
[2022-07-24 15:31] VITALS: TEMP 97
[2022-07-24 16:02] VITALS: RESP 16
[2022-07-24 16:16] VITALS: BP 108/70; PULSE 74
--- NOTE | 2022-07-27 23:13 | OP ---
OPERATIVE REPORT PREOPERATIVE DIAGNOSIS: Chronic right serous otitis media. POSTOPERATIVE DIAGNOSIS: Chronic right serous otitis media. ANESTHESIA: General with LMA. PROCEDURE PERFORMED: Right myringotomy with insertion of an Activent ventilation tube. COMPLICATIONS: None. DESCRIPTION OF PROCEDURE: The patient was placed on the operating table in the supine position, and after uneventful induction and LMA intubation, satisfactory general anesthesia was obtained. Next, the patient's right ear was draped in usual and customary fashion. Following this, using the Zeiss operating microscope and a #3 aural speculum, the right external auditory canal was cleansed of all wax and debris. Next, the myringotomy knife was used to make an incision in the anterior-inferior quadrant of the right tympanic membrane. The middle ear space was suctioned free of all thick fluid. Next, a Activent Mary-Bobbin ventilation tube was inserted through the previously made myringotomy incision without difficulty. At this point, the procedure was terminated. There were no intraoperative complications. The patient tolerated the procedure well and was returned to the recovery room in satisfactory condition. MMODL / IJN: [id number] /
== END 2022-07-24 16:32 | disposition home or self-care (01) ==
LOC: OR 13:17
PROVIDERS: ATTEND Otolaryngology
DX: H65.21 Chronic serous otitis media, right ear (principal); Z79.899 Other long term (current) drug therapy; I10 Essential (primary) hypertension; E78.00 Pure hypercholesterolemia, unspecified; Z79.82 Long term (current) use of aspirin
CPT/HCPCS: 69436; J2250; J1100; J2405; J2704; J2001

== ENCOUNTER 2022-12-04 09:50 | Day surgery (SDC) | payer MEDICARE, OTHER ==
[2022-12-02 14:30] VITALS: BMI 35.4
[~2022-12-04 09:50] MED LIST changes: -DEXAMETHASONE SOD PHOSPHATE 4 MG/ML 1 ML VIAL IV ONE; -HYDROmorphone 0.5 MG/0.5 ML SYRINGE IVP PRN; -MIDAZOLAM 2 MG/2 ML VIAL IV PRN; -ONDANSETRON 4 MG/2 ML VIAL IVP ONE; -Pre Op ABX Message 1 EACH MISC MISCELLANE ONE; -SCOPOLAMINE 1 MG/72 HR PATCH TRANSDERM ONE
[2022-12-04 10:20] VITALS: RESP 16; TEMP 98.3
[2022-12-04] MEDS ORDERED: LIDOCAINE 1% (10MG/ML) FOR IV START INTRADERMA ONE (10:22)
[2022-12-04] MEDS ORDERED: PROPOFOL 10 MG/ML 20 ML VIAL IV ONE (10:58)
--- NOTE | 2022-12-04 11:13 | P.PCN ---
Date of Procedure: 12/04/22 Procedure(s) Performed: BRIEF HISTORY: Patient is a 52-year-old pleasant male scheduled for an elective colonoscopy as a part of screening for colon cancer and strong family history of colon cancer. His mother was diagnosed with colon cancer at age 37 to be at least 42. Maternal aunt at age 79 and a maternal cousin at age 35. PROCEDURE PERFORMED: Colonoscopy snare polypectomy. PREOPERATIVE DIAGNOSIS: Screening for colon cancer/strong family history of colon. IV sedation per Anesthesia. PROCEDURE: After informed consent was obtained, the patient, was brought into the endoscopy unit. IV sedation was administered by Anesthesia under continuous monitoring. Digital rectal examination was normal. Initially the Olympus CF-160 flexible video colonoscope was then inserted in the rectum, gradually advanced into the cecum without any difficulty. Careful examination was performed as the scope was gradually being withdrawn. Ileocecal valve and the appendiceal orifice were visualized and appeared normal. Prep was excellent. Mucosa of the cecum, ascending colon, transverse colon, appeared normal. In the descending colon there was a 1 cm broad-based polyp removed by snare polypectomy. In the proximal rectum there was a 3-4 mm sessile polyp removed by snare polypectomy. Rest of the descending colon, sigmoid colon, and rectum appeared normal. Retroflexion was performed in the rectum and no lesions were seen. The patient tolerated the procedure well. IMPRESSION: 1 cm descending colon polyp status post polypectomy 3-4 mm rectal polyp status post polypectomy RECOMMENDATIONS: Findings of this examination were discussed with the patient as well as his family.. He was advised to follow with the biopsy results and have a repeat colonoscopy in 3 years
[2022-12-04 11:36] VITALS: BP 116/72; PULSE 83
== END 2022-12-04 11:59 | disposition home or self-care (01) ==
LOC: ORWHC2ENDO 09:50
PROVIDERS: ATTEND Internal Medicine Gastroenterology
DX: Z12.11 Encounter for screening for malignant neoplasm of colon (principal); D12.4 Benign neoplasm of descending colon; I10 Essential (primary) hypertension; E78.5 Hyperlipidemia, unspecified; J44.9 Chronic obstructive pulmonary disease, unspecified; F17.200 Nicotine dependence, unspecified, uncomplicated; I25.10 Atherosclerotic heart disease of native coronary artery without angina pectoris; M19.90 Unspecified osteoarthritis, unspecified site; Z79.82 Long term (current) use of aspirin; Z79.899 Other long term (current) drug therapy; Z80.0 Family history of malignant neoplasm of digestive organs
CPT/HCPCS: 88305; 45385; J2704

== ENCOUNTER 2023-01-11 09:51 | Emergency (ER) | payer MEDICARE, OTHER ==
[2023-01-11 10:11] VITALS: TEMP 98.4
[2023-01-11] MEDS ORDERED: MECLIZINE 12.5 MG TAB PO STA (10:29)
[2023-01-11 10:46] LABS: Basophils % (A) 0 %; Eosinophils # (A) 0.1 k/uL (0-0.7); Eosinophils % (A) 2 %; HCT 39.6 % (39.0-53.0); HGB 13.7 gm/dL (13.0-17.5); Lymphocytes # (A) 1.3 k/uL (1.0-4.8); Lymphocytes % (A) 30 %; MCHC 34.6 g/dL (31.0-37.0); MCV 92.6 fL (80.0-100.0); Mean Platelet Volume 7.6; Monocytes # (A) 0.4 k/uL (0-1.0); Monocytes % (A) 9 %; Neutrophils # (A) 2.3 k/uL (1.3-7.7); Neutrophils % (A) 57 %; Platelet Count 133 k/uL (150-450); RBC 4.28 m/uL (4.30-5.90); RDW 13.7 % (11.5-15.5); WBC 4.1 k/uL (3.8-10.6)
[2023-01-11 11:07] LABS: ALT 33 U/L (4-49); AST 29 U/L (17-59); African American GFR (CKD) 80 (>60 ml/min/1.73 sqM); Albumin 4.3 g/dL (3.5-5.0); Alkaline Phosphatase 73 U/L (38-126); Anion Gap 7 mmol/L; Blood Urea Nitrogen 18 mg/dL (9-20); Carbon Dioxide 25 mmol/L (22-30); Chloride 106 mmol/L (98-107); Glucose 128 mg/dL (74-99); Non-African American GFR(CKD) 70 (>60 ml/min/1.73 sqM); Potassium 4.6 mmol/L (3.5-5.1); Sodium 138 mmol/L (137-145); Total Bilirubin 0.3 mg/dL (0.2-1.3); Total Protein 7.5 g/dL (6.3-8.2)
--- NOTE | 2023-01-11 11:14 | CT ---
EXAMINATION TYPE: CT brain wo con DATE OF EXAM: 01/11/2023 COMPARISON: None HISTORY: Dizziness, facial paresthesias Unenhanced CT of the brain was performed. The ventricles, basal cisterns and sulci overlying the cerebral convexities demonstrate mild enlargem ent. There is no evidence for intracranial hemorrhage or sulcal effacement. There is decreased attenuation about the periventricular white matter and deep white matter of both c erebral hemispheres, compatible with chronic small vessel ischemia. Differential diagnosis does inclu de demyelination. No mass effects are seen.No midline shift. Osseous calvarium is intact. If symptoms persist consider MRI. IMPRESSION: 1. Age related atrophic and chronic small vessel ischemic change without acute intracranial process s een at this time.
--- NOTE | 2023-01-11 11:25 | XR ---
EXAMINATION TYPE: XR chest 2V DATE OF EXAM: 01/11/2023 COMPARISON: 07/19/2022 TECHNIQUE: PA and lateral views submitted. HISTORY: Dizziness FINDINGS: The lungs are clear and there is no pneumothorax, pleural effusion, or focal pneumonia. Heart size normal and no overt failure. Osseous structures stable. IMPRESSION: 1. No acute process.
[2023-01-11 11:58] VITALS: RESP 18
[2023-01-11 13:07] LABS: Amphetamine Screen,Urine Not Detected (NotDetected); Barbiturate Screen,Urine Not Detected (NotDetected); Benzodiazepines Screen,Urine Not Detected (NotDetected); Cocaine Screen,Urine Not Detected (NotDetected); Methadone Screen, Urine Not Detected (NotDetected); Opiate Screen,Urine Not Detected (NotDetected); Oxycodone Screen, Urine Detected (NotDetected); Phencyclidine Screen,Urine Not Detected (NotDetected); Tricyclic Antidepressant,Urine Not Detected (NotDetected); Urn Cannabinoid Scrn Not Detected (NotDetected)
--- NOTE | 2023-01-11 13:26 | ED ---
Dizziness HPI - General Chief Complaint: Dizziness Stated Complaint: dizziness, lt side facial numbness Time Seen by Provider: 01/11/23 10:13 Source: patient, RN notes reviewed Mode of arrival: ambulatory Limitations: no limitations - History of Present Illness Initial Comments: 52-year-old male presents emergency Department chief complaint of dizziness. Patient states that he has been exhibiting dizziness for over one week. Patient's has been having left-sided facial for paresthesias. Patient was admitted at [facility] had full evaluation recommended to have no patient MRI she has not completed. He states he is still having symptoms today felt that he should be evaluated. Patient has no new symptoms denies any focal weakness denies any extremity symptoms no chest pain or shortness of breath. Patient states she's had this happen in the past and it resolved. - Related Data Home Medications Medication Instructions Recorded Confirmed Nitroglycerin Sl Tabs [Nitrostat] 0.4 mg SL Q5M PRN 05/11/22 12/02/22 oxyCODONE-APAP 10-325MG [Percocet 1 tab PO QID 06/09/22 12/02/22 10-325 mg] amLODIPine [Norvasc] 2.5 mg PO QAM 07/22/22 12/02/22 Metoprolol Succinate (ER) [Toprol 25 mg PO DAILY 12/02/22 12/02/22 Xl] Montelukast [Singulair] 10 mg PO DAILY 12/02/22 12/02/22 Sacubitril/Valsartan [Entresto 24 25 mg PO DAILY 12/02/22 12/02/22 mg-26 mg Tablet] Previous Rx's Medication Instructions Recorded Aspirin 325 mg PO DAILY 30 Days tab 05/19/22 Rosuvastatin Calcium 20 mg PO HS 14 Days tab 05/19/22 Spironolactone 25 mg PO DAILY 14 Days tab 05/19/22 Albuterol Inhaler [Ventolin Hfa 2 puff INHALATION RT-QID PRN #1 06/12/22 Inhaler] each Meclizine [Antivert] 25 mg PO TID PRN #15 tab 01/11/23 Allergies Allergy/AdvReac Type Severity Reaction Status Date / Time No Known Allergies Allergy Verified 01/11/23 10:11 Review of Systems ROS Statement: Those systems with pertinent positive or pertinent negative responses have been documented in the HPI. ROS Other: All systems not noted in ROS Statement are negative. Past Medical History Past Medical History: Coronary Artery Disease (CAD), Chest Pain / Angina, COPD, Hyperlipidemia, Hypertension, Osteoarthritis (OA) Additional Past Medical History / Comment(s): freq rt ear infections,steroids July 2022,Low testosterone. c/o shortness of breath, improving. Last Myocardial Infarction Date:: 2017 History of Any Multi-Drug Resistant Organisms: None Reported Past Surgical History: Back Surgery, Ear Surgery, Heart Catheterization, Heart Catheterization With Stent Additional Past Surgical History / Comment(s): back surgeries x2, Colonoscopy. EGD 03/2020. Heart cath 05/17/20, RIGHT EAR SURG 07/2022 Past Anesthesia/Blood Transfusion Reactions: No Reported Reaction Additional Past Anesthesia/Blood Transfusion Reaction / Comment(s): no hx blood transfusion Date of Last Stent Placement:: 05/19/18 Past Psychological History: Anxiety, Bipolar, Depression Smoking Status: Former smoker Past Alcohol Use History: None Reported Past Drug Use History: None Reported - Past Family History Father Family Medical History: Cancer Additional Family Medical History / Comment(s): lung Mother Family Medical History: Cancer Additional Family Medical History / Comment(s): colon General Exam Limitations: no limitations General appearance: alert, in no apparent distress Head exam: Present: atraumatic, normocephalic, normal inspection Eye exam: Present: normal appearance, PERRL, EOMI. Absent: scleral icterus, conjunctival injection, periorbital swelling ENT exam: Present: normal exam, normal oropharynx, mucous membranes moist Neck exam: Present: normal inspection, full ROM. Absent: tenderness, meningismus, lymphadenopathy Respiratory exam: Present: normal lung sounds bilaterally. Absent: respiratory distress, wheezes, rales, rhonchi, stridor Cardiovascular Exam: Present: regular rate, normal rhythm, normal heart sounds. Absent: systolic murmur, diastolic murmur, rubs, gallop, clicks GI/Abdominal exam: Present: soft, normal bowel sounds. Absent: distended, tend erness, guarding, rebound, rigid Extremities exam: Present: normal inspection, full ROM, normal capillary refill. Absent: tenderness, pedal edema, joint swelling, calf tenderness Back exam: Present: full ROM. Absent: tenderness Neurological exam: Present: alert, oriented X3, CN II-XII intact, reflexes normal, other (Finger to nose intact bilaterally). Absent: motor sensory deficit Course Vital Signs 01/11/23 01/11/23 01/11/23 10:07 10:36 11:56 Temperature 98.4 F Pulse Rate 86 60 71 Respiratory 18 16 18 Rate Blood Pressure 123/79 134/60 137/80 O2 Sat by Pulse 99 98 96 Oximetry EKG Findings - EKG Comments: EKG Findings:: EKG performed at 10:17 sinus rhythm with rate of 81 NE 1:30 QRS 87 QT/QTC 321/358 - EKG Results: EKG: interpreted by MICHELLE Medical Decision Making - Medical Decision Making Was pt. sent in by a medical professional or institution (, PA, HOME CHILD CARE PROVIDER, urgent care, hospital, or fdc...) When possible be specific @ -No Did you speak to anyone other than the patient for history (EMS, parent, family, police, friend...)? What history was obtained from this source @ -No Did you review nursing and triage notes (agree or disagree)? Why? @ -I reviewed and agree with nursing and triage notes Were old charts reviewed (outside hosp., previous admission, EMS record, old EKG, old radiological studies, urgent care reports/EKG's, fdc records)? Report findings @ -Reviewed prior laboratory studies come EKGs Differential Diagnosis (chest pain, altered mental status, abdominal pain women, abdominal pain men, vaginal bleeding, weakness, fever, dyspnea, syncope, headache, dizziness, GI bleed, back pain, seizure, CVA, palpatations, mental health, musculoskeletal)? @ -[Differential Dizziness: Benign paroxysmal positional Vertigo, Menieres disease, otitis media, acoustic neuroma, vertebrobasilar insufficiency, cerebellar stroke, encephalitis, hypovolemic, arrhythmia, coronary artery syndrome, anemia, this is not meant to be an all-inclusive list EKG interpreted by me (3pts min.). @ -As above X-rays interpreted by me (1pt min.). @ -Chest x-ray shows no acute or pulmonary process CT interpreted by me (1pt min.). @ -CT of brain shows no acute intracranial process U/S interpreted by me (1pt. min.). @ -None done What testing was considered but not performed or refused? (CT, X-rays, U/S, labs )? Why? @ -None What meds were considered but not given or refused? Why? @ -None Did you discuss the management of the patient with other professionals (professionals i.e. , PA, HOME CHILD CARE PROVIDER, lab, RT, psych nurse, social services coordinator, paper cap machine operator, teacher, foreign policy officer, catalytic case operator)? Give summary @ -No Was smoking cessation discussed for >3mins.? @ -No Was critical care preformed (if so, how long)? @ -No Were there social determinants of health that impacted care today? How? (Homelessness, low income, unemployed, alcoholism, drug addiction, transportation, low edu. Level, literacy, decrease access to med. care, alf, rehab)? @ -No Was there de-escalation of care discussed even if they declined (Discuss DNR or withdrawal of care, Hospice)? DNR status @ -No What co-morbidities impacted this encounter? (DM, HTN, Smoking, COPD, CAD, Cancer, CVA, ARF, Chemo, Hep., AIDS, mental health diagnosis, sleep apnea, morbid obesity)? @ -Hypertension, CAD Was patient admitted / discharged? Hospital course, mention meds given and route, prescriptions, significant lab abnormalities, going to OR and other pertinent info. @ -Discharge patient has no new symptoms symptoms have been present for over a week has been had full workup and recommend have an outpatient MRI. Patient states he cannot completely inpatient MRI patient feels stable for discharge recommended return for any worsening change in symptoms his symptoms have been stable since evaluation. Patient given strict return parameters. Undiagnosed new problem with uncertain prognosis? @ -No Drug Therapy requiring intensive monitoring for toxicity (Heparin, Nitro, Insuli n, Cardizem)? @ -No Were any procedures done? @ -No Diagnosis/symptom? @ -Dizziness Acute, or Chronic, or Acute on Chronic? @ -Acute Uncomplicated (without systemic symptoms) or Complicated (systemic symptoms)? @ -Uncomplicated Side effects of treatment? @ -No Exacerbation, Progression, or Severe Exacerbation? @ -No Poses a threat to life or bodily function? How? (Chest pain, [place], AR, pneumonia, PE, COPD, DKA, ARF, appy, cholecystitis, CVA, Diverticulitis, Homicidal, Suicidal, threat to staff... and all critical care pts) @ -No - Lab Data Result diagrams: 01/11/23 10:29 01/11/23 10:29 Lab Results 01/11/23 01/11/23 01/11/23 Range/Units 10:29 10: 10:29 WBC 4.1 (3.8-10.6) k/uL RBC 4.28 L (4.30-5.90) m/uL Hgb 13.7 (13.0-17.5) gm/dL Hct 39.6 (39.0-53.0) % MCV 92.6 (80.0-100.0) fL MCH 32.0 (25.0-35.0) pg MCHC 34.6 (31.0-37.0) g/dL RDW 13.7 (11.5-15.5) % Plt Count 133 L (150-450) k/uL MPV 7.6 Neutrophils % 57 % Lymphocytes % 30 % Monocytes % 9 % Eosinophils % 2 % Basophils % 0 % Neutrophils # 2.3 (1.3-7.7) k/uL Lymphocytes # 1.3 (1.0-4.8) k/uL Monocytes # 0.4 (0-1.0) k/uL Eosinophils # 0.1 (0-0.7) k/uL Basophils # 0.0 (0-0.2) k/uL Sodium 138 (137-145) mmol/L Potassium 4.6 (3.5-5.1) mmol/L Chloride 106 (98-107) mmol/L Carbon Dioxide 25 (22-30) mmol/L Anion Gap 7 mmol/L BUN 18 (9-20) mg/dL Creatinine 1.18 (0.66-1.25) mg/dL Est GFR (CKD-EPI)AfAm 80 (>60 ml/min/1.73 sqM) Est GFR (CKD-EPI)NonAf 70 (>60 ml/min/1.73 sqM) Glucose 128 H (74-99) mg/dL Calcium 9.0 (8.4-10.2) mg/dL Total Bilirubin 0.3 (0.2-1.3) mg/dL AST 29 (17-59) U/L ALT 33 (4-49) U/L Alkaline Phosphatase 73 (38-126) U/L Troponin I <0.012 (0.000-0.034) ng/mL Total Protein 7.5 (6.3-8.2) g/dL Albumin 4.3 (3.5-5.0) g/dL Urine Opiates Screen (NotDetected) Ur Oxycodone Screen (NotDetected) Urine Methadone Screen (NotDetected) Ur Propoxyphene Screen (NotDetected) Ur Barbiturates Screen (NotDetected) U Tricyclic Antidepress (NotDetected) Ur Phencyclidine Scrn (NotDetected) Ur Amphetamines Screen (NotDetected) U Methamphetamines Scrn (NotDetected) U Benzodiazepines Scrn (NotDetected) Urine Cocaine Screen (NotDetected) U Marijuana (THC) Screen (NotDetected) 01/11/23 Range/Units 12:43 WBC (3.8-10.6) k/uL RBC (4.30-5.90) m/uL Hgb (13.0-17.5) gm/dL Hct (39.0-53.0) % MCV (80.0-100.0) fL MCH (25.0-35.0) pg MCHC (31.0-37.0) g/dL RDW (11.5-15.5) % Plt Count (150-450) k/uL MPV Neutrophils % % Lymphocytes % % Monocytes % % Eosinophils % % Basophils % % Neutrophils # (1.3-7.7) k/uL Lymphocytes # (1.0-4.8) k/uL Monocytes # (0-1.0) k/uL Eosinophils # (0-0.7) k/uL Basophils # (0-0.2) k/uL Sodium (137-145) mmol/L Potassium (3.5-5.1) mmol/L Chloride (98-107) mmol/L Carbon Dioxide (22-30) mmol/L Anion Gap mmol/L BUN (9-20) mg/dL Creatinine (0.66-1.25) mg/dL Est GFR (CKD-EPI)AfAm (>60 ml/min/1.73 sqM) Est GFR (CKD-EPI)NonAf (>60 ml/min/1.73 sqM) Glucose (74-99) mg/dL Calcium (8.4-10.2) mg/dL Total Bilirubin (0.2-1.3) mg/dL AST (17-59) U/L ALT (4-49) U/L Alkaline Phosphatase (38-126) U/L Troponin I (0.000-0.034) ng/mL Total Protein (6.3-8.2) g/dL Albumin (3.5-5.0) g/dL Urine Opiates Screen Not Detected (NotDetected) Ur Oxycodone Screen Detected H (NotDetected) Urine Methadone Screen Not Detected (NotDetected) Ur Propoxyphene Screen Not Detected (NotDetected) Ur Barbiturates Screen Not Detected (NotDetected) U Tricyclic Antidepress Not Detected (NotDetected) Ur Phencyclidine Scrn Not Detected (NotDetected) Ur Amphetamines Screen Not Detected (NotDetected) U Methamphetamines Scrn Not Detected (NotDetected) U Benzodiazepines Scrn Not Detected (NotDetected) Urine Cocaine Screen Not Detected (NotDetected) U Marijuana (THC) Screen Not Detected (NotDetected) Disposition Clinical Impression: Dizziness Disposition: HOME SELF-CARE Condition: Stable Instructions (If sedation given, give patient instructions): Dizziness (ED) Additional Instructions: Please return to the Emergency Department if symptoms worsen or any other concerns. Prescriptions: Meclizine [Antivert] 25 mg PO TID PRN #15 tab PRN Reason: Vertigo Is patient prescribed a controlled substance at d/c from ED?: No Referrals: Brenda Tong [Primary Care Provider] - 1-2 days Time of Disposition: 13:25
[2023-01-11 13:34] VITALS: BP 140/89; PULSE 80
== END 2023-01-11 13:34 | disposition home or self-care (01) ==
LOC: EC 09:51
DX: R42 Dizziness and giddiness (principal); I67.82 Cerebral ischemia; I25.10 Atherosclerotic heart disease of native coronary artery without angina pectoris; J44.9 Chronic obstructive pulmonary disease, unspecified; I10 Essential (primary) hypertension; M19.90 Unspecified osteoarthritis, unspecified site; E78.5 Hyperlipidemia, unspecified; F41.9 Anxiety disorder, unspecified; F31.9 Bipolar disorder, unspecified; Z87.891 Personal history of nicotine dependence; Z79.899 Other long term (current) drug therapy
CPT/HCPCS: 36415; 70450; 71046; 80053; 80306; 84484; 85025; 93005; 99284

== ENCOUNTER → 2023-02-15 | Outpatient (CLI) | payer MEDICARE, OTHER ==
[2023-02-15 19:55] LABS: Basophils # (M) 0 X 10*3/uL (0.00-0.10); Eosinophils # (M) 0 X 10*3/uL (0.04-0.35); HCT 38.2 % (39.6-50.0); Immature Platelet Fraction 14.3 % (1.1-6.1); Lymphocytes # (M) 1.71 X 10*3/uL (0.90-5.00); MCH 30.7 pg (27.0-32.0); MCV 90.1 FL (80.0-97.0); Mean Platelet Volume 12.2 FL (9.5-12.2); Monocytes # (M) 0.43 X 10*3/uL (0.20-1.00); NRBC Per 100 WBC 0 X 10*3/uL (0.00-0.01); Neutrophils # (M) 1.7505 (2.00-8.90); Neutrophils % (M) 45 %; Nucleated Red Blood Cells 2 /100 WBCS; Platelet Count 80 X 10*3/uL (140-440); RBC 4.24 X 10*6/uL (4.40-5.60); RBC Morphology Normal (Normal); RDW 13.2 % (11.5-14.5); WBC 3.89 X 10*3/uL (4.50-10.00)
[2023-02-15 20:07] LABS: Albumin 4.8 d/dL (3.8-4.9); Protein, Total 7.6 d/dL (6.2-8.2)
[2023-02-15 20:19] LABS: Appearance,Urine Clear (Clear); BUN/Creat Ratio 15.67 Ratio (12.00-20.00); Bilirubin,Urine Negative (Negative); Blood Urea Nitrogen 18.8 mg/dL (9.0-27.0); Blood,Urine Negative (Negative); Chloride 104 mmol/L (96-109); Color,Urine Yellow (Yellow); Creatine Kinase 486 U/L (35-257); Glucose 84 mg/dL (70-110); Ketones,Urine Negative (Negative); Nitrite,Urine Negative (Negative); Potassium 4.2 mmol/L (3.5-5.5); Rheumatoid Factor, Qnt <15 IU/mL (0-15); Sodium 138 mmol/L (135-145); Specific Gravity,Urine 1.016 (1.001-1.030); Uric Acid 7.5 mg/dL (3.7-8.7); Urobilinogen,Urine 0.2 E.U./DL
[2023-02-15 20:20] LABS: ALT 36 U/L (10-49); AST 33 U/L (14-35); Albumin 4.8 d/dL (3.8-4.9); Albumin/Globulin Ratio 1.78 Ratio (1.60-3.17); Alkaline Phosphatase 96 U/L (41-126); Calcium 9.3 mg/dL (8.7-10.3); Globulin 2.7 d/dL (1.6-3.3); T4, Free (Free Thyroxine) 1.18 ng/dL (0.80-1.80); Total Bilirubin 0.3 mg/dL (0.3-1.2); Total Protein 7.5 d/dL (6.2-8.2)
[2023-02-15 20:38] LABS: Erythrocyte Sedimentation Rate 35 mm/Hr (0-20)
[2023-02-15 21:37] LABS: Anti-DNA, DS unit <1.0 IU/mL; Anti-Smith Ab Interp Negative (Negative); Cardiolipin Ab IgG Interp Negative (Negative); Cardiolipin Ab IgM Interp Negative (Negative); Cardiolipin IgA Antibody <2.0 U/mL; Cardiolipin IgM Antibody 1.8 U/mL; DNA Double-Stranded Negative (Negative); Scleroderma SC-70 Ab <0.2 AI
[2023-02-15 21:42] LABS: Cyclic Citrull Pep IgG Unit <1.5 U/mL (<=3.9); Cyclic Citrullinated Pep IgG Negative
[2023-02-15 22:18] LABS: Hepatitis B Surface Antigen Non-Reactive (Non-Reactive)
[2023-02-16 07:02] LABS: Hepatitis C Virus RNA, Qual Not detected (Not detected)
[2023-02-16 10:55] LABS: Histone Antibody 1.1 UNITS (<1.0)
[2023-02-16 12:03] LABS: Free Kappa Lt Chain Qnt, Serum 2.32 mg/dL (0.33-1.94); Free Lambda Lt Chain Qnt, Seru 1.71 mg/dL (0.57-2.63)
[2023-02-16 12:28] LABS: APTT 38 Sec(s) (<43); Dilute Russell Viper Venom 43 Sec(s) (<44)
[2023-02-16 14:12] LABS: C-ANCA <1:20 Titer (<1:20)
[2023-02-16 19:38] LABS: Gamma Globulin 1.44 d/dL (0.70-1.50)
== END | disposition home or self-care (01) ==
LOC: LABWHC1 10:42
PROVIDERS: ATTEND Internal Medicine Rheumatology
DX: Z11.59 Encounter for screening for other viral diseases (principal); M13.0 Polyarthritis, unspecified; Z72.89 Other problems related to lifestyle; E55.9 Vitamin D deficiency, unspecified; E03.9 Hypothyroidism, unspecified; R76.8 Other specified abnormal immunological findings in serum
CPT/HCPCS: 36415; 80053; 81003; 82085; 82164; 82306; 82550; 83516; 83520; 83883; 84165; 84439; 84443; 84550; 85025; 85613; 85652; 85730; 86038; 86140; 86147; 86160; 86162; 86200; 86225; 86235; 86255; 86334; 86431; 87340; 87521

== ENCOUNTER 2023-04-09 10:08 | Day surgery (SDC) | payer MEDICARE, OTHER ==
[2023-04-08 12:59] VITALS: BMI 34.7
[2023-04-09] MEDS ORDERED: LACTATED RINGERS 1,000 ML IV ONE (10:27)
[2023-04-09 10:46] VITALS: RESP 16; TEMP 98.1
[2023-04-09] MEDS ORDERED: LIDOCAINE 1% INJ 10MG/ML (20 ML MDV) ONE (12:07)
[2023-04-09] MEDS ORDERED: PROPOFOL 10 MG/ML 20 ML VIAL IV ONE (12:07)
[2023-04-09] MEDS ORDERED: LIDOCAINE 2% (PF) 20 MG/ML 5 ML VIAL ONE (12:07)
--- NOTE | 2023-04-09 12:13 | P.PCN ---
Date of Procedure: 04/09/23 Procedure(s) Performed: BRIEF HISTORY: Patient is a 52-year-old, pleasant, -[place] male scheduled for an upper endoscopy as a part of evaluation of chronic epigastric pain for the last few weeks duration. He was recently started on Protonix 40 mg daily.. PROCEDURE PERFORMED: Esophagogastroduodenoscopy with biopsy. PREOPERATIVE DIAGNOSIS: Chronic Epigastric pain. IV sedation per anesthesia. PROCEDURE: After informed consent was obtained, the patient was brought into the endoscopy unit. IV sedation was administered by Anesthesia under continuous monitoring. Initially the Olympus GIF-140 video endoscope was inserted into the mouth. Esophagus intubated without any difficulty. It was gradually advanced into the stomach and duodenum and carefully examined. The bulb and the second part of the duodenum appeared normal. The scope at this time was withdrawn to the stomach, adequately insufflated with air, and upon careful examination, mucosa of the antrum, a few scattered erosions consistent with gastritis and biopsies were done from this area. Mucosa of the body, cardia and the fundus appeared normal. The scope was then withdrawn into the esophagus. The GE junction was located at 41 cm from the incisors. The esophagus appeared normal. There were no erosions or ulcerations seen , biopsies were done from the distal esophagus and the patient tolerated the procedure well. IMPRESSION: 1. Mild antral gastritis. 2. Normal-appearing esophagus with no evidence of esophagitis. RECOMMENDATIONS: The findings of this examination were discussed with the patient as well as his family. He was advised to follow with the biopsy results. Continue with Protonix 40 mg daily and follow antireflux measures..
[2023-04-09 12:51] VITALS: BP 150/72; PULSE 85
== END 2023-04-09 12:46 | disposition home or self-care (01) ==
LOC: ORWHC2ENDO 10:08
PROVIDERS: ATTEND Internal Medicine Gastroenterology
DX: K29.50 Unspecified chronic gastritis without bleeding (principal); G89.29 Other chronic pain; I25.10 Atherosclerotic heart disease of native coronary artery without angina pectoris; I10 Essential (primary) hypertension; E78.5 Hyperlipidemia, unspecified; J44.9 Chronic obstructive pulmonary disease, unspecified; F17.200 Nicotine dependence, unspecified, uncomplicated; F31.9 Bipolar disorder, unspecified; K21.9 Gastro-esophageal reflux disease without esophagitis; F10.90 Alcohol use, unspecified, uncomplicated; Z79.899 Other long term (current) drug therapy; Z79.82 Long term (current) use of aspirin
CPT/HCPCS: 43239; J2704; J2001; 88305

== ENCOUNTER → 2023-09-17 | Outpatient (CLI) | payer MEDICARE, OTHER ==
[2023-09-17 18:35] LABS: % Iron Saturation 21.51 (15.00-50.00); ALT 40 U/L (10-49); AST 27 U/L (14-35); Albumin 4.3 g/dL (3.8-4.9); Albumin/Globulin Ratio 1.59 Ratio (1.60-3.17); Alkaline Phosphatase 60 U/L (41-126); BUN/Creat Ratio 15.23 Ratio (12.00-20.00); Blood Urea Nitrogen 19.8 mg/dL (9.0-27.0); Calcium 9.4 mg/dL (8.7-10.3); Chloride 104 mmol/L (96-109); Globulin 2.7 g/dL (1.6-3.3); Glucose 126 mg/dL (70-110); Iron 60 UG/DL (65-175); Potassium 4.4 mmol/L (3.5-5.5); Sodium 140 mmol/L (135-145); Total Bilirubin 0.3 mg/dL (0.3-1.2); Total Iron Binding Capacity 279 UG/DL (228-460)
== END | disposition home or self-care (01) ==
LOC: LABWHC1 13:08
PROVIDERS: ATTEND Student in an Organized Health Care Education/Training Program
DX: D64.9 Anemia, unspecified (principal); R79.9 Abnormal finding of blood chemistry, unspecified
CPT/HCPCS: 36415; 80053; 82728; 83540; 83550

== ENCOUNTER 2024-01-04 04:42 | Observation (INO) | payer MEDICARE ==
--- NOTE | 2024-01-04 05:11 | ED ---
General Adult HPI - General Chief complaint: Dizziness Stated complaint: SOB, Dizzy Time Seen by Provider: 01/04/24 04:45 Source: patient Mode of arrival: wheelchair Limitations: no limitations - History of Present Illness Initial comments: Dictation was produced using [employer] dictation software. please excuse any grammatical, word or spelling errors. Chief Complaint: 53-year-old male with past medical history of coronary artery disease, coronary artery stent with dizziness History of Present Illness: Patient 53-year-old male he has multiple comorb idities. Patient states that for the last several days he has been having some dizziness. States that symptoms began 3 weeks ago after he had unprotected sex with a female. States that he symptoms began with nausea dizziness and then leads to some chest pain. Patient denies any associated diaphoresis. Denies any fever, chills or night sweats. No cough. Patient concerned that perhaps maybe this has something to with an STD. The ROS documented in this emergency department record has been reviewed and confirmed by me. Those systems with pertinent positive or negative responses have been documented in the HPI. All other systems are other negative and/or noncontributory. - Related Data Home Medications Medication Instructions Recorded Confirmed Nitroglycerin Sl Tabs [Nitrostat] 0.4 mg SL Q5M PRN 05/11/22 04/09/23 oxyCODONE-APAP 10-325MG [Percocet 1 tab PO QID 06/09/22 04/09/23 10-325 mg] Montelukast [Singulair] 10 mg PO HS 12/02/22 04/09/23 Sacubitril/Valsartan [Entresto 24 1 tab PO BID 12/02/22 04/09/23 mg-26 mg Tablet] Albuterol Nebulized [Ventolin 2.5 mg INHALATION RT-QID PRN 03/30/23 04/09/23 Nebulized] Fluticasone/Umeclidin/Vilanter 1 puff INHALATION RT-DAILY 03/30/23 04/09/23 [Trelegy Ellipta 200-62.5-25] Metoprolol Tartrate [Lopressor] 25 mg PO BID 03/30/23 04/09/23 Previous Rx's Medication Instructions Recorded Aspirin 325 mg PO DAILY 30 Days tab 05/19/22 Rosuvastatin Calcium 20 mg PO HS 14 Days tab 05/19/22 Spironolactone 25 mg PO DAILY 14 Days tab 05/19/22 Albuterol Inhaler [Ventolin Hfa 2 puff INHALATION RT-QID PRN #1 06/12/22 Inhaler] each Pantoprazole [Protonix] 40 mg PO AC-BRKFST #30 tab 03/31/23 Allergies Allergy/AdvReac Type Severity Reaction Status Date / Time No Known Allergies Allergy Verified 01/04/24 04:45 Review of Systems ROS Statement: Those systems with pertinent positive or pertinent negative responses have been documented in the HPI. ROS Other: All systems not noted in ROS Statement are negative. Past Medical History Past Medical History: Coronary Artery Disease (CAD), Chest Pain / Angina, COPD, Hyperlipidemia, Hypertension, Osteoarthritis (OA) Additional Past Medical History / Comment(s): freq rt ear infections,steroids July 2022,Low testosterone. c/o shortness of breath, improving. Last Myocardial Infarction Date:: 2017 History of Any Multi-Drug Resistant Organisms: None Reported Past Surgical History: Back Surgery, Ear Surgery, Heart Catheterization, Heart Catheterization With Stent Additional Past Surgical History / Comment(s): back surgeries x2, Colonoscopy. EGD 03/2020. Heart cath 05/17/20, RIGHT EAR SURG 07/2022 Past Anesthesia/Blood Transfusion Reactions: No Reported Reaction Additional Past Anesthesia/Blood Transfusion Reaction / Comment(s): no hx blood transfusion Date of Last Stent Placement:: 05/19/18 Past Psychological History: Anxiety, Bipolar, Depression Smoking Status: Former smoker Past Alcohol Use History: None Reported Past Drug Use History: None Reported - Past Family History Father Family Medical History: Cancer Additional Family Medical History / Comment(s): lung Mother Family Medical History: Cancer Additional Family Medical History / Comment(s): colon General Exam - General Exam Comments Initial Comments: PHYSICAL EXAM: General Impression: Alert and oriented x3, not in acute distress HEENT: Normocephalic atraumatic, extra-ocular movements intact, pupils equal and reactive to light bilaterally, mucous membranes moist. Cardiovascular: Heart regular rate and rhythm Chest: Able to complete full sentences, no retractions, no tachypnea Abdomen: abdomen soft, non-tender, non-distended, no organomegaly Musculoskeletal: Pulses present and equal in all extremities, no peripheral edema Motor: no focal deficits noted Neurological: CN II-XII grossly intact, no focal motor or sensory deficits noted Skin: Intact with no visualized rashes Psych: Normal affect and mood Limitations: no limitations Course Vital Signs 01/04/24 01/04/24 04:45 05:02 Temperature 97.7 F Pulse Rate 77 71 Respiratory 18 18 Rate Blood Pressure 103/74 134/78 O2 Sat by Pulse 98 98 Oximetry EKG Findings - EKG Comments: EKG Findings:: My EKG interpretation: Ventricular rate 73, sinus rhythm,. 122, QRS 82, QTc 399. No MI prolongation, no QTC prolongation, no ST or T-wave changes noted. Overall, this EKG is unremarkable Medical Decision Making - Medical Decision Making Was pt. sent in by a medical professional or institution (, PA, METROLOGY MANAGER, urgent care, hospital, or [facility]...) When possible be specific @ -No Did you speak to anyone other than the patient for history (EMS, parent, family, police, friend...)? What history was obtained from this source @ -No Did you review nursing and triage notes (agree or disagree)? Why? @ -I reviewed and agree with nursing and triage notes Were old charts reviewed (outside hosp., previous admission, EMS record, old EKG, old radiological studies, urgent care reports/EKG's, [facility] records)? Report findings @ -No old charts were reviewed Differential Diagnosis (chest pain, altered mental status, abdominal pain women, abdominal pain men, vaginal bleeding, musculoskeletal, weakness, fever, dyspnea, syncope, headache, dizziness, GI bleed, back pain, seizure, CVA, palpatations, mental health)? @ -Differential Chest Pain: Stable Angina, Unstable Angina, STEMI, NSTEMI Aortic Dissection, Pneumothorax, Musculoskeletal, Esophageal Spasm GERD, Cholecystitis, Pancreatitis, Zoster, this is not meant to be an all-inclusive list. EKG interpreted by me (3pts min.). @ -See above X-rays interpreted by me (1pt min.). @ -Chest x-ray is nonacute radiology interpretation reviewed and they suggest left basilar acute infiltrate CT interpreted by me (1pt min.). @ -None done U/S interpreted by me (1pt. min.). @ -None done What testing was considered but not performed or refused? (CT, X-rays, U/S, labs)? Why? @ -None What meds were considered but not given or refused? Why? @ -None Was smoking cessation discussed for >3mins.? @ -No Were there social determinants of health that impacted care today? How? (Homelessness, low income, unemployed, alcoholism, drug addiction, transportation, low edu. Level, literacy, decrease access to med. care, detention, rehab)? @ -No Was there de-escalation of care discussed even if they declined (Discuss DNR or withdrawal of care, Hospice)? DNR status @ -No What co-morbidities impacted this encounter? (DM, HTN, Smoking, COPD, CAD, Cancer, CVA, ARF, Chemo, Hep., AIDS, mental health diagnosis, sleep apnea, m orbid obesity)? @ -None Was patient admitted / discharged? Hospital course, mention meds given and route, prescriptions, significant lab abnormalities, going to OR and other pertinent info. @ -53-year-old male presents to the emergency department for vague constellation of symptoms of dizziness, nausea and chest pressure. Patient has history of coronary disease and coronary artery stent. Vital signs upon arrival are within acceptable limits. Paul evaluation obtained. CBC, metabolic panel is unremarkable. Troponin is negative. Chest x-ray questionable infiltrate. Not have any acute upper respiratory type symptoms. Patient reevaluated bedside at 7:00 AM stable condition. Patient is agreeable for observation admission for serial troponins. Did you discuss the management of the patient with other professionals (professionals i.e. , PA, METROLOGY MANAGER, lab, RT, psych nurse, social work instructor, geoint analyst, teacher, assignment officer, immigration case manager)? Give summary @ -No Was critical care preformed (if so, how long)? @ -No Undiagnosed new problem with uncertain prognosis? @ -No Drug Therapy requiring intensive monitoring for toxicity (Heparin, Nitro, Insulin, Cardizem)? @ -No Were any procedures done? @ -No Diagnosis/symptom? Acute, or Chronic, or Acute on Chronic? Uncomplicated (without systemic symptoms) or Complicated (systemic symptoms)? @ -Chest pain Side effects of treatment? @ -No Exacerbation, Progression, or Severe Exacerbation? @ -No Poses a threat to life or bodily function? How? (Chest pain, [place], PR, pneumonia, PE, COPD, DKA, ARF, appy, cholecystitis, CVA, Diverticulitis, Homicidal, Suicidal, threat to staff... and all critical care pts) @ -yes - Lab Data Result diagrams: 01/04/24 06:10 01/04/24 06:10 Lab Results 01/04/24 01/04/24 01/04/24 Range/Units 06:10 06:10 06:10 WBC 6.1 (3.8-10.6) k/uL RBC 4.09 L (4.30-5.90) m/uL Hgb 13.0 (13.0-17.5) gm/dL Hct 37.5 L (39.0-53.0) % MCV 91.8 (80.0-100.0) fL MCH 31.7 (25.0-35.0) pg MCHC 34.6 (31.0-37.0) g/dL RDW 14.8 (11.5-15.5) % Plt Count 116 L (150-450) k/uL MPV 7.7 Neutrophils % 77 % Lymphocytes % 12 % Monocytes % 8 % Eosinophils % 1 % Basophils % 0 % Neutrophils # 4.7 (1.3-7.7) k/uL Lymphocytes # 0.8 L (1.0-4.8) k/uL Monocytes # 0.5 (0-1.0) k/uL Eosinophils # 0.1 (0-0.7) k/uL Basophils # 0.0 (0-0.2) k/uL Sodium 135 L (137-145) mmol/L Potassium 4.0 (3.5-5.1) mmol/L Chloride 102 (98-107) mmol/L Carbon Dioxide 28 (22-30) mmol/L Anion Gap 5 mmol/L BUN 22 H (9-20) mg/dL Creatinine 0.90 (0.66-1.25) mg/dL Est GFR (CKD-EPI)AfAm >90 (>60 ml/min/1.73 sqM) Est GFR (CKD-EPI)NonAf >90 (>60 ml/min/1.73 sqM) Glucose 184 H (74-99) mg/dL Calcium 8.6 (8.4-10.2) mg/dL Total Bilirubin 0.5 (0.2-1.3) mg/dL AST 22 (17-59) U/L ALT 34 (4-49) U/L Alkaline Phosphatase 52 (38-126) U/L Troponin I <0.012 (0.000-0.034) ng/mL Total Protein 6.2 L (6.3-8.2) g/dL Albumin 3.6 (3.5-5.0) g/dL Disposition Clinical Impression: Chest pain Disposition: ADMITTED IP TO THIS [facility] Condition: Fair Referrals: None,Stated [Primary Care Provider] - 1-2 days Decision Time: 07:02
--- NOTE | 2024-01-04 05:45 | XR ---
EXAMINATION TYPE: XR chest 2V DATE OF EXAM: 01/04/2024 COMPARISON: Prior chest x-rays of June 29, 2023 HISTORY: Dizziness and chest pain. TECHNIQUE: Frontal and lateral views of the chest are obtained. FINDINGS: There is new patchy left basilar opacity laterally. Right lung remains clear. The cardiac silhouette size is stable and upper limits of normal. The osseous structures are intact. IMPRESSION: There is new Left basilar acute infiltrate and/or atelectasis.
[2024-01-04 06:19] LABS: Basophils % (A) 0 %; Eosinophils # (A) 0.1 k/uL (0-0.7); Eosinophils % (A) 1 %; HCT 37.5 % (39.0-53.0); Lymphocytes # (A) 0.8 k/uL (1.0-4.8); Lymphocytes % (A) 12 %; MCH 31.7 pg (25.0-35.0); MCHC 34.6 g/dL (31.0-37.0); MCV 91.8 fL (80.0-100.0); Mean Platelet Volume 7.7; Monocytes # (A) 0.5 k/uL (0-1.0); Monocytes % (A) 8 %; Neutrophils # (A) 4.7 k/uL (1.3-7.7); Neutrophils % (A) 77 %; Platelet Count 116 k/uL (150-450); RBC 4.09 m/uL (4.30-5.90); RDW 14.8 % (11.5-15.5); WBC 6.1 k/uL (3.8-10.6)
[2024-01-04 06:33] LABS: ALT 34 U/L (4-49); AST 22 U/L (17-59); African American GFR (CKD) >90 (>60 ml/min/1.73 sqM); Albumin 3.6 g/dL (3.5-5.0); Alkaline Phosphatase 52 U/L (38-126); Anion Gap 5 mmol/L; Blood Urea Nitrogen 22 mg/dL (9-20); Calcium 8.6 mg/dL (8.4-10.2); Carbon Dioxide 28 mmol/L (22-30); Chloride 102 mmol/L (98-107); Glucose 184 mg/dL (74-99); Non-African American GFR(CKD) >90 (>60 ml/min/1.73 sqM); Sodium 135 mmol/L (137-145); Total Bilirubin 0.5 mg/dL (0.2-1.3); Total Protein 6.2 g/dL (6.3-8.2)
[2024-01-04] MEDS ORDERED: NITROGLYCERIN SL TABS 0.4 MG TAB SUBLINGUAL PRN (06:50)
[2024-01-04] MEDS: AZITHROMYCIN 500 MG TAB PO STA (07:25)
[2024-01-04] MEDS: cefTRIAXone IN SWFI 1,000 MG/10 ML SYRINGE IVP STA (07:25)
[2024-01-04 08:59] VITALS: RESP 16
--- NOTE | 2024-01-04 09:05 | P.HPIM ---
History of Present Illness H&P Date: 01/04/24 History of Presenting Illness: Patient is a 53-year-old male with a past medical history of CAD status post stenting, hypertension, hyperlipidemia, osteoarthritis, anxiety with depression, and bipolar disorder. He presented to the emergency department with a chief complaint of chest pain and dizziness. Patient reported symptoms began approximately 3 weeks ago after having unprotected sex with a female. Patient reports intermittent substernal chest pain that waxes and wanes and is accompanied by dizziness and nausea. Patient recently underwent cardiac workup at [facility] and had echocardiogram completed. At time of assessment patient currently denies experiencing any chest pain or pressure and denies experiencing any headache, lightheadedness, palpitations, shortness of breath, cough or congestion, abdominal pain, nausea, vomiting, or experiencing any numbness/tingling/weakness/swelling in his extremities. Upon arrival to our facility, patient underwent evaluation in the emergency department. Vital signs upon arrival show blood pressure 103/74, heart rate 77, respiratory rate 18, temp 97.7 F, and SpO2 of 98% on room air. EKG completed showing normal sinus rhythm at 73 bpm with T wave inversion in inferior leads III and aVF otherwise normal findings upon personal review and interpretation. Chest x-ray showing left lower lobe atelectasis. Labs completed and reviewed. CBC showing thrombocytopenia with platelet count of 116. BMP showing mild prerenal azotemia with BUN of 22 otherwise normal findings. Blood glucose 184. Troponin was negative at less than 0.012. Chlamydia trachomatis and Neisseria gonorrhea PCR's were obtained in the emergency department and sent to lab for analysis. Patient was admitted under services with consultation to cardiology. Review of systems: Pertinent positives and negatives as discussed in HPI, a complete review of systems was performed and all other systems are negative. Physical exam: Vital signs reviewed and stable. General: Nontoxic, no distress and appears stated age. Derm: Skin warm and dry, normal coloration for ethnicity. Head: Atraumatic, normocephalic and symmetric. Eyes: EOMs intact, no lid lag, and anicteric sclera Mouth: no lip lesions, mucus membranes moist Cardiovascular: regular rate and rhythm with normal S1S2, no murmur, positive posterior tibial pulses bilaterally, and cap refill < 2 seconds. Lungs: Respirations even, regular, and unlabored on room air. Lungs CTA bilaterally, no rhonchi, no rales, no wheezing, and no accessory muscle usage. Abdominal: soft, nontender to palpation, no guarding, no appreciable organomegaly Ext: ROM intact. No gross muscle atrophy, no edema, no contractures Neuro: Speech clear, face symmetrical and CN II-XII grossly intact with no noted focal neuro deficits Psych: Alert and oriented to person, place, time, and situation. Appropriate and pleasant affect. Assessment and Plan of Care: Chest pain, rule out acute coronary event History of CAD status post stenting Hypertension Hyperlipidemia -Cardiology consulted, appreciate recommendations -Telemetry monitoring -Trend troponins -Cardiac diet -Aspirin 81 mg daily, rosuvastatin 20 mg nightly, Entresto 24-26 mg tablets twice daily, Aldactone 25 mg daily, metoprolol 25 mg twice daily. -Lipid profile with a.m. labs. -Patient recently underwent cardiac workup at [facility], will obtain records and follow-up on previous echocardiogram results. Unprotected sex -Patient reports experiencing chest pain, nausea, and dizziness status post unprotected sex. -Patient received 1 g of azithromycin and 500 cc of Rocephin in the emergency department prophylactically. -Chlamydia trachomatis and Neisseria gonorrhea PCR's were obtained in the emergency department and sent to lab for analysis. The patient is admitted with an anticipated less than 2 midnight stay for evaluation of chest pain CODE STATUS: Full code DVT prophylaxis: Heparin Anticipated discharge date: Likely within the next [address]: Home Patient was seen independently by Nurse Practitioner. This document was prepared using [employer] dictation software. Please allow for errors in conductor road freight while rare they do occur. Hai Recinos NP rendered care for this patient independently, reviewed the findings and plan as documented in the note above. I did not physically speak with or examine the patient on this date. Past Medical History Past Medical History: Coronary Artery Disease (CAD), Chest Pain / Angina, COPD, Hyperlipidemia, Hypertension, Osteoarthritis (OA) Additional Past Medical History / Comment(s): freq rt ear infections,steroids July 2022,Low testosterone. c/o shortness of breath, improving. Last Myocardial Infarction Date:: 2017 History of Any Multi-Drug Resistant Organisms: None Reported Past Surgical History: Back Surgery, Ear Surgery, Heart Catheterization, Heart Catheterization With Stent Additional Past Surgical History / Comment(s): back surgeries x2, Colonoscopy. EGD 03/2020. Heart cath 05/17/20, RIGHT EAR SURG 07/2022 Past Anesthesia/Blood Transfusion Reactions: No Reported Reaction Additional Past Anesthesia/Blood Transfusion Reaction / Comment(s): no hx blood transfusion Date of Last Stent Placement:: 05/19/18 Past Psychological History: Anxiety, Bipolar, Depression Smoking Status: Former smoker Past Alcohol Use History: None Reported Past Drug Use History: None Reported - Past Family History Father Family Medical History: Cancer Additional Family Medical History / Comment(s): lung Mother Family Medical History: Cancer Additional Family Medical History / Comment(s): colon Medications and Allergies Home Medications Medication Instructions Recorded Confirmed Type Nitroglycerin Sl Tabs [Nitrostat] 0.4 mg SL Q5M PRN 05/11/22 01/04/24 History Aspirin 325 mg PO DAILY 30 Days tab 05/19/22 01/04/24 Rx oxyCODONE-APAP 10-325MG [Percocet 1 tab PO TID PRN 06/09/22 01/04/24 History 10-325 mg] Albuterol Inhaler [Ventolin Hfa 2 puff INHALATION RT-QID PRN #1 06/12/22 01/04/24 Rx Inhaler] each Montelukast [Singulair] 10 mg PO HS 12/02/22 01/04/24 History Sacubitril/Valsartan [Entresto 24 1 tab PO BID 12/02/22 01/04/24 History mg-26 mg Tablet] Albuterol Nebulized [Ventolin 2.5 mg INHALATION RT-DAILY 03/30/23 01/04/24 History Nebulized] Fluticasone/Umeclidin/Vilanter 1 puff INHALATION RT-DAILY 03/30/23 01/04/24 History [Trelegy Ellipta 200-62.5-25] Ezetimibe [Zetia] 10 mg PO HS 01/04/24 01/04/24 History Gabapentin [Neurontin] 300 mg PO TID PRN 01/04/24 01/04/24 History Mepolizumab [Nucala] 100 mg SQ QMONTHLY 01/04/24 01/04/24 History Metoprolol Succinate (ER) [Toprol 25 mg PO BID 01/04/24 01/04/24 History XL] Pantoprazole [Protonix] 40 mg PO DAILY PRN 01/04/24 01/04/24 History Rosuvastatin [Crestor] 20 mg PO DAILY 01/04/24 01/04/24 History Allergies Allergy/AdvReac Type Severity Reaction Status Date / Time No Known Allergies Allergy Verified 01/04/24 10:28 Physical Exam Vitals: Vital Signs Temp Pulse Resp BP Pulse Ox 01/04/24 06:59 63 18 125/80 98 01/04/24 05:02 71 18 134/78 98 01/04/24 04:45 97.7 F 77 18 103/74 98 Intake and Output 01/03/24 01/04/24 01/04/24 22:59 06:59 14:59 Other: Weight 108.862 kg Results CBC & Chem 7: 01/04/24 06:10 01/04/24 06:10 Labs: Abnormal Lab Results - Last 24 Hours (Table) 01/04/24 01/04/24 Range/Units 06:10 06:10 RBC 4.09 L (4.30-5.90) m/uL Hct 37.5 L (39.0-53.0) % Plt Count 116 L (150-450) k/uL Lymphocytes # 0.8 L (1.0-4.8) k/uL Sodium 135 L (137-145) mmol/L BUN 22 H (9-20) mg/dL Glucose 184 H (74-99) mg/dL Total Protein 6.2 L (6.3-8.2) g/dL
[2024-01-04] MEDS: ASPIRIN 81 MG PO STA (09:12)
[2024-01-04] MEDS: SPIRONOLACTONE 25 MG TAB PO SCH (09:12)
[2024-01-04] MEDS: SACUBITRIL/VALSARTAN 24 MG-26 MG TABLET PO SCH (09:14)
[2024-01-04] MEDS: METOPROLOL TARTRATE 25 MG TAB PO SCH (09:14)
[2024-01-04] MEDS: HEPARIN SODIUM,PORCINE 5,000 UNIT/ML 1 ML VIAL SQ SCH (10:15)
--- NOTE | 2024-01-04 11:19 | P.CRDCN ---
History of Present Illness History of present illness: HISTORY OF PRESENT ILLNESS: This is a 53-year-old male with a past medical history significant for coronary artery disease with previous stenting of the LAD, mild cardiomyopathy, hyperten tana, hyperlipidemia, and occasional cocaine use. Patient follows in the office with Dr. Gr. We have been asked to see the patient in consultation for chest pain. Patient examined at the bedside in the emergency room. Patient presented to the hospital for chief complaint of dizziness. Patient states he has been feeling dizzy for the past 2 to 3 weeks. He reports having some pressure in his head and states that he thought it was sinus related. He denies having palpitations although he states sometimes his heart feels "strange". Patient states he has been to [facility] multiple times and states they have "found nothing". Patient did undergo echocardiogram on December 24, 2023 which revealed ejection fraction 55 to 60%, trace to mild MR, mild TR and negative bubble study DIAGNOSTICS: - EKG reveals sinus mechanism with no signs of acute ischemia. - Chest xray there is new left basilar acute infiltrate and/or atelectasis - Laboratory data: WBC 6.1. Hemoglobin 13.0. Platelet count 116. Sodium 135. Sodium 4.0. BUN 22. Creatinine 0.90. Troponin negative x 2. - Current home cardiac medications include Entresto 24-26 mg twice a day, metoprolol succinate 25 mg twice a day, aspirin 325 mg daily, Zetia 10 mg daily. - Cardiac catheterization history: June 2022 patent stent within the LAD with no other significant CAD REVIEW OF SYSTEMS: At the time of my exam: CONSTITUTIONAL: Denies fever or chills. HEENT: Denies blurred vision, vision changes, or eye pain. Denies hemoptysis CARDIOVASCULAR: Denies chest pain. Denies orthopnea. Denies PND. Denies palpi tations RESPIRATORY: Denies shortness of breath. GASTROINTESTINAL: Denies abdominal pain. Denies nausea or vomiting. HEMATOLOGIC: Denies bleeding disorders. GENITOURINARY: Denies any blood in urine. SKIN: Denies pruitis. Denies rash. PHYSICAL EXAM: VITAL SIGNS: Reviewed. GENERAL: Well-developed in no acute distress. HEENT: Head is normocephalic. Pupils are equal, round. Sclerae anicteric. Mucous membranes of the mouth are moist. Neck supple. No JVD or thyromegaly LUNGS: Respirations even and unlabored. Lungs essentially clear to auscultation bilaterally. HEART: Regular rate and rhythm. S1 and S2 heard. ABDOMEN: Soft. Nondistended. Nontender. EXTREMITIES: Normal range of motion. No clubbing or cyanosis. Peripheral pulses intact. No lower extremity edema NEUROLOGIC: Awake and alert. Oriented x 3. ASSESSMENT: Dizziness, etiology unclear Chest pain, atypical, troponin negative x 3 Coronary artery disease with previous tenting of the LAD Ischemic cardiomyopathy with recovered EF, previously 35 to 40%, most recently 55-60% Hypertension Hyperlipidemia History of cocaine use PLAN: An acute coronary event has been ruled out Echocardiogram obtained from [facility] and reviewed revealing normal LV systolic function with no significant valvular abnormalities and negative bubble study Resume home cardiac medications Patient to receive 2-week event monitor at the time of discharge Patient may be discharged home today from a cardiac standpoint and follow-up in the office with Dr. Gr We will sign off. Please reconsult if needed. Nurse practitioner note has been reviewed by physician. Signing provider agrees with the documented findings, assessment, and plan of care documented by CHIEF PROGRAM OFFICER as a scribe. Past Medical History Past Medical History: Coronary Artery Disease (CAD), Chest Pain / Angina, COPD, Hyperlipidemia, Hypertension, Osteoarthritis (OA) Additional Past Medical History / Comment(s): freq rt ear infections,steroids July 2022,Low testosterone. c/o shortness of breath, improving. Last Myocardial Infarction Date:: 2017 History of Any Multi-Drug Resistant Organisms: None Reported Past Surgical History: Back Surgery, Ear Surgery, Heart Catheterization, Heart Catheterization With Stent Additional Past Surgical History / Comment(s): back surgeries x2, Colonoscopy. EGD 03/2020. Heart cath 05/17/20, RIGHT EAR SURG 07/2022 Past Anesthesia/Blood Transfusion Reactions: No Reported Reaction Additional Past Anesthesia/Blood Transfusion Reaction / Comment(s): no hx blood transfusion Date of Last Stent Placement:: 05/19/18 Past Psychological History: Anxiety, Bipolar, Depression Smoking Status: Former smoker Past Alcohol Use History: None Reported Past Drug Use History: None Reported - Past Family History Father Family Medical History: Cancer Additional Family Medical History / Comment(s): lung Mother Family Medical History: Cancer Additional Family Medical History / Comment(s): colon Medications and Allergies Home Medications Medication Instructions Recorded Confirmed Type Nitroglycerin Sl Tabs [Nitrostat] 0.4 mg SL Q5M PRN 05/11/22 01/04/24 History Aspirin 325 mg PO DAILY 30 Days tab 05/19/22 01/04/24 Rx oxyCODONE-APAP 10-325MG [Percocet 1 tab PO TID PRN 06/09/22 01/04/24 History 10-325 mg] Albuterol Inhaler [Ventolin Hfa 2 puff INHALATION RT-QID PRN #1 06/12/22 01/04/24 Rx Inhaler] each Montelukast [Singulair] 10 mg PO HS 12/02/22 01/04/24 History Sacubitril/Valsartan [Entresto 24 1 tab PO BID 12/02/22 01/04/24 History mg-26 mg Tablet] Albuterol Nebulized [Ventolin 2.5 mg INHALATION RT-DAILY 03/30/23 01/04/24 History Nebulized] Fluticasone/Umeclidin/Vilanter 1 puff INHALATION RT-DAILY 03/30/23 01/04/24 History [Trelegy Ellipta 200-62.5-25] Ezetimibe [Zetia] 10 mg PO HS 01/04/24 01/04/24 History Gabapentin [Neurontin] 300 mg PO TID PRN 01/04/24 01/04/24 History Mepolizumab [Nucala] 100 mg SQ QMONTHLY 01/04/24 01/04/24 History Metoprolol Succinate (ER) [Toprol 25 mg PO BID 01/04/24 01/04/24 History Xl] Pantoprazole [Protonix] 40 mg PO DAILY PRN 01/04/24 01/04/24 History Rosuvastatin [Crestor] 20 mg PO DAILY 01/04/24 01/04/24 History Allergies Allergy/AdvReac Type Severity Reaction Status Date / Time No Known Allergies Allergy Verified 01/04/24 10:28 Physical Exam Vitals: Vital Signs Temp Pulse Resp BP Pulse Ox 01/04/24 06:59 63 18 125/80 98 01/04/24 05:02 71 18 134/78 98 01/04/24 04:45 97.7 F 77 18 103/74 98 Intake and Output 01/03/24 01/04/24 01/04/24 22:59 06:59 14:59 Other: Weight 108.862 kg Results 01/04/24 06:10 01/04/24 06:10 Cardiac Enzymes 01/04/24 01/04/24 Range/Units 06:10 06:10 AST 22 (17-59) U/L Troponin I <0.012 (0.000-0.034) ng/mL CBC 01/04/24 Range/Units 06:10 WBC 6.1 (3.8-10.6) k/uL RBC 4.09 L (4.30-5.90) m/uL Hgb 13.0 (13.0-17.5) gm/dL Hct 37.5 L (39.0-53.0) % Plt Count 116 L (150-450) k/uL Comprehensive Metabolic Panel 01/04/24 Range/Units 06:10 Sodium 135 L (137-145) mmol/L Potassium 4.0 (3.5-5.1) mmol/L Chloride 102 (98-107) mmol/L Carbon Dioxide 28 (22-30) mmol/L BUN 22 H (9-20) mg/dL Creatinine 0.90 (0.66-1.25) mg/dL Glucose 184 H (74-99) mg/dL Calcium 8.6 (8.4-10.2) mg/dL AST 22 (17-59) U/L ALT 34 (4-49) U/L Alkaline Phosphatase 52 (38-126) U/L Total Protein 6.2 L (6.3-8.2) g/dL Albumin 3.6 (3.5-5.0) g/dL Current Medications Generic Name Dose Route Start Last Admin Trade Name Freq PRN Reason Stop Dose Admin Aspirin 325 mg 01/05/24 09:00 Aspirin 325 Mg Tab PO DAILY NOEMÍ Nitroglycerin 0.4 mg 01/04/24 06:50 Nitroglycerin Sl Tabs 0.4 Mg Tab SUBLINGUAL Q5M PRN Chest Pain Intake and Output 01/03/24 01/04/24 01/04/24 22:59 06:59 14:59 Other: Weight 108.862 kg 01/04/24 06:10 01/04/24 06:10
[2024-01-04] MEDS: ALBUTEROL NEBULIZED 2.5 MG/3 ML INHALATION PRN (13:16)
[2024-01-04] MEDS: IPRATROPIUM 0.5 MG/2.5 ML NEBU INHALATION SCH (13:16)
--- NOTE | 2024-01-04 13:27 | P.DS ---
Providers Date of admission: 01/04/24 06:50 Expected date of discharge: 01/04/24 Attending physician: Che Clark MD Consults: 01/04/24 06:50 Consult Physician Urgent Consulting Provider: Josiah Awan Consult Reason/Comments: chest pain Do you want consulting provider notified?: Yes Primary care physician: Stated None Hospital Course: Discharge Diagnosis: Chest pain, acute coronary event ruled out History of CAD status post stenting Hypertension Hyperlipidemia Unprotected sex, at risk for sexually transmitted diseases. Patient received 1 g of azithromycin and 500 cc of Rocephin in the emergency department for prophylactic treatment. Chlamydia trachomatis and Neisseria gonorrhea PCR's were obtained and sent to lab for analysis. Hospital Course: Patient is a 53-year-old male with a past medical history of CAD status post stenting, hypertension, hyperlipidemia, osteoarthritis, anxiety with depression, and bipolar disorder. He presented to the emergency department with a chief complaint of chest pain and dizziness. Patient reported symptoms began approximately 3 weeks ago after having unprotected sex with a female. Patient reports intermittent substernal chest pain that waxes and wanes and is accompanied by dizziness and nausea. Patient recently underwent cardiac workup at [facility] and had echocardiogram completed. At time of assessment patient currently denies experiencing any chest pain or pressure and denies experiencing any headache, lightheadedness, palpitations, shortness of breath, cough or congestion, abdominal pain, nausea, vomiting, or experiencing any numbness/tingling/weakness/swelling in his extremities. Upon arrival to our facility, patient underwent evaluation in the emergency department. Vital signs upon arrival show blood pressure 103/74, heart rate 77, respiratory rate 18, temp 97.7 F, and SpO2 of 98% on room air. EKG completed showing normal sinus rhythm at 73 bpm with T wave inversion in inferior leads III and aVF otherwise normal findings upon personal review and interpretation. Chest x-ray showing left lower lobe atelectasis. Labs completed and reviewed. CBC showing thrombocytopenia with platelet count of 116. BMP showing mild prerenal azotemia with BUN of 22 otherwise normal findings. Blood glucose 184. Troponin was negative at less than 0.012. Chlamydia trachomatis and Neisseria gonorrhea PCR's were obtained in the emergency department and sent to lab for analysis. Patient was admitted under services with consultation to cardiology. Troponins trended at less than 0.012 x 2 draws. Records obtained from [facility] and per cardiology echocardiogram normal findings with a preserved EF. An event monitor was placed and patient cleared from cardiac perspective for outpatient follow-up in their office in 1-2 weeks. Patient remains free from chest pain/discomfort and is medically stable for discharge at this time. Patient provided with outpatient information for PCP and encouraged to schedule first available appointment for post hospitalization follow-up and to follow-up outpatient with cardiology in 1 to 2 weeks. No medication changes were made during this admission. Physical exam: Vital signs reviewed and stable. General: Nontoxic, no distress and appears stated age. Derm: Skin warm and dry, normal coloration for ethnicity. Head: Atraumatic, normocephalic and symmetric. Eyes: EOMs intact, no lid lag, and anicteric sclera Mouth: no lip lesions, mucus membranes moist Cardiovascular: regular rate and rhythm with normal S1S2, no murmur, positive posterior tibial pulses bilaterally, and cap refill < 2 seconds. Lungs: Respirations even, regular, and unlabored on room air. Lungs CTA bilaterally, no rhonchi, no rales, no wheezing, and no accessory muscle usage. Abdominal: soft, nontender to palpation, no guarding, no appreciable organomegaly Ext: ROM intact. No gross muscle atrophy, no edema, no contractures Neuro: Speech clear, face symmetrical and CN II-XII grossly intact with no noted focal neuro deficits Psych: Alert and oriented to person, place, time, and situation. Appropriate and pleasant affect. A total of 31 minutes of time were spent preparing this complex discharge summary. Pt was discharged on 01/04/24 at 1:17 PM. Patient was seen independently by Nurse Practitioner. This document was prepared using [employer] dictation software. Please allow for errors in operations processor while rare they do occur. Hai Recinos NP rendered care for this patient independently, reviewed the findings and plan as documented in the note above. I did not physically speak with or examine the patient on this date. Patient Condition at Discharge: Stable Plan - Discharge Summary New Discharge Prescriptions: Continue Aspirin 325 mg PO DAILY 30 Days tab oxyCODONE-APAP 10-325MG [Percocet 10-325 mg] 1 tab PO TID PRN PRN Reason: Pain Albuterol Inhaler [Ventolin Hfa Inhaler] 2 puff INHALATION RT-QID PRN #1 each PRN Reason: Shortness Of Breath Or Wheezing Rosuvastatin [Crestor] 20 mg PO DAILY Metoprolol Succinate (ER) [Toprol XL] 25 mg PO BID Nitroglycerin Sl Tabs [Nitrostat] 0.4 mg SL Q5M PRN PRN Reason: Chest Pain Montelukast [Singulair] 10 mg PO HS Sacubitril/Valsartan [Entresto 24 mg-26 mg Tablet] 1 tab PO BID Albuterol Nebulized [Ventolin Nebulized] 2.5 mg INHALATION RT-DAILY Fluticasone/Umeclidin/Vilanter [Trelegy Ellipta 200-62.5-25] 1 puff INHALATION RT-DAILY Pantoprazole [Protonix] 40 mg PO DAILY PRN PRN Reason: GERD Mepolizumab [Nucala] 100 mg SQ QMONTHLY Gabapentin [Neurontin] 300 mg PO TID PRN PRN Reason: Pain Ezetimibe [Zetia] 10 mg PO HS Discharge Medication List Nitroglycerin Sl Tabs [Nitrostat] 0.4 mg SL Q5M PRN 05/11/22 [History] Aspirin 325 mg PO DAILY 30 Days tab 05/19/22 [Rx] oxyCODONE-APAP 10-325MG [Percocet 10-325 mg] 1 tab PO TID PRN 06/09/22 [History] Albuterol Inhaler [Ventolin Hfa Inhaler] 2 puff INHALATION RT-QID PRN #1 each 06/12/22 [Rx] Montelukast [Singulair] 10 mg PO HS 12/02/22 [History] Sacubitril/Valsartan [Entresto 24 mg-26 mg Tablet] 1 tab PO BID 12/02/22 [History] Albuterol Nebulized [Ventolin Nebulized] 2.5 mg INHALATION RT-DAILY 03/30/23 [History] Fluticasone/Umeclidin/Vilanter [Trelegy Ellipta 200-62.5-25] 1 puff INHALATION RT-DAILY 03/30/23 [History] Ezetimibe [Zetia] 10 mg PO HS 01/04/24 [History] Gabapentin [Neurontin] 300 mg PO TID PRN 01/04/24 [History] Mepolizumab [Nucala] 100 mg SQ QMONTHLY 01/04/24 [History] Metoprolol Succinate (ER) [Toprol XL] 25 mg PO BID 01/04/24 [History] Pantoprazole [Protonix] 40 mg PO DAILY PRN 01/04/24 [History] Rosuvastatin [Crestor] 20 mg PO DAILY 01/04/24 [History] Follow up Appointment(s)/Referral(s): Jin Gr DO [STAFF PHYSICIAN] - 1 Week Evens Mancilla MD [REFERRING] - 1-2 Days (Please call prior to discharge and schedule first available appointment for post discharge follow up) Patient Instructions/Handouts: Chest Pain (DC), Sexually Transmitted Diseases (GEN), Safe Sex Practices (DC), Holter Monitor (GEN) Activity/Diet/Wound Care/Special Instructions: Activity: As tolerated. Take breaks as needed. Diet: Heart healthy and carb consistent diet. Avoid salts, or foods with hidden salts such as canned or boxed foods and frozen dinners. Extra salt makes your heart work harder and traps the fluid in your body for longer. Special Instructions: Take all of your medications as directed and remember to keep all of your doctor's appointments and follow-up as needed. Please schedule first available appointment with Dr. Mancilla for post discharge follow-up. Chlamydia and Gonorrhea culture results should be available at your doctors appointment. Thank you for allowing us to participate in your care, it was truly a pleasure having you for our patient!!! . Discharge Disposition: HOME SELF-CARE
[2024-01-04 13:30] VITALS: BP 130/86; PULSE 67; TEMP 97.7
[2024-01-04] MEDS ORDERED: SYMBICORT 80-4.5 MCG INHALER INHALATION SCH (20:00)
[2024-01-04] MEDS ORDERED: METOPROLOL SUCCINATE (ER) 25 MG TAB.ER.24H PO SCH (21:00)
[2024-01-04] MEDS ORDERED: ATORVASTATIN 40 MG TAB PO SCH (21:00)
[2024-01-04] MEDS ORDERED: MONTELUKAST 10 MG TAB PO SCH (21:00)
[2024-01-05] MEDS ORDERED: PANTOPRAZOLE 40 MG TABLET PO PRN (07:30)
[2024-01-05] MEDS ORDERED: ASPIRIN 81 MG PO SCH (09:00)
[2024-01-05] MEDS ORDERED: ASPIRIN 325 MG TAB PO SCH ×2 (09:00)
[2024-01-05 12:48] LABS: N. gonorrhoeae,PCR Negative (Negative)
[2024-01-05 12:56] LABS: C. trachomatis,PCR Negative (Negative)
== END 2024-01-04 13:45 | disposition home or self-care (01) ==
LOC: EC 04:42 → 6NMEDSUR 06:50
PROVIDERS: ADMIT Internal Medicine; ATTEND Internal Medicine
DX: R07.2 Precordial pain (principal); R42 Dizziness and giddiness; I25.10 Atherosclerotic heart disease of native coronary artery without angina pectoris; D69.6 Thrombocytopenia, unspecified; I25.5 Ischemic cardiomyopathy; I10 Essential (primary) hypertension; E78.5 Hyperlipidemia, unspecified; J98.11 Atelectasis; F14.90 Cocaine use, unspecified, uncomplicated; M19.90 Unspecified osteoarthritis, unspecified site; F41.9 Anxiety disorder, unspecified; F31.9 Bipolar disorder, unspecified; Z79.51 Long term (current) use of inhaled steroids; Z79.82 Long term (current) use of aspirin; Z79.899 Other long term (current) drug therapy; Z87.891 Personal history of nicotine dependence; Z95.5 Presence of coronary angioplasty implant and graft; Z72.51 High risk heterosexual behavior
CPT/HCPCS: 99285; 36415; 94640; 93005; 93270; 80053; 84484; 85025; 87491; 87591; 71046; G0378

== ENCOUNTER 2024-01-07 12:09 | Emergency (ER) | payer MEDICARE ==
[2024-01-07 12:25] VITALS: RESP 18; TEMP 98.2
--- NOTE | 2024-01-07 12:40 | ED ---
Chest Pain HPI - General Chief Complaint: Chest Pain Stated Complaint: Chest pain,DANE,Dizziness Time Seen by Provider: 01/07/24 12:26 Source: patient, RN notes reviewed, old records reviewed Mode of arrival: ambulatory Limitations: no limitations - History of Present Illness Initial Comments: This is a 53-year-old male to the ER for evaluation patient presents to the emergency department for chest pain today. Patient is currently wearing a monitor Holter monitor for arrhythmia does have a history of cardiac stent and coronary artery disease. Patient has no travel history no sick contacts no fever cough or congestion no other complaints MD Complaint: chest pain -: days(s) Onset: during rest, during exertion Pain Location: left chest Pain Radiation: none Severity: moderate Severity scale (1-10): 4 Quality: aching Consistency: constant Improves With: nothing Worsens With: nothing Anginal Symptoms: sense of impending doom Other Symptoms: palpitations Treatments Prior to Arrival: none - Related Data Home Medications Medication Instructions Recorded Confirmed Nitroglycerin Sl Tabs [Nitrostat] 0.4 mg SL Q5M PRN 05/11/22 01/04/24 oxyCODONE-APAP 10-325MG [Percocet 1 tab PO TID PRN 06/09/22 01/04/24 10-325 mg] Montelukast [Singulair] 10 mg PO HS 12/02/22 01/04/24 Sacubitril/Valsartan [Entresto 24 1 tab PO BID 12/02/22 01/04/24 mg-26 mg Tablet] Albuterol Nebulized [Ventolin 2.5 mg INHALATION RT-DAILY 03/30/23 01/04/24 Nebulized] Fluticasone/Umeclidin/Vilanter 1 puff INHALATION RT-DAILY 03/30/23 01/04/24 [Trelegy Ellipta 200-62.5-25] Ezetimibe [Zetia] 10 mg PO HS 01/04/24 01/04/24 Gabapentin [Neurontin] 300 mg PO TID PRN 01/04/24 01/04/24 Mepolizumab [Nucala] 100 mg SQ QMONTHLY 01/04/24 01/04/24 Metoprolol Succinate (ER) [Toprol 25 mg PO BID 01/04/24 01/04/24 XL] Pantoprazole [Protonix] 40 mg PO DAILY PRN 01/04/24 01/04/24 Rosuvastatin [Crestor] 20 mg PO DAILY 01/04/24 01/04/24 Previous Rx's Medication Instructions Recorded Aspirin 325 mg PO DAILY 30 Days tab 05/19/22 Albuterol Inhaler [Ventolin Hfa 2 puff INHALATION RT-QID PRN #1 06/12/22 Inhaler] each Allergies Allergy/AdvReac Type Severity Reaction Status Date / Time No Known Allergies Allergy Verified 01/07/24 12:24 Review of Systems ROS Statement: Those systems with pertinent positive or pertinent negative responses have been documented in the HPI. ROS Other: All systems not noted in ROS Statement are negative. EKG Findings - EKG Comments: EKG Findings:: ECG sinus 93 OR 118 QRS 86 QTc 393 - EKG Results: EKG: interpreted by MICHELLE Past Medical History Past Medical History: Coronary Artery Disease (CAD), Chest Pain / Angina, COPD, Hyperlipidemia, Hypertension, Osteoarthritis (OA) Additional Past Medical History / Comment(s): freq rt ear infections,steroids July 2022,Low testosterone. c/o shortness of breath, improving. Last Myocardial Infarction Date:: 2017 History of Any Multi-Drug Resistant Organisms: None Reported Past Surgical History: Back Surgery, Ear Surgery, Heart Catheterization, Heart Catheterization With Stent Additional Past Surgical History / Comment(s): back surgeries x2, Colonoscopy. EGD 03/2020. Heart cath 05/17/20, RIGHT EAR SURG 07/2022 Past Anesthesia/Blood Transfusion Reactions: No Reported Reaction Additional Past Anesthesia/Blood Transfusion Reaction / Comment(s): no hx blood transfusion Date of Last Stent Placement:: 05/19/18 Past Psychological History: Anxiety, Bipolar, Depression Smoking Status: Former smoker Past Alcohol Use History: None Reported Past Drug Use History: None Reported - Past Family History Father Family Medical History: Cancer Additional Family Medical History / Comment(s): lung Mother Family Medical History: Cancer Additional Family Medical History / Comment(s): colon General Exam Limitations: no limitations General appearance: alert, in no apparent distress Head exam: Present: atraumatic, normocephalic, normal inspection Eye exam: Present: normal appearance, PERRL, EOMI. Absent: scleral icterus, conjunctival injection, periorbital swelling ENT exam: Present: normal exam, mucous membranes moist Neck exam: Present: normal inspection. Absent: tenderness, meningismus, lymphadenopathy Respiratory exam: Present: normal lung sounds bilaterally. Absent: respiratory distress, wheezes, rales, rhonchi, stridor Cardiovascular Exam: Present: regular rate, normal rhythm, normal heart sounds. Absent: systolic murmur, diastolic murmur, rubs, gallop, clicks GI/Abdominal exam: Present: soft, normal bowel sounds. Absent: distended, tenderness, guarding, rebound, rigid Extremities exam: Present: normal inspection, full ROM, normal capillary refill. Absent: tenderness, pedal edema, joint swelling, calf tenderness Back exam: Present: normal inspection Neurological exam: Present: alert, oriented X3, CN II-XII intact Psychiatric exam: Present: normal affect, normal mood Skin exam: Present: warm, dry, intact, normal color. Absent: rash Course Vital Signs 01/07/24 01/07/24 12:20 14:40 Temperature 98.2 F Pulse Rate 95 89 Respiratory 18 18 Rate Blood Pressure 116/74 149/99 O2 Sat by Pulse 95 96 Oximetry - Reevaluation(s) Reevaluation #1: 01/07/24 14:40 medical record is reviewed Reevaluation #2: 01/07/24 14:40 Patient chest pain is improved here in the ER Reevaluation #3: 01/07/24 14:40 Patient informed of results and questions answered Reevaluation #4: Was pt. sent in by a medical professional or institution (, PA, INSTALL AND REPAIR TECHNICIAN, urgent care, hospital, or fci...) When possible be specific @ -no Did you speak to anyone other than the patient for history (EMS, parent, family, police, friend...)? What history was obtained from this source @ -no Did you review nursing and triage notes (agree or disagree)? Why? @ -agree Are old charts reviewed (outside hosp., previous admission, EMS record, old EKG, old radiological studies, urgent care reports/EKG's, fci records)? Report findings @ -yes Differential Diagnosis (chest pain, altered mental status, abdominal pain women, abdominal pain men, vaginal bleeding, weakness, fever, dyspnea, syncope, headache, dizziness, GI bleed, back pain, seizure, CVA, palpatations, mental health, musculoskeletal)? @ -prior EKG interpreted by me (3pts min.). @ -yes X-rays interpreted by me (1pt min.). @ -yes negative for acute disease CT interpreted by me (1pt min.). @ -no U/S interpreted by me (1pt. min.). @ -no What testing was considered but not performed or refused? (CT, X-rays, U/S, labs)? Why? @ -none What meds were considered but not given or refused? Why? @ -none Did you discuss the management of the patient with other professionals (professionals i.e. , PA, INSTALL AND REPAIR TECHNICIAN, lab, RT, psych nurse, social sciences professor, job compositor, teacher, commanding officer motorized squad, ed case manager)? Give summary @ -no Was smoking cessation discussed for >3mins.? @ -no Was critical care preformed (if so, how long)? @ -no Were there social determinants of health that impacted care today? How? (Homelessness, low income, unemployed, alcoholism, drug addiction, transportation, low edu. Level, literacy, decrease access to med. care, [place] [facility], re hab)? @ -none Was there de-escalation of care discussed even if they declined (Discuss DNR or withdrawal of care, Hospice)? DNR status @ -no What co-morbidities impacted this encounter? (DM, HTN, Smoking, COPD, CAD, Cancer, CVA, ARF, Chemo, Hep., AIDS, mental health diagnosis, sleep apnea, morbid obesity)? @ -none Was patient admitted / discharged? Hospital course, mention meds given and route, prescriptions, significant lab abnormalities, going to OR and other pertinent info. @ - 53 male to the ER today. Patient presents the emergency room today for evaluation regards to chest pain without significant chest pain event reported patient can be discharged home. Patient will continue follow-up with purchasing director does not want further observation or inpatient stay at this time Discharge Undiagnosed new problem with uncertain prognosis? @ -no Drug Therapy requiring intensive monitoring for toxicity (Heparin, Nitro, Insulin, Cardizem)? @ -no Were any procedures done? @ -no Diagnosis/symptom? @ -Chest pain Acute, or Chronic, or Acute on Chronic? @ -Acute Uncomplicated (without systemic symptoms) or Complicated (systemic symptoms)? @ -Complicated Side effects of treatment? @ -no Exacerbation, Progression, or Severe Exacerbation? @ -exacerbation Poses a threat to life or bodily function? How? (Chest pain, [place], [place], pneumonia, PE, COPD, DKA, ARF, appy, cholecystitis, CVA, Diverticulitis, Homicidal, Suicidal, threat to staff... and all critical care pts) @ -yes with significant chest pain Reevaluation #5: Differential Chest Pain: Stable Angina, Unstable Angina, STEMI, NSTEMI Aortic Dissection, Pneumothorax, Musculoskeletal, Esophageal Spasm GERD, Cholecystitis, Pancreatitis, Zoster, this is not meant to be an all-inclusive list. Chest Pain MDM - MDM 53 male to the ER today. Patient presents the emergency room today for evaluation regards to chest pain without significant chest pain event reported patient can be discharged home. Patient will continue follow-up with purchasing director does not want further observation or inpatient stay at this time Disposition Clinical Impression: Chest pain, Acute anxiety, Dizziness, Encounter for psychiatric assessment, Cocaine abuse Disposition: HOME SELF-CARE Condition: Fair Instructions (If sedation given, give patient instructions): Chest Pain (ED) Is patient prescribed a controlled substance at d/c from ED?: No Referrals: None,Stated [Primary Care Provider] - 1-2 days Time of Disposition: 14:30
[2024-01-07] MEDS: SODIUM CHLORIDE 0.9% 500 ML 500 ML IV STA (12:52)
[2024-01-07 13:15] LABS: Basophils % (A) 0 %; Eosinophils % (A) 1 %; HCT 42.9 % (39.0-53.0); HGB 14.2 gm/dL (13.0-17.5); Lymphocytes # (A) 0.4 k/uL (1.0-4.8); Lymphocytes % (A) 7 %; MCH 30.1 pg (25.0-35.0); MCHC 33.1 g/dL (31.0-37.0); MCV 90.9 fL (80.0-100.0); Mean Platelet Volume 7.7; Monocytes # (A) 0.2 k/uL (0-1.0); Monocytes % (A) 4 %; Neutrophils # (A) 5.1 k/uL (1.3-7.7); Neutrophils % (A) 88 %; Platelet Count 140 k/uL (150-450); RBC 4.72 m/uL (4.30-5.90); RDW 14.8 % (11.5-15.5); WBC 5.8 k/uL (3.8-10.6)
[2024-01-07 13:17] LABS: ALT 37 U/L (4-49); AST 26 U/L (17-59); African American GFR (CKD) >90 (>60 ml/min/1.73 sqM); Albumin 4.1 g/dL (3.5-5.0); Alkaline Phosphatase 60 U/L (38-126); Anion Gap 8 mmol/L; Blood Urea Nitrogen 30 mg/dL (9-20); Calcium 9.1 mg/dL (8.4-10.2); Carbon Dioxide 23 mmol/L (22-30); Chloride 103 mmol/L (98-107); Glucose 238 mg/dL (74-99); Lipase 151 U/L (23-300); Non-African American GFR(CKD) 80 (>60 ml/min/1.73 sqM); Potassium 4.8 mmol/L (3.5-5.1); Sodium 134 mmol/L (137-145); Total Bilirubin 0.6 mg/dL (0.2-1.3); Total Protein 6.7 g/dL (6.3-8.2)
[2024-01-07 13:25] LABS: NT-Pro-B-Type Natriuretic Pept <20 pg/mL
[2024-01-07 13:29] LABS: INR 0.9 (<1.2); Partial Thromboplastin Time 20.6 sec (22.0-30.0); Prothrombin Time 10.2 sec (10.0-12.5)
--- NOTE | 2024-01-07 13:49 | XR ---
EXAMINATION TYPE: XR chest 1V portable DATE OF EXAM: 01/07/2024 1:10 PM CLINICAL INDICATION:Male, 53 years old with history of chest pain; [facility] COMPARISON: Chest radiographs from 01/04/2024. TECHNIQUE: XR chest 1V portable Frontal view of the chest. FINDINGS: Lungs/Pleura: Low lung volumes are present. There is no evidence of pleural effusion, focal consolida tion, or pneumothorax. Pulmonary vascularity: Unremarkable. Heart/mediastinum: Cardiomediastinal silhouette is unremarkable. Musculoskeletal: No acute osseous pathology. Other findings: Electronic device projects over the left pulmonary hilum. IMPRESSION: Low lung volumes with a generalized hazy appearance which could represent atelectasis.
[2024-01-07] MEDS: HYDROmorphone 1 MG/ML 1 ML SYRINGE IVP STA (14:45)
[2024-01-07 14:48] VITALS: BP 149/99; PULSE 89
== END 2024-01-07 14:54 | disposition home or self-care (01) ==
LOC: EC 12:09
DX: Z00.8 Encounter for other general examination (principal); R07.89 Other chest pain; F41.9 Anxiety disorder, unspecified; R42 Dizziness and giddiness; F14.10 Cocaine abuse, uncomplicated; Z87.891 Personal history of nicotine dependence
CPT/HCPCS: 36415; 93005; 85379; 83880; 80053; 83690; 83735; 84484; 85025; 85610; 85730; 71045; 99285; 96374; J1170

== ENCOUNTER 2024-01-09 10:12 | Emergency (ER) | payer MEDICARE ==
[2024-01-09 10:26] VITALS: TEMP 98.1
[2024-01-09] MEDS: SODIUM CHLORIDE 0.9% 1,000 ML IV STA (10:50)
--- NOTE | 2024-01-09 10:51 | ED ---
General Adult HPI - General Chief complaint: Dizziness Stated complaint: Dizziness,DANE,Blood in stool Time Seen by Provider: 01/09/24 10:27 Source: patient Mode of arrival: ambulatory Limitations: no limitations - History of Present Illness Initial comments: Dictation was produced using [employer] dictation software. please excuse any grammatical, word or spelling errors. Chief Complaint: 53-year-old male with multiple complaints History of Present Illness: Patient 53-year-old male presents emergency for multiple complaints. This is patient's third visit here in the last week. States that he is here now for dizziness. Does complain of some chest tightness. He also states that there is bright red blood per rectum. Patient states that he gets colonoscopies every 2 years. He states that his mother of colon cancer and that he is high risk. Denies any rectal pain. The ROS documented in this emergency department record has been reviewed and confirmed by me. Those systems with pertinent positive or negative responses have been documented in the HPI. All other systems are other negative and/or noncontributory. - Related Data Home Medications Medication Instructions Recorded Confirmed Nitroglycerin Sl Tabs [Nitrostat] 0.4 mg SL Q5M PRN 05/11/22 01/04/24 oxyCODONE-APAP 10-325MG [Percocet 1 tab PO TID PRN 06/09/22 01/04/24 10-325 mg] Montelukast [Singulair] 10 mg PO HS 12/02/22 01/04/24 Sacubitril/Valsartan [Entresto 24 1 tab PO BID 12/02/22 01/04/24 mg-26 mg Tablet] Albuterol Nebulized [Ventolin 2.5 mg INHALATION RT-DAILY 03/30/23 01/04/24 Nebulized] Fluticasone/Umeclidin/Vilanter 1 puff INHALATION RT-DAILY 03/30/23 01/04/24 [Trelegy Ellipta 200-62.5-25] Ezetimibe [Zetia] 10 mg PO HS 01/04/24 01/04/24 Gabapentin [Neurontin] 300 mg PO TID PRN 01/04/24 01/04/24 Mepolizumab [Nucala] 100 mg SQ QMONTHLY 01/04/24 01/04/24 Metoprolol Succinate (ER) [Toprol 25 mg PO BID 01/04/24 01/04/24 XL] Pantoprazole [Protonix] 40 mg PO DAILY PRN 01/04/24 01/04/24 Rosuvastatin [Crestor] 20 mg PO DAILY 01/04/24 01/04/24 Previous Rx's Medication Instructions Recorded Aspirin 325 mg PO DAILY 30 Days tab 05/19/22 Albuterol Inhaler [Ventolin Hfa 2 puff INHALATION RT-QID PRN #1 06/12/22 Inhaler] each Allergies Allergy/AdvReac Type Severity Reaction Status Date / Time No Known Allergies Allergy Verified 01/07/24 12:24 Review of Systems ROS Statement: Those systems with pertinent positive or pertinent negative responses have been documented in the HPI. ROS Other: All systems not noted in ROS Statement are negative. Past Medical History Past Medical History: Asthma, Coronary Artery Disease (CAD), Chest Pain / Angina, COPD, Hyperlipidemia, Hypertension, Osteoarthritis (OA) Additional Past Medical History / Comment(s): freq rt ear infections,steroids July 2022,Low testosterone. c/o shortness of breath, improving. Last Myocardial Infarction Date:: 2017 History of Any Multi-Drug Resistant Organisms: None Reported Past Surgical History: Back Surgery, Ear Surgery, Heart Catheterization, Heart Catheterization With Stent Additional Past Surgical History / Comment(s): back surgeries x2, Colonoscopy. EGD 03/2020. Heart cath 05/17/20, RIGHT EAR SURG 07/2022 Past Anesthesia/Blood Transfusion Reactions: No Reported Reaction Additional Past Anesthesia/Blood Transfusion Reaction / Comment(s): no hx blood transfusion Date of Last Stent Placement:: 05/19/18 Past Psychological History: Anxiety, Bipolar, Depression Smoking Status: Former smoker Past Alcohol Use History: None Reported Past Drug Use History: None Reported - Past Family History Father Family Medical History: Cancer Additional Family Medical History / Comment(s): lung Mother Family Medical History: Cancer Additional Family Medical History / Comment(s): colon General Exam - General Exam Comments Initial Comments: PHYSICAL EXAM: General Impression: Alert and oriented x3, not in acute distress HEENT: Normocephalic atraumatic, extra-ocular movements intact, pupils equal and reactive to light bilaterally, mucous membranes moist. Cardiovascular: Heart regular rate and rhythm Chest: Able to complete full sentences, no retractions, no tachypnea Abdomen: abdomen soft, non-tender, non-distended, no organomegaly Musculoskeletal: Pulses present and equal in all extremities, no peripheral edema Motor: no focal deficits noted Neurological: CN II-XII grossly intact, no focal motor or sensory deficits noted Skin: Intact with no visualized rashes Psych: Normal affect and mood Rectal exam: Refused Limitations: no limitations Course Vital Signs 01/09/24 01/09/24 01/09/24 10:23 13:29 13:32 Temperature 98.1 F Pulse Rate 82 73 85 Respiratory 16 20 Rate Blood Pressure 159/61 122/71 O2 Sat by Pulse 96 99 Oximetry 01/09/24 13:40 Temperature Pulse Rate 80 Respiratory Rate Blood Pressure O2 Sat by Pulse Oximetry EKG Findings - EKG Comments: EKG Findings:: My EKG interpretation: Ventricular rate 81, sinus rhythm,. 113, cures 70, QTc 377. No NC prolongation, no QTC prolongation, no ST or T-wave changes noted. Overall, this EKG is unremarkable Medical Decision Making - Medical Decision Making Was pt. sent in by a medical professional or institution (, PA, DENTAL LABORATORY SUPERVISOR, urgent care, hospital, or senior care...) When possible be specific @ -No Did you speak to anyone other than the patient for history (EMS, parent, family, police, friend...)? What history was obtained from this source @ -No Did you review nursing and triage notes (agree or disagree)? Why? @ -I reviewed and agree with nursing and triage notes Were old charts reviewed (outside hosp., previous admission, EMS record, old EKG, old radiological studies, urgent care reports/EKG's, senior care records)? Report findings @ -No old charts were reviewed Differential Diagnosis (chest pain, altered mental status, abdominal pain women, abdominal pain men, vaginal bleeding, musculoskeletal, weakness, fever, dyspnea, syncope, headache, dizziness, GI bleed, back pain, seizure, CVA, palpatations, mental health)? @ -Differential Dizziness: Benign paroxysmal positional Vertigo, Menieres disease, otitis media, acoustic neuroma, vertebrobasilar insufficiency, cerebellar stroke, encephalitis, hypovolemic, arrhythmia, coronary artery syndrome, anemia, this is not meant to be an all-inclusive list EKG interpreted by me (3pts min.). @ -See above X-rays interpreted by me (1pt min.). @ -None done CT interpreted by me (1pt min.). @ -None done U/S interpreted by me (1pt. min.). @ -None done What testing was considered but not performed or refused? (CT, X-rays, U/S, labs)? Why? @ -None What meds were considered but not given or refused? Why? @ -None Was smoking cessation discussed for >3mins.? @ -No Were there social determinants of health that impacted care today? How? (Homelessness, low income, unemployed, alcoholism, drug addiction, transportati on, low edu. Level, literacy, decrease access to med. care, [facility], rehab)? @ -No Was there de-escalation of care discussed even if they declined (Discuss DNR or withdrawal of care, Hospice)? DNR status @ -No What co-morbidities impacted this encounter? (DM, HTN, Smoking, COPD, CAD, Cancer, CVA, ARF, Chemo, Hep., AIDS, mental health diagnosis, sleep apnea, morbid obesity)? @ -None Was patient admitted / discharged? Hospital course, mention meds given and route, prescriptions, significant lab abnormalities, going to OR and other pertinent info. @ -53-year-old male presents to the emergency department for dizziness. He also has secondary complaints of bright red blood per rectum. Vital signs upon arrival are within acceptable limits. Patient's patient's third visit emergency department the last 7 days. Examination is benign. Laboratory evaluation is unremarkable. CBC, coag panel metabolic panel is within acceptable limits. Troponin is negative. Patient given Toradol and breathing treatment. Patient observed in the emergency department for 3 hours and 50 minutes. Reevaluated bedside at 2:02 PM found to be stable medical condition. Patient is well- appearing advised to follow-up closely with primary care doctor. States that he has an appointment on the . He is encouraged to call his PCPs office to move his appointment up. Did you discuss the management of the patient with other professionals (professionals i.e. , PA, DENTAL LABORATORY SUPERVISOR, lab, RT, psych nurse, social insurance adviser, railroad dining car stewardess, teacher, college service officer, pillowcase sewer)? Give summary @ -No Was critical care preformed (if so, how long)? @ -No Undiagnosed new problem with uncertain prognosis? @ -No Drug Therapy requiring intensive monitoring for toxicity (Heparin, Nitro, Insulin, Cardizem)? @ -No Were any procedures done? @ -No Diagnosis/symptom? Acute, or Chronic, or Acute on Chronic? Uncomplicated (without systemic symptoms) or Complicated (systemic symptoms)? @ -Dizziness Side effects of treatment? @ -No Exacerbation, Progression, or Severe Exacerbation? @ -No Poses a threat to life or bodily function? How? (Chest pain, [place], [place], pneumonia, PE, COPD, DKA, ARF, appy, cholecystitis, CVA, Diverticulitis, Homicidal, Suicidal, threat to staff... and all critical care pts) @ -No - Lab Data Result diagrams: 01/09/24 10:46 01/09/24 10:46 Lab Results 01/09/24 01/09/24 01/09/24 Range/Units 10:46 10:46 10:46 WBC 5.5 (3.8-10.6) k/uL RBC 4.31 (4.30-5.90) m/uL Hgb 13.0 (13.0-17.5) gm/dL Hct 40.2 (39.0-53.0) % MCV 93.2 (80.0-100.0) fL MCH 30.2 (25.0-35.0) pg MCHC 32.4 (31.0-37.0) g/dL RDW 14.9 (11.5-15.5) % Plt Count 116 L (150-450) k/uL MPV 7.7 Neutrophils % 80 % Lymphocytes % 9 % Monocytes % 9 % Eosinophils % 0 % Basophils % 0 % Neutrophils # 4.4 (1.3-7.7) k/uL Lymphocytes # 0.5 L (1.0-4.8) k/uL Monocytes # 0.5 (0-1.0) k/uL Eosinophils # 0.0 (0-0.7) k/uL Basophils # 0.0 (0-0.2) k/uL PT 10.4 (10.0-12.5) sec INR 0.9 (<1.2) APTT 20.5 L (22.0-30.0) sec Sodium 134 L (137-145) mmol/L Potassium 4.5 (3.5-5.1) mmol/L Chloride 105 (98-107) mmol/L Carbon Dioxide 24 (22-30) mmol/L Anion Gap 5 mmol/L BUN 24 H (9-20) mg/dL Creatinine 0.89 (0.66-1.25) mg/dL Est GFR (CKD-EPI)AfAm >90 (>60 ml/min/1.73 sqM) Est GFR (CKD-EPI)NonAf >90 (>60 ml/min/1.73 sqM) Glucose 165 H (74-99) mg/dL Calcium 8.9 (8.4-10.2) mg/dL Magnesium 1.9 (1.6-2.3) mg/dL Total Bilirubin 0.5 (0.2-1.3) mg/dL AST 20 (17-59) U/L ALT 31 (4-49) U/L Alkaline Phosphatase 54 (38-126) U/L Troponin I (0.000-0.034) ng/mL Total Protein 6.4 (6.3-8.2) g/dL Albumin 3.9 (3.5-5.0) g/dL 01/09/24 Range/Units 10:46 WBC (3.8-10.6) k/uL RBC (4.30-5.90) m/uL Hgb (13.0-17.5) gm/dL Hct (39.0-53.0) % MCV (80.0-100.0) fL MCH (25.0-35.0) pg MCHC (31.0-37.0) g/dL RDW (11.5-15.5) % Plt Count (150-450) k/uL MPV Neutrophils % % Lymphocytes % % Monocytes % % Eosinophils % % Basophils % % Neutrophils # (1.3-7.7) k/uL Lymphocytes # (1.0-4.8) k/uL Monocytes # (0-1.0) k/uL Eosinophils # (0-0.7) k/uL Basophils # (0-0.2) k/uL PT (10.0-12.5) sec INR (<1.2) APTT (22.0-30.0) sec Sodium (137-145) mmol/L Potassium (3.5-5.1) mmol/L Chloride (98-107) mmol/L Carbon Dioxide (22-30) mmol/L Anion Gap mmol/L BUN (9-20) mg/dL Creatinine (0.66-1.25) mg/dL Est GFR (CKD-EPI)AfAm (>60 ml/min/1.73 sqM) Est GFR (CKD-EPI)NonAf (>60 ml/min/1.73 sqM) Glucose (74-99) mg/dL Calcium (8.4-10.2) mg/dL Magnesium (1.6-2.3) mg/dL Total Bilirubin (0.2-1.3) mg/dL AST (17-59) U/L ALT (4-49) U/L Alkaline Phosphatase (38-126) U/L Troponin I <0.012 (0.000-0.034) ng/mL Total Protein (6.3-8.2) g/dL Albumin (3.5-5.0) g/dL Disposition Clinical Impression: Dizziness Disposition: HOME SELF-CARE Condition: Good Instructions (If sedation given, give patient instructions): Dizziness (ED) Is patient prescribed a controlled substance at d/c from ED?: No Referrals: Isidra Vizcaino MD [Primary Care Provider] - 1-2 days Time of Disposition: 14:03
[2024-01-09 11:32] LABS: ALT 31 U/L (4-49); AST 20 U/L (17-59); African American GFR (CKD) >90 (>60 ml/min/1.73 sqM); Albumin 3.9 g/dL (3.5-5.0); Alkaline Phosphatase 54 U/L (38-126); Anion Gap 5 mmol/L; Blood Urea Nitrogen 24 mg/dL (9-20); Calcium 8.9 mg/dL (8.4-10.2); Carbon Dioxide 24 mmol/L (22-30); Chloride 105 mmol/L (98-107); Glucose 165 mg/dL (74-99); INR 0.9 (<1.2); Magnesium 1.9 mg/dL (1.6-2.3); Non-African American GFR(CKD) >90 (>60 ml/min/1.73 sqM); Potassium 4.5 mmol/L (3.5-5.1); Prothrombin Time 10.4 sec (10.0-12.5); Sodium 134 mmol/L (137-145); Total Bilirubin 0.5 mg/dL (0.2-1.3); Total Protein 6.4 g/dL (6.3-8.2)
[2024-01-09 12:05] LABS: Basophils % (A) 0 %; Eosinophils % (A) 0 %; HCT 40.2 % (39.0-53.0); Lymphocytes # (A) 0.5 k/uL (1.0-4.8); Lymphocytes % (A) 9 %; MCH 30.2 pg (25.0-35.0); MCHC 32.4 g/dL (31.0-37.0); MCV 93.2 fL (80.0-100.0); Mean Platelet Volume 7.7; Monocytes # (A) 0.5 k/uL (0-1.0); Monocytes % (A) 9 %; Neutrophils # (A) 4.4 k/uL (1.3-7.7); Neutrophils % (A) 80 %; Platelet Count 116 k/uL (150-450); RBC 4.31 m/uL (4.30-5.90); RDW 14.9 % (11.5-15.5); WBC 5.5 k/uL (3.8-10.6)
[2024-01-09 13:13] LABS: Partial Thromboplastin Time 20.5 sec (22.0-30.0)
[2024-01-09 13:29] VITALS: RESP 20
[2024-01-09] MEDS: ONDANSETRON 4 MG/2 ML VIAL IVP STA (13:29)
[2024-01-09] MEDS: IPRATROPIUM-ALBUTEROL 3 ML NEB INHALATION STA (13:31)
[2024-01-09] MEDS: KETOROLAC 15 MG/ML 1 ML VIAL IVP STA (14:16)
[2024-01-09 14:21] VITALS: BP 135/70; PULSE 87
== END 2024-01-09 14:22 | disposition home or self-care (01) ==
LOC: EC 10:12
DX: R42 Dizziness and giddiness (principal); Z87.891 Personal history of nicotine dependence
CPT/HCPCS: 36415; 94640; 93005; 80053; 83735; 84484; 85025; 85610; 85730; 99284; 96374; 96361 ×3; J1885

== ENCOUNTER → 2024-01-27 | Outpatient (CLI) | payer MEDICARE ==
--- NOTE | 2024-01-27 09:04 | CT ---
EXAMINATION TYPE: CT sinus wo con DATE OF EXAM: 01/27/2024 COMPARISON: 01/31/2015 HISTORY: Chronic sinusitis, unspecified CT DLP: 581.40 mGycm. Automated Exposure Control for Dose Reduction was Utilized. TECHNIQUE: CT scan of the sinuses is performed without contrast, axial images are obtained, coronal r eformatted images are also reviewed. FINDINGS: The paranasal sinuses including the frontal, ethmoid, sphenoid, and maxillary sinuses bila terally are well-aerated. There is a moderate-sized mucous retention cyst or polyp within the right m axillary sinus. Additional tiny retention cyst or polyp right maxillary sinus. Minimal posterior ethm oid mucosal thickening. There are no air-fluid levels.. The ostiomeatal complex is patent bilaterall y on the coronal images. Nasal septal deviation. Visualized portion of mastoid air cells show no abnormal opacification. The globes are intact bilaterally. IMPRESSION: 1. Mild changes of chronic sinusitis. No evidence of acute sinusitis.
== END | disposition home or self-care (01) ==
LOC: RADCTMAIN 08:08
PROVIDERS: ATTEND Otolaryngology
DX: J32.9 Chronic sinusitis, unspecified (principal)
CPT/HCPCS: 70486

== ENCOUNTER 2024-02-11 04:49 | Emergency (ER) | payer MEDICARE ==
[~2024-02-11 04:49] MED LIST changes: -LACTATED RINGERS 1,000 ML IV SCH; +SODIUM CHLORIDE 0.9% 1,000 ML BAG ONE
[2024-02-11] MEDS ORDERED: FUROSEMIDE 10 MG/ML 4 ML VIAL ONE (05:16)
[2024-02-11] MEDS ORDERED: ASPIRIN 81 MG ONE (05:16)
[2024-02-11] MEDS ORDERED: NITROGLYCERIN OINT 1 INCH/GM PACKET TOPICAL ONE (05:16)
--- NOTE | 2024-03-10 16:29 | XR ---
EXAMINATION TYPE: XR chest 2V DATE OF EXAM: 02/11/2024 COMPARISON: Chest radiographs from 01/07/2024 TECHNIQUE: XR chest 2V Frontal and lateral views of the chest. CLINICAL INDICATION:Male, 53 years old with history of WEAKNESS, SOB; FINDINGS: Lungs/Pleura: There is no evidence of pleural effusion, focal consolidation, or pneumothorax. Pulmonary vascularity: Unremarkable. Heart/mediastinum: Cardiomediastinal silhouette is unremarkable. Musculoskeletal: No acute osseous pathology. IMPRESSION: No acute cardiopulmonary disease/process.
== END 2024-02-11 06:00 | disposition home or self-care (01) ==
LOC: EC 04:49
DX: R42 Dizziness and giddiness (principal)
CPT/HCPCS: 71046; 93005; 96374; 99284

== ENCOUNTER → 2024-02-23 | Outpatient (CLI) | payer MEDICARE ==
--- NOTE | 2024-03-22 15:06 | US ---
Patient: Mansoor Reynoso Ordering Physician: Unknown, Unknown ID: [id number] Phone, Pager: Phone: N /A Pager: N/A : [phone] Age/Gender: 53Y, F Primary Location: N/A Procedure: US carotid duplex BI LAT Study Date: 02/23/2024 9:30:00 AM EXAMINATION TYPE: US carotid duplex BILAT DATE OF EXAM: 02/23/2024 COMPARISON: NONE CLINICAL INDICATION: Unknown, old with history of ; TECHNIQUE: Carotid duplex ultrasound examination. Indirect Doppler criteria was utilized. FINDINGS: Reason: Dizziness Tech Impression: Right: CCA - 108cm/s ECA - 90.7 cm/s ICA - 10.0 cm/s Left: CCA - 128.0 cm/s ECA - 106.0 cm/s ICA - 105.0 cm/s Right ICA/CCA: 0.93 Left ICA/CCA: 0.82 Minimal plaque noted IMPRESSION: No evidence for hemodynamically significant stenosis. Criteria for Assigning % of Stenosis / Diameter reduction (Estimation based on the indirect measurements of the internal carotid artery velocities (ICA PSV). 1. Normal (no stenosis)=ICA PSV < 125 cm/s: ratio < 2.0: ICA EDV<40 cm/s. 2. Less than 50% stenosis=ICA PSV < 125 cm/s: ratio < 2.0: ICA EDV<40 cm/s. 3. 50 to 69% stenosis=ICA PSV of 125 to 230 cm/s: ration 2.0 ? 4.0: ICA EDV 40-100 cm/s. 4. Greater than 70% stenosis to near occlusion= ICA PSV > 230 cm/s: ratio > 4.0: ICA EDV > 100 cm/s. 5. Near occlusion= ICA PSV velocities may be low or undetectable: variable ratio and ICA EDV. 6. Total occlusion=unable to detect flow.
== END | disposition home or self-care (01) ==
LOC: RADUSWWP 19:02
PROVIDERS: ATTEND Family Medicine
DX: R42 Dizziness and giddiness (principal)
CPT/HCPCS: 93880

== ENCOUNTER → 2024-03-21 | Outpatient (CLI) | payer MEDICARE | END | disposition home or self-care (01) | LOC: RADCTMAIN 12:35 | PROVIDERS: ATTEND Family Medicine | DX: Z53.9 Procedure and treatment not carried out, unspecified reason (principal) ==

== ENCOUNTER 2024-04-26 10:43 | Emergency (ER) | payer MEDICARE ==
--- NOTE | 2024-04-26 11:24 | ED ---
Chest Pain HPI - General Source: patient, RN notes reviewed Mode of arrival: ambulatory Limitations: no limitations - History of Present Illness MD Complaint: chest pain Onset/Timin -: minutes(s) Time: 10:00 Onset: other (After exercise) Pain Location: substernal Pain Radiation: none Quality: heaviness Consistency: now resolved Improves With: rest Worsens With: nothing Treatments Prior to Arrival: aspirin <Eliceo Florence - Last Filed: 04/26/24 18:46> <Irene Kaplan - Last Filed: 04/27/24 23:09> - General Chief Complaint: Chest Pain Stated Complaint: chest pain Time Seen by Provider: 04/26/24 10:53 - Related Data Home Medications Medication Instructions Recorded Confirmed Nitroglycerin Sl Tabs [Nitrostat] 0.4 mg SL Q5M PRN 05/11/22 04/26/24 oxyCODONE-APAP 10-325MG [Percocet 1 tab PO TID PRN 06/09/22 04/26/24 10-325 mg] Montelukast [Singulair] 10 mg PO HS 12/02/22 04/26/24 Sacubitril/Valsartan [Entresto 24 1 tab PO BID 12/02/22 04/26/24 mg-26 mg Tablet] Albuterol Nebulized [Ventolin 2.5 mg INHALATION RT-DAILY 03/30/23 04/26/24 Nebulized] Fluticasone/Umeclidin/Vilanter 1 puff INHALATION RT-DAILY 03/30/23 04/26/24 [Trelegy Ellipta 200-62.5-25] Ezetimibe [Zetia] 10 mg PO HS 01/04/24 04/26/24 Mepolizumab [Nucala] 100 mg SQ QMONTHLY 01/04/24 04/26/24 Pantoprazole [Protonix] 40 mg PO DAILY PRN 01/04/24 04/26/24 Rosuvastatin [Crestor] 20 mg PO DAILY 01/04/24 04/26/24 metFORMIN HCL ER [Glucophage XR] 500 mg PO W/SUPPER 04/26/24 04/26/24 Previous Rx's Medication Instructions Recorded Aspirin 325 mg PO DAILY 30 Days tab 05/19/22 Albuterol Inhaler [Ventolin Hfa 2 puff INHALATION RT-QID PRN #1 06/12/22 Inhaler] each Allergies Allergy/AdvReac Type Severity Reaction Status Date / Time No Known Allergies Allergy Verified 04/26/24 12:11 Review of Systems ROS Other: All systems not noted in ROS Statement are negative. <Eliceo Florence - Last Filed: 04/26/24 18:46> ROS Other: All systems not noted in ROS Statement are negative. <Mirjo-annIrene Ebony - Last Filed: 04/27/24 23:09> ROS Statement: Those systems with pertinent positive or pertinent negative responses have been documented in the HPI. Past Medical History Past Medical History: Asthma, Coronary Artery Disease (CAD), Chest Pain / Angina, COPD, Hyperlipidemia, Hypertension, Osteoarthritis (OA) Additional Past Medical History / Comment(s): freq rt ear infections,steroids July 2022,Low testosterone. c/o shortness of breath, improving. Last Myocardial Infarction Date:: 2017 History of Any Multi-Drug Resistant Organisms: None Reported Past Surgical History: Back Surgery, Ear Surgery, Heart Catheterization, Heart Catheterization With Stent Additional Past Surgical History / Comment(s): back surgeries x2, Colonoscopy. EGD 03/2020. Heart cath 05/17/20, RIGHT EAR SURG 07/2022 Past Anesthesia/Blood Transfusion Reactions: No Reported Reaction Additional Past Anesthesia/Blood Transfusion Reaction / Comment(s): no hx blood transfusion Date of Last Stent Placement:: 05/19/18 Past Psychological History: Anxiety, Bipolar, Depression Smoking Status: Former smoker Past Alcohol Use History: None Reported Past Drug Use History: None Reported - Past Family History Father Family Medical History: Cancer Additional Family Medical History / Comment(s): lung Mother Family Medical History: Cancer Additional Family Medical History / Comment(s): colon <Eliceo Florence - Last Filed: 04/26/24 18:46> General Exam Limitations: no limitations General appearance: alert, in no apparent distress Head exam: Present: atraumatic, normocephalic, normal inspection Eye exam: Present: normal appearance, PERRL, EOMI. Absent: scleral icterus, conjunctival injection, periorbital swelling ENT exam: Present: normal exam, mucous membranes moist Neck exam: Present: normal inspection. Absent: tenderness, meningismus, lymphadenopathy Respiratory exam: Present: decreased breath sounds (Slightly diminished breath sounds in all acosta without wheezing). Absent: respiratory distress, wheezes, rales, rhonchi, stridor Cardiovascular Exam: Present: regular rate, normal rhythm, normal heart sounds. Absent: systolic murmur, diastolic murmur, rubs, gallop, clicks GI/Abdominal exam: Present: soft, normal bowel sounds. Absent: distended, tenderness, guarding, rebound, rigid Extremities exam: Present: normal inspection, full ROM, normal capillary refill. Absent: tenderness, pedal edema, joint swelling, calf tenderness Back exam: Present: normal inspection Neurological exam: Present: alert, oriented X3, CN II-XII intact Psychiatric exam: Present: normal affect, normal mood Skin exam: Present: warm, dry, intact, normal color. Absent: rash <Eliceo Florence - Last Filed: 04/26/24 18:46> Course Vital Signs 04/26/24 04/26/24 04/26/24 10:47 11:44 11:52 Temperature 98.3 F Pulse Rate 97 96 96 Respiratory 18 Rate Blood Pressure 127/67 O2 Sat by Pulse 99 Oximetry 04/26/24 04/26/24 14:07 14:29 Temperature 98.1 F Pulse Rate 87 97 Respiratory 16 18 Rate Blood Pressure 157/108 160/98 O2 Sat by Pulse 96 96 Oximetry Chest Pain MDM <Eliceo Florence - Last Filed: 04/26/24 18:46> <Irene Kaplan - Last Filed: 04/27/24 23:09> - MDM Was pt. sent in by a medical professional or institution (Dr. PA, BUSINESS DEVELOPMENT AGENT, urgent care, hospital, or custodial...) When possible be specific @ -No Did you speak to anyone other than the patient for history (EMS, parent, family, police, friend...)? What history was obtained from this source @ -No Did you review nursing and triage notes (agree or disagree)? Why? @ -I reviewed and agree with nursing and triage notes Were old charts reviewed (outside hosp., previous admission, EMS record, old EKG, old radiological studies, urgent care reports/EKG's, custodial records)? Report findings @ -Prior lab work reveals history of cocaine use which may or may not have played a factor in chest pain experience today. Differential Diagnosis (chest pain, altered mental status, abdominal pain women, abdominal pain men, vaginal bleeding, weakness, fever, dyspnea, syncope, headache, dizziness, GI bleed, back pain, seizure, CVA, palpatations, mental health, musculoskeletal)? @ -Differential Chest Pain: Stable Angina, Unstable Angina, STEMI, NSTEMI Aortic Dissection, Pneumothorax, Musculoskeletal, Esophageal Spasm GERD, Cholecystitis, Pancreatitis, Zoster, this is not meant to be an all-inclusive list. EKG interpreted by me (3pts min.). @ -Sinus rhythm without ST changes or T wave inversion. Ventricular rate 97 bpm, FL interval 130 ms, QRS duration 89 ms, QTc 371 ms. X-rays interpreted by me (1pt min.). @ -Chest x-ray reveals no focal infiltrates, pulmonary edema or blunting costophrenic angle CT interpreted by me (1pt min.). @ -None done U/S interpreted by me (1pt. min.). @ -None done What testing was considered but not performed or refused? (CT, X-rays, U/S, labs)? Why? @ -None What meds were considered but not given or refused? Why? @ -None Did you discuss the management of the patient with other professionals (professionals i.e. , PA, BUSINESS DEVELOPMENT AGENT, lab, RT, psych nurse, social media content manager, dancing instructor, teacher, information systems security officer, rehabilitation caseworker)? Give summary @ -No Was smoking cessation discussed for >3mins.? @ -No Was critical care preformed (if so, how long)? @ -No Were there social determinants of health that impacted care today? How? (Homelessness, low income, unemployed, alcoholism, drug addiction, transportation, low edu. Level, literacy, decrease access to med. care, senior care, rehab)? @ -No Was there de-escalation of care discussed even if they declined (Discuss DNR or withdrawal of care, Hospice)? DNR status @ -No What co-morbidities impacted this encounter? (DM, HTN, Smoking, COPD, CAD, Cancer, CVA, ARF, Chemo, Hep., AIDS, mental health diagnosis, sleep apnea, morbid obesity)? @ -CAD, COPD, hypertension Was patient admitted / discharged? Hospital course, mention meds given and route, prescriptions, significant lab abnormalities, going to OR and other pertinent info. @ -Discharge. Twelve-lead showed sinus rhythm without ectopy. Trending troponin was also within normal limits. Patient given single dose of Dilaudid for some residual chest tightness. Undiagnosed new problem with uncertain prognosis? @ -No Drug Therapy requiring intensive monitoring for toxicity (Heparin, Nitro, Insulin, Cardizem)? @ -No Were any procedures done? @ -No Diagnosis/symptom? @ -Unstable angina Acute, or Chronic, or Acute on Chronic? @ -Acute Uncomplicated (without systemic symptoms) or Complicated (systemic symptoms)? @ -Uncomplicated Side effects of treatment? @ -No Exacerbation, Progression, or Severe Exacerbation? @ -No Poses a threat to life or bodily function? How? (Chest pain, [place], [place], pneumonia, PE, COPD, DKA, ARF, appy, cholecystitis, CVA, Diverticulitis, Homicidal, Suicidal, threat to staff... and all critical care pts) @ -Transient chest pain (Eliceo Florence) Diagnosis/symptom? Diagnosis of unstable angina to be removed. Diagnosis is nonspecific chest pain (Irene Kaplan) Disposition Is patient prescribed a controlled substance at d/c from ED?: No Time of Disposition: 14:30 <Eliceo Florence - Last Filed: 04/26/24 18:46> <Irene Kaplan - Last Filed: 04/27/24 23:09> Clinical Impression: Chest pain Disposition: HOME SELF-CARE Condition: Good Instructions (If sedation given, give patient instructions): Chest Pain (ED) Referrals: Isidra Vizcaino MD [Primary Care Provider] - 1-2 days
--- NOTE | 2024-04-26 11:42 | XR ---
EXAMINATION TYPE: XR chest 2V DATE OF EXAM: 04/26/2024 11:35 AM COMPARISON: Chest radiographs from 03/10/2024 TECHNIQUE: XR chest 2V Frontal and lateral views of the chest. CLINICAL INDICATION:Male, 53 years old with history of Chest Pain; FINDINGS: Lungs/Pleura: There is no evidence of pleural effusion, focal consolidation, or pneumothorax. Pulmonary vascularity: Unremarkable. Heart/mediastinum: Cardiomediastinal silhouette is unremarkable. Musculoskeletal: No acute osseous pathology. IMPRESSION: No acute cardiopulmonary disease/process. No significant change from prior exam. [facility], , 04/26/2024 11:39 AM
[2024-04-26] MEDS: ALBUTEROL NEBULIZED 2.5 MG/3 ML INHALATION STA (11:44)
[2024-04-26 11:46] LABS: Basophils % (A) 0 %; Eosinophils % (A) 0 %; HCT 35.9 % (39.0-53.0); HGB 12.2 gm/dL (13.0-17.5); Lymphocytes # (A) 0.9 k/uL (1.0-4.8); Lymphocytes % (A) 27 %; MCH 30.2 pg (25.0-35.0); MCHC 34.1 g/dL (31.0-37.0); MCV 88.4 fL (80.0-100.0); Mean Platelet Volume 7.6; Monocytes # (A) 0.3 k/uL (0-1.0); Monocytes % (A) 8 %; Neutrophils # (A) 2.2 k/uL (1.3-7.7); Neutrophils % (A) 62 %; Platelet Count 123 k/uL (150-450); RBC 4.06 m/uL (4.30-5.90); RDW 14.9 % (11.5-15.5); WBC 3.5 k/uL (3.8-10.6)
[2024-04-26 12:01] LABS: ALT 30 U/L (4-49); AST 35 U/L (17-59); African American GFR (CKD) >90 (>60 ml/min/1.73 sqM); Albumin 3.9 g/dL (3.5-5.0); Alkaline Phosphatase 59 U/L (38-126); Anion Gap 8 mmol/L; Blood Urea Nitrogen 18 mg/dL (9-20); Calcium 8.5 mg/dL (8.4-10.2); Carbon Dioxide 21 mmol/L (22-30); Chloride 107 mmol/L (98-107); Glucose 97 mg/dL (74-99); Magnesium 1.8 mg/dL (1.6-2.3); Non-African American GFR(CKD) >90 (>60 ml/min/1.73 sqM); Sodium 136 mmol/L (137-145); Total Bilirubin 0.6 mg/dL (0.2-1.3); Total Protein 6.6 g/dL (6.3-8.2)
[2024-04-26 12:05] LABS: Prothrombin Time 10.7 sec (10.0-12.5)
[2024-04-26 12:06] LABS: NT-Pro-B-Type Natriuretic Pept <20 pg/mL; Partial Thromboplastin Time 22.7 sec (22.0-30.0)
[2024-04-26 14:07] VITALS: TEMP 98.1
[2024-04-26] MEDS: HYDROmorphone 0.5 MG/0.5 ML SYRINGE IVP STA (14:22)
[2024-04-26 14:33] VITALS: BP 160/98; PULSE 97; RESP 18
== END 2024-04-26 14:40 | disposition home or self-care (01) ==
LOC: EC 10:43
CPT/HCPCS: 36415; 71046; 80053; 83735; 83880; 84484; 85025; 85610; 85730; 93005; 94640; 96374; 99285

== ENCOUNTER 2025-01-29 11:07 | Observation (INO) | payer MEDICARE ==
--- NOTE | 2025-01-29 12:08 | ED ---
General Adult HPI - General Chief complaint: Chest Pain Stated complaint: Chest pain,Abn heart rate Time Seen by Provider: 01/29/25 11:18 Source: patient Mode of arrival: ambulatory Limitations: no limitations - History of Present Illness Initial comments: Dictation was produced using [employer] dictation software. please excuse any grammatical, word or spelling errors. Chief Complaint: 54-year-old male presents chest pain History of Present Illness: Patient is 54-year-old male with extensive coronary artery history presents to the ER for chest pain. Patient states chest pain or associated palpitations. Is currently wearing a Holter monitor prescribed by pet training instructor. States that his heart races on and off. Does complain of some mild left anterior chest pain. Not really not associate diaphoresis or nausea The ROS documented in this emergency department record has been reviewed and confirmed by me. Those systems with pertinent positive or negative responses have been documented in the HPI. All other systems are other negative and/or noncontributory. - Related Data Home Medications Medication Instructions Recorded Confirmed Nitroglycerin Sl Tabs [Nitrostat] 0.4 mg SL Q5M PRN 05/11/22 01/29/25 oxyCODONE-APAP 10-325MG [Percocet 1 tab PO TID 06/09/22 01/29/25 10-325 mg] Montelukast [Singulair] 10 mg PO HS 12/02/22 01/29/25 Sacubitril/Valsartan [Entresto 24 1 tab PO BID 12/02/22 01/29/25 mg-26 mg Tablet] Albuterol Nebulized [Ventolin 2.5 mg INHALATION RT-DAILY PRN 03/30/23 01/29/25 Nebulized] Fluticasone/Umeclidin/Vilanter 1 puff INHALATION RT-DAILY 03/30/23 01/29/25 [Trelegy Ellipta 200-62.5-25] Ezetimibe [Zetia] 10 mg PO HS 01/04/24 01/29/25 Mepolizumab [Nucala] 100 mg SQ Q28D 01/04/24 01/29/25 Rosuvastatin [Crestor] 20 mg PO DAILY 01/04/24 01/29/25 metFORMIN HCL ER [Glucophage XR] 500 mg PO DAILY 04/26/24 01/29/25 Albuterol Inhaler [Ventolin Hfa 2 puff INHALATION RT-Q4H PRN 01/29/25 01/29/25 Inhaler] Metoprolol Succinate (ER) [Toprol 25 mg PO BID 01/29/25 01/29/25 Xl] Previous Rx's Medication Instructions Recorded Aspirin 325 mg PO DAILY 30 Days tab 05/19/22 Allergies Allergy/AdvReac Type Severity Reaction Status Date / Time No Known Allergies Allergy Verified 01/29/25 12:55 Review of Systems ROS Statement: Those systems with pertinent positive or pertinent negative responses have been documented in the HPI. ROS Other: All systems not noted in ROS Statement are negative. Past Medical History Past Medical History: Asthma, Coronary Artery Disease (CAD), Chest Pain / Angina, COPD, Hyperlipidemia, Hypertension, Osteoarthritis (OA) Additional Past Medical History / Comment(s): freq rt ear infections,steroids July 2022,Low testosterone. c/o shortness of breath, improving. Last Myocardial Infarction Date:: 2017 History of Any Multi-Drug Resistant Organisms: None Reported Past Surgical History: Back Surgery, Ear Surgery, Heart Catheterization, Heart Catheterization With Stent Additional Past Surgical History / Comment(s): back surgeries x2, Colonoscopy. EGD 03/2020. Heart cath 05/17/20, RIGHT EAR SURG 07/2022 Past Anesthesia/Blood Transfusion Reactions: No Reported Reaction Additional Past Anesthesia/Blood Transfusion Reaction / Comment(s): no hx blood transfusion Date of Last Stent Placement:: 05/19/18 Past Psychological History: Anxiety, Bipolar, Depression Smoking Status: Former smoker Past Alcohol Use History: None Reported Past Drug Use History: None Reported - Past Family History Father Family Medical History: Cancer Additional Family Medical History / Comment(s): lung Mother Family Medical History: Cancer Additional Family Medical History / Comment(s): colon General Exam - General Exam Comments Initial Comments: PHYSICAL EXAM: General Impression: Alert and oriented x3, not in acute distress HEENT: Normocephalic atraumatic, extra-ocular movements intact, pupils equal and reactive to light bilaterally, mucous membranes moist. Cardiovascular: Heart regular rate and rhythm Chest: Able to complete full sentences, no retractions, no tachypnea Abdomen: abdomen soft, non-tender, non-distended, no organomegaly Musculoskeletal: Pulses present and equal in all extremities, no peripheral edema Motor: no focal deficits noted Neurological: CN II-XII grossly intact, no focal motor or sensory deficits noted Skin: Intact with no visualized rashes Psych: Normal affect and mood Limitations: no limitations Course Vital Signs 01/29/25 11:10 Temperature 98.1 F Pulse Rate 92 Respiratory 20 Rate Blood Pressure 141/66 O2 Sat by Pulse 96 Oximetry EKG Findings - EKG Comments: EKG Findings:: My EKG interpretation: Ventricular rate 97, sinus rhythm, CA 100, cures 82, QTc 377. No CA prolongation, no QTC prolongation, no ST or T-wave changes noted. Overall, this EKG is unremarkable Medical Decision Making - Medical Decision Making Was pt. sent in by a medical professional or institution (, PA, NURSE SITTER, urgent care, hospital, or senior care...) When possible be specific @ -No Did you speak to anyone other than the patient for history (EMS, parent, family, police, friend...)? What history was obtained from this source @ -No Did you review nursing and triage notes (agree or disagree)? Why? @ -I reviewed and agree with nursing and triage notes Were old charts reviewed (outside hosp., previous admission, EMS record, old EKG, old radiological studies, urgent care reports/EKG's, senior care records)? Report findings @ -No old charts were reviewed Differential Diagnosis (chest pain, altered mental status, abdominal pain women, abdominal pain men, vaginal bleeding, musculoskeletal, weakness, fever, dyspnea, syncope, headache, dizziness, GI bleed, back pain, seizure, CVA, palpatations, mental health)? @ -Differential Chest Pain: Stable Angina, Unstable Angina, STEMI, NSTEMI Aortic Dissection, Pneumothorax, Musculoskeletal, Esophageal Spasm GERD, Cholecystitis, Pancreatitis, Zoster, this is not meant to be an all-inclusive list. EKG interpreted by me (3pts min.). @ -See above X-rays interpreted by me (1pt min.). @ -Chest x-ray is nonacute CT interpreted by me (1pt min.). @ -None done U/S interpreted by me (1pt. min.). @ -None done What testing was considered but not performed or refused? (CT, X-rays, U/S, labs)? Why? @ -None What meds were considered but not given or refused? Why? @ -None Was smoking cessation discussed for >3mins.? @ -No Were there social determinants of health that impacted care today? How? (Homelessness, low income, unemployed, alcoholism, drug addiction, transportation, low edu. Level, literacy, decrease access to med. care, [facility], rehab)? @ -No Was there de-escalation of care discussed even if they declined (Discuss DNR or withdrawal of care, Hospice)? DNR status @ -No What co-morbidities impacted this encounter? (DM, HTN, Smoking, COPD, CAD, Cancer, CVA, ARF, Chemo, Hep., AIDS, mental health diagnosis, sleep apnea, morbid obesity)? @ -Coronary artery disease Was patient admitted / discharged? Hospital course, mention meds given and route, prescriptions, significant lab abnormalities, going to OR and other per tinent info. @ -54-year-old male with cardiac history presents to the ER for chest pain palpitations. Vital signs stable. Patient well-appearing laboratory evaluation is unremarkable. Troponins negative. Patient is high risk will be admitted observation cardiology consultation. Case discussed with hospitalist for admission Did you discuss the management of the patient with other professionals (professionals i.e. , PA, NURSE SITTER, lab, RT, psych nurse, social security benefits interviewer, eddy current inspector, teacher, staff air defense officer, caser in)? Give summary @ -See above Was critical care preformed (if so, how long)? @ -No Undiagnosed new problem with uncertain prognosis? @ -No Drug Therapy requiring intensive monitoring for toxicity (Heparin, Nitro, Insulin, Cardizem)? @ -No Were any procedures done? @ -No Diagnosis/symptom? Acute, or Chronic, or Acute on Chronic? Uncomplicated (without systemic symptoms) or Complicated (systemic symptoms)? @ -Chest pain Side effects of treatment? @ -No Exacerbation, Progression, or Severe Exacerbation? @ -No Poses a threat to life or bodily function? How? (Chest pain, [place], [place], pneumonia, PE, COPD, DKA, ARF, appy, cholecystitis, CVA, Diverticulitis, Homicidal, Suicidal, threat to staff... and all critical care pts) @ -yes - Lab Data Result diagrams: 01/29/25 12:24 01/29/25 12:24 Lab Results 07/28/25 07/28/25 07/28/25 Range/Units 12:24 12:24 12:24 WBC 3.56 L (4.50-10.00) 10*3/uL RBC 4.17 L (4.40-5.60) 10*6/uL Hgb 12.8 L (13.0-17.0) g/dL Hct 36.4 L (39.6-50.0) % MCV 87.3 (80.0-97.0) fL MCH 30.7 (27.0-32.0) pg MCHC 35.2 (32.0-37.0) g/dL Plt Count 87 L (140-440) 10*3/uL MPV 9.1 L (9.5-12.2) fL Immature Gran % (Auto) 0.6 % Neutrophils % 51.6 % Lymphocytes % 34.6 % Monocytes % 12.9 % Eosinophils % 0.0 % Basophils % 0.3 % Immature Gran # 0.02 (0.00-0.04) 10*3/uL Neutrophils # 1.84 (1.80-7.70) 10*3/uL Lymphocytes # 1.23 (0.90-5.00) 10*3/uL Monocytes # 0.46 (0.20-1.00) 10*3/uL Eosinophils # 0.00 L (0.04-0.35) 10*3/uL Basophils # 0.01 (0.00-0.10) 10*3/uL Manual Slide Review Performed PT 9.9 L (10.0-12.5) sec INR 0.9 (<1.2) APTT 21.2 L (22.0-30.0) sec Sodium 136 L (137-145) mmol/L Potassium 4.4 (3.5-5.1) mmol/L Chloride 102 (98-107) mmol/L Carbon Dioxide 24 (22-30) mmol/L Anion Gap 10 mmol/L BUN 23 H (9-20) mg/dL Creatinine 0.93 (0.66-1.25) mg/dL Est GFR (CKD-EPI)AfAm >90 (>60 ml/min/1.73 sqM) Est GFR (CKD-EPI)NonAf >90 (>60 ml/min/1.73 sqM) Glucose 125 H (74-99) mg/dL Calcium 8.8 (8.4-10.2) mg/dL Magnesium 1.9 (1.6-2.3) mg/dL Total Bilirubin 0.4 (0.2-1.3) mg/dL AST 32 (17-59) U/L ALT 32 (4-49) U/L Alkaline Phosphatase 65 (38-126) U/L Troponin I (0.000-0.034) ng/mL Total Protein 6.6 (6.3-8.2) g/dL Albumin 4.0 (3.5-5.0) g/dL 01/29/25 Range/Units 12:24 WBC (4.50-10.00) 10*3/uL RBC (4.40-5.60) 10*6/uL Hgb (13.0-17.0) g/dL Hct (39.6-50.0) % MCV (80.0-97.0) fL MCH (27.0-32.0) pg MCHC (32.0-37.0) g/dL Plt Count (140-440) 10*3/uL MPV (9.5-12.2) fL Immature Gran % (Auto) % Neutrophils % % Lymphocytes % % Monocytes % % Eosinophils % % Basophils % % Immature Gran # (0.00-0.04) 10*3/uL Neutrophils # (1.80-7.70) 10*3/uL Lymphocytes # (0.90-5.00) 10*3/uL Monocytes # (0.20-1.00) 10*3/uL Eosinophils # (0.04-0.35) 10*3/uL Basophils # (0.00-0.10) 10*3/uL Manual Slide Review PT (10.0-12.5) sec INR (<1.2) APTT (22.0-30.0) sec Sodium (137-145) mmol/L Potassium (3.5-5.1) mmol/L Chloride (98-107) mmol/L Carbon Dioxide (22-30) mmol/L Anion Gap mmol/L BUN (9-20) mg/dL Creatinine (0.66-1.25) mg/dL Est GFR (CKD-EPI)AfAm (>60 ml/min/1.73 sqM) Est GFR (CKD-EPI)NonAf (>60 ml/min/1.73 sqM) Glucose (74-99) mg/dL Calcium (8.4-10.2) mg/dL Magnesium (1.6-2.3) mg/dL Total Bilirubin (0.2-1.3) mg/dL AST (17-59) U/L ALT (4-49) U/L Alkaline Phosphatase (38-126) U/L Troponin I 0.016 (0.000-0.034) ng/mL Total Protein (6.3-8.2) g/dL Albumin (3.5-5.0) g/dL Disposition Clinical Impression: Chest pain Disposition: ADMITTED IP TO THIS HOSP Condition: Fair Referrals: Isidra Vizcaino MD [Primary Care Provider] - 1-2 days Decision Time: 13:15
[2025-01-29 12:35] LABS: Basophils # (A) 0.01 10*3/uL (0.00-0.10); Basophils % (A) 0.3 %; Eosinophils # (A) 0.00 10*3/uL (0.04-0.35); Eosinophils % (A) 0.0 %; HCT 36.4 % (39.6-50.0); HGB 12.8 g/dL (13.0-17.0); Lymphocytes # (A) 1.23 10*3/uL (0.90-5.00); Lymphocytes % (A) 34.6 %; MCH 30.7 pg (27.0-32.0); MCHC 35.2 g/dL (32.0-37.0); MCV 87.3 fL (80.0-97.0); Monocytes # (A) 0.46 10*3/uL (0.20-1.00); Monocytes % (A) 12.9 %; Neutrophils # (A) 1.84 10*3/uL (1.80-7.70); Neutrophils % (A) 51.6 %; RBC 4.17 10*6/uL (4.40-5.60); RDW 14.9 % (11.5-14.5); WBC 3.56 10*3/uL (4.50-10.00)
[2025-01-29 12:51] LABS: ALT 32 U/L (4-49); African American GFR (CKD) >90 (>60 ml/min/1.73 sqM); Albumin 4.0 g/dL (3.5-5.0); Anion Gap 10 mmol/L; Blood Urea Nitrogen 23 mg/dL (9-20); Calcium 8.8 mg/dL (8.4-10.2); Carbon Dioxide 24 mmol/L (22-30); Chloride 102 mmol/L (98-107); Glucose 125 mg/dL (74-99); Non-African American GFR(CKD) >90 (>60 ml/min/1.73 sqM); Sodium 136 mmol/L (137-145); Total Protein 6.6 g/dL (6.3-8.2)
[2025-01-29 12:56] LABS: AST 32 U/L (17-59); Alkaline Phosphatase 65 U/L (38-126); Magnesium 1.9 mg/dL (1.6-2.3); Potassium 4.4 mmol/L (3.5-5.1)
[2025-01-29 12:57] LABS: INR 0.9 (<1.2); Partial Thromboplastin Time 21.2 sec (22.0-30.0); Prothrombin Time 9.9 sec (10.0-12.5)
--- NOTE | 2025-01-29 13:00 | XR ---
EXAMINATION TYPE: XR chest 2V DATE OF EXAM: 01/29/2025 12:48 PM COMPARISON: Chest radiographs from 04/26/2024 TECHNIQUE: XR chest 2V Frontal and lateral views of the chest. CLINICAL INDICATION:Male, 54 years old with history of Chest Pain; FINDINGS: Lungs/Pleura: There is no evidence of pleural effusion, focal consolidation, or pneumothorax. Pulmonary vascularity: Unremarkable. Heart/mediastinum: Cardiomediastinal silhouette is unremarkable. Musculoskeletal: No acute osseous pathology. Other findings: Power pack device overlies the left upper lung. IMPRESSION: No acute cardiopulmonary disease/process. [facility], , 01/29/2025 12:58 PM
[2025-01-29 13:24] LABS: Platelet Count 87 10*3/uL (140-440)
[2025-01-29] MEDS ORDERED: ALBUTEROL NEBULIZED 2.5 MG/3 ML INHALATION PRN ×2 (13:51)
[2025-01-29] MEDS ORDERED: MEPOLIZUMAB 100 MG/ML SQ SCH (14:00)
[2025-01-29] MEDS ORDERED: AUTO INJCT SQ SCH (14:00)
[2025-01-29] MEDS ORDERED: NITROGLYCERIN SL TABS 0.4 MG TAB SUBLINGUAL PRN (14:32)
[2025-01-29] MEDS: ASPIRIN 325 MG TAB PO SCH (15:04)
[2025-01-29] MEDS: ASPIRIN 81 MG PO STA (15:11)
[2025-01-29] MEDS: METOPROLOL SUCCINATE (ER) 25 MG TAB.ER.24H PO SCH (15:12)
[2025-01-29] MEDS: metFORMIN 500 MG TAB PO SCH (15:12)
[2025-01-29] MEDS: oxyCODONE-APAP 10-325MG 1 EACH TAB PO SCH (15:12)
[2025-01-29 18:16] LABS: Bilirubin,Urine Negative (Negative); Blood,Urine Negative (Negative); Color,Urine Colorless; Glucose,Urine (UA) Negative (Negative); Ketones,Urine Negative (Negative); Leukocyte Esterase,Urine Negative (Negative); Nitrite,Urine Negative (Negative); PH, Urine 5.5 (5.0-8.0); Protein,Urine Negative (Negative); Specific Gravity,Urine 1.016 (1.001-1.035); Urobilinogen,Urine <2.0 mg/dL (<2.0)
[2025-01-29 18:32] LABS: Barbiturate Screen,Urine Not Detected (NotDetected); Benzodiazepines Screen,Urine Not Detected (NotDetected); Opiate Screen,Urine Not Detected (NotDetected); Oxycodone Screen, Urine Detected (NotDetected); Phencyclidine Screen,Urine Not Detected (NotDetected); Tricyclic Antidepressant,Urine Not Detected (NotDetected); Urn Cannabinoid Scrn Not Detected (NotDetected)
[2025-01-29] MEDS: SYMBICORT 160-4.5 MCG INHALER INHALATION SCH (20:20)
[2025-01-29] MEDS: MONTELUKAST 10 MG TAB PO SCH (21:35)
[2025-01-29] MEDS: SACUBITRIL/VALSARTAN 24 MG-26 MG TABLET PO SCH (21:35)
[2025-01-29] MEDS: EZETIMIBE 10 MG TAB PO SCH (21:36)
[2025-01-30] MEDS: ACETAMINOPHEN TAB 325 MG TAB PO PRN (01:14)
[2025-01-30] MEDS: ALPRAZolam 0.25 MG TAB PO PRN (01:14)
[2025-01-30 07:37] VITALS: BP 160/77; PULSE 72; RESP 16; TEMP 98.4
[2025-01-30] MEDS: TIOTROPIUM 2.5 MCG INHALER INHALATION SCH (08:09)
[2025-01-30 08:32] LABS: Anion Gap 10.30 mmol/L (4.00-12.00); BUN/Creat Ratio 15.70 Ratio (12.00-20.00); Blood Urea Nitrogen 15.7 mg/dL (9.0-27.0); Calcium 8.7 mg/dL (8.7-10.3); Carbon Dioxide 24.7 mmol/L (21.6-31.8); Chloride 104 mmol/L (96-109); Cholesterol 128.00 mg/dL (0.00-200.00); Glucose 116 mg/dL (70-110); HDL Cholesterol 51.40 mg/dL (40.00-60.00); LDL Cholesterol,Calculated 65.7 mg/dL (0.0-131.0); Potassium 4.3 mmol/L (3.5-5.5); Sodium 139 mmol/L (135-145); Triglycerides 54.70 mg/dL (0.00-149.00); VLDL Calculation 10.94 mg/dL (5.00-40.00)
[2025-01-30] MEDS: ATORVASTATIN 40 MG TAB PO SCH (08:59)
--- NOTE | 2025-01-30 10:55 | P.CRDCN ---
History of Present Illness History of present illness: HISTORY OF PRESENT ILLNESS: This is a 54-year-old male with a past medical history significant for coronary artery disease with previous stenting, hypertension, hyperlipidemia, and cardio myopathy with improved EF. Patient follows in the office with Dr. Gr. We have been asked to see the patient in consultation for palpitations. Patient examined at the bedside. Patient was recently hospitalized at [facility]. He underwent a dobutamine stress test on January 08, 2025 which was negative for ischemia. He followed up in the office with Dr. Gr on 01/25/2025. He complained of palpitations at that time and was ordered a 7-day DCG monitor. Patient states he continued to have palpitations that got worse yesterday along with some chest pressure so he came to the hospital for further evaluation. Telemetry reviewed revealing sinus mechanism with no arrhythmias noted. DIAGNOSTICS: - EKG reveals sinus mechanism with no signs of acute ischemia. - Chest xray negative for acute process. - Laboratory data: Troponin negative x 3 - Current home cardiac medications include aspirin 325 mg daily, Zetia 10 mg at night, metoprolol succinate 25 mg twice a day, rosuvastatin 20 mg daily, Entresto 24-26 mg twice a day. - Most recent echocardiogram obtained in December 2023 revealed ejection fraction 55 to 60% - Cardiac catheterization history: June 2022 revealing patent stent in the LAD and no other significant obstructive disease REVIEW OF SYSTEMS: At the time of my exam: CONSTITUTIONAL: Denies fever or chills. HEENT: Denies blurred vision, vision changes, or eye pain. Denies hemoptysis CARDIOVASCULAR: Denies chest pain. Denies orthopnea. Denies PND. Denies palpitations RESPIRATORY: Denies shortness of breath. GASTROINTESTINAL: Denies abdominal pain. Denies nausea or vomiting. HEMATOLOGIC: Denies bleeding disorders. GENITOURINARY: Denies any blood in urine. SKIN: Denies pruitis. Denies rash. PHYSICAL EXAM: VITAL SIGNS: Reviewed. GENERAL: Well-developed in no acute distress. HEENT: Head is normocephalic. Pupils are equal, round. Sclerae anicteric. Mucous membranes of the mouth are moist. Neck supple. No JVD or thyromegaly LUNGS: Respirations even and unlabored. Lungs essentially clear to auscultation bilaterally. HEART: Regular rate and rhythm. S1 and S2 heard. ABDOMEN: Soft. Nondistended. Nontender. EXTREMITIES: Normal range of motion. No clubbing or cyanosis. Peripheral pulses intact. No lower extremity edema NEUROLOGIC: Awake and alert. Oriented x 3. ASSESSMENT: Palpitations, currently wearing outpatient DCG monitor Chest pain, troponin negative x 3 with recent negative dobutamine stress test 01/08/2025 Coronary artery disease with previous stenting of the LAD and no other residual disease History of ischemic cardiomyopathy with recovered EF Hypertension Hyperlipidemia PLAN: An acute coronary event has been ruled out No need to repeat echocardiogram at this time It is noted patient underwent dobutamine stress test at [facility] on 01/08/2025 which was negative for ischemia Resume home cardiac medications Continue outpatient DCG monitor. Patient to follow-up in the office for results. Telemetry reviewed with no arrhythmias noted. Patient may be discharged home today and follow-up in the office with Dr. Gr Nurse practitioner note has been reviewed by physician. Signing provider agrees with the documented findings, assessment, and plan of care documented by DESIGN SUPERVISOR as a scribe. Past Medical History Past Medical History: Asthma, Coronary Artery Disease (CAD), Chest Pain / Angina, COPD, Hyperlipidemia, Hypertension, Osteoarthritis (OA) Additional Past Medical History / Comment(s): freq rt ear infections,steroids July 2022,Low testosterone. c/o shortness of breath, improving. Last Myocardial Infarction Date:: 2017 History of Any Multi-Drug Resistant Organisms: None Reported Past Surgical History: Back Surgery, Ear Surgery, Heart Catheterization, Heart Catheterization With Stent Additional Past Surgical History / Comment(s): back surgeries x2, Colonoscopy. EGD 03/2020. Heart cath 05/17/20, RIGHT EAR SURG 07/2022 Past Anesthesia/Blood Transfusion Reactions: No Reported Reaction Additional Past Anesthesia/Blood Transfusion Reaction / Comment(s): no hx blood transfusion Date of Last Stent Placement:: 05/19/18 Past Psychological History: Anxiety, Bipolar, Depression Additional Psychological History / Comment(s): claustrophobia Smoking Status: Former smoker Past Alcohol Use History: None Reported Additional Past Alcohol Use History / Comment(s): started smoking 1984, quit smoking 2015, 1 PPD. 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 - Past Family History Father Family Medical History: Cancer Additional Family Medical History / Comment(s): lung Mother Family Medical History: Cancer Additional Family Medical History / Comment(s): colon Medications and Allergies Home Medications Medication Instructions Recorded Confirmed Type Nitroglycerin Sl Tabs [Nitrostat] 0.4 mg SL Q5M PRN 05/11/22 01/29/25 History Aspirin 325 mg PO DAILY 30 Days tab 05/19/22 01/29/25 Rx oxyCODONE-APAP 10-325MG [Percocet 1 tab PO TID 06/09/22 01/29/25 History 10-325 mg] Montelukast [Singulair] 10 mg PO HS 12/02/22 01/29/25 History Sacubitril/Valsartan [Entresto 24 1 tab PO BID 12/02/22 01/29/25 History mg-26 mg Tablet] Albuterol Nebulized [Ventolin 2.5 mg INHALATION RT-DAILY PRN 03/30/23 01/29/25 History Nebulized] Fluticasone/Umeclidin/Vilanter 1 puff INHALATION RT-DAILY 03/30/23 01/29/25 History [Trelegy Ellipta 200-62.5-25] Ezetimibe [Zetia] 10 mg PO HS 01/04/24 01/29/25 History Mepolizumab [Nucala] 100 mg SQ Q28D 01/04/24 01/29/25 History Rosuvastatin [Crestor] 20 mg PO DAILY 01/04/24 01/29/25 History metFORMIN HCL ER [Glucophage XR] 500 mg PO DAILY 04/26/24 01/29/25 History Albuterol Inhaler [Ventolin Hfa 2 puff INHALATION RT-Q4H PRN 01/29/25 01/29/25 History Inhaler] Metoprolol Succinate (ER) [Toprol 25 mg PO BID 01/29/25 01/29/25 History Xl] Allergies Allergy/AdvReac Type Severity Reaction Status Date / Time No Known Allergies Allergy Verified 01/29/25 12:55 Physical Exam Vitals: Vital Signs Temp Pulse Pulse Pulse Resp BP BP 01/30/25 07:00 98.4 F 72 16 01/30/25 00:00 98.1 F 83 17 110/72 01/29/25 23:25 98.2 F 77 16 126/82 01/29/25 21:37 93 16 118/79 01/29/25 18:58 71 18 148/83 01/29/25 15:08 77 20 158/60 01/29/25 11:10 98.1 F 92 20 141/66 BP Pulse Ox 01/30/25 07:00 160/77 96 01/30/25 00:00 96 01/29/25 23:25 96 01/29/25 21:37 98 01/29/25 18:58 97 01/29/25 15:08 99 01/29/25 11:10 96 Intake and Output 01/29/25 01/30/25 01/30/25 22:59 06:59 14:59 Intake Total 118 Balance 118 Intake: Oral 118 Other: Voiding Method Toilet # Voids 2 Results 01/29/25 12:24 01/30/25 05:34 Cardiac Enzymes 01/29/25 01/29/25 01/29/25 Range/Units 12:24 12:24 15:24 AST 32 (17-59) U/L Troponin I 0.016 <0.012 (0.000-0.034) ng/mL 01/29/25 Range/Units 19:02 AST (17-59) U/L Troponin I <0.012 (0.000-0.034) ng/mL Coagulation 01/29/25 Range/Units 12:24 PT 9.9 L (10.0-12.5) sec APTT 21.2 L (22.0-30.0) sec Lipids 01/30/25 Range/Units 05:34 Triglycerides 54.70 (0.00-149.00) mg/dL Cholesterol 128.00 (0.00-200.00) mg/dL HDL Cholesterol 51.40 (40.00-60.00) mg/dL Cholesterol/HDL Ratio 2.49 Ratio CBC 01/29/25 Range/Units 12:24 WBC 3.56 L (4.50-10.00) 10*3/uL RBC 4.17 L (4.40-5.60) 10*6/uL Hgb 12.8 L (13.0-17.0) g/dL Hct 36.4 L (39.6-50.0) % Plt Count 87 L (140-440) 10*3/uL Comprehensive Metabolic Panel 01/29/25 01/30/25 Range/Units 12:24 05:34 Sodium 136 L 139 (137-145) mmol/L Potassium 4.4 4.3 (3.5-5.1) mmol/L Chloride 102 104 (98-107) mmol/L Carbon Dioxide 24 24.7 (22-30) mmol/L BUN 23 H 15.7 (9-20) mg/dL Creatinine 0.93 1.0 (0.66-1.25) mg/dL Glucose 125 H 116 H (74-99) mg/dL Calcium 8.8 8.7 (8.4-10.2) mg/dL AST 32 (17-59) U/L ALT 32 (4-49) U/L Alkaline Phosphatase 65 (38-126) U/L Total Protein 6.6 (6.3-8.2) g/dL Albumin 4.0 (3.5-5.0) g/dL Current Medications Generic Name Dose Route Start Last Admin Trade Name Freq PRN Reason Stop Dose Admin Acetaminophen 650 mg 01/29/25 16:38 01/30/25 01:14 Acetaminophen Tab 325 Mg Tab PO 650 mg Q6HR PRN Administration Mild Pain or Fever > 100.5 Albuterol Sulfate 2.5 mg 01/29/25 13:51 Albuterol Nebulized 2.5 Mg/3 Ml INHALATION RT-Q4H PRN Shortness Of Breath Or Wheezing Alprazolam 0.25 mg 01/29/25 13:52 01/30/25 01:14 Alprazolam 0.25 Mg Tab PO 0.25 mg TID PRN Administration Anxiety Aspirin 325 mg 01/29/25 14:00 01/30/25 08:59 Aspirin 325 Mg Tab PO 325 mg DAILY NOEMÍ Administration Atorvastatin Calcium 40 mg 01/30/25 09:00 01/30/25 08:59 Atorvastatin 40 Mg Tab PO 40 mg DAILY NOEMÍ Administration Budesonide/Formoterol Fumarate 2 puff 01/29/25 20:00 01/30/25 08:09 Symbicort 160-4.5 Mcg Inhaler INHALATION 2 puff RT-BID NOEMÍ Administration Ezetimibe 10 mg 01/29/25 21:00 01/29/25 21:36 Ezetimibe 10 Mg Tab PO 10 mg HS NOEMÍ Administration Metformin HCl 500 mg 01/29/25 14:00 01/30/25 08:59 Metformin 500 Mg Tab PO 500 mg DAILY NOEMÍ Administration Metoprolol Succinate 25 mg 01/29/25 14:00 01/30/25 08:59 Metoprolol Succinate (Er) 25 Mg Tab.Er.24h PO 25 mg BID NOEMÍ Administration Montelukast Sodium 10 mg 01/29/25 21:00 01/29/25 21:35 Montelukast 10 Mg Tab PO 10 mg HS NOEMÍ Administration Nitroglycerin 0.4 mg 01/29/25 14:32 Nitroglycerin Sl Tabs 0.4 Mg Tab SUBLINGUAL Q5M PRN Chest Pain Oxycodone/Acetaminophen 1 each 01/29/25 16:00 01/30/25 06:24 Oxycodone-Apap 10-325mg 1 Each Tab PO 1 each TID NOEMÍ Administration Sacubitril/Valsartan 1 each 01/29/25 21:00 01/30/25 08:59 Sacubitril/Valsartan 24 Mg-26 Mg Tablet PO 1 each BID NOEMÍ Administration Tiotropium Wheelwright 2 puff 01/30/25 08:00 01/30/25 08:09 Tiotropium 2.5 Mcg Inhaler INHALATION 2 puff RT-DAILY NOEMÍ Administration Intake and Output 01/29/25 01/30/25 01/30/25 22:59 06:59 14:59 Intake Total 118 Balance 118 Intake: Oral 118 Other: Voiding Method Toilet # Voids 2 01/29/25 12:24 01/30/25 05:34
[2025-01-30 11:22] LABS: Basophils # (A) 0.01 X 10*3/uL (0.00-0.10); Basophils % (A) 0.3 %; Eosinophils # (A) 0.01 X 10*3/uL (0.04-0.35); Eosinophils % (A) 0.3 %; HCT 36.9 % (39.6-50.0); HGB 12.4 g/dL (13.0-17.0); Immature Grans, Automated 1.00 %; Lymphocytes # (A) 1.14 X 10*3/uL (0.90-5.00); Lymphocytes % (A) 39.9 %; MCH 30.2 pg (27.0-32.0); MCHC 33.6 g/dL (32.0-37.0); MCV 90.0 FL (80.0-97.0); Monocytes # (A) 0.40 X 10*3/uL (0.20-1.00); Monocytes % (A) 14.0 %; NRBC Per 100 WBC 0 X 10*3/uL (0.00-0.01); Neutrophils # (A) 1.27 X 10*3/uL (1.80-7.70); Neutrophils % (A) 44.5 %; Platelet Count 91 X 10*3/uL (140-440); RBC 4.10 X 10*6/uL (4.40-5.60); RBC Morphology Normal (Normal); RDW 15.2 % (11.5-14.5); WBC 2.86 X 10*3/uL (4.50-10.00)
[2025-01-30 12:11] LABS: Glucose,Whole Blood 139 mg/dL (70-110)
--- NOTE | 2025-01-30 12:49 | HP ---
HISTORY AND PHYSICAL chest pain CHIEF COMPLAINT: Chest pain and palpitation. HISTORY OF PRESENT ILLNESS: This is a 54-year-old gentleman with a past medical history of multiple medical problems including CAD, COPD, was recently admitted to [facility] with chest pain. The patient underwent a stress test, apparently was negative. Patient had palpitations, event monitor was supplied by Cardiology. Currently, the patient is complaining of palpitations and elevated heart rate and also some off and on chest pain. Also, the patient had reported history of fever, rigors, chills at this time. Initial troponin 0.016. Otherwise, the EKG showed no acute changes except an R axis of -25. There is no history of fever, rigors, chills. PAST MEDICAL HISTORY: Asthma, CAD stent, COPD, rest of the chart is also reviewed. HOME MEDICATIONS: Reviewed include oxycodone. Dose and rest of medications reviewed. ALLERGIES: None. FAMILY HISTORY: History of lung cancer. SOCIAL HISTORY: Remote history of smoking. REVIEW OF SYSTEMS: Fourteen-point review is negative except as mentioned earlier. PHYSICAL EXAMINATION: VITAL SIGNS: Pulse is 92, blood pressure 140/64, and respirations 20. HEENT: Conjunctivae normal. NECK: No jugular venous distention. CARDIOVASCULAR: S1, S2. RESPIRATION: Breath sounds diminished at the bases. ABDOMEN: Soft. LEGS: No edema. No swelling. NERVOUS SYSTEM: No focal deficit. LABORATORY DATA: Reviewed. ASSESSMENT: 1. Recurrent palpitations for evaluation, rule out cardiac arrhythmia, atrial fibrillation, or PVCs. 2. Chest pain, rule out coronary artery disease. 3. History of recent negative stress test. 4. History of coronary artery disease, stent. 5. Asthma. 6. Chronic obstructive pulmonary disease. 7. Hypertension. 8. Hyperlipidemia. 9. Multiple complex medical issues. RECOMMENDATIONS: This 54-year-old gentleman presented with multiple complex medical issues. We will monitor the patient closely. Telemetry, cardiology consultation. Resume the home medications, symptomatic treatment. Event monitoring evaluation by Cardiology. Prognosis guarded because of multiple complex medical conditions. The QTc is only 377 milliseconds. MMODL / IJN: [id number] / MTDD
== END 2025-01-30 14:03 | disposition home or self-care (01) ==
LOC: EC 11:07 → 6NMEDSUR 14:32
PROVIDERS: ADMIT Hospitalist; ATTEND Hospitalist
DX: R07.89 Other chest pain (principal); R00.2 Palpitations; I25.10 Atherosclerotic heart disease of native coronary artery without angina pectoris; J44.89 Other specified chronic obstructive pulmonary disease; I10 Essential (primary) hypertension; E78.5 Hyperlipidemia, unspecified; I25.5 Ischemic cardiomyopathy; R00.0 Tachycardia, unspecified; Z79.891 Long term (current) use of opiate analgesic; Z79.51 Long term (current) use of inhaled steroids; Z79.84 Long term (current) use of oral hypoglycemic drugs; Z79.82 Long term (current) use of aspirin; Z79.899 Other long term (current) drug therapy; Z87.891 Personal history of nicotine dependence; Z95.5 Presence of coronary angioplasty implant and graft
CPT/HCPCS: 99285; 36415; 94660; 94640 ×3; 93005 ×2; 80061; 80053; 80048; 83735; 84484; 85025 ×2; 85610; 85730; 81003; 80306; 71046; G0378 ×2